=== PATIENT | female | born 1935 | race Caucasian/White ===

== ENCOUNTER → 2018-03-11 08:47 | Outpatient (CLI) | payer MEDICARE, SELFPAY ==
--- NOTE | 2018-03-12 08:28 | LEAS ---
Arterial Study - Arterial Study Arterial Study: Date of scan 03/11/[address] Tom History: Patient with iliac stenosis Interpretation: Right lower extremity with biphasic flow of the PT with an ASHOK 0.96 and more of a triphasic waveform of the DP with an ASHOK 0.98. Left lower extremity with triphasic flow the PT with an ASHOK 0.94 and clustered a biphasic waveform in the DP with an ASHOK 0.98. Impression: 1. Bilateral lower extremities with no evidence of significant arterial occlusive disease at rest with an ASHOK 0.98 bilaterally and triphasic waveform noted
== END ==
PROVIDERS: Family Provider Family Medicine; PCP Family Medicine; Visit Provider Surgery Vascular Surgery
DX: I77.1 Stricture of artery (principal); I70.213 Atherosclerosis of native arteries of extremities with intermittent claudication, bilateral legs; F41.9 Anxiety disorder, unspecified; E78.00 Pure hypercholesterolemia, unspecified; I51.9 Heart disease, unspecified; I10 Essential (primary) hypertension; Z87.19 Personal history of other diseases of the digestive system; Z87.891 Personal history of nicotine dependence
CPT/HCPCS: 93922; 93978

== ENCOUNTER → 2018-09-22 09:20 | Outpatient (CLI) | payer MEDICARE, SELFPAY ==
[2018-09-22 10:27] LABS: EXAGEN MAILED SPECIMEN
[2018-09-22 10:43] LABS: Color, Urine Yellow (Yellow); Glucose, Dipstick Normal (Normal); Ketone-Dipstick 5 mg/dl (Negative); Leukocyte Esterase-Dipstick 500 /ul (Negative); Nitrite-Dipstick Negative (Negative); Occult Blood-Urine 25 /ul (Negative); Protein-Dipstick 100 mg/dl (Negative); Urine Bilirubin Dipstick Negative (Negative); Urine Clarity Sl. Cloudy (Clear); Urine Urobilinogen 1 mg/dl (Normal)
[2018-09-22 11:14] LABS: Protein, Urine (Random) 80.1 mg/dL (<11.9); Protein:Creat Ratio 358 mg/g CRE (0-200)
[2018-09-22 12:56] LABS: Erythrocyte Sedimentation Rate 5 mm/hr (0-30)
[2018-09-22 12:59] LABS: Absolute Lymphocyte Count 1.51 X10^3/ul (0.83-4.51); Absolute Neutrophil Count 3.3 X10^3/uL (2.0-7.7); Basophil# 0.02 X10^3/uL; Basophil% 0.4 % (0-1); Eosinophil# 0.19 X10^3/uL; Eosinophils% 3.4 % (0-5); Hematocrit 39.3 % (37-47); Hemoglobin 12.2 g/dl (12.0-15.0); Lymphocyte # 1.51 X10^3/ul (4.0); Lymphocyte % 27.2 % (19-41); Mean Corpuscular Hgb 29.5 pg (27.0-32.0); Mean Corpuscular Volume 94.9 fL (81-99); Mean Platelet Vol. 10.6 fl (6.2-12.0); Monocyte# 0.52 X10^3/uL; Monocyte% 9.4 % (0-10); Neutrophil # 3.31 X10^3/uL (2.7-7.7); Neutrophil % 59.4 % (47-70); POSITIVE COUNT NO; POSITIVE DIFFERENTIAL NO; POSITIVE MORPHOLOGY NO; Platelet Count 160 K/mm3 (150-450); RBC Distribution Width CV 13.4 % (11.6-14.6); RBC Distribution Width SD 44.7 fl (35.1-43.9); Red Blood Count 4.14 M/mm3 (4.2-5.4); White Blood Count 5.6 K/mm3 (4.4-11.0)
[2018-09-22 13:26] LABS: ALB/GLOB Ratio 1.1 RATIO (0.9-2.4); AST(SGOT) 16 U/L (15-37); Alanine Aminotransfer ALT/SGPT 16 U/L (13-56); Albumin, Serum 3.9 g/dL (3.2-5.0); Alkaline Phosphatase 74 U/L (45-117); Anion Gap 13 (5-15); BUN 16 mg/dL (7-18); BUN/Creat Ratio 15.2 RATIO (10-20); CRP < 2.90 mg/L (0.0-3.0); Calcium,Total 8.8 mg/dL (8.5-10.1); Chloride 109 mmol/L (98-107); Creatinine, Serum 1.05 mg/dL (0.55-1.02); EST Glomerular Filtration Rate 53 mL/min (>60); Est Glom Filt Rate - Afr Amer 65 mL/min (>60); Globulin 3.4 g/dL (2.2-4.2); Glucose 110 mg/dL (74-106); Protein, Total 7.3 g/dL (6.4-8.2); Sodium Level 142 mmol/L (136-145)
[2018-09-23 09:45] LABS: HEPATITIS B SURFACE AG Negative (Negative); Hep B Surface Antibodies Non Reactive (.); Hep C Antibodies <0.1 s/co ratio (0.0-0.9)
== END ==
PROVIDERS: Family Provider Family Medicine; PCP Family Medicine; Referring Provider Internal Medicine Rheumatology; Visit Provider Internal Medicine Rheumatology
DX: M06.4 Inflammatory polyarthropathy (principal); M32.9 Systemic lupus erythematosus, unspecified; M15.9 Polyosteoarthritis, unspecified; Z79.899 Other long term (current) drug therapy
CPT/HCPCS: 36415; 80053; 81002; 82570; 84156; 85025; 85652; 86140; 86706; 86803; 87340

== ENCOUNTER → 2018-11-18 10:19 | Outpatient (CLI) | payer MEDICARE, SELFPAY ==
[2016-08-28 11:06] VITALS: BMI 26.5
[2018-11-18 12:35] LABS: Absolute Lymphocyte Count 2.05 X10^3/ul (0.83-4.51); Absolute Neutrophil Count 4.8 X10^3/uL (2.0-7.7); Basophil# 0.01 X10^3/uL; Basophil% 0.1 % (0-1); Eosinophil# 0.18 X10^3/uL; Eosinophils% 2.3 % (0-5); Hemoglobin 12.4 g/dl (12.0-15.0); Lymphocyte # 2.05 X10^3/ul (4.0); Mean Corpuscular Hgb 28.9 pg (27.0-32.0); Mean Corpuscular Volume 93.2 fL (81-99); Monocyte% 10.2 % (0-10); Platelet Count 170 K/mm3 (150-450); RBC Distribution Width SD 47.2 fl (35.1-43.9); Red Blood Count 4.29 M/mm3 (4.2-5.4); White Blood Count 7.9 K/mm3 (4.4-11.0)
[2018-11-18 12:42] LABS: POSITIVE COUNT NO; POSITIVE DIFFERENTIAL NO; POSITIVE MORPHOLOGY NO
[2018-11-18 12:55] LABS: ALB/GLOB Ratio 1.2 RATIO (0.9-2.4); AST(SGOT) 16 U/L (15-37); Alanine Aminotransfer ALT/SGPT 20 U/L (13-56); Albumin, Serum 3.7 g/dL (3.2-5.0); Alkaline Phosphatase 69 U/L (45-117); Anion Gap 8 (5-15); BUN 28 mg/dL (7-18); BUN/Creat Ratio 23.5 RATIO (10-20); Calcium,Total 8.4 mg/dL (8.5-10.1); Chloride 104 mmol/L (98-107); Creatinine, Serum 1.19 mg/dL (0.55-1.02); EST Glomerular Filtration Rate 46 mL/min (>60); Est Glom Filt Rate - Afr Amer 56 mL/min (>60); Globulin 3.2 g/dL (2.2-4.2); Glucose 102 mg/dL (74-106); Potassium 4.1 mmol/L (3.5-5.1); Protein, Total 6.9 g/dL (6.4-8.2); Sodium Level 139 mmol/L (136-145)
== END ==
PROVIDERS: Family Provider Family Medicine; PCP Family Medicine; Referring Provider Internal Medicine Rheumatology; Visit Provider Internal Medicine Rheumatology
DX: M06.4 Inflammatory polyarthropathy (principal); M32.9 Systemic lupus erythematosus, unspecified; Z79.899 Other long term (current) drug therapy; K21.0 Gastro-esophageal reflux disease with esophagitis; I10 Essential (primary) hypertension; I25.10 Atherosclerotic heart disease of native coronary artery without angina pectoris; E78.5 Hyperlipidemia, unspecified
CPT/HCPCS: 36415; 80053; 85025

== ENCOUNTER → 2019-01-20 14:44 | Outpatient (CLI) | payer MEDICARE, SELFPAY ==
[2016-08-28 11:06] VITALS: BMI 26.5
[2019-01-20 17:42] LABS: Absolute Neutrophil Count 5.4 X10^3/uL (2.0-7.7); Basophil# 0.01 X10^3/uL; Basophil% 0.1 % (0-1); Eosinophil# 0.07 X10^3/uL; Hematocrit 39.7 % (37-47); Hemoglobin 12.7 g/dl (12.0-15.0); Lymphocyte % 18.2 % (19-41); Mean Corpuscular Hgb 29.3 pg (27.0-32.0); Mean Corpuscular Volume 91.7 fL (81-99); Monocyte# 0.34 X10^3/uL; Monocyte% 4.8 % (0-10); Neutrophil # 5.41 X10^3/uL (2.7-7.7); Neutrophil % 75.8 % (47-70); Platelet Count 170 K/mm3 (150-450); RBC Distribution Width CV 13.7 % (11.6-14.6); RBC Distribution Width SD 45.4 fl (35.1-43.9); Red Blood Count 4.33 M/mm3 (4.2-5.4); White Blood Count 7.1 K/mm3 (4.4-11.0)
[2019-01-20 17:43] LABS: POSITIVE COUNT NO; POSITIVE DIFFERENTIAL NO; POSITIVE MORPHOLOGY NO
[2019-01-20 18:00] LABS: ALB/GLOB Ratio 1.2 RATIO (0.9-2.4); AST(SGOT) 13 U/L (15-37); Alanine Aminotransfer ALT/SGPT 17 U/L (13-56); Alkaline Phosphatase 59 U/L (45-117); Anion Gap 9 (5-15); BUN 28 mg/dL (7-18); BUN/Creat Ratio 23.9 RATIO (10-20); Calcium,Total 8.9 mg/dL (8.5-10.1); Chloride 107 mmol/L (98-107); Creatinine, Serum 1.17 mg/dL (0.55-1.02); EST Glomerular Filtration Rate 47 mL/min (>60); Est Glom Filt Rate - Afr Amer 57 mL/min (>60); Globulin 3.3 g/dL (2.2-4.2); Glucose 134 mg/dL (74-106); Potassium 4.5 mmol/L (3.5-5.1); Protein, Total 7.3 g/dL (6.4-8.2); Sodium Level 140 mmol/L (136-145)
== END ==
PROVIDERS: Family Provider Family Medicine; PCP Family Medicine; Referring Provider Internal Medicine Rheumatology; Visit Provider Internal Medicine Rheumatology
DX: M06.4 Inflammatory polyarthropathy (principal); Z79.899 Other long term (current) drug therapy; M32.9 Systemic lupus erythematosus, unspecified; M15.9 Polyosteoarthritis, unspecified; K21.0 Gastro-esophageal reflux disease with esophagitis; I10 Essential (primary) hypertension; I25.10 Atherosclerotic heart disease of native coronary artery without angina pectoris; E78.5 Hyperlipidemia, unspecified; R80.9 Proteinuria, unspecified
CPT/HCPCS: 36415; 80053; 85025

== ENCOUNTER → 2019-03-18 13:35 | Outpatient (CLI) | payer MEDICARE, SELFPAY ==
[2016-08-28 11:06] VITALS: BMI 26.5
[2019-03-18 15:31] LABS: Absolute Lymphocyte Count 1.27 X10^3/uL (0.83-4.51); Absolute Neutrophil Count 8.9 X10^3/uL (2.0-7.7); Basophil# 0.03 X10^3/uL; Basophil% 0.3 % (0-1); Eosinophil# 0.04 X10^3/uL; Eosinophils% 0.4 % (0-5); Hematocrit 37.8 % (37-47); Hemoglobin 11.6 g/dL (12.0-15.0); Lymphocyte # 1.27 X10^3/ul (4.0); Lymphocyte % 11.9 % (19-41); Mean Corp Hgb Conc 30.7 g/dL (32-36); Mean Corpuscular Hgb 29.1 pg (27.0-32.0); Mean Corpuscular Volume 94.7 fL (81-99); Mean Platelet Vol. 10.9 fl (6.2-12.0); Monocyte# 0.31 X10^3/uL; Monocyte% 2.9 % (0-10); NRBC Flagged by Analyzer 0 % (0-5); Neutrophil # 8.94 X10^3/uL (2.7-7.7); Neutrophil % 84.1 % (47-70); Platelet Count 201 K/mm3 (150-450); RBC Distribution Width CV 13.4 % (11.6-14.6); RBC Distribution Width SD 46.9 fl (35.1-43.9); Red Blood Count 3.99 M/mm3 (4.2-5.4); White Blood Count 10.6 K/mm3 (4.4-11.0)
[2019-03-18 16:00] LABS: ALB/GLOB Ratio 1.1 RATIO (0.9-2.4); AST(SGOT) 19 U/L (15-37); Alanine Aminotransfer ALT/SGPT 20 U/L (13-56); Albumin, Serum 3.9 g/dL (3.2-5.0); Alkaline Phosphatase 55 U/L (45-117); Anion Gap 10 (5-15); BUN 24 mg/dL (7-18); Calcium,Total 8.8 mg/dL (8.5-10.1); Chloride 109 mmol/L (98-107); EST Glomerular Filtration Rate 46 mL/min (>60); Est Glom Filt Rate - Afr Amer 55 mL/min (>60); Globulin 3.4 g/dL (2.2-4.2); Glucose 206 mg/dL (74-106); Potassium 4.6 mmol/L (3.5-5.1); Protein, Total 7.3 g/dL (6.4-8.2); Sodium Level 142 mmol/L (136-145)
== END ==
PROVIDERS: Family Provider Family Medicine; PCP Family Medicine; Referring Provider Internal Medicine Rheumatology; Visit Provider Internal Medicine Rheumatology
DX: M06.4 Inflammatory polyarthropathy (principal); M32.9 Systemic lupus erythematosus, unspecified; Z79.899 Other long term (current) drug therapy; M15.9 Polyosteoarthritis, unspecified; K21.0 Gastro-esophageal reflux disease with esophagitis; I10 Essential (primary) hypertension; I25.10 Atherosclerotic heart disease of native coronary artery without angina pectoris; E78.5 Hyperlipidemia, unspecified; R80.9 Proteinuria, unspecified
CPT/HCPCS: 36415; 80053; 85025

== ENCOUNTER → 2019-04-17 08:38 | Outpatient (CLI) | payer MEDICARE, SELFPAY ==
--- NOTE | 2019-04-17 08:41 | ART_ITS ---
Reason For Study: Iliac Artery Stenosis Procedure A bilateral lower extremity continuous wave Doppler with analog waveform analysis and ankle brachial indexes. Left Segmental Pressures Left brachial= 172mmHg. Left posterior tibial artery = 154mmHg. Left dorsalis pedis artery = 148mmHg. Right Segmental Pressures Right brachial= 167mmHg. Right posterior tibial artery = 158mmHg. Right dorsalis pedis artery = 174mmHg. Indices The right ankle brachial index by the posterior tibial artery is 0.92. The right ankle brachial index by the dorsalis pedis is 1.01. The left ankle brachial index by the posterior tibial artery is 0.90. The left ankle brachial index by the dorsalis pedis is 0.86. Interpretation Summary 1. No evidence occlussive disease at rest with ASHOK 1.01/0.90. Ordering Physician: Will Tom Referring Physician: Will Tom Performed By: Mala Cuello RDCS/RVT
--- NOTE | 2019-04-17 08:41 | AAVD_ITS ---
Reason For Study: Iliac Artery Stenosis Aorta Measurements Aorta Doppler Measurements Proximal aorta measures1.64cm x 1.64cm. in cross- Peak systolic flow velocities within the proximal sectional axis. aorta measure 59 cm/sec. Proximal aorta measures1.78cm. in longitudinal Peak systolic flow velocities within the mid aorta axis. measure 56 cm/sec. Mid aorta measures1.94cm x 2.06cm. in cross- Peak systolic flow velocities within the distal sectional axis. aorta measure 63 cm/sec. Mid aorta measures1.99cm. in longitudinal axis. Distal aorta measures1.56cm x 1.48cm. in cross- sectional axis. Distal aorta measures1.54cm. in longitudinal axis. Left Iliac Artery Left iliac artery measures 0.74cm x 0.82 cm. in the cross-sectional axis. Left iliac artery measures 0.79 cm. in the longitudinal axis. Peak systolic velocity in the left iliac artery measures 89 cm/sec. Right Iliac Artery Right iliac artery measures 0.77cm x 0.79 cm. in the cross-sectional axis. Right iliac artery measures 0.69 cm. in the longitudinal axis. Peak systolic velocity in the right iliac artery measures 184 cm/sec. Procedure Aorta IVC Iliac vasculature or bypass grafts [id number]. Exam performed in department. Interpretation Summary 1. No aortoiliac aneurysm or stenosis. Ordering Physician: Will Tom Referring Physician: Sebastian Cleveland Performed By: Mala Cuello, DASIA, RVT
== END ==
PROVIDERS: Family Provider Family Medicine; PCP Family Medicine; Referring Provider Surgery Vascular Surgery; Visit Provider Surgery Vascular Surgery
DX: I70.213 Atherosclerosis of native arteries of extremities with intermittent claudication, bilateral legs (principal); I77.1 Stricture of artery; F41.9 Anxiety disorder, unspecified; Z87.891 Personal history of nicotine dependence; Z87.19 Personal history of other diseases of the digestive system; I51.9 Heart disease, unspecified; E78.70 Disorder of bile acid and cholesterol metabolism, unspecified; I10 Essential (primary) hypertension
CPT/HCPCS: 93922; 93978

== ENCOUNTER → 2019-04-21 13:07 | Outpatient (CLI) | payer MEDICARE, SELFPAY ==
[2016-08-28 11:06] VITALS: BMI 26.5
[2019-04-21 14:10] LABS: Absolute Lymphocyte Count 1.37 X10^3/uL (0.83-4.51); Absolute Neutrophil Count 5.6 X10^3/uL (2.0-7.7); Basophil# 0.05 X10^3/uL; Basophil% 0.6 % (0-1); Eosinophil# 0.14 X10^3/uL; Eosinophils% 1.8 % (0-5); Hematocrit 36.1 % (37-47); Hemoglobin 11.2 g/dL (12.0-15.0); Lymphocyte # 1.37 X10^3/ul (4.0); Lymphocyte % 17.6 % (19-41); Mean Corpuscular Hgb 29.6 pg (27.0-32.0); Mean Corpuscular Volume 95.5 fL (81-99); Mean Platelet Vol. 10.3 fl (6.2-12.0); Monocyte# 0.62 X10^3/uL; Monocyte% 7.9 % (0-10); NRBC Flagged by Analyzer 0 % (0-5); Neutrophil # 5.59 X10^3/uL (2.7-7.7); Neutrophil % 71.7 % (47-70); Platelet Count 195 K/mm3 (150-450); RBC Distribution Width CV 13.2 % (11.6-14.6); RBC Distribution Width SD 46.1 fl (35.1-43.9); Red Blood Count 3.78 M/mm3 (4.2-5.4); White Blood Count 7.8 K/mm3 (4.4-11.0)
[2019-04-21 14:32] LABS: ALB/GLOB Ratio 1.2 RATIO (0.9-2.4); AST(SGOT) 16 U/L (15-37); Alanine Aminotransfer ALT/SGPT 18 U/L (13-56); Albumin, Serum 3.8 g/dL (3.2-5.0); Alkaline Phosphatase 60 U/L (45-117); Anion Gap 10 (5-15); BUN 24 mg/dL (7-18); Calcium,Total 8.4 mg/dL (8.5-10.1); Chloride 108 mmol/L (98-107); EST Glomerular Filtration Rate 46 mL/min (>60); Est Glom Filt Rate - Afr Amer 55 mL/min (>60); Globulin 3.2 g/dL (2.2-4.2); Glucose 118 mg/dL (74-106); Potassium 4.2 mmol/L (3.5-5.1); Sodium Level 142 mmol/L (136-145)
== END ==
PROVIDERS: Family Provider Family Medicine; PCP Family Medicine; Referring Provider Internal Medicine Rheumatology; Visit Provider Internal Medicine Rheumatology
DX: M06.4 Inflammatory polyarthropathy (principal); M32.9 Systemic lupus erythematosus, unspecified; M15.9 Polyosteoarthritis, unspecified; K21.0 Gastro-esophageal reflux disease with esophagitis; I10 Essential (primary) hypertension; I25.10 Atherosclerotic heart disease of native coronary artery without angina pectoris; E78.5 Hyperlipidemia, unspecified; R80.9 Proteinuria, unspecified; Z79.899 Other long term (current) drug therapy
CPT/HCPCS: 36415; 80053; 85025

== ENCOUNTER → 2019-05-21 06:40 | Outpatient (CLI) | payer MEDICARE, SELFPAY ==
--- NOTE | 2019-05-21 06:43 | ECHOD_ITS ---
Reason For Study: SOB Procedure This was a 2D Doppler, Color Flow transthoracic echocardiogram. Exam performed in department. Left Ventricle Normal LV size. The estimated ejection fraction is 65 %. Stage 2 diastolic dysfunction. No regional wall motion abnormalities noted. Right Ventricle Normal RV size. Normal systolic function. Atria The left atrium is moderately enlarged. Normal right atrium. No doppler evidence for ASD. Mitral Valve There is moderate mitral annular calcification. There is no mitral valve stenosis. Trivial mitral valve insufficiency. Tricuspid Valve There is no tricuspid stenosis. Mild tricuspid valve insufficiency. Pulmonary artery systolic pressure is 45 mmHg. Aortic Valve Trisinus/trileaflet aortic valve. There is no aortic stenosis. Mild (1+) aortic valve insufficiency. Pulmonic Valve There is no pulmonic valvular stenosis. Trivial pulmonic valve insufficiency. MMode/2D Measurements & Calculations LVIDd: 4.6 cm IVSd: 0.97 cm LVOT diam: 2.0 cm LVIDs: 2.6 cm LVPWd: 1.0 cm LVOT area: 3.2 cm2 RVDd: 3.5 cm FS: 43.3 % Ao root diam: 3.4 cm LAV(MOD-bp): 75.6 ml LA A4 area: 26.4 cm2 LAV(MOD-bp) Indexed: 44.0 ml/m2 LAV(MOD-sp2): 55.6 ml LAV(MOD-sp4): 87.4 ml LA dimension(2D): 4.5 cm RA A4 area: 17.9 cm2 Doppler Measurements & Calculations MV V2 max: 128.6 cm/sec Ao V2 max: 167.1 cm/sec AI max siobhan: 396.7 cm/sec MV max P.6 mmHg Ao max P.2 mmHg AI max P.0 mmHg MV V2 mean: 60.8 cm/sec Ao V2 mean: 103.7 cm/sec MV mean P.9 mmHg Ao mean P.0 mmHg AI dec slope: 180.8 cm/sec2 MV V2 VTI: 42.3 cm Ao V2 VTI: 36.6 cm AI P1/2t: 642.7 msec MVA(VTI): 2.3 cm2 LAUREN(I,D): 2.7 cm2 LAUREN(V,D): 2.8 cm2 LV V1 max: 143.1 cm/sec SV(LVOT): 98.1 ml TR max siobhan: 301.4 cm/sec LV V1 max P.2 mmHg TR max P.4 mmHg LV V1 mean P.2 mmHg LV V1 mean: 81.5 cm/sec LV V1 VTI: 30.5 cm MV P1/2t-pr_phl: 128.6 msec Interpretation Summary The estimated ejection fraction is 65 %. Stage 2 diastolic dysfunction. The left atrium is moderately enlarged. Mild tricuspid valve insufficiency. Pulmonary artery systolic pressure is 45 mmHg. Mild (1+) aortic valve insufficiency. Ordering Physician: Irina Patel Referring Physician: IZABELA YAN Performed By: Trinity Estrada, DASIA, RVT
--- NOTE | 2019-05-26 17:23 | STRESSREP_ITS ---
Stress Test Report Date: 05/21/2019 Procedure: Pharmacologic stress nuclear imaging study Indications: Shortness of breath Consent: Per the patient Procedure: The patient underwent pharmacologic (Regadenoson) evaluation with a peak heart rate of 85 beats per minute (61 %predicted maximal heart rate) and a peak blood pressure of 152/62 mmHg. The baseline ECG demonstrated sinus rhythm, nonspecific ST-T changes. EKG during lexiscan infusion revealed significant ischemic changes. EKG post infusion revealed no significant ischemic changes [There were no cardiac dysrhythmias pretest, during pharmacologic infusion, or recovery]. [There was no complaint of chest discomfort during pharmacologic infusion or recovery]. The examination was discontinued secondary to completion of protocol. Impression: 1. Lexiscan stress test test is negative for Lexiscan infusion induced EKG changes of ischemia. 2. Lexiscan stress test test negative for Lexiscan infusion induced chest pain. 3. Results of the nuclear portion of the test is as below Myocardial perfusion imaging study: Technique: The patient was injected with 10.5 millicuries of technetium 99m Cardiolite and subsequently rest SPECT Cardiolite nuclear imaging was obtained in the horizontal long, vertical long, and short axis views. The patient underwent pharmacologic (Regadenoson) evaluation. Please see above for details. The patient was injected with 30.5 millicuries of technetium 99m Cardiolite and subsequently stress SPECT Cardiolite nuclear imaging was obtained in the horizontal long, vertical long, and short axis views. A gated Cardiolite study at peak stress was obtained. Interpretation: Rest and stress SPECT Cardiolite nuclear imaging status post realignment, normalization, and attenuation correction demonstrate no large fixed or reversible defects suggestive of significant ischemia or infarction. Gated images reveal no significant regional wall motion abnormalities. The reported LVEF is 70 %. Impression: 1. There is no evidence of significant ischemia or infarction. 2. Estimated ejection fraction is 70%. This note was generated with [employer] software. It may contain incorrect words, spelling, and punctuation that were not noted in checking the note before signing.
== END ==
PROVIDERS: Family Provider Family Medicine; PCP Family Medicine; Referring Provider Nurse Practitioner Family; Visit Provider Nurse Practitioner Family
DX: R06.02 Shortness of breath (principal)
CPT/HCPCS: 78452; 93017; 93306; A9500; A4216; J2785

== ENCOUNTER → 2019-07-31 10:13 | Outpatient (CLI) | payer MEDICARE, SELFPAY ==
[2019-06-10 08:08] VITALS: BMI 30.8
[2019-07-31 12:43] LABS: Absolute Neutrophil Count 6.8 X10^3/uL (2.0-7.7); Basophil# 0.03 X10^3/uL; Basophil% 0.3 % (0-1); Eosinophil# 0.08 X10^3/uL; Eosinophils% 0.7 % (0-5); Hematocrit 40.2 % (37-47); Hemoglobin 12.1 g/dL (12.0-15.0); Lymphocyte % 28.6 % (19-41); Mean Corp Hgb Conc 30.1 g/dL (32-36); Mean Corpuscular Hgb 26.8 pg (27.0-32.0); Mean Corpuscular Volume 89.1 fL (81-99); Mean Platelet Vol. 10.3 fl (6.2-12.0); Monocyte% 7.4 % (0-10); NRBC Flagged by Analyzer 0 % (0-5); Neutrophil # 6.75 X10^3/uL (2.7-7.7); Neutrophil % 62.3 % (47-70); Platelet Count 269 K/mm3 (150-450); RBC Distribution Width CV 14.1 % (11.6-14.6); RBC Distribution Width SD 45.2 fl (35.1-43.9); Red Blood Count 4.51 M/mm3 (4.2-5.4); White Blood Count 10.8 K/mm3 (4.4-11.0)
[2019-07-31 13:46] LABS: ALB/GLOB Ratio 1.2 RATIO (0.9-2.4); AST(SGOT) 11 U/L (15-37); Alanine Aminotransfer ALT/SGPT 24 U/L (13-56); Albumin, Serum 3.7 g/dL (3.2-5.0); Alkaline Phosphatase 56 U/L (45-117); Anion Gap 10 (5-15); BUN 33 mg/dL (7-18); BUN/Creat Ratio 28.9 RATIO (10-20); Calcium,Total 9.1 mg/dL (8.5-10.1); Chloride 107 mmol/L (98-107); Creatinine, Serum 1.14 mg/dL (0.55-1.02); EST Glomerular Filtration Rate 48 mL/min (>60); Est Glom Filt Rate - Afr Amer 59 mL/min (>60); Globulin 3.2 g/dL (2.2-4.2); Glucose 175 mg/dL (74-106); Potassium 3.6 mmol/L (3.5-5.1); Protein, Total 6.9 g/dL (6.4-8.2); Sodium Level 139 mmol/L (136-145)
== END ==
PROVIDERS: PCP Family Medicine; Referring Provider Internal Medicine Rheumatology; Visit Provider Internal Medicine Rheumatology
DX: I10 Essential (primary) hypertension (principal); I25.10 Atherosclerotic heart disease of native coronary artery without angina pectoris; K21.0 Gastro-esophageal reflux disease with esophagitis; M06.4 Inflammatory polyarthropathy; M32.9 Systemic lupus erythematosus, unspecified; M15.9 Polyosteoarthritis, unspecified; E78.5 Hyperlipidemia, unspecified; R80.9 Proteinuria, unspecified; Z79.899 Other long term (current) drug therapy
CPT/HCPCS: 36415; 80053; 85025

== ENCOUNTER → 2020-01-18 13:16 | Outpatient (CLI) | payer MEDICARE, SELFPAY ==
[2019-06-10 08:08] VITALS: BMI 30.8
[2020-01-18 16:04] LABS: Absolute Lymphocyte Count 1.16 X10^3/uL (0.83-4.51); Absolute Neutrophil Count 10.2 X10^3/uL (2.0-7.7); Basophil# 0.06 X10^3/uL; Basophil% 0.5 % (0-1); Eosinophil# 0.04 X10^3/uL; Eosinophils% 0.3 % (0-5); Hematocrit 34.2 % (37-47); Hemoglobin 9.8 g/dL (12.0-15.0); Lymphocyte # 1.16 X10^3/ul (4.0); Lymphocyte % 9.7 % (19-41); Mean Corp Hgb Conc 28.7 g/dL (32-36); Mean Corpuscular Hgb 26.5 pg (27.0-32.0); Mean Corpuscular Volume 92.4 fL (81-99); Mean Platelet Vol. 10.4 fl (6.2-12.0); Monocyte# 0.41 X10^3/uL; Monocyte% 3.4 % (0-10); NRBC Flagged by Analyzer 0 % (0-5); Neutrophil # 10.22 X10^3/uL (2.7-7.7); Neutrophil % 85.6 % (47-70); Platelet Count 269 K/mm3 (150-450); RBC Distribution Width CV 14.6 % (11.6-14.6); RBC Distribution Width SD 48.7 fl (35.1-43.9)
[2020-01-18 16:25] LABS: ALB/GLOB Ratio 1.1 RATIO (0.9-2.4); AST(SGOT) 11 U/L (15-37); Alanine Aminotransfer ALT/SGPT 17 U/L (13-56); Albumin, Serum 3.8 g/dL (3.2-5.0); Alkaline Phosphatase 51 U/L (45-117); Anion Gap 8 (5-15); BUN 30 mg/dL (7-18); BUN/Creat Ratio 23.1 RATIO (10-20); Calcium,Total 8.5 mg/dL (8.5-10.1); Chloride 108 mmol/L (98-107); EST Glomerular Filtration Rate 42 mL/min (>60); Est Glom Filt Rate - Afr Amer 50 mL/min (>60); Globulin 3.4 g/dL (2.2-4.2); Glucose 121 mg/dL (74-106); Potassium 4.5 mmol/L (3.5-5.1); Protein, Total 7.2 g/dL (6.4-8.2); Sodium Level 139 mmol/L (136-145)
== END ==
PROVIDERS: PCP Family Medicine; Referring Provider Internal Medicine Rheumatology; Visit Provider Internal Medicine Rheumatology
DX: M06.4 Inflammatory polyarthropathy (principal); M32.9 Systemic lupus erythematosus, unspecified; Z79.899 Other long term (current) drug therapy; M15.9 Polyosteoarthritis, unspecified; K21.0 Gastro-esophageal reflux disease with esophagitis; I10 Essential (primary) hypertension; I25.10 Atherosclerotic heart disease of native coronary artery without angina pectoris; E78.5 Hyperlipidemia, unspecified; R80.9 Proteinuria, unspecified
CPT/HCPCS: 36415; 80053; 85025

== ENCOUNTER → 2020-02-10 15:24 | Outpatient (CLI) | payer MEDICARE, SELFPAY ==
[2019-06-10 08:08] VITALS: BMI 30.8
--- NOTE | 2020-02-10 15:28 | RAD_ITS ---
STUDY: X-RAY - LUMBAR SPINE REASON FOR EXAM: Female, 84 years old. Lower back pain radiating into the left hip. TECHNIQUE: 6 view(s) of the lumbar spine were obtained. COMPARISON: None FINDINGS: Normal lumbar lordosis. There is a minimal levoscoliosis with convexity at L3. There is a normal alignment of the vertebrae. There is fusion of the L4-5 vertebral bodies. There is endplate spondylosis at multiple levels. There is multi-level degenerative disc disease with multi-level disc space narrowing. There is no evidence of acute fracture or loss of vertebral axial height. There is no demonstrated spondylolysis of the pars interarticulares. There is atherosclerotic calcification of the abdominal aorta without a demonstrated aneurysm. RAD/L/S Spine Min 4 Views IMPRESSION: Degenerative changes of the lumbar spine with L4-5 fusion. Electronically Signed: Mitul Vincent DO at 16:09 EDT Tel [phone], Service support ,
--- NOTE | 2020-02-10 15:28 | RAD_ITS ---
STUDY: X-RAY - PELVIS AND LEFT HIP REASON FOR EXAM: Female, 84 years old. Lower back pain radiating into the left hip. No recent injury. TECHNIQUE: 3 views of the pelvis and hip. COMPARISON: None. FINDINGS: There is a non-specific bowel gas pattern. Normal visualized soft tissue structures. There are atherosclerotic vascular calcifications. Normal bilateral iliac wings, sacroiliac joints and visualized sacrum. Normal bilateral superior and inferior pubic rami. There are degenerative changes of the pubic symphysis with articular narrowing and sclerosis. Normal bilateral ischial tuberosities. Normal visualized left femoral head. There is minimal osteoarthritic spur formation of the left acetabular rim. There is mild articular joint space narrowing of the left hip. RAD/HIP, UNI W/ Pelvis 2-3 Views IMPRESSION: Degenerative changes on the left hip. There is no acute fracture or dislocation. Electronically Signed: Mitul Vincent DO at 16:09 EDT Tel [phone], Service support ,
== END ==
PROVIDERS: PCP Family Medicine; Referring Provider Nurse Practitioner Family; Visit Provider Nurse Practitioner Family
DX: M54.9 Dorsalgia, unspecified (principal); M25.559 Pain in unspecified hip
CPT/HCPCS: 72110; 73502

== ENCOUNTER → 2020-03-18 10:51 | Outpatient (CLI) | payer MEDICARE, SELFPAY ==
[2020-02-19 09:54] VITALS: BMI 28.9
[2020-03-18 12:20] LABS: Absolute Lymphocyte Count 1.27 X10^3/uL (0.83-4.51); Absolute Neutrophil Count 9.1 X10^3/uL (2.0-7.7); Basophil# 0.04 X10^3/uL; Basophil% 0.3 % (0-1); Eosinophil# 0.27 X10^3/uL; Eosinophils% 2.3 % (0-5); Hematocrit 41.8 % (37-47); Lymphocyte # 1.27 X10^3/ul (4.0); Mean Corp Hgb Conc 31.1 g/dL (32-36); Mean Corpuscular Hgb 29.1 pg (27.0-32.0); Mean Corpuscular Volume 93.5 fL (81-99); Mean Platelet Vol. 10.7 fl (6.2-12.0); Monocyte# 0.83 X10^3/uL; Monocyte% 7.2 % (0-10); NRBC Flagged by Analyzer 0 % (0-5); Neutrophil # 9.11 X10^3/uL (2.7-7.7); Neutrophil % 78.7 % (47-70); Platelet Count 180 K/mm3 (150-450); RBC Distribution Width CV 15.4 % (11.6-14.6); Red Blood Count 4.47 M/mm3 (4.2-5.4); White Blood Count 11.6 K/mm3 (4.4-11.0)
[2020-03-18 13:08] LABS: ALB/GLOB Ratio 1.2 RATIO (0.9-2.4); AST(SGOT) 18 U/L (15-37); Alanine Aminotransfer ALT/SGPT 23 U/L (13-56); Albumin, Serum 3.7 g/dL (3.2-5.0); Alkaline Phosphatase 53 U/L (45-117); Anion Gap 7 (5-15); BUN 29 mg/dL (7-18); BUN/Creat Ratio 23.4 RATIO (10-20); Calcium,Total 8.6 mg/dL (8.5-10.1); Chloride 105 mmol/L (98-107); Creatinine, Serum 1.24 mg/dL (0.55-1.02); EST Glomerular Filtration Rate 44 mL/min (>60); Est Glom Filt Rate - Afr Amer 53 mL/min (>60); Globulin 3.1 g/dL (2.2-4.2); Glucose 205 mg/dL (74-106); Potassium 4.4 mmol/L (3.5-5.1); Protein, Total 6.8 g/dL (6.4-8.2); Sodium Level 139 mmol/L (136-145)
== END ==
PROVIDERS: PCP Family Medicine; Referring Provider Internal Medicine Rheumatology; Visit Provider Internal Medicine Rheumatology
DX: M06.4 Inflammatory polyarthropathy (principal); M32.9 Systemic lupus erythematosus, unspecified; Z79.899 Other long term (current) drug therapy; M15.9 Polyosteoarthritis, unspecified; K21.0 Gastro-esophageal reflux disease with esophagitis; I10 Essential (primary) hypertension; I25.10 Atherosclerotic heart disease of native coronary artery without angina pectoris; E78.5 Hyperlipidemia, unspecified; R80.9 Proteinuria, unspecified
CPT/HCPCS: 36415; 80053; 85025

== ENCOUNTER → 2020-04-19 13:43 | Outpatient (CLI) | payer MEDICARE, SELFPAY ==
[2020-02-19 09:54] VITALS: BMI 28.9
--- NOTE | 2020-04-19 13:46 | ART_ITS ---
Reason For Study: PVD Procedure A bilateral lower extremity continuous wave Doppler with analog waveform analysis,segmental pressures,and ankle brachial indexes without exercise. Left Segmental Pressures Left brachial= 175mmHg. Left thigh = 122mmHg. Left calf = 92mmHg. Left posterior tibial artery = 99mmHg. Left dorsalis pedis artery = 90mmHg. Left digit = 65 mmHg. The left dorsalis pedis waveforms are biphasic. The left posterior tibial artery waveforms are biphasic. Right Segmental Pressures Right brachial= 167mmHg. Right thigh = 194mmHg. Right calf = 149mmHg. Right posterior tibial artery = 149mmHg. Right dorsalis pedis artery = 161mmHg. Right digit = 103 mmHg. The right dorsalis pedis waveforms are triphasic. The right posterior tibial artery waveforms are triphasic. Indices The right ankle brachial index by the dorsalis pedis is 0.92. The right ankle brachial index by the posterior tibial artery is 0.85. The right digital-brachial index is 0.59. The left ankle brachial index by the dorsalis pedis is 0.51. The left ankle brachial index by the posterior tibial artery is 0.57. The left digital-brachial index is 0.37. Interpretation Summary right leg normal triphasic flow at rest with ASHOK 0.92. Left leg withmoderate occlusive disease and ASHOK 0.57 wiht biphasic flow. Ordering Physician: Sebastian Cleveland Referring Physician: Sebastian Cleveland Performed By: Riri Rosa RVT and Student
== END ==
PROVIDERS: PCP Family Medicine; Referring Provider Family Medicine; Visit Provider Family Medicine
DX: I73.9 Peripheral vascular disease, unspecified (principal)
CPT/HCPCS: 93923

== ENCOUNTER → 2020-05-11 12:52 | Outpatient (CLI) | payer MEDICARE, SELFPAY ==
[2020-02-19 09:54] VITALS: BMI 28.9
--- NOTE | 2020-05-11 12:55 | CT_ITS ---
HISTORY: LEG PAIN X 2 MONTHS TECHNIQUE: CT angiogram images of the abdomen, pelvis and lower extremities were obtained with ml 100mL Isovue-370 IV contrast. Enteric contrast was not administered. 3D MIP images reviewed to aid in vascular evaluation. Number of images including paperwork: [id number]. A radiation dose optimization technique was used for this scan. COMPARISON: None FINDINGS: AORTA: Atherosclerotic plaque. Mildly ectatic of renal abdominal aorta measuring 2.1 cm AP. No dissection. VISCERAL ARTERIES: Unremarkable. RIGHT SIDE: Mild to moderate calcified plaque of the iliac and common femoral arteries without significant focal stenosis detected. Mild atherosclerotic plaque of the superficial femoral and proximal popliteal arteries. Mild calcified plaque of the runoff vessels which are patent to the level of the foot. LEFT SIDE: Mild to moderate calcified plaque of the iliac and common femoral vessels. Approximate 40% narrowing of the distal common femoral artery. Patent deep femoral artery. Approximate 70% narrowing of the proximal superficial femoral artery is noted secondary to eccentric calcified plaque with moderate diffuse disease of the proximal superficial femoral artery. Mild to moderate atherosclerotic plaque of the left mid femoral artery and at the left popliteal artery. Calcified plaque in the distal popliteal artery with less than 50% narrowing. Minimal calcified plaque of the distal anterior tibial artery. Runoff vessels patent to the level of the foot. VENOUS STRUCTURES: Limited evaluation due to phase of contrast but grossly unremarkable. CHEST BASE: Hypoventilatory changes. Moderate size hiatal hernia. Cardiomegaly. Coronary calcification. LIVER AND BILIARY TRACT: No concerning focal hepatic lesion. Cholecystectomy. No biliary dilatation. SPLEEN: Unremarkable. PANCREAS: Unremarkable. ADRENAL GLANDS: Unremarkable. KIDNEYS/URETERS: Small bilateral renal to small to characterize lesions and cysts for which no follow-up is warranted per consensus guidelines. BOWEL: Unremarkable. LYMPH NODES: Unremarkable. FREE FLUID: No significant free fluid. FREE AIR: None. PELVIS: Decompressed bladder. No pelvic mass. Hysterectomy. ABDOMINAL WALL: Fat-containing ventral hernia in the epigastrium. OSSEOUS AND SOFT TISSUE STRUCTURES: No acute skeletal findings. Degenerative changes. CT/CTA Abd w/Runoff W/WO Contrast IMPRESSION: 1. Mild to moderate atherosclerotic plaque on the right without significant focal stenosis detected. 2. Approximate 70% stenosis of the proximal left superficial femoral artery. 3. Additional findings above. Individualized dose optimization techniques were used for this CT. at 2300 Reported and signed by: Sunitha Goodman MD Electronically Signed: Sunitha Goodman MD at 23:00 EDT Tel , Service support ,
== END ==
PROVIDERS: PCP Family Medicine; Referring Provider Surgery Vascular Surgery; Visit Provider Surgery Vascular Surgery
DX: I70.213 Atherosclerosis of native arteries of extremities with intermittent claudication, bilateral legs (principal); I77.1 Stricture of artery
CPT/HCPCS: 75635; Q9967

== ENCOUNTER → 2020-06-07 14:17 | Outpatient (CLI) | payer MEDICARE, SELFPAY ==
[2020-02-19 09:54] VITALS: BMI 28.9
[2020-06-07 17:52] LABS: Absolute Lymphocyte Count 1.27 X10^3/uL (0.83-4.51); Absolute Neutrophil Count 5.9 X10^3/uL (2.0-7.7); Basophil# 0.06 X10^3/uL; Basophil% 0.8 % (0-1); Eosinophil# 0.14 X10^3/uL; Eosinophils% 1.8 % (0-5); Hematocrit 36.5 % (37-47); Hemoglobin 10.8 g/dL (12.0-15.0); Lymphocyte # 1.27 X10^3/ul (4.0); Lymphocyte % 15.9 % (19-41); Mean Corp Hgb Conc 29.6 g/dL (32-36); Mean Corpuscular Hgb 28.9 pg (27.0-32.0); Mean Corpuscular Volume 97.6 fL (81-99); Mean Platelet Vol. 10.6 fl (6.2-12.0); Monocyte# 0.57 X10^3/uL; Monocyte% 7.1 % (0-10); NRBC Flagged by Analyzer 0 % (0-5); Neutrophil # 5.92 X10^3/uL (2.7-7.7); Neutrophil % 74.1 % (47-70); Platelet Count 207 K/mm3 (150-450); RBC Distribution Width CV 13.3 % (11.6-14.6); RBC Distribution Width SD 47.8 fl (35.1-43.9); Red Blood Count 3.74 M/mm3 (4.2-5.4)
[2020-06-07 18:22] LABS: ALB/GLOB Ratio 1.2 RATIO (0.9-2.4); AST(SGOT) 12 U/L (15-37); Alanine Aminotransfer ALT/SGPT 19 U/L (13-56); Albumin, Serum 3.7 g/dL (3.2-5.0); Alkaline Phosphatase 59 U/L (45-117); Anion Gap 10 (5-15); BUN 22 mg/dL (7-18); BUN/Creat Ratio 18.2 RATIO (10-20); Calcium,Total 8.9 mg/dL (8.5-10.1); Chloride 108 mmol/L (98-107); Creatinine, Serum 1.21 mg/dL (0.55-1.02); EST Glomerular Filtration Rate 45 mL/min (>60); Est Glom Filt Rate - Afr Amer 55 mL/min (>60); Globulin 3.2 g/dL (2.2-4.2); Glucose 131 mg/dL (74-106); Potassium 4.1 mmol/L (3.5-5.1); Protein, Total 6.9 g/dL (6.4-8.2); Sodium Level 140 mmol/L (136-145)
== END ==
PROVIDERS: PCP Internal Medicine; Referring Provider Internal Medicine Rheumatology; Visit Provider Internal Medicine Rheumatology
DX: M06.4 Inflammatory polyarthropathy (principal); M32.9 Systemic lupus erythematosus, unspecified; Z79.899 Other long term (current) drug therapy; M15.9 Polyosteoarthritis, unspecified; I10 Essential (primary) hypertension; I25.10 Atherosclerotic heart disease of native coronary artery without angina pectoris; E78.5 Hyperlipidemia, unspecified; R80.9 Proteinuria, unspecified
CPT/HCPCS: 36415; 80053; 85025

== ENCOUNTER → 2020-06-16 15:44 | Outpatient (CLI) | payer MEDICARE, SELFPAY ==
[2020-06-16 15:12] VITALS: BMI 28.7
[2020-06-16 16:10] LABS: Mucous, Urine 0 SEEN /hpf (<or=2+); Red Blood Cells-Urine 0 SEEN /hpf (0-5)
[2020-06-16 17:00] LABS: Color, Urine Yellow (Yellow); Glucose, Dipstick Normal (Normal); Ketone-Dipstick Negative (Negative); Leukocyte Esterase-Dipstick 500 /ul (Negative); Nitrite-Dipstick Positive (Negative); Occult Blood-Urine 10 /ul (Negative); Protein-Dipstick 30 mg/dl (Negative); Specific Gravity, Urine 1.015 (1.002-1.030); Urine Bilirubin Dipstick Negative (Negative); Urine Clarity Sl. Cloudy (Clear); Urine Urobilinogen Normal (Normal)
[2020-06-16 17:10] LABS: Anion Gap 8 (5-15); BUN 28 mg/dL (7-18); BUN/Creat Ratio 26.2 RATIO (10-20); Calcium,Total 8.4 mg/dL (8.5-10.1); Chloride 108 mmol/L (98-107); Creatinine, Serum 1.07 mg/dL (0.55-1.02); EST Glomerular Filtration Rate 52 mL/min (>60); Est Glom Filt Rate - Afr Amer 63 mL/min (>60); Glucose 138 mg/dL (74-106); Sodium Level 140 mmol/L (136-145)
[2020-06-16 17:26] LABS: Bacteria 1+ /hpf (None Seen); Squamous Epithelial Cells - UA 0-5 SEEN /hpf (5-10); White Blood Cells 25-50 SEEN /hpf (0-5)
== END ==
PROVIDERS: PCP Internal Medicine; Referring Provider Internal Medicine; Visit Provider Internal Medicine
DX: N39.0 Urinary tract infection, site not specified (principal); R53.81 Other malaise; R53.83 Other fatigue
CPT/HCPCS: 36415; 80048; 81001; 87077; 87086; 87088; 87186

== ENCOUNTER → 2020-08-02 15:50 | Outpatient (CLI) | payer MEDICARE, SELFPAY ==
[2020-08-02 15:16] VITALS: BMI 28.3
[2020-08-02 15:54] LABS: Bacteria 0 SEEN /hpf (None Seen); Mucous, Urine 0 SEEN /hpf (<or=2+)
[2020-08-02 16:37] LABS: Color, Urine Yellow (Yellow); Glucose, Dipstick Normal (Normal); Ketone-Dipstick Negative (Negative); Leukocyte Esterase-Dipstick 500 /ul (Negative); Nitrite-Dipstick Negative (Negative); Occult Blood-Urine 10 /ul (Negative); Protein-Dipstick 30 mg/dl (Negative); Specific Gravity, Urine 1.015 (1.002-1.030); Urine Bilirubin Dipstick Negative (Negative); Urine Clarity Sl. Cloudy (Clear); Urine Urobilinogen Normal (Normal)
[2020-08-02 16:45] LABS: Red Blood Cells-Urine 0-5 SEEN /hpf (0-5); Squamous Epithelial Cells - UA 0-5 SEEN /hpf (5-10); White Blood Cells 50-100 SEEN /hpf (0-5)
[2020-08-02 16:46] LABS: Amorphous Sediment 1+ URATE
== END ==
PROVIDERS: PCP Internal Medicine; Referring Provider Nurse Practitioner Family; Visit Provider Nurse Practitioner Family
DX: R35.0 Frequency of micturition (principal)
CPT/HCPCS: 81001; 87077; 87086; 87088; 87186

== ENCOUNTER → 2020-08-10 15:16 | Outpatient (CLI) | payer MEDICARE, SELFPAY ==
[2020-08-02 15:16] VITALS: BMI 28.3
[2020-08-10 18:23] LABS: Absolute Lymphocyte Count 1.28 X10^3/uL (0.83-4.51); Absolute Neutrophil Count 5.7 X10^3/uL (2.0-7.7); Basophil# 0.05 X10^3/uL; Basophil% 0.6 % (0-1); Eosinophil# 0.11 X10^3/uL; Eosinophils% 1.4 % (0-5); Hematocrit 37.1 % (37-47); Hemoglobin 10.9 g/dL (12.0-15.0); Lymphocyte # 1.28 X10^3/ul (4.0); Lymphocyte % 16.3 % (19-41); Mean Corp Hgb Conc 29.4 g/dL (32-36); Mean Corpuscular Hgb 25.3 pg (27.0-32.0); Mean Corpuscular Volume 86.3 fL (81-99); Mean Platelet Vol. 11.1 fl (6.2-12.0); Monocyte# 0.66 X10^3/uL; Monocyte% 8.4 % (0-10); NRBC Flagged by Analyzer 0 % (0-5); Neutrophil # 5.71 X10^3/uL (2.7-7.7); Platelet Count 225 K/mm3 (150-450); RBC Distribution Width CV 14.6 % (11.6-14.6); RBC Distribution Width SD 46.2 fl (35.1-43.9); White Blood Count 7.8 K/mm3 (4.4-11.0)
[2020-08-10 18:56] LABS: ALB/GLOB Ratio 1.1 RATIO (0.9-2.4); AST(SGOT) 18 U/L (15-37); Alanine Aminotransfer ALT/SGPT 25 U/L (13-56); Albumin, Serum 3.8 g/dL (3.2-5.0); Alkaline Phosphatase 49 U/L (45-117); Anion Gap 10 (5-15); BUN 20 mg/dL (7-18); BUN/Creat Ratio 17.5 RATIO (10-20); Calcium,Total 8.2 mg/dL (8.5-10.1); Chloride 107 mmol/L (98-107); Creatinine, Serum 1.14 mg/dL (0.55-1.02); EST Glomerular Filtration Rate 48 mL/min (>60); Est Glom Filt Rate - Afr Amer 59 mL/min (>60); Globulin 3.4 g/dL (2.2-4.2); Glucose 115 mg/dL (74-106); Potassium 3.8 mmol/L (3.5-5.1); Protein, Total 7.2 g/dL (6.4-8.2); Sodium Level 139 mmol/L (136-145)
== END ==
PROVIDERS: PCP Internal Medicine; Referring Provider Internal Medicine Rheumatology; Visit Provider Internal Medicine Rheumatology
DX: M06.4 Inflammatory polyarthropathy (principal); M32.9 Systemic lupus erythematosus, unspecified; Z79.899 Other long term (current) drug therapy; K21.00 Gastro-esophageal reflux disease with esophagitis, without bleeding; I10 Essential (primary) hypertension; I25.10 Atherosclerotic heart disease of native coronary artery without angina pectoris; E78.5 Hyperlipidemia, unspecified; R80.9 Proteinuria, unspecified
CPT/HCPCS: 36415; 80053; 85025

== ENCOUNTER → 2020-10-07 14:18 | Outpatient (CLI) | payer MEDICARE, SELFPAY ==
[2020-10-07 11:35] VITALS: BMI 28.3
--- NOTE | 2020-10-07 14:47 | RAD_ITS ---
STUDY: X-RAY - RIGHT FOOT CLINICAL: Female, 85 years old. Right Foot Pain ( dorsal ) TECHNIQUE: 3 view(s) of the foot. COMPARISON: None. FINDINGS: Normal talus, calcaneus, and tarsal bones. Normal visualized subtalar, talonavicular, calcaneocuboid, tarsal and tarsometatarsal articulations. Linear lucency of the dorsal cortex of metatarsal (likely third and fourth) single lateral view. There is degenerative arthrosis of the metatarsophalangeal joint of the hallux . Normal tibial and fibular sesamoid bones. Normal interphalangeal joint of the great toe. Normal phalanges of the great toe. Normal second through fifth metatarsophalangeal joints. Partial amputation of the fourth toe. Dorsal foot soft tissue swelling. RAD/Foot min 3 Views IMPRESSION: Nondisplaced fracture of the dorsal mid metatarsal, likely third or fourth Electronically Signed: Александр Guzman MD ([place]) at 14:32 EDT , Service support ,
[2020-10-07 15:10] LABS: Absolute Lymphocyte Count 0.82 X10^3/uL (0.83-4.51); Basophil# 0.05 X10^3/uL; Basophil% 0.8 % (0-1); Eosinophil# 0.11 X10^3/uL; Eosinophils% 1.7 % (0-5); Hematocrit 38.5 % (37-47); Hemoglobin 11.4 g/dL (12.0-15.0); Lymphocyte # 0.82 X10^3/ul (4.0); Lymphocyte % 12.6 % (19-41); Mean Corp Hgb Conc 29.6 g/dL (32-36); Mean Corpuscular Hgb 25.2 pg (27.0-32.0); Mean Platelet Vol. 10.9 fl (6.2-12.0); Monocyte# 0.51 X10^3/uL; Monocyte% 7.8 % (0-10); NRBC Flagged by Analyzer 0 % (0-5); Neutrophil % 76.9 % (47-70); Platelet Count 186 K/mm3 (150-450); RBC Distribution Width CV 18.4 % (11.6-14.6); RBC Distribution Width SD 56.2 fl (35.1-43.9); Red Blood Count 4.53 M/mm3 (4.2-5.4); White Blood Count 6.5 K/mm3 (4.4-11.0)
[2020-10-07 15:28] LABS: Anion Gap 8 (5-15); BUN 23 mg/dL (7-18); BUN/Creat Ratio 18.1 RATIO (10-20); Calcium,Total 8.9 mg/dL (8.5-10.1); Chloride 105 mmol/L (98-107); Creatinine, Serum 1.27 mg/dL (0.55-1.02); EST Glomerular Filtration Rate 43 mL/min (>60); Est Glom Filt Rate - Afr Amer 52 mL/min (>60); Glucose 148 mg/dL (74-106); Potassium 4.4 mmol/L (3.5-5.1); Sodium Level 138 mmol/L (136-145)
[2020-10-07 16:49] LABS: Ferritin 16 ng/mL (8-252); Iron 60 ug/dL (50-170); Iron Binding Capacity,Total 357 ug/dL (250-450)
== END ==
PROVIDERS: PCP Internal Medicine; Referring Provider Internal Medicine; Visit Provider Internal Medicine
DX: M79.671 Pain in right foot (principal); D64.9 Anemia, unspecified; L03.90 Cellulitis, unspecified
CPT/HCPCS: 36415; 73630; 80048; 82728; 83540; 83550; 85025

== ENCOUNTER → 2020-11-08 11:04 | Outpatient (CLI) | payer MEDICARE, SELFPAY ==
[2020-11-08 10:29] VITALS: BMI 28.5
[2020-11-08 12:52] LABS: Absolute Lymphocyte Count 1.07 X10^3/uL (0.83-4.51); Absolute Neutrophil Count 4.2 X10^3/uL (2.0-7.7); Basophil# 0.05 X10^3/uL; Basophil% 0.8 % (0-1); Eosinophil# 0.15 X10^3/uL; Eosinophils% 2.4 % (0-5); Hematocrit 38.9 % (37-47); Hemoglobin 11.5 g/dL (12.0-15.0); Lymphocyte # 1.07 X10^3/ul (0.83-4.51); Lymphocyte % 17.3 % (19-41); Mean Corp Hgb Conc 29.6 g/dL (32-36); Mean Corpuscular Hgb 25.8 pg (27.0-32.0); Mean Corpuscular Volume 87.4 fL (81-99); Mean Platelet Vol. 10.6 fl (6.2-12.0); Monocyte# 0.65 X10^3/uL; Monocyte% 10.5 % (0-10); NRBC Flagged by Analyzer 0 % (0-5); Neutrophil # 4.23 X10^3/uL (2.7-7.7); Neutrophil % 68.5 % (47-70); Platelet Count 181 K/mm3 (150-450); RBC Distribution Width CV 16.5 % (11.6-14.6); RBC Distribution Width SD 52.7 fl (35.1-43.9); Red Blood Count 4.45 M/mm3 (4.2-5.4); White Blood Count 6.2 K/mm3 (4.4-11.0)
[2020-11-08 13:13] LABS: ALB/GLOB Ratio 1.2 RATIO (0.9-2.4); AST(SGOT) 19 U/L (15-37); Alanine Aminotransfer ALT/SGPT 22 U/L (13-56); Alkaline Phosphatase 58 U/L (45-117); Anion Gap 8 (5-15); BUN 23 mg/dL (7-18); Calcium,Total 9.1 mg/dL (8.5-10.1); Chloride 107 mmol/L (98-107); Creatinine, Serum 1.15 mg/dL (0.55-1.02); EST Glomerular Filtration Rate 48 mL/min (>60); Est Glom Filt Rate - Afr Amer 58 mL/min (>60); Globulin 3.2 g/dL (2.2-4.2); Glucose 137 mg/dL (74-106); Potassium 3.7 mmol/L (3.5-5.1); Protein, Total 7.2 g/dL (6.4-8.2); Sodium Level 139 mmol/L (136-145)
== END ==
PROVIDERS: PCP Internal Medicine; Referring Provider Internal Medicine Rheumatology; Visit Provider Internal Medicine Rheumatology
DX: M06.4 Inflammatory polyarthropathy (principal); Z79.899 Other long term (current) drug therapy; M32.9 Systemic lupus erythematosus, unspecified; K21.00 Gastro-esophageal reflux disease with esophagitis, without bleeding; I10 Essential (primary) hypertension; I25.10 Atherosclerotic heart disease of native coronary artery without angina pectoris; E78.5 Hyperlipidemia, unspecified; R80.9 Proteinuria, unspecified; I73.9 Peripheral vascular disease, unspecified
CPT/HCPCS: 36415; 80053; 85025

== ENCOUNTER → 2020-11-23 08:57 | Outpatient (CLI) | payer MEDICARE, SELFPAY ==
[2020-06-16 15:12] VITALS: BMI 28.7
[2020-11-08 10:29] VITALS: BMI 28.5
--- NOTE | 2020-11-23 09:00 | ART_ITS ---
Reason For Study: ATHEROSCLEROSIS Procedure A bilateral lower extremity continuous wave Doppler with analog waveform analysis and ankle brachial indexes. Left Segmental Pressures Left brachial= 146mmHg. Left posterior tibial artery = 108mmHg. Left dorsalis pedis artery = 104mmHg. Left digit = 61 mmHg. The left dorsalis pedis waveforms are triphasic. The left posterior tibial artery waveforms are biphasic. Right Segmental Pressures Right brachial= 154mmHg. Right posterior tibial artery = 137mmHg. Right dorsalis pedis artery = 137mmHg. Right digit = 103 mmHg. The right dorsalis pedis waveforms are triphasic. The right posterior tibial artery waveforms are triphasic. Indices The right ankle brachial index by the dorsalis pedis is .89. The right ankle brachial index by the posterior tibial artery is .89. The right digital-brachial index is .67. The left ankle brachial index by the dorsalis pedis is .68. The left ankle brachial index by the posterior tibial artery is .70. The left digital-brachial index is .40. VL/Ankle Brachial Index Interpretation Summary Right leg with triphasic flow and an ASHOK 0.89. Left leg with biphasic flow and an ASHOK 0.7. Digit brachial index 0.67 and 0.4. Ordering Physician: Will Tom Referring Physician: YUAN PERALTA Performed By: Trniity Estrada, RDCS, RVT
--- NOTE | 2020-11-23 09:00 | AAVD_ITS ---
Reason For Study: ATHEROSCEROSIS Aorta Measurements Aorta Doppler Measurements Proximal aorta measures1.6 X 1.6cm. in cross- Peak systolic flow velocities within the proximal sectional axis. aorta measure 65.1 cm/sec. Proximal aorta measures1.65cm. in longitudinal Peak systolic flow velocities within the mid aorta axis. measure 56.4 cm/sec. Mid aorta measures1.4 X 1.4cm. in cross-sectional Peak systolic flow velocities within the distal axis. aorta measure 54.6 cm/sec. Mid aorta measures1.4cm. in longitudinal axis. Distal aorta measures1.5 X 1.5cm. in cross- sectional axis. Distal aorta measures1.5cm. in longitudinal axis. Left Iliac Artery Left iliac artery measures .98X .97 cm. in the cross-sectional axis. Left iliac artery measures .96 cm. in the longitudinal axis. Peak systolic velocity in the left iliac artery measures 129.2 cm/sec. Right Iliac Artery Right iliac artery measures 1.17 cm. in the longitudinal axis. Right iliac artery measures 1.13 X 1.12 cm. in the cross-sectional axis. Peak systolic velocity in the right iliac artery measures 78.3 cm/sec. Procedure Aorta IVC Iliac vasculature or bypass grafts [id number]. Technically difficult due to bowel gas. Exam performed in department. VL/Abd Aortic/IVC Duplex scan Interpretation Summary No aortoiliac aneurysm or stenosis noted. Ordering Physician: Will Tom Referring Physician: Armand Clarke Performed By: Trinity Estrada, DASIA, RVT
== END ==
PROVIDERS: PCP Internal Medicine; Referring Provider Surgery Vascular Surgery; Visit Provider Surgery Vascular Surgery
DX: I77.1 Stricture of artery (principal); F41.9 Anxiety disorder, unspecified; I70.213 Atherosclerosis of native arteries of extremities with intermittent claudication, bilateral legs; I51.9 Heart disease, unspecified; E78.70 Disorder of bile acid and cholesterol metabolism, unspecified; I10 Essential (primary) hypertension; Z87.891 Personal history of nicotine dependence; Z87.19 Personal history of other diseases of the digestive system
CPT/HCPCS: 93922; 93978

== ENCOUNTER 2020-12-24 19:37 | Observation (INO) | payer MEDICARE, SELFPAY ==
[2020-11-08 10:29] VITALS: BMI 28.5
[2020-12-24] VITALS (8 sets, daily range): BP systolic 126–143; BP diastolic 54–91; PULSE 60–153; RESP 16–20; TEMP 35.9–37.1; O2SAT 93–97; BMI 30.4; BMI 29.2
--- NOTE | 2020-12-24 19:59 | EKG12_ITS ---
Test Reason : CP Blood Pressure : / mmHG Vent. Rate : 154 BPM Atrial Rate : 154 BPM P-R Int : 000 ms QRS Dur : 132 ms QT Int : 268 ms P-R-T Axes : 000 092 -24 degrees QTc Int : 429 ms Atrial Flutter Right bundle branch block Inferior infarct , age undetermined Abnormal ECG Confirmed by TANA LOPEZ, NINI ([id number]), photography editor WU PRIETO ([id number]) on 12/29/2020 9:24:20 AM Referred By: CLEMENCIA GUTHRIE Confirmed By:NINI FAJARDO MD
--- NOTE | 2020-12-24 19:59 | RAD_ITS ---
STUDY: X-RAY CHEST REASON FOR EXAM: Female, 85 years old. Chest pain TECHNIQUE: Frontal view COMPARISON: None. FINDINGS: Sternotomy wires are present. The lungs are clear and expanded. There is no demonstrated pleural abnormality. Normal size heart. Normal mediastinum and katie. Normal visualized pulmonary arteries. Normal visualized aortic arch and descending thoracic aorta. Normal visualized thoracic spine. Normal visualized ribs, clavicles, and shoulders. Possible hiatal hernia. RAD/Chest 1 View (Portable) IMPRESSION: No acute pulmonary pathology of the chest. Electronically Signed: Yariel Martinez DO at 20:52 EDT Tel [phone], Service support ,
[2020-12-24 20:04] LABS: Absolute Lymphocyte Count 1.68 X10^3/uL (0.83-4.51); Absolute Neutrophil Count 4.8 X10^3/uL (2.0-7.7); Basophil# 0.04 X10^3/uL; Basophil% 0.5 % (0-1); Eosinophil# 0.18 X10^3/uL; Eosinophils% 2.4 % (0-5); Hematocrit 42.6 % (37-47); Lymphocyte # 1.68 X10^3/ul (0.83-4.51); Lymphocyte % 22.5 % (19-41); Mean Corp Hgb Conc 30.5 g/dL (32-36); Mean Corpuscular Hgb 26.9 pg (27.0-32.0); Mean Corpuscular Volume 88.2 fL (81-99); Mean Platelet Vol. 10.8 fl (6.2-12.0); Monocyte# 0.78 X10^3/uL; Monocyte% 10.4 % (0-10); NRBC Flagged by Analyzer 0 % (0-5); Neutrophil # 4.75 X10^3/uL (2.7-7.7); Neutrophil % 63.7 % (47-70); Platelet Count 224 K/mm3 (150-450); RBC Distribution Width CV 14.5 % (11.6-14.6); RBC Distribution Width SD 46.5 fl (35.1-43.9); Red Blood Count 4.83 M/mm3 (4.2-5.4); White Blood Count 7.5 K/mm3 (4.4-11.0)
[2020-12-24] MEDS: 0.9% Normal Saline 1,000 ML 150 ML IV (20:07)
[2020-12-24] MEDS: dilTIAZem 25 MG/5 ML Vial 20 MG IV BOLUS (20:07)
--- NOTE | 2020-12-24 20:18 | ED.RN ---
pt's heart rate fell to 40's, pt stated she didn't feel well. md aware and at the bedside.defib pads placed on.117/[id number]%
[2020-12-24 20:26] LABS: Anion Gap 10 (5-15); BUN 25 mg/dL (7-18); BUN/Creat Ratio 19.1 RATIO (10-20); Calcium,Total 9.4 mg/dL (8.5-10.1); Chloride 108 mmol/L (98-107); Creatinine, Serum 1.31 mg/dL (0.55-1.02); EST Glomerular Filtration Rate 41 mL/min (>60); Est Glom Filt Rate - Afr Amer 50 mL/min (>60); Estimated Creatinine Clearance 25.74 ml/min; Glucose 148 mg/dL (74-106); Sodium Level 142 mmol/L (136-145); Thyroid Stim Hormone (TSH) 2.13 uIU/mL (0.358-3.74)
[2020-12-24 20:30] LABS: Prothrombin Time (Protime)PT. 12.1 SECONDS (11.7-14.9)
--- NOTE | 2020-12-24 20:49 | EDS_ITS ---
HPI History of Present Illness Chief Complaint: Chest Pain Informant: patient Onset/Context/Timing Onset: Days Context: Gradual Onset Timing: Waxes and wanes Current Severity: Mild Maximum Severity: Moderate Narrative Narrative: Patient presents via EMS with chest pressure. She reports chest heaviness for the past 3 days has been waxing and waning. She does have some shortness of breath. She denies palpitations or sensing that her heart is racing. [facility] Medical History (Updated 12/24/20 @ 21:[address] Evelyn Torre MD) Anxiety Atherosclerosis of coronary artery bypass graft without angina pectoris Atherosclerosis of coronary artery of [place] heart without angina pectoris Chronic diastolic (congestive) heart failure COPD (chronic obstructive pulmonary disease) Essential (primary) hypertension Gastroesophageal reflux disease GERD (gastroesophageal reflux disease) History of non-ST elevation myocardial infarction (NSTEMI) (04/18/17) Hyperlipemia Incomplete right bundle branch block Lupus erythematosus Osteoarthritis Peripheral vascular disease of extremity with claudication Secondary pulmonary arterial hypertension Home Medications sertraline 25 mg PO DAILY 08/28/16 [History Last Taken Unknown] nitroglycerin 0.4 mg sublingual tablet 0.4 mg SUBLINGUAL Q5-15M 06/09/19 [History Last Taken Unknown] prednisolone 5 mg tablet 5 mg PO DAILY 06/10/19 [History Last Taken Unknown] leflunomide 20 mg tablet 10 mg PO DAILY 06/16/20 [History Last Taken Unknown] albuterol sulfate 90 mcg/actuation aerosol inhaler 2 puff INHALATION Q6H #8.5 g 08/15/20 [Rx Last Taken Unknown] rosuvastatin 20 mg tablet 20 mg PO DAILY #90 tab 08/15/20 [Rx Last Taken Unknown] aspirin 81 mg tablet,delayed release 81 mg PO DAILY #90 tab 08/17/20 [Rx Last Taken Unknown] carvedilol 12.5 mg tablet 12.5 mg PO BID #180 tab 08/17/20 [Rx Last Taken Unknown] pantoprazole 40 mg tablet,delayed release 40 mg PO DAILY #90 tab 09/27/20 [Rx Last Taken Unknown] amlodipine 10 mg tablet 10 mg PO DAILY #90 tab 11/08/20 [Rx Last Taken Unknown] tramadol 50 mg tablet 50 mg PO DAILY tab 11/08/20 [History Last Taken Unknown] Allergy/AdvReac Type Severity Reaction Status Date / Time colchicine Allergy Other Verified 12/24/20 19:45 ezetimibe [From Zetia] Allergy Unknown Verified 12/24/20 19:45 isotretinoin [From Accutane] Allergy Other Verified 12/24/20 19:45 naproxen [From Aleve] Allergy hives and Verified 12/24/20 19:45 swelling quinine Allergy Other Verified 12/24/20 19:45 Sulfa (Sulfonamide Allergy Unknown Verified 12/24/20 19:45 Antibiotics) Family History Other Arthritis Depression Myocardial infarction Respiratory disease Surgical History H/O coronary artery bypass surgery (06/14/09) History of angioplasty of peripheral vessel (08/29/16) History of ankle surgery History of bladder suspension procedure History of coronary artery stent placement (04/25/17) History of hysterectomy History of left heart catheterization (04/10/17) Hx laparoscopic cholecystectomy Social History Smoking Status: Former smoker alcohol intake: current alcohol intake frequency: 0-2 drinks per day Alcohol type: wine substance use type: does not use what type of physical activity do you participate in: none ROS ROS ED Constitutional Constitutional ED: Denies chills or fever(s) Eyes Eyes: Denies change in vision ENT ENT ED: Denies sore throat Cardiovascular Cardiovascular: Reports chest pain; Denies palpitations or racing heartbeat Respiratory/Chest Respiratory/Chest: Reports dyspnea; Denies cough Gastrointestinal Gastrointestinal: Denies abdominal pain, diarrhea, nausea or vomiting Genitourinary Genitourinary ED: Denies dysuria Musculoskeletal Musculoskeletal: Denies back pain Integumentary Denies rash Neurologic Neurologic: Denies headache(s) or weakness Psychiatric Psychiatric: Denies anxiety or depression Endocrine Endocrinology: Denies polydipsia or polyuria Allergic/Immunologic Allergic/Immunologic ED: Denies urticaria EXAM Physical Exam Const Vital Signs: 12/24/20 19:38 12/24/20 20:30 12/24/20 21:57 Temperature 96.6 F L 97.9 F Temperature Source Temporal Temporal Pulse Rate 153 H 63 61 Respiratory Rate 16 20 H 18 Blood Pressure 126/84 H 131/60 H 141/54 H Blood Pressure Mean 98 83 83 Pulse Ox 93 96 96 Oxygen Delivery Method Room Air Nasal Cannula Nasal Cannula Oxygen Flow Rate (L/min) 2 2 12/24/20 22:01 Temperature Temperature Source Pulse Rate 61 Respiratory Rate Blood Pressure Blood Pressure Mean Pulse Ox Oxygen Delivery Method Oxygen Flow Rate (L/min) Positive well nourished and well developed General Appearance ED: well developed HEENT Reports normocephalic and head/scalp atraumatic Eyes PERRL and EOMs intact bilaterally Neck supple Chest Wall inspection of chest normal and palpation of chest normal Resp normal respiratory effort and clear to auscultation bilaterally Cardio Rate: tachycardic Rhythm: abnormal rhythm irregularly irregular GI normal to inspection, nondistended, normoactive bowel sounds Palpation: soft Extremity normal to inspection Neuro oriented x3 and no sensory deficits noted Sensorium / Orientation: alert Motor Exam: strength 5/5 throughout Psych mental status grossly normal Skin no rashes or lesions noted MDM MDM MDM Narrative Medical decision making narrative: At the time of my examination patient's heart rate is fluctuating between 140 and 160. She is in narrow complex tachycardia. EKG, labs, chest x-ray are obtained. She is ordered 20 mg of IV Cardizem. Lab Data Attestation: I reviewed the patient's lab results. Labs: Laboratory Results - last 24 hr 12/24/20 12/24/20 12/24/20 19:43 19:43 20:10 WBC 7.5 RBC 4.83 Hgb 13.0 Hct 42.6 MCV 88.2 MCH 26.9 L MCHC 30.5 L RDW Std Deviation 46.5 H RDW Coeff of Raza 14.5 Plt Count 224 MPV 10.8 Immature Gran % (Auto) 0.500 Neut % (Auto) 63.7 Lymph % (Auto) 22.5 [place] % (Auto) 10.4 H Eos % (Auto) 2.4 Baso % (Auto) 0.5 Absolute Neuts (auto) 4.8 Absolute Lymphs (auto) 1.68 Nucleated RBC % 0 PT 12.1 INR 1.0 APTT 24.0 L Sodium 142 Potassium 4.0 Chloride 108 H Carbon Dioxide 24.0 Anion Gap 10 BUN 25 H Creatinine 1.31 H Estim Creat Clear Calc 25.74 Est GFR (MDRD) Af Amer 50 L Est GFR (MDRD) Non-Af 41 L BUN/Creatinine Ratio 19.1 Glucose 148 H Calcium 9.4 Troponin I 0.025 TSH 2.13 Radiography Chest X-Ray - ED: 1 View, Read by ED Physician and Chronic Changes Diagnostic Testing: Radiology Impression Chest X-Ray 12/24/20 19:59 IMPRESSION: No acute pulmonary pathology of the chest. Electronically Signed: Yariel Martinez DO at 20:52 EDT Tel [phone], Service support , EKG Initial EKG: Attestation: I personally reviewed and interpreted this EKG as follows: Interpretation: Atrial Fibrillation (A. fib RVR 154. Right bundle branch block noted.) Follow-up EKG: Attestation: I personally reviewed and interpreted this EKG as follows: Interpretation: Sinus Bradycardia (Sinus amish at 49 bpm with sinus arrhythmia. Anterolateral T wave inversion that is new when compared to her old EKG from 2002.) Treatment and Re-Evaluation Comments:: I was alerted by nursing staff that after the patient got 20 mg of IV Cardizem her heart rate dropped into the 40s. When I presented to bedside to evaluate her heart rate was fluctuating between 40 and 60. Blood pressure dropped into the mid 90s at lowest but improved with fluids. Patient's heart rate is currently in the 60s. Blood work is unremarkable. Patient will be given a dose of Lovenox and admitted for further treatment. Hospitalist will be contacted for admission and further treatment. Discharge Plan Dx/Rx/DC Orders Clinical Impression: Atrial fibrillation, new onset, Atrial fibrillation with rapid ventricular response Disposition Disposition: Acute Care Hospital [facility]
--- NOTE | 2020-12-24 20:49 | EKG12_ITS ---
Test Reason : REPEAT Blood Pressure : / mmHG Vent. Rate : 049 BPM Atrial Rate : 049 BPM P-R Int : 148 ms QRS Dur : 106 ms QT Int : 440 ms P-R-T Axes : 052 016 144 degrees QTc Int : 397 ms Sinus bradycardia with marked sinus arrhythmia Incomplete right bundle branch block ST & T wave abnormality, consider anterolateral ischemia Abnormal ECG Confirmed by TANA LOPEZ, NINI ([id number]), editorial manager WU PRIETO ([id number]) on 12/29/2020 9:24:37 AM Referred By: [place] Confirmed By:NINI FAJARDO MD
[2020-12-24] MEDS: Enoxaparin 80 MG/0.8 ML Syringe 70 MG SC (21:19)
--- NOTE | 2020-12-24 21:56 | PCM.HP.STD ---
HPI - General General Date of Admission: 12/24/20 Date of Service: 12/25/20 Chief Complaint: Chest Pain HPI Narrative SUKMUAR IRVING is a 85 F,with a significant history of lupus arthritis; CAD status post CABG and multiple stents who presents with 2-day history of substernal chest pain that radiated to her left; to her left neck and into her left jaw. She described the pain as aching. The pain is intermittent and persistent. The pain is aggravated with activity and improves with nitroglycerin. Associated with her symptoms is fatigue and diaphoresis. At the emergency department she was found to be in a flutter and was given Cardizem bolus that brought her heart rate to the 40s and 60s. [facility] Medical History Anxiety Atherosclerosis of coronary artery bypass graft without angina pectoris Atherosclerosis of coronary artery of [place] heart without angina pectoris Chronic diastolic (congestive) heart failure COPD (chronic obstructive pulmonary disease) Essential (primary) hypertension Gastroesophageal reflux disease GERD (gastroesophageal reflux disease) History of non-ST elevation myocardial infarction (NSTEMI) (04/18/17) Hyperlipemia Incomplete right bundle branch block Lupus erythematosus Osteoarthritis Peripheral vascular disease of extremity with claudication Secondary pulmonary arterial hypertension Home Medications sertraline 25 mg PO DAILY 08/28/16 [History Last Taken Unknown] nitroglycerin 0.4 mg sublingual tablet 0.4 mg SUBLINGUAL Q5-15M 06/09/19 [History Last Taken Unknown] prednisolone 5 mg tablet 5 mg PO DAILY 06/10/19 [History Last Taken Unknown] leflunomide 20 mg tablet 10 mg PO DAILY 06/16/20 [History Last Taken Unknown] albuterol sulfate 90 mcg/actuation aerosol inhaler 2 puff INHALATION Q6H #8.5 g 08/15/20 [Rx Last Taken Unknown] rosuvastatin 20 mg tablet 20 mg PO DAILY #90 tab 08/15/20 [Rx Last Taken Unknown] aspirin 81 mg tablet,delayed release 81 mg PO DAILY #90 tab 08/17/20 [Rx Last Taken Unknown] carvedilol 12.5 mg tablet 12.5 mg PO BID #180 tab 08/17/20 [Rx Last Taken Unknown] pantoprazole 40 mg tablet,delayed release 40 mg PO DAILY #90 tab 09/27/20 [Rx Last Taken Unknown] amlodipine 10 mg tablet 10 mg PO DAILY #90 tab 11/08/20 [Rx Last Taken Unknown] tramadol 50 mg tablet 50 mg PO DAILY tab 11/08/20 [History Last Taken Unknown] Allergy/AdvReac Type Severity Reaction Status Date / Time colchicine Allergy Other Verified 12/24/20 23:01 ezetimibe [From Zetia] Allergy Unknown Verified 12/24/20 23:01 isotretinoin [From Accutane] Allergy Other Verified 12/24/20 23:01 naproxen [From Aleve] Allergy hives and Verified 12/24/20 23:01 swelling quinine Allergy Other Verified 12/24/20 23:01 Sulfa (Sulfonamide Allergy Unknown Verified 12/24/20 23:01 Antibiotics) Family History Other Arthritis Depression Myocardial infarction Respiratory disease Surgical History H/O coronary artery bypass surgery (06/14/09) History of angioplasty of peripheral vessel (08/29/16) History of ankle surgery History of bladder suspension procedure History of coronary artery stent placement (04/25/17) History of hysterectomy History of left heart catheterization (04/10/17) Hx laparoscopic cholecystectomy Social History Smoking Status: Former smoker alcohol intake: current alcohol intake frequency: 0-2 drinks per day Alcohol type: wine substance use type: does not use what type of physical activity do you participate in: none ROS ROS Narrative 12 point review of system is negative except as stated in HPI. Vital Signs Vital Signs Vital Signs: 12/24/20 19:38 12/24/20 20:30 Temperature 96.6 F L Temperature Source Temporal Pulse Rate 153 H 63 Respiratory Rate 16 20 H Blood Pressure 126/84 H 131/60 H Blood Pressure Mean 98 83 Pulse Ox 93 96 Oxygen Delivery Method Room Air Nasal Cannula Oxygen Flow Rate (L/min) 2 Weight Weight: 75.5 kg Body Mass Index (BMI) 30.4 Physical Exam Narrative Alert and oriented x3 Nontraumatic; normocephalic Lung clear to auscultate Heart sounds irregularly irregular rate and rhythm. S1-S2 present. No murmur, gallop or rubs. Abdomen bowel sounds present soft, nontender nondistended Extremity without edema cyanosis or clubbing. Results Lab / Micro Data Result Diagrams: 12/24/20 19:43 12/24/20 19:43 Labs: Laboratory Results - last 24 hr 12/24/20 12/24/20 12/24/20 19:43 19:43 20:10 WBC 7.5 RBC 4.83 Hgb 13.0 Hct 42.6 MCV 88.2 MCH 26.9 L MCHC 30.5 L RDW Std Deviation 46.5 H RDW Coeff of Raza 14.5 Plt Count 224 MPV 10.8 Immature Gran % (Auto) 0.500 Neut % (Auto) 63.7 Lymph % (Auto) 22.5 [place] % (Auto) 10.4 H Eos % (Auto) 2.4 Baso % (Auto) 0.5 Absolute Neuts (auto) 4.8 Absolute Lymphs (auto) 1.68 Nucleated RBC % 0 PT 12.1 INR 1.0 APTT 24.0 L Sodium 142 Potassium 4.0 Chloride 108 H Carbon Dioxide 24.0 Anion Gap 10 BUN 25 H Creatinine 1.31 H Estim Creat Clear Calc 25.74 Est GFR (MDRD) Af Amer 50 L Est GFR (MDRD) Non-Af 41 L BUN/Creatinine Ratio 19.1 Glucose 148 H Calcium 9.4 Troponin I 0.025 TSH 2.13 Radiology Impression Chest X-Ray 12/24/20 19:59 IMPRESSION: No acute pulmonary pathology of the chest. Electronically Signed: Yariel Martinez DO at 20:52 EDT Tel [phone], Service support , Assessment & Plan Assessment/Plan (1) Atrial flutter: QUALIFIERS: Atrial flutter type: unspecified Qualified Code(s): I48.92 - Unspecified atrial flutter (2) Atrial fibrillation, new onset: (3) Atrial fibrillation with rapid ventricular response: (4) Chest pain: QUALIFIERS: Chest pain type: unspecified Qualified Code(s): R07.9 - Chest pain, unspecified (5) NSTEMI, initial episode of care: PLAN: Non-ST elevation WI Place on a monitored bed at PCU Impression of chest x-ray by radiology: No acute cardiopulmonary process. Actual CXR image was independently visualized. No acute cardiopulmonary process was noted. Initial EKG showed A-flutter with rapid ventricular response. ASA 81 mg p.o. daily continued. SL NTG 0.4 mg prn as needed for chest pain ordered Morphine as needed for pain ordered We will check lipid panel. Statin continued Initial troponin was negative. Repeat troponin elevated. Serial cardiac enzymes ordered Stat EKG as needed for chest pain Because of high heart score (heart score of 6 points, moderate score) cardiology consulted. New onset A. fib/a flutter with rapid ventricular response. Patient was given Cardizem bolus at the ED and heart rate dropped to 40s to 60s. Obtain echo [id number] 2 : At least 6 points, 9.7% stroke risk per year. Given therapeutic dose of Lovenox at emergency department. Creatinine clearance of 25.74. Will dose Lovenox therapeutic dose daily. Potassium is normal. Magnesium level ordered within normal. TSH is normal. Trend BMP. History of lupus erythematosus Leflunomide and prednisone continued Tramadol continued. DVT prophylaxis: On therapeutic dose of Lovenox for A. fib. Charges/Coding Visit Charges OBSV E&M: 73030 Initial observation care L3
--- NOTE | 2020-12-24 22:35 | EKG12_ITS ---
Test Reason : CP ADMIT Blood Pressure : / mmHG Vent. Rate : 074 BPM Atrial Rate : 060 BPM P-R Int : 138 ms QRS Dur : 108 ms QT Int : 396 ms P-R-T Axes : 068 033 082 degrees QTc Int : 439 ms Sinus rhythm with Premature ventricular complexes or Fusion complexes , and PAF ST & T wave abnormality, consider anterior ischemia Abnormal ECG Confirmed by TANA LOPEZ, NINI ([id number]), lay out worker WU PREITO ([id number]) on 12/27/2020 9:06:47 AM Referred By: DR MARSH Confirmed By:NINI FAJARDO MD
[2020-12-24 22:53] LABS: Magnesium 2.2 mg/dL (1.6-2.6)
[2020-12-24] MEDS: Carvedilol 12.5 MG Tablet PO (23:30)
[2020-12-25] VITALS (14 sets, daily range): BP systolic 110–144; BP diastolic 53–88; PULSE 56–131; RESP 16–18; TEMP 35.9–36.8; O2SAT 92–100
[2020-12-25 02:34] LABS: Anion Gap 7 (5-15); BUN 23 mg/dL (7-18); BUN/Creat Ratio 21.9 RATIO (10-20); Calcium,Total 8.5 mg/dL (8.5-10.1); Chloride 112 mmol/L (98-107); Cholesterol 140 mg/dL (200); Creatinine, Serum 1.05 mg/dL (0.55-1.02); EST Glomerular Filtration Rate 53 mL/min (>60); Est Glom Filt Rate - Afr Amer 64 mL/min (>60); Estimated Creatinine Clearance 32.11 ml/min; Glucose 130 mg/dL (74-106); High Density Lipoprotein 50 mg/dL; Potassium 3.5 mmol/L (3.5-5.1); Sodium Level 143 mmol/L (136-145); Thyroid Stim Hormone (TSH) 1.65 uIU/mL (0.358-3.74); Triglycerides 190 mg/dL; Very Low Density Lipoprotein 38 mg/dL (5-40)
[2020-12-25] MEDS: Pantoprazole Sodium 40 MG Tablet PO ×2 (06:10→08:14)
[2020-12-25] MEDS: Carvedilol 12.5 MG Tablet PO ×2 (08:13→20:52)
[2020-12-25] MEDS: Leflunomide 10 MG TABLET PO (08:13)
[2020-12-25] MEDS: Sertraline 50 MG Tablet 25 MG PO (08:13)
[2020-12-25] MEDS: amLODIPine 10 MG Tablet PO (08:14)
[2020-12-25] MEDS: predniSONE 5 MG Tablet PO (08:15)
[2020-12-25] MEDS: traMADol 50 MG Tablet PO (08:21)
--- NOTE | 2020-12-25 11:52 | ECHOD_ITS ---
Reason For Study: Chest Pain Procedure This was a 2D Doppler, Color Flow transthoracic echocardiogram. The study was technically difficult. Exam performed portable in patient room. Left Ventricle Normal LV size. Mild concentric left ventricular hypertrophy. Left ventricular systolic function is normal. The estimated ejection fraction is 55 %. Stage 1 diastolic dysfunction. No regional wall motion abnormalities noted. Right Ventricle Normal RV size. Normal systolic function. Atria The left atrium is mildly enlarged. Normal right atrium. Mitral Valve There is mild mitral annular calcification. Tricuspid Valve Normal tricuspid valve. Mild (1+) tricuspid valve insufficiency. Pulmonary artery systolic pressure is 30 mmHg. Aortic Valve Normal aortic valve. Trisinus/trileaflet aortic valve. Mild (1+) aortic valve insufficiency. Pulmonic Valve Normal pulmonic valve. Great Vessels Calcified aortic root. The pulmonary artery is normal size. Normal inferior vena cava. Pericardium/Pleural No pericardial effusion. MMode/2D Measurements & Calculations LVIDd: 4.9 cm IVSd: 1.2 cm LA dimension: 3.5 cm LVIDs: 2.5 cm LVPWd: 1.3 cm FS: 47.7 % LAV(MOD-sp4): 66.3 ml LA A4 area: 21.5 cm2 RA A4 area: 17.0 cm2 Time Measurements MV dec time: 0.27 sec Doppler Measurements & Calculations MV E max gordy: 61.3 cm/sec Lat Peak E' Gordy: 6.2 cm/sec Med Peak E' Gordy: 4.2 cm/sec MV A max gordy: 141.9 cm/sec E/E' lat: 10.0 E/E' med: 14.7 MV E/A: 0.43 MV V2 max: 130.5 cm/sec MV P1/2t max gordy: 79.2 cm/sec Ao V2 max: 120.1 cm/sec MV max P.8 mmHg MV P1/2t: 109.2 msec Ao max P.8 mmHg MV V2 mean: 53.6 cm/sec MV dec slope: 212.3 cm/sec2 MV mean P.5 mmHg MVA(P1/2t): 2.0 cm2 MV V2 VTI: 43.7 cm AI max gordy: 397.3 cm/sec LV V1 max: 108.3 cm/sec PA V2 max: 86.3 cm/sec AI max P.1 mmHg LV V1 max P.7 mmHg AI dec slope: 160.8 cm/sec2 AI P1/2t: 723.5 msec TR max gordy: 252.8 cm/sec TR max P.6 mmHg ECHO/Echo Complete Interpretation Summary Normal LV size. Mild concentric left ventricular hypertrophy. Left ventricular systolic function is normal. The estimated ejection fraction is 55 %. Stage 1 diastolic dysfunction. Mild (1+) aortic valve insufficiency. Ordering Physician: Steven Murphy Referring Physician: Armand Clarke Performed By: Anoop Penaloza RCS
--- NOTE | 2020-12-25 12:22 | CON.PCM.CA_ITS ---
Assessment & Plan Assessment/Plan (1) NSTEMI, initial episode of care: PLAN: 85-year-old patient presented to the ED at [facility] with symptoms of palpitation and chest pain Noted to be on atrial flutter with 2-1 AV block was given Cardizem bolus in the ER converted to sinus rhythm with sinus bradycardia She describe typical angina symptoms severe retrosternal chest pain radiating to the left arm and to the left jaw was given some nitroglycerin which relieved her symptoms, subsequent evaluation with the series of cardiac biomarkers high sensitive troponin showed elevation with a clinical diagnosis of non-ST elevation IL. This patient has extensive cardiac history has a history of prior myocardial infarction and underwent coronary artery bypass graft in June 14, 2009 with HUSSEIN to LAD and SVG to RPDA subsequently April 25, 2017 she had a non-ST elevation IL underwent a PCI and stent using drug-eluting stent Synergy 3 x 12 to the left circumflex, and 2.5 x 16 mm drug-eluting stent Synergy to OM 3. Currently she is seeing and follow-up with her primary marketing analytics specialist here at [facility] Dr. Le She was actually scheduled for evaluation by stress test. Now presenting with this episode of palpitation and symptoms of chest pain Assessment and plan; 1. I reviewed all the current evaluation she has a mild elevation of troponins and she been on treatment with Lovenox will hold the Lovenox in the morning 2. Episode of atrial flutter/A. fib with RVR which is a new episode patient will need to be on anticoagulation using Eliquis her renal function is preserved. Based on [id number] high risk for stroke and require long-term anticoagulation 3. Also due to significant coronary artery disease with prior coronary artery stent and symptoms of chest pain with elevation of cardiac biomarker she will need further evaluation by cardiac catheterization which will be set up in the morning. 4. Noted her heart rate is slow and I deferred not to start on any beta-saravanan now. 5. Risk and benefit of the cardiac catheterization and procedure explained in detail to the patient and to the daughters were at bedside and patient elected to proceed. It will be done by her primary marketing analytics specialist (2) Chest pain: QUALIFIERS: Chest pain type: unspecified Qualified Code(s): R07.9 - Chest pain, unspecified (3) Atrial flutter: QUALIFIERS: Atrial flutter type: unspecified Qualified Code(s): I48.92 - Unspecified atrial flutter (4) Atrial fibrillation with rapid ventricular response: (5) Dyspnea on minimal exertion: (6) Atherosclerosis of coronary artery bypass graft without angina pectoris: (7) Atherosclerosis of coronary artery of [place] heart without angina pectoris: (8) H/O coronary artery bypass surgery: (9) Secondary pulmonary arterial hypertension: (10) Incomplete right bundle branch block: (11) Essential (primary) hypertension: (12) Hyperlipemia: (13) Peripheral vascular disease of extremity with claudication: (14) Lupus erythematosus: (15) Gastroesophageal reflux disease: HPI Consult Data Date of Consult: 12/25/20 HPI Narrative Reason for Consultation: CAD, non-ST elevation IL, atrial flutter, CABG with prior coronary stents. HPI Narrative: SUKUMAR IRVING, is a 85 F who presents [facility] Medical History Anxiety Atherosclerosis of coronary artery bypass graft without angina pectoris Atherosclerosis of coronary artery of [place] heart without angina pectoris Chronic diastolic (congestive) heart failure COPD (chronic obstructive pulmonary disease) Essential (primary) hypertension Gastroesophageal reflux disease GERD (gastroesophageal reflux disease) History of non-ST elevation myocardial infarction (NSTEMI) (04/18/17) Hyperlipemia Incomplete right bundle branch block Lupus erythematosus Osteoarthritis Peripheral vascular disease of extremity with claudication Secondary pulmonary arterial hypertension Home Medications sertraline 25 mg PO DAILY 08/28/16 [History Last Taken Unknown] nitroglycerin 0.4 mg sublingual tablet 0.4 mg SUBLINGUAL Q5-15M 06/09/19 [History Last Taken Unknown] prednisolone 5 mg tablet 5 mg PO DAILY 06/10/19 [History Last Taken Unknown] leflunomide 20 mg tablet 10 mg PO DAILY 06/16/20 [History Last Taken Unknown] albuterol sulfate 90 mcg/actuation aerosol inhaler 2 puff INHALATION Q6H #8.5 g 08/15/20 [Rx Last Taken Unknown] rosuvastatin 20 mg tablet 20 mg PO DAILY #90 tab 08/15/20 [Rx Last Taken Unknown] aspirin 81 mg tablet,delayed release 81 mg PO DAILY #90 tab 08/17/20 [Rx Last Taken Unknown] carvedilol 12.5 mg tablet 12.5 mg PO BID #180 tab 08/17/20 [Rx Last Taken Unknown] pantoprazole 40 mg tablet,delayed release 40 mg PO DAILY #90 tab 09/27/20 [Rx Last Taken Unknown] amlodipine 10 mg tablet 10 mg PO DAILY #90 tab 11/08/20 [Rx Last Taken Unknown] tramadol 50 mg tablet 50 mg PO DAILY tab 11/08/20 [History Last Taken Unknown] Allergy/AdvReac Type Severity Reaction Status Date / Time colchicine Allergy Other Verified 12/24/20 23:01 ezetimibe [From Zetia] Allergy Unknown Verified 12/24/20 23:01 isotretinoin [From Accutane] Allergy Other Verified 12/24/20 23:01 naproxen [From Aleve] Allergy hives and Verified 12/24/20 23:01 swelling quinine Allergy Other Verified 12/24/20 23:01 Sulfa (Sulfonamide Allergy Unknown Verified 12/24/20 23:01 Antibiotics) Family History Other Arthritis Depression Myocardial infarction Respiratory disease Surgical History H/O coronary artery bypass surgery (06/14/09) History of angioplasty of peripheral vessel (08/29/16) History of ankle surgery History of bladder suspension procedure History of coronary artery stent placement (04/25/17) History of hysterectomy History of left heart catheterization (04/10/17) Hx laparoscopic cholecystectomy Social History Smoking Status: Former smoker alcohol intake: current alcohol intake frequency: 0-2 drinks per day Alcohol type: wine substance use type: does not use what type of physical activity do you participate in: none Physical Exam Narrative Seen and evaluated today at bedside with the nursing staff 2 daughters were at bedside at time of evaluation Patient is hard hearing she has a hearing aid librarian assistant showed underlying atrial flutter on admission which converted to normal sinus and she remains in sinus rhythm Cardiac examination S1-S2 is regular there is no murmur no systolic or diastolic murmur No pericardial rub Chest examination is clear to auscultation Examination abdomen soft Examination lower extremity no clubbing no cyanosis no lower extremity edema. Objective Data Vital Signs: Vital Signs Temp Pulse Resp BP Pulse Ox 97.8 F 59 L 18 144/88 H 97 12/25/20 09:48 12/25/20 11:32 12/25/20 09:48 12/25/20 09:48 12/25/20 09:48 Oxygen Flow Rate (L/min) 2 Oxygen Delivery Method Room Air Weight: 160 lb 0.889 oz Body Mass Index (BMI) 29.2 Intake & Output: Intake and Output for Last 24 Hours 12/23/20 12/24/20 12/25/20 23:59 23:59 23:59 Intake Total 400 / 400 1087.5 / 1087.5 Balance 400 / 400 1087.5 / 1087.5 Lab / Micro Data Result Diagrams: 12/24/20 19:43 12/25/20 01:41 Labs: Laboratory Results - last 24 hr 12/24/20 12/24/20 12/24/20 19:43 19:43 19:43 WBC 7.5 RBC 4.83 Hgb 13.0 Hct 42.6 MCV 88.2 MCH 26.9 L MCHC 30.5 L RDW Std Deviation 46.5 H RDW Coeff of Raza 14.5 Plt Count 224 MPV 10.8 Immature Gran % (Auto) 0.500 Neut % (Auto) 63.7 Lymph % (Auto) 22.5 [place] % (Auto) 10.4 H Eos % (Auto) 2.4 Baso % (Auto) 0.5 Absolute Neuts (auto) 4.8 Absolute Lymphs (auto) 1.68 Nucleated RBC % 0 PT INR APTT Sodium 142 Potassium 4.0 Chloride 108 H Carbon Dioxide 24.0 Anion Gap 10 BUN 25 H Creatinine 1.31 H Estim Creat Clear Calc 25.74 Est GFR (MDRD) Af Amer 50 L Est GFR (MDRD) Non-Af 41 L BUN/Creatinine Ratio 19.1 Glucose 148 H Calcium 9.4 Magnesium 2.2 Troponin I 0.025 Triglycerides Cholesterol LDL Cholesterol VLDL Cholesterol HDL Cholesterol TSH 2.13 12/24/20 12/24/20 12/25/20 20:10 22:55 01:41 WBC RBC Hgb Hct MCV MCH MCHC RDW Std Deviation RDW Coeff of [place] Plt Count MPV Immature Gran % (Auto) Neut % (Auto) Lymph % (Auto) [place] % (Auto) Eos % (Auto) Baso % (Auto) Absolute Neuts (auto) Absolute Lymphs (auto) Nucleated RBC % PT 12.1 INR 1.0 APTT 24.0 L Sodium 143 Potassium 3.5 Chloride 112 H Carbon Dioxide 24.0 Anion Gap 7 BUN 23 H Creatinine 1.05 H Estim Creat Clear Calc 32.11 Est GFR (MDRD) Af Amer 64 Est GFR (MDRD) Non-Af 53 L BUN/Creatinine Ratio 21.9 H Glucose 130 H Calcium 8.5 Magnesium Troponin I 0.077 H Triglycerides 190 Cholesterol 140 LDL Cholesterol 52 VLDL Cholesterol 38 HDL Cholesterol 50 TSH 1.65 12/25/20 12/25/20 01:41 06:39 WBC RBC Hgb Hct MCV MCH MCHC RDW Std Deviation RDW Coeff of [place] Plt Count MPV Immature Gran % (Auto) Neut % (Auto) Lymph % (Auto) [place] % (Auto) Eos % (Auto) Baso % (Auto) Absolute Neuts (auto) Absolute Lymphs (auto) Nucleated RBC % PT INR APTT Sodium Potassium Chloride Carbon Dioxide Anion Gap BUN Creatinine Estim Creat Clear Calc Est GFR (MDRD) Af Amer Est GFR (MDRD) Non-Af BUN/Creatinine Ratio Glucose Calcium Magnesium Troponin I 0.086 H 0.073 H Triglycerides Cholesterol LDL Cholesterol VLDL Cholesterol HDL Cholesterol TSH Cardiology Labs/Tests 12/24/20 19:43: WBC 7.5, RBC 4.83, Hgb 13.0, Hct 42.6, MCV 88.2, MCH 26.9 L, MCHC 30.5 L, Plt Count 224, MPV 10.8, Immature Gran % (Auto) 0.500, Neut % (Auto) 63.7, Lymph % (Auto) 22.5, [place] % (Auto) 10.4 H, Eos % (Auto) 2.4, Baso % (Auto) 0.5, Absolute Neuts (auto) 4.8, Nucleated RBC % 0 12/24/20 19:43: Sodium 142, Potassium 4.0, Chloride 108 H, Carbon Dioxide 24.0, Anion Gap 10, BUN 25 H, Creatinine 1.31 H, Est GFR (MDRD) Af Amer 50 L, Est GFR (MDRD) Non-Af 41 L, BUN/Creatinine Ratio 19.1, Glucose 148 H, Calcium 9.4, Troponin I 0.025 12/24/20 19:43: Magnesium 2.2 12/24/20 20:10: PT 12.1, INR 1.0, APTT 24.0 L 12/24/20 22:55: Troponin I 0.077 H 12/25/20 01:41: Sodium 143, Potassium 3.5, Chloride 112 H, Carbon Dioxide 24.0, Anion Gap 7, BUN 23 H, Creatinine 1.05 H, Est GFR (MDRD) Af Amer 64, Est GFR (MDRD) Non-Af 53 L, BUN/Creatinine Ratio 21.9 H, Glucose 130 H, Calcium 8.5, Triglycerides 190, Cholesterol 140, LDL Cholesterol 52, VLDL Cholesterol 38, HDL Cholesterol 50 12/25/20 01:41: Troponin I 0.086 H 12/25/20 06:39: Troponin I 0.073 H Rhythm: Patient remains in normal sinus. EKG: Atrial flutter with 2-1 AV block, right bundle branch block, age undetermined inferior IL, ST-T abnormality possible anterolateral myocardial ischemia clearly demonstrated in the anterior and lateral leads. Radiography Diagnostic Testing: Radiology Impression Chest X-Ray 12/24/20 19:59 IMPRESSION: No acute pulmonary pathology of the chest. Electronically Signed: Yariel Martinez DO at 20:52 EDT Tel [phone], Service support ,
[2020-12-25] MEDS: Nitroglycerin Oint 1 INCH PACKET 0.5 INCH TD ×2 (14:40→20:52)
--- NOTE | 2020-12-25 15:02 | PN.HOSP_ITS ---
Documented by User: Chapin MEDEL 12/25/20 15:15 Subjective Subjective Patient is an 85-year-old female comfortably resting in bed, alert and oriented x3. Denies chest pain, shortness of breath, palpitations, hemoptysis, sputum production, fever, chills, N/V/D. Objective Data Objective Data Vital Signs: Vital Signs Temp Pulse Resp BP Pulse Ox 97.8 F 88 18 134/88 H 97 12/25/20 09:48 12/25/20 14:40 12/25/20 09:48 12/25/20 14:40 12/25/20 09:48 Oxygen Flow Rate (L/min) 2 Oxygen Delivery Method Room Air Weight: 160 lb 0.889 oz Body Mass Index (BMI) 29.2 Intake & Output: Intake and Output for Last 24 Hours 12/23/20 12/24/20 12/25/20 23:59 23:59 23:59 Intake Total 400 / 400 1087.5 / 1087.5 Balance 400 / 400 1087.5 / 1087.5 Lab / Micro Data Result Diagrams: 12/24/20 19:43 12/25/20 01:41 Labs: Laboratory Results - last 24 hr 12/24/20 12/24/20 12/24/20 19:43 19:43 19:43 WBC 7.5 RBC 4.83 Hgb 13.0 Hct 42.6 MCV 88.2 MCH 26.9 L MCHC 30.5 L RDW Std Deviation 46.5 H RDW Coeff of [place] 14.5 Plt Count 224 MPV 10.8 Immature Gran % (Auto) 0.500 Neut % (Auto) 63.7 Lymph % (Auto) 22.5 [place] % (Auto) 10.4 H Eos % (Auto) 2.4 Baso % (Auto) 0.5 Absolute Neuts (auto) 4.8 Absolute Lymphs (auto) 1.68 Nucleated RBC % 0 PT INR APTT Sodium 142 Potassium 4.0 Chloride 108 H Carbon Dioxide 24.0 Anion Gap 10 BUN 25 H Creatinine 1.31 H Estim Creat Clear Calc 25.74 Est GFR (MDRD) Af Amer 50 L Est GFR (MDRD) Non-Af 41 L BUN/Creatinine Ratio 19.1 Glucose 148 H Calcium 9.4 Magnesium 2.2 Troponin I 0.025 Triglycerides Cholesterol LDL Cholesterol VLDL Cholesterol HDL Cholesterol TSH 2.13 12/24/20 12/24/20 12/25/20 20:10 22:55 01:41 WBC RBC Hgb Hct MCV MCH MCHC RDW Std Deviation RDW Coeff of [place] Plt Count MPV Immature Gran % (Auto) Neut % (Auto) Lymph % (Auto) [place] % (Auto) Eos % (Auto) Baso % (Auto) Absolute Neuts (auto) Absolute Lymphs (auto) Nucleated RBC % PT 12.1 INR 1.0 APTT 24.0 L Sodium 143 Potassium 3.5 Chloride 112 H Carbon Dioxide 24.0 Anion Gap 7 BUN 23 H Creatinine 1.05 H Estim Creat Clear Calc 32.11 Est GFR (MDRD) Af Amer 64 Est GFR (MDRD) Non-Af 53 L BUN/Creatinine Ratio 21.9 H Glucose 130 H Calcium 8.5 Magnesium Troponin I 0.077 H Triglycerides 190 Cholesterol 140 LDL Cholesterol 52 VLDL Cholesterol 38 HDL Cholesterol 50 TSH 1.65 12/25/20 12/25/20 01:41 06:39 WBC RBC Hgb Hct MCV MCH MCHC RDW Std Deviation RDW Coeff of [place] Plt Count MPV Immature Gran % (Auto) Neut % (Auto) Lymph % (Auto) [place] % (Auto) Eos % (Auto) Baso % (Auto) Absolute Neuts (auto) Absolute Lymphs (auto) Nucleated RBC % PT INR APTT Sodium Potassium Chloride Carbon Dioxide Anion Gap BUN Creatinine Estim Creat Clear Calc Est GFR (MDRD) Af Amer Est GFR (MDRD) Non-Af BUN/Creatinine Ratio Glucose Calcium Magnesium Troponin I 0.086 H 0.073 H Triglycerides Cholesterol LDL Cholesterol VLDL Cholesterol HDL Cholesterol TSH Radiography Diagnostic Testing: Radiology Impression Chest X-Ray 12/24/20 19:59 IMPRESSION: No acute pulmonary pathology of the chest. Electronically Signed: Yariel Martinez DO at 20:52 EDT Tel [phone], Service support , Physical Exam Const alert, oriented x3 and no apparent distress HEENT head/scalp atraumatic and oropharynx normal Head and Scalp: normocephalic Eyes PERRL, EOMs intact bilaterally and conjunctivae normal Neck no lymphadenopathy, supple and no JVD Resp normal respiratory effort, no retractions, no use of accessory muscles and clear to auscultation bilaterally Cardio regular rate, regular rhythm, no murmurs and no JVD GI normal to inspection, nondistended, normoactive bowel sounds, soft to palpation and non-tender Extremity normal to inspection, full ROM and no clubbing, cyanosis or edema Skin no rashes or lesions noted, no wounds and no jaundice Neuro CN's II-XII intact bilaterally Psych affect normal Assessment & Plan Assessment/Plan (1) Atrial flutter: QUALIFIERS: Atrial flutter type: unspecified Qualified Code(s): I48.92 - Unspecified atrial flutter (2) Chest pain: QUALIFIERS: Chest pain type: unspecified Qualified Code(s): R07.9 - Chest pain, unspecified (3) Atrial fibrillation, new onset: (4) NSTEMI, initial episode of care: (5) Atrial fibrillation with rapid ventricular response: PLAN: 1) NSTEMI Prior history of [place] in 2008, status post CABG x2. Stent placement in 2016. Cardiology following, follows with Dr. Le as an outpatient. Plan; cardiac catheterization scheduled for 12/26, continue amlodipine, Coreg, statin, aspirin and nitroglycerin. 2) New onset A-Fib/Flutter Patient rate is currently controlled. [id number] score 6. Patient will need to be initiated on Eliquis at discharge, per cardiology. Plan; as above. 3) Depression Continue Zoloft. 4) GERD Continue PPI. 5) Rhematoid arthritis Continue leflunomide. DVT prophylaxis - Lovenox Patient seen by hCapin Vu PA-C, under the supervision of Dr. Dubose. Documented by User: Dr. Fermín Dubose MD 12/25/20 15:51 Objective Data Lab / Micro Data Result Diagrams: 12/24/20 19:43 12/25/20 01:41 Charges/Coding Addendum Addendum: Dr. Dubose: I personally reviewed the chart and examined the patient, and agree with the above findings. 85-year-old female presents from home with chest pain as well as tachycardia. She is found to have a non-STEMI with an elevated troponin as well as new onset A. fib with RVR. Her heart rate is normalized with a single bolus of Cardizem, continue with her home Cardizem and she is anticoagulated with therapeutic Lovenox. Cardiology was consulted and recommended heart cath in the morning given her previous coronary artery disease history. Visit Charges OBSV E&M: 43492 Subsequent observation care L2
--- NOTE | 2020-12-25 15:51 | NURSING ---
Taking over care of pt at this time. Report received from Josue HAWLEY.
[2020-12-25] MEDS: Enoxaparin 80 MG/0.8 ML Syringe SC (18:14)
--- NOTE | 2020-12-25 20:50 | NURSING ---
This RN gave meds early per patient request.
[2020-12-25] MEDS: Atorvastatin Calcium 40 MG Tablet PO (20:52)
[2020-12-25] MEDS: Acetaminophen 325 MG Tablet 650 MG PO (20:52)
[2020-12-26] VITALS (26 sets, daily range): BP systolic 98–150; BP diastolic 51–77; PULSE 54–112; RESP 12–16; TEMP 36.4–37; O2SAT 93–100
--- NOTE | 2020-12-26 05:55 | EKG12_ITS ---
Test Reason : AM EKG Blood Pressure : / mmHG Vent. Rate : 106 BPM Atrial Rate : 147 BPM P-R Int : 000 ms QRS Dur : 118 ms QT Int : 376 ms P-R-T Axes : 000 024 022 degrees QTc Int : [address] & T wave abnormality, consider anterior ischemia Abnormal ECG When compared with ECG of 24-DEC-2020 22:58, MANUAL COMPARISON REQUIRED, DATA IS UNCONFIRMED Confirmed by TANA LOPEZ, NINI ([id number]), development editor WU PRIETO ([id number]) on 12/27/2020 9:06:03 AM Referred By: ROLAN Confirmed By:NINI FAJARDO MD
[2020-12-26] MEDS: Carvedilol 12.5 MG Tablet PO ×2 (06:19→22:27)
[2020-12-26] MEDS: amLODIPine 10 MG Tablet PO (06:20)
[2020-12-26] MEDS: Aspirin E.C. 81 MG Tablet PO (06:20)
[2020-12-26 06:57] LABS: Basophil# 0.04 X10^3/uL; Basophil% 0.7 % (0-1); Eosinophil# 0.14 X10^3/uL; Eosinophils% 2.5 % (0-5); Hematocrit 36.2 % (37-47); Hemoglobin 11.2 g/dL (12.0-15.0); Lymphocyte % 30.9 % (19-41); Mean Corp Hgb Conc 30.9 g/dL (32-36); Mean Corpuscular Hgb 26.8 pg (27.0-32.0); Mean Corpuscular Volume 86.6 fL (81-99); Mean Platelet Vol. 10.8 fl (6.2-12.0); Monocyte# 0.62 X10^3/uL; Monocyte% 11.3 % (0-10); NRBC Flagged by Analyzer 0 % (0-5); Neutrophil # 2.98 X10^3/uL (2.7-7.7); Neutrophil % 54.2 % (47-70); Platelet Count 157 K/mm3 (150-450); RBC Distribution Width CV 14.6 % (11.6-14.6); Red Blood Count 4.18 M/mm3 (4.2-5.4); White Blood Count 5.5 K/mm3 (4.4-11.0)
[2020-12-26 07:25] LABS: Anion Gap 6 (5-15); BUN 24 mg/dL (7-18); BUN/Creat Ratio 21.8 RATIO (10-20); Calcium,Total 8.9 mg/dL (8.5-10.1); Chloride 111 mmol/L (98-107); EST Glomerular Filtration Rate 50 mL/min (>60); Est Glom Filt Rate - Afr Amer 61 mL/min (>60); Estimated Creatinine Clearance 30.65 ml/min; Glucose 122 mg/dL (74-106); Potassium 3.7 mmol/L (3.5-5.1); Sodium Level 141 mmol/L (136-145)
[2020-12-26] MEDS: 0.9% Normal Saline 1,000 ML 60 ML IV (07:32)
--- NOTE | 2020-12-26 09:17 | CASEMGMT ---
According to the [facility] website, the following are in-network tertiary facilities: [facility], [place], [place], [facility], [facility], [place], [facility], and . Ana HAWLEY CM
[2020-12-26] MEDS: Nitroglycerin Oint 1 INCH PACKET 0.5 INCH TD ×2 (09:55→22:27)
[2020-12-26] MEDS: Acetaminophen 325 MG Tablet 650 MG PO ×2 (10:04→22:30)
--- NOTE | 2020-12-26 10:35 | PN.HOSP_ITS ---
Documented by User: Chapin MEDEL 12/26/20 10:45 Subjective Subjective Patient is an 85-year-old female resting in bed, alert and oriented x3. Patient reports ongoing chest discomfort intermittent episodes of diaphoresis and palpitations. Denies shortness of breath, hemoptysis, sputum production, fever, chills, N/V/D. Objective Data Objective Data Vital Signs: Vital Signs Temp Pulse Resp BP Pulse Ox 97.8 F 63 16 127/61 H 95 12/26/20 07:40 12/26/20 09:55 12/26/20 07:40 12/26/20 09:55 12/26/20 07:40 Oxygen Flow Rate (L/min) 2 Oxygen Delivery Method Room Air Weight: 160 lb 0.889 oz Body Mass Index (BMI) 29.2 Intake & Output: Intake and Output for Last 24 Hours 12/24/20 12/25/20 12/26/20 23:59 23:59 23:59 Intake Total 400 / 400 1507.5 / 1627.5 120 / 120 Balance 400 / 400 1507.5 / 1627.5 120 / 120 Lab / Micro Data Result Diagrams: 12/26/20 06:30 12/26/20 06:30 Labs: Laboratory Results - last 24 hr 12/26/20 12/26/20 06:30 06:30 WBC 5.5 RBC 4.18 L Hgb 11.2 L Hct 36.2 L MCV 86.6 MCH 26.8 L MCHC 30.9 L RDW Std Deviation 46.0 H RDW Coeff of Raza 14.6 Plt Count 157 MPV 10.8 Immature Gran % (Auto) 0.400 Neut % (Auto) 54.2 Lymph % (Auto) 30.9 [place] % (Auto) 11.3 H Eos % (Auto) 2.5 Baso % (Auto) 0.7 Absolute Neuts (auto) 3.0 Absolute Lymphs (auto) 1.70 Nucleated RBC % 0 Sodium 141 Potassium 3.7 Chloride 111 H Carbon Dioxide 24.0 Anion Gap 6 BUN 24 H Creatinine 1.10 H Estim Creat Clear Calc 30.65 Est GFR (MDRD) Af Amer 61 Est GFR (MDRD) Non-Af 50 L BUN/Creatinine Ratio 21.8 H Glucose 122 H Calcium 8.9 Radiography Diagnostic Testing: Radiology Impression Echocardiogram 12/25/20 11:52 Interpretation Summary Normal LV size. Mild concentric left ventricular hypertrophy. Left ventricular systolic function is normal. The estimated ejection fraction is 55 %. Stage 1 diastolic dysfunction. Mild (1+) aortic valve insufficiency. Ordering Physician: Steven Murphy Referring Physician: Armand Clarke Performed By: Anoop Penalzoa RCS Physical Exam Const alert, oriented x3 and no apparent distress HEENT head/scalp atraumatic and moist oral mucous membranes Head and Scalp: normocephalic Eyes PERRL, EOMs intact bilaterally and conjunctivae normal Neck no lymphadenopathy, supple and no JVD Resp normal respiratory effort, no retractions, no use of accessory muscles and clear to auscultation bilaterally Cardio regular rate, regular rhythm, no murmurs and no JVD GI normal to inspection, nondistended, normoactive bowel sounds, soft to palpation and non-tender Extremity normal to inspection, full ROM and no clubbing, cyanosis or edema Skin no rashes or lesions noted, no wounds and skin turgor normal Neuro CN's II-XII intact bilaterally Psych affect normal Assessment & Plan Assessment/Plan (1) Atrial flutter: QUALIFIERS: Atrial flutter type: unspecified Qualified Code(s): I48.92 - Unspecified atrial flutter (2) Chest pain: QUALIFIERS: Chest pain type: unspecified Qualified Code(s): R07.9 - Chest pain, unspecified (3) Atrial fibrillation with rapid ventricular response: (4) NSTEMI, initial episode of care: (5) Essential (primary) hypertension: (6) Gastroesophageal reflux disease: (7) Lupus erythematosus: PLAN: See subjective for patient presentation. Patient continues to have ongoing chest pain, intermittent diaphoresis and palpitations. Patient has alerted nursing however refuses nitro patch to relieve symptoms. Patient still scheduled for cardiac catheterization today at 1100. 1) NSTEMI Prior history of [place] in 2009, status post CABG x2. Stent placement in 2017. Cardiology following, follows with Dr. Le as an outpatient. Plan; cardiac catheterization scheduled for 12/26, continue amlodipine, Coreg, statin, aspirin and nitroglycerin. 2) New onset A-Fib/Flutter Patient rate is currently controlled on carvedilol 12.5 mg p.o. twice daily. MARIANA [id number] score 6. Patient will need to be initiated on Eliquis at discharge, per cardiology. Plan; as above. 3) Depression Continue Zoloft. 4) GERD Continue PPI. 5) SLE Continue leflunomide. 6) HTN Stable, continue amlodipine and Coreg. DVT prophylaxis - Lovenox Patient seen by Chapin Vu PA-C, under the supervision of Dr. Mujica. Documented by User: Dr. Prashant Mujica MD 12/26/20 13:53 Objective Data Lab / Micro Data Result Diagrams: 12/26/20 06:30 12/26/20 06:30 Assessment & Plan Addt'l Comments This patient was seen in conjunction with Chapin Vu PA-C. I have independently interviewed and examined the patient and reviewed pertinent historical, laboratory, and other data. Please refer to Chapin Vu PA-C's note for details of this patient's presentation, findings, and recommendations. I have reviewed Chapin Vu PA-C's note and concur with documented findings. In brief, patient is an 85-year-old female with past medical history segment for lupus, coronary artery disease with previous CABG and multiple stent placement admitted with chest pain was also found to have new onset A. fib with RVR admitted to a monitored bed with consultation placed to cardiology with plans for patient to undergo left heart catheterization Recommendations: 1. I have discussed the results of my overview and impressions with the patient 2. Options for management were reviewed Charges/Coding Visit Charges Inpatient E&M: 00886 Subs Hosp L2
--- NOTE | 2020-12-26 11:45 | CASEMGMT ---
This RN CM to room with MATA form, explanation done-pt voices understanding, and signs MATA form at this time. Original to chart and copy to pt. Pt is A/Ox4 and daughter is at bedside. SStsheridan HAWLEY CM
--- NOTE | 2020-12-26 13:16 | PCM.PN.CARD ---
Subjective Subjective Patient seen and evaluated. Appears to be stable. Underwent cardiac catheterization today. Objective Data Vital Signs: Vital Signs Temp Pulse Resp BP Pulse Ox 97.6 F L 63 12 135/58 H 94 12/26/20 12:04 12/26/20 12:04 12/26/20 12:04 12/26/20 12:04 12/26/20 12:04 Oxygen Flow Rate (L/min) 2 Oxygen Delivery Method Room Air Weight: 160 lb 0.889 oz Body Mass Index (BMI) 29.2 Intake & Output: Intake and Output for Last 24 Hours 12/24/20 12/25/20 12/26/20 23:59 23:59 23:59 Intake Total 400 / 400 1507.5 / 1627.5 120 / 120 Balance 400 / 400 1507.5 / 1627.5 120 / 120 Lab / Micro Data Result Diagrams: 12/26/20 06:30 12/26/20 06:30 Labs: Laboratory Results - last 24 hr 12/26/20 12/26/20 06:30 06:30 WBC 5.5 RBC 4.18 L Hgb 11.2 L Hct 36.2 L MCV 86.6 MCH 26.8 L MCHC 30.9 L RDW Std Deviation 46.0 H RDW Coeff of Raza 14.6 Plt Count 157 MPV 10.8 Immature Gran % (Auto) 0.400 Neut % (Auto) 54.2 Lymph % (Auto) 30.9 [place] % (Auto) 11.3 H Eos % (Auto) 2.5 Baso % (Auto) 0.7 Absolute Neuts (auto) 3.0 Absolute Lymphs (auto) 1.70 Nucleated RBC % 0 Sodium 141 Potassium 3.7 Chloride 111 H Carbon Dioxide 24.0 Anion Gap 6 BUN 24 H Creatinine 1.10 H Estim Creat Clear Calc 30.65 Est GFR (MDRD) Af Amer 61 Est GFR (MDRD) Non-Af 50 L BUN/Creatinine Ratio 21.8 H Glucose 122 H Calcium 8.9 Cardiology Labs/Tests 12/26/20 06:30: WBC 5.5, RBC 4.18 L, Hgb 11.2 L, Hct 36.2 L, MCV 86.6, MCH 26.8 L, MCHC 30.9 L, Plt Count 157, MPV 10.8, Immature Gran % (Auto) 0.400, Neut % (Auto) 54.2, Lymph % (Auto) 30.9, [place] % (Auto) 11.3 H, Eos % (Auto) 2.5, Baso % (Auto) 0.7, Absolute Neuts (auto) 3.0, Nucleated RBC % 0 12/26/20 06:30: Sodium 141, Potassium 3.7, Chloride 111 H, Carbon Dioxide 24.0, Anion Gap 6, BUN 24 H, Creatinine 1.10 H, Est GFR (MDRD) Af Amer 61, Est GFR (MDRD) Non-Af 50 L, BUN/Creatinine Ratio 21.8 H, Glucose 122 H, Calcium 8.9 Rhythm: EKG: Rhythm with no acute changes ECHO: Stress Test: Cardiac Cath: PCI: CT Surgery: Holter monitor: EPS: PPM: CXR: Chest CT Scan: Radiography Diagnostic Testing: Radiology Impression Echocardiogram 12/25/20 11:52 Interpretation Summary Normal LV size. Mild concentric left ventricular hypertrophy. Left ventricular systolic function is normal. The estimated ejection fraction is 55 %. Stage 1 diastolic dysfunction. Mild (1+) aortic valve insufficiency. Ordering Physician: Steven Murphy Referring Physician: Armand Clarke Performed By: Anoop Penaloza RCS Physical Exam Const oriented x3 and healthy appearing Orientation / Consciousness: awake HEENT normocephalic Eyes PERRL and conjunctivae normal Neck supple, no JVD and no carotid bruits Chest inspection of chest normal Resp normal respiratory effort and clear to auscultation bilaterally Cardio Palpation: normal PMI Rate: regular rate Rhythm: regular rhythm Heart Sounds: S1 normal and S2 normal Peripheral Pulses: pulses 2+ throughout GI normal to inspection, nondistended, normoactive bowel sounds Extremity normal to inspection and no clubbing, cyanosis or edema Psych mental status grossly normal Assessment & Plan Assessment/Plan (1) NSTEMI, initial episode of care: PLAN: She does have evidence of a non-ST elevation myocardial infarction. She underwent cardiac catheterization today which demonstrated patency of the left internal mammary artery to the left anterior descending artery, the [place] right coronary artery, and the [place] circumflex artery. The saphenous vein graft to posterior descending artery was occluded which is old. We will continue with current medical therapy with optimization. (2) Atrial fibrillation, new onset: PLAN: She does have new onset paroxysmal atrial fibrillation. I would recommend that we start her on amiodarone 200 mg once a day together with her beta-saravanan. She is a candidate for anticoagulation based on her [id number] score and this would be instituted. (3) H/O coronary artery bypass surgery: PLAN: She is status post coronary artery bypass surgery as noted above. Her grafts have been identified and will continue therapy. (4) Essential (primary) hypertension: PLAN: She does have a history of hypertension and she will be followed on her amlodipine as well as her carvedilol. Her echocardiogram demonstrated preserved ejection fraction with mild aortic regurgitation. (5) Hyperlipemia: PLAN: She will continue with aggressive risk factor modification. Thank you for allowing me to participate in the care of your patient. Please don't hesitate to call if any issues arise.
--- NOTE | 2020-12-26 13:27 | PCM.DC ---
Discharge Instructions Diet Discharge Diet: No restrictions Activity Discharge Activity: Return to Normal Activity Follow Up Care Test Results: Test results from this visit will be discussed in further detail at your follow-up appointment, if applicable. Discharge Plan Admission Admit Date/Time: 12/24/20 21:52 Primary Reason for Your Visit: Chest pain Attending Provider: Prashant Mujica Primary Care Provider: Armand Clarke Consulting Providers: Steven Murphy Instructions Patient Instructions: ED Chest Pain, Noncardiac Discharge Orders/Prescriptions Prescriptions: New amiodarone 200 mg Tablet 200 mg PO DAILY Qty: 30 RF: 0 Eliquis 5 mg tablet 5 mg PO BID Qty: 60 RF: 0 Continued prednisolone 5 mg tablet 5 mg tablet 5 mg PO DAILY RF: 0 tramadol 50 mg tablet 50 mg PO DAILY RF: 0 nitroglycerin 0.4 mg tablet, sublingual 0.4 mg SUBLINGUAL Q5-15M RF: 0 leflunomide [Arava] 20 mg tablet 10 mg PO DAILY RF: 0 amlodipine 10 mg tablet 10 mg PO DAILY Qty: 90 RF: 2 sertraline 25 MG tablet 25 mg PO DAILY RF: 0 albuterol sulfate [ProAir HFA] 90 mcg/actuation HFA aerosol inhaler 2 puff INHALATION Q6H Qty: 8.5 RF: 2 rosuvastatin 20 mg tablet 20 mg PO DAILY Qty: 90 RF: 3 carvedilol 12.5 mg tablet 12.5 mg PO BID Qty: 180 RF: 3 aspirin [Adult Aspirin Regimen] 81 mg tablet,delayed release (DR/EC) 81 mg PO DAILY Qty: 90 RF: 1 pantoprazole 40 mg tablet,delayed release (DR/EC) 40 mg PO DAILY Qty: 90 RF: 2 Referrals / Follow Up: Armand Clarke MD [Primary Care Provider] - Within 2 Weeks ReyYuan klein MD [STAFF PHYSICIAN] - Within 2 Weeks Disposition Disposition (needs filled in before D/C Order can be placed): Home, self care
--- NOTE | 2020-12-26 13:36 | DS.PCM_ITS ---
Providers Date of Admission: 12/24/20 Primary Care Physician: Dr. Armand Clarke MD Consultations 12/24/20 22:35 Consult: Cardiology Routine Consulting Provider: Steven Murphy Reason for Consult: NEW ONSET Afib,Chest pain with high heart score EMERGENT Consult: No MD Notified: Yes Date Notified: 12/24/20 Time Notified: 21:51 Method of Notification: Text Reason For Visit: NEW ONSET A FIB, CHEST PAIN Diagnosis Discharge Diagnosis (1) NSTEMI, initial episode of care: Status: Acute Code(s): I21.4 - Non-ST elevation (NSTEMI) myocardial infarction (2) Atrial fibrillation, new onset: Status: Acute Code(s): I48.91 - Unspecified atrial fibrillation (3) H/O coronary artery bypass surgery: Status: Resolved Code(s): Z95.1 - Presence of aortocoronary bypass graft (4) Essential (primary) hypertension: Status: Chronic Code(s): I10 - Essential (primary) hypertension (5) Hyperlipemia: Status: Chronic Code(s): E78.5 - Hyperlipidemia, unspecified Medications at Discharge Home Medications sertraline 25 mg PO DAILY 08/28/16 nitroglycerin 0.4 mg sublingual tablet 0.4 mg SUBLINGUAL Q5-15M 06/09/19 prednisolone 5 mg tablet 5 mg PO DAILY 06/10/19 leflunomide 20 mg tablet 10 mg PO DAILY 06/16/20 albuterol sulfate 90 mcg/actuation aerosol inhaler 2 puff INHALATION Q6H #8.5 g 08/15/20 rosuvastatin 20 mg tablet 20 mg PO DAILY #90 tab 08/15/20 aspirin 81 mg tablet,delayed release 81 mg PO DAILY #90 tab 08/17/20 carvedilol 12.5 mg tablet 12.5 mg PO BID #180 tab 08/17/20 pantoprazole 40 mg tablet,delayed release 40 mg PO DAILY #90 tab 09/27/20 amlodipine 10 mg tablet 10 mg PO DAILY #90 tab 11/08/20 tramadol 50 mg tablet 50 mg PO DAILY tab 11/08/20 amiodarone 200 mg PO DAILY #30 tab 12/26/20 apixaban [Eliquis] 5 mg PO BID #60 tab 12/26/20 Hospital Course Summary of Care Provided Minutes Spent on Discharge: 35 Hospital Course: See subjective for patient presentation. Discharge planning: patient to return home with medical management, per cardiology. 1) NSTEMI Catheterization performed on 12/26/2020 demonstrated patency of the left internal mammary artery to the left anterior descending artery, the [place] right coronary artery, and the [place] circumflex artery. Patient continues to have ongoing chest pain, intermittent diaphoresis and palpitations. Patient has alerted nursing however refuses nitro patch to relieve symptoms. Prior history of CT in 2008, status post CABG x2. Stent placement in 2017. Cardiology following, follows with Dr. Le as an outpatient. Plan; initiate amiodarone 200 mg p.o. daily on discharge, initiate Eliquis 5 mg p.o. twice daily beginning on 12/27, follow-up with cardiology within the next 2 weeks. 2) New onset A-Fib/Flutter Patient rate is currently controlled on carvedilol 12.5 mg p.o. twice daily. [id number] score 6. Patient will need to be initiated on Eliquis at discharge, per cardiology. Plan; as above. 3) Depression Continue Zoloft. 4) GERD Continue PPI. 5) SLE Continue leflunomide. 6) HTN Stable, continue amlodipine and Coreg. Patient seen by Chapin Vu PA-C, under the supervision of Dr. Mujica. Physical Exam Narrative Patient is an 85-year-old female resting in bed, alert and oriented x3. Patient reports ongoing chest discomfort intermittent episodes of diaphoresis and palpitations. Denies shortness of breath, hemoptysis, sputum production, fever, chills, N/V/D. Const alert, oriented x3 and no apparent distress HEENT normocephalic, head/scalp atraumatic and hearing grossly normal bilaterally Eyes PERRL, EOMs intact bilaterally and conjunctivae normal Neck no lymphadenopathy, supple and no JVD Resp normal respiratory effort, no retractions and no use of accessory muscles Cardio regular rate, regular rhythm, no murmurs and no JVD GI normal to inspection, nondistended, normoactive bowel sounds, soft to palpation and non-tender Extremity normal to inspection, full ROM and no clubbing, cyanosis or edema Skin no rashes or lesions noted and no wounds Neuro CN's II-XII intact bilaterally Psych affect normal Weight / BMI Weight Weight: 160 lb 0.889 oz Body Mass Index (BMI) 29.2 ABG / Lab / Microbiology Data Result Diagrams: 12/26/20 06:30 12/26/20 06:30 Laboratory: Laboratory Results - last 24 hr 12/26/20 12/26/20 06:30 06:30 WBC 5.5 RBC 4.18 L Hgb 11.2 L Hct 36.2 L MCV 86.6 MCH 26.8 L MCHC 30.9 L RDW Std Deviation 46.0 H RDW Coeff of [place] 14.6 Plt Count 157 MPV 10.8 Immature Gran % (Auto) 0.400 Neut % (Auto) 54.2 Lymph % (Auto) 30.9 [place] % (Auto) 11.3 H Eos % (Auto) 2.5 Baso % (Auto) 0.7 Absolute Neuts (auto) 3.0 Absolute Lymphs (auto) 1.70 Nucleated RBC % 0 Sodium 141 Potassium 3.7 Chloride 111 H Carbon Dioxide 24.0 Anion Gap 6 BUN 24 H Creatinine 1.10 H Estim Creat Clear Calc 30.65 Est GFR (MDRD) Af Amer 61 Est GFR (MDRD) Non-Af 50 L BUN/Creatinine Ratio 21.8 H Glucose 122 H Calcium 8.9 Radiography Diagnostic Testing: Radiology Impression Echocardiogram 12/25/20 11:52 Interpretation Summary Normal LV size. Mild concentric left ventricular hypertrophy. Left ventricular systolic function is normal. The estimated ejection fraction is 55 %. Stage 1 diastolic dysfunction. Mild (1+) aortic valve insufficiency. Ordering Physician: Steven Murphy Referring Physician: Armand Clarke Performed By: Anoop Penaloza RCS D/C Instructions Discharge Diet: No restrictions Meaningful Use Info Meaningful Use Diagnoses (Choose all that apply): None applicable Discharge Plan Admission Admit Date/Time: 12/24/20 21:52 Primary Reason for Your Visit: Chest pain Attending Provider: Prashant Mujica Primary Care Provider: Armand Clarke Consulting Providers: Steven Murphy Instructions Patient Instructions: ED Chest Pain, Noncardiac Discharge Orders/Prescriptions Prescriptions: New amiodarone 200 mg Tablet 200 mg PO DAILY Qty: 30 RF: 0 Eliquis 5 mg tablet 5 mg PO BID Qty: 60 RF: 0 Continued prednisolone 5 mg tablet 5 mg tablet 5 mg PO DAILY RF: 0 tramadol 50 mg tablet 50 mg PO DAILY RF: 0 nitroglycerin 0.4 mg tablet, sublingual 0.4 mg SUBLINGUAL Q5-15M RF: 0 leflunomide [Arava] 20 mg tablet 10 mg PO DAILY RF: 0 amlodipine 10 mg tablet 10 mg PO DAILY Qty: 90 RF: 2 sertraline 25 MG tablet 25 mg PO DAILY RF: 0 albuterol sulfate [ProAir HFA] 90 mcg/actuation HFA aerosol inhaler 2 puff INHALATION Q6H Qty: 8.5 RF: 2 rosuvastatin 20 mg tablet 20 mg PO DAILY Qty: 90 RF: 3 carvedilol 12.5 mg tablet 12.5 mg PO BID Qty: 180 RF: 3 aspirin [Adult Aspirin Regimen] 81 mg tablet,delayed release (DR/EC) 81 mg PO DAILY Qty: 90 RF: 1 pantoprazole 40 mg tablet,delayed release (DR/EC) 40 mg PO DAILY Qty: 90 RF: 2 Referrals / Follow Up: Yuan Le MD [STAFF PHYSICIAN] - Within 2 Weeks Armand Clarke MD [Primary Care Provider] - Within 2 Weeks Disposition Disposition (needs filled in before D/C Order can be placed): Home, self care
--- NOTE | 2020-12-26 15:22 | CASEMGMT ---
Pt to be sent home on Eliquis at discharge and med e-scribed to [facility] yung. Call to [facility] and per tech, pt's co-pay is $102, pt/daughter updated, voice understanding. Pt/daughter provided with Eliquis 30 day free trial card, voice understanding and voice no further questions/concerns/needs. Ana HAWLEY CM
[2020-12-26] MEDS: Sertraline 50 MG Tablet 25 MG PO (15:34)
[2020-12-26] MEDS: Leflunomide 10 MG TABLET PO (15:34)
[2020-12-26] MEDS: predniSONE 5 MG Tablet PO (15:35)
[2020-12-26] MEDS: traMADol 50 MG Tablet PO (15:38)
--- NOTE | 2020-12-26 16:18 | CHAPLAIN ---
Type of Pastoral Visit _x__ Initial Visit ___ Follow-up Visit ___ On-call Visit ___ General Patient Visit ___ Spiritual Assessment ___ Family Conference ___ Bereavement ___ Rapid Response ___ Code Blue ___ Other (describe below) Pastoral Care Referral From _x__ Patient ___ Family ___ Nurse ___ Physician ___ Elastic Attacher Zigzag ___ Technologies Division Chair ___ Other (describe below) Sacrament/Intervention _x__ Active listening ___ Anointing ___ Sabianist ___ Bereavement ___ Communion ___ Jenny exploration ___ _x__ Life review _x__ Prayer ___ Reconciliation ___ Sacrament of Sick ___ Supportive presence ___ Wedding ___ Other (describe below) Pastoral Comments patient expresses relief at good report from hear cath; pt states she has good family although some are out of town; pt welcomes prayers for self and our country; no other concerns
--- NOTE | 2020-12-26 17:30 | EKG12_ITS ---
Test Reason : NECK PAIN Blood Pressure : / mmHG Vent. Rate : 057 BPM Atrial Rate : 057 BPM P-R Int : 118 ms QRS Dur : 116 ms QT Int : 424 ms P-R-T Axes : 047 019 144 degrees QTc Int : 412 ms Sinus bradycardia Right bundle branch block T wave abnormality, consider lateral ischemia Abnormal ECG When compared with ECG of 26-DEC-2020 05:28, MANUAL COMPARISON REQUIRED, DATA IS UNCONFIRMED Confirmed by TANA LOPEZ, NINI ([id number]), manager editorial WU PRIETO ([id number]) on 12/28/2020 7:58:06 AM Referred By: NICHOLAS CARTER Confirmed By:NINI FAJARDO MD
[2020-12-26] MEDS: Nitroglycerin (INPATIENT USE) 0.4 MG TAB.SUBL SL (18:15)
[2020-12-26] MEDS: Nitroglycerin Oint 1 INCH PACKET TD (18:20)
--- NOTE | 2020-12-26 18:54 | NURSING ---
Pt ambulated to toilet and back to bed no difficulties. Dressing remains C/D/I. Site remains soft with no bruisng.
[2020-12-26] MEDS: Atorvastatin Calcium 40 MG Tablet PO (22:30)
[2020-12-27] VITALS (7 sets, daily range): BP systolic 110–154; BP diastolic 43–98; PULSE 55–68; RESP 16–18; TEMP 36.6–36.7; O2SAT 93–97
[2020-12-27] MEDS: 0.9% Normal Saline 1,000 ML 60 ML IV (01:12)
[2020-12-27] MEDS: Nitroglycerin Oint 1 INCH PACKET 0.5 INCH TD (05:50)
[2020-12-27] MEDS: Pantoprazole Sodium 40 MG Tablet PO (07:04)
--- NOTE | 2020-12-27 07:44 | PN.CARD_ITS ---
Subjective Subjective Patient seen and evaluated. Had some chest discomfort yesterday Objective Data Vital Signs: Vital Signs Temp Pulse Resp BP Pulse Ox 98.0 F 66 16 141/58 H 93 12/27/20 07:00 12/27/20 07:00 12/27/20 07:00 12/27/20 07:00 12/27/20 07:30 Oxygen Flow Rate (L/min) 2 Oxygen Delivery Method Room Air Weight: 160 lb 0.889 oz Body Mass Index (BMI) 29.2 Intake & Output: Intake and Output for Last 24 Hours 12/25/20 12/26/20 12/27/20 23:59 23:59 23:59 Intake Total 1507.5 / 1627.5 480 / 480 1000 / 1000 Balance 1507.5 / 1627.5 480 / 480 1000 / 1000 Lab / Micro Data Result Diagrams: 12/26/20 06:30 12/26/20 06:30 Cardiology Labs/Tests Rhythm: EKG: ECHO: Stress Test: Cardiac Cath: PCI: CT Surgery: Holter monitor: EPS: PPM: CXR: Chest CT Scan: Radiography Diagnostic Testing: Radiology Impression Echocardiogram 12/25/20 11:52 Interpretation Summary Normal LV size. Mild concentric left ventricular hypertrophy. Left ventricular systolic function is normal. The estimated ejection fraction is 55 %. Stage 1 diastolic dysfunction. Mild (1+) aortic valve insufficiency. Ordering Physician: Steven Murphy Referring Physician: Armand Clarke Performed By: Anoop Penaloza RCS Physical Exam Const oriented x3 and healthy appearing Orientation / Consciousness: awake HEENT normocephalic Eyes PERRL and conjunctivae normal Neck supple, no JVD and no carotid bruits Chest inspection of chest normal Resp normal respiratory effort and clear to auscultation bilaterally Cardio Palpation: normal PMI Rate: regular rate Rhythm: regular rhythm Heart Sounds: S1 normal and S2 normal Peripheral Pulses: pulses 2+ throughout GI normal to inspection, nondistended, normoactive bowel sounds Extremity normal to inspection and no clubbing, cyanosis or edema Psych mental status grossly normal Assessment & Plan Assessment/Plan (1) NSTEMI, initial episode of care: PLAN: She does have evidence of a non-ST elevation myocardial infarction. * She underwent cardiac catheterization which demonstrated patency of the left internal mammary artery to the left anterior descending artery, the [place] right coronary artery, and the [place] circumflex artery. The saphenous vein graft to posterior descending artery was occluded which is old. We will continue with current medical therapy with optimization. * Will suggest the addition of isosorbide 60 mg a day to the regimen as well as Ranexa 500 mg twice a day. We will ambulate here today and see how she does before discharging. (2) Atrial fibrillation, new onset: PLAN: She does have new onset paroxysmal atrial fibrillation. I would recommend that we start her on amiodarone 200 mg once a day together with her beta-saravanan. She is a candidate for anticoagulation based on her [id number] score and this would be instituted. * Recommend starting anticoagulation today (3) H/O coronary artery bypass surgery: PLAN: She is status post coronary artery bypass surgery as noted above. Her grafts have been identified and will continue therapy. (4) Essential (primary) hypertension: PLAN: She does have a history of hypertension and she will be followed on her amlodipine as well as her carvedilol. Her echocardiogram demonstrated preserved ejection fraction with mild aortic regurgitation. (5) Hyperlipemia: PLAN: She will continue with aggressive risk factor modification. Thank you for allowing me to participate in the care of your patient. Please do n't hesitate to call if any issues arise.
[2020-12-27] MEDS: Aspirin E.C. 81 MG Tablet PO (09:25)
[2020-12-27] MEDS: Ranolazine 500 MG Tablet PO (09:25)
[2020-12-27] MEDS: Isosorbide Mononitrate 60 MG Tablet PO (09:25)
[2020-12-27] MEDS: APIXABAN 5 MG TABLET PO (09:25)
[2020-12-27] MEDS: predniSONE 5 MG Tablet PO (09:26)
[2020-12-27] MEDS: Carvedilol 12.5 MG Tablet PO (09:26)
[2020-12-27] MEDS: Amiodarone 200 MG Tablet PO (09:26)
[2020-12-27] MEDS: traMADol 50 MG Tablet PO (09:26)
[2020-12-27] MEDS: amLODIPine 10 MG Tablet PO (09:26)
[2020-12-27] MEDS: Sertraline 50 MG Tablet 25 MG PO (09:26)
--- NOTE | 2020-12-27 10:12 | PCM.DC ---
Discharge Instructions Diet Discharge Diet: No restrictions Activity Discharge Activity: Return to Normal Activity Follow Up Care Test Results: Test results from this visit will be discussed in further detail at your follow-up appointment, if applicable. Discharge Plan Admission Admit Date/Time: 12/24/20 21:52 Primary Reason for Your Visit: Chest pain Attending Provider: Prashant Mujica Primary Care Provider: Armand Clarke Consulting Providers: Steven Murphy Instructions Patient Instructions: ED Chest Pain, Noncardiac Discharge Orders/Prescriptions Prescriptions: New amiodarone 200 mg tablet 200 mg PO DAILY Qty: 30 RF: 0 Eliquis 5 mg tablet 5 mg PO BID Qty: 60 RF: 0 ranolazine [Ranexa] 500 mg tablet extended release 12 hr 500 mg PO BID Qty: 60 RF: 0 isosorbide mononitrate 60 mg tablet extended release 24 hr 60 mg PO DAILY Qty: 30 RF: 0 Continued prednisolone 5 mg tablet 5 mg tablet 5 mg PO DAILY RF: 0 tramadol 50 mg tablet 50 mg PO DAILY RF: 0 nitroglycerin 0.4 mg tablet, sublingual 0.4 mg SUBLINGUAL Q5-15M RF: 0 leflunomide [Arava] 20 mg tablet 10 mg PO DAILY RF: 0 amlodipine 10 mg tablet 10 mg PO DAILY Qty: 90 RF: 2 sertraline 25 MG tablet 25 mg PO DAILY RF: 0 albuterol sulfate [ProAir HFA] 90 mcg/actuation HFA aerosol inhaler 2 puff INHALATION Q6H Qty: 8.5 RF: 2 rosuvastatin 20 mg tablet 20 mg PO DAILY Qty: 90 RF: 3 carvedilol 12.5 mg tablet 12.5 mg PO BID Qty: 180 RF: 3 aspirin [Adult Aspirin Regimen] 81 mg tablet,delayed release (DR/EC) 81 mg PO DAILY Qty: 90 RF: 1 pantoprazole 40 mg tablet,delayed release (DR/EC) 40 mg PO DAILY Qty: 90 RF: 2 Referrals / Follow Up: Yuan Le MD [STAFF PHYSICIAN] - Within 2 Weeks Armand Clarke MD [Primary Care Provider] - Within 2 Weeks Disposition Disposition (needs filled in before D/C Order can be placed): Home, self care
[2020-12-27] MEDS: Leflunomide 10 MG TABLET PO (11:19)
--- NOTE | 2020-12-27 13:27 | DS.PCM_ITS ---
Documented by User: Chapin MEDEL 12/27/20 14:09 Providers Date of Admission: 12/24/20 Primary Care Physician: Dr. Armand Clarke MD Consultations 12/24/20 22:35 Consult: Cardiology Routine Consulting Provider: Steven Murphy Reason for Consult: NEW ONSET Afib,Chest pain with high heart score EMERGENT Consult: No MD Notified: Yes Date Notified: 12/24/20 Time Notified: 21:51 Method of Notification: Text Reason For Visit: NEW ONSET A FIB, CHEST PAIN Diagnosis Discharge Diagnosis (1) NSTEMI, initial episode of care: Status: Acute Code(s): I21.4 - Non-ST elevation (NSTEMI) myocardial infarction (2) Atrial fibrillation, new onset: Status: Acute Code(s): I48.91 - Unspecified atrial fibrillation (3) H/O coronary artery bypass surgery: Status: Resolved Code(s): Z95.1 - Presence of aortocoronary bypass graft (4) Essential (primary) hypertension: Status: Chronic Code(s): I10 - Essential (primary) hypertension (5) Hyperlipemia: Status: Chronic Code(s): E78.5 - Hyperlipidemia, unspecified Medications at Discharge Home Medications sertraline 25 mg PO DAILY 08/28/16 nitroglycerin 0.4 mg sublingual tablet 0.4 mg SUBLINGUAL Q5-15M 06/09/19 prednisolone 5 mg tablet 5 mg PO DAILY 06/10/19 leflunomide 20 mg tablet 10 mg PO DAILY 06/16/20 albuterol sulfate 90 mcg/actuation aerosol inhaler 2 puff INHALATION Q6H #8.5 g 08/15/20 rosuvastatin 20 mg tablet 20 mg PO DAILY #90 tab 08/15/20 aspirin 81 mg tablet,delayed release 81 mg PO DAILY #90 tab 08/17/20 carvedilol 12.5 mg tablet 12.5 mg PO BID #180 tab 08/17/20 pantoprazole 40 mg tablet,delayed release 40 mg PO DAILY #90 tab 09/27/20 amlodipine 10 mg tablet 10 mg PO DAILY #90 tab 11/08/20 tramadol 50 mg tablet 50 mg PO DAILY tab 11/08/20 amiodarone 200 mg PO DAILY #30 tab 12/26/20 apixaban [Eliquis] 5 mg PO BID #60 tab 12/26/20 isosorbide mononitrate 60 mg PO DAILY #30 tab 12/27/20 ranolazine [Ranexa] 500 mg PO BID #60 tab 12/27/20 Hospital Course Summary of Care Provided Minutes Spent on Discharge: 35 Hospital Course: See subjective for patient presentation. Discharge plan; patient to be discharged home, no home health care needs identified. Patient was supposed to be discharged yesterday, however discharge was canceled due to reports of ongoing chest pain. Chest pain now resolved. On ambulation today, patient reported no chest pain or discomfort, however felt like javier wearing too tight of a bra. She reports that this feeling is not unsual for her, and it usually resolves with rest. Does not feel like pain is consistent with symptoms described on admission. ROS negative for any concerning symptoms. Patient would like to return home and is not concerned with any on-going issues. This provider believes patient is stable for discharge. 1) NSTEMI Catheterization performed on 12/26/2020 demonstrated patency of the left internal mammary artery to the left anterior descending artery, [place] right coronary artery, and [place] circumflex artery. Patient continues to have ongoing chest pain, intermittent diaphoresis and palpitations. Patient has alerted nursing however refuses nitro patch to relieve symptoms. Prior history of [facility] in 2008, status post CABG x2. Stent placement in 2017. Cardiology following, follows with Dr. Le as an outpatient. Plan; initiate amiodarone 200 mg p.o. daily on discharge, initiate Eliquis 5 mg p.o. twice daily beginning on 12/27, follow-up with cardiology within the next 2 weeks, initiate isosorbide mononitrate 60 mg p.o. daily, initiate ranolazine 500 mg p.o. twice daily. 2) New onset A-Fib/Flutter Patient rate is currently controlled on carvedilol 12.5 mg p.o. twice daily. [id number] score 6. Patient will need to be initiated on Eliquis at discharge, per cardiology. Plan; as above. 3) Depression Continue Zoloft. 4) GERD Continue PPI. 5) SLE Continue leflunomide. 6) HTN Stable, continue amlodipine and Coreg. Patient seen by Chapin Vu PA-C, under the supervision of Dr. Mujica. Physical Exam Narrative Patient is an 85-year-old female comfortably resting in bed, alert and orient x3. Patient reports improvement in her chest discomfort from yesterday. Denies chest pain, shortness of breath, palpitations, hemoptysis, sputum production, fever, chills, N/V/D. Const alert, oriented x3 and no apparent distress HEENT normocephalic, head/scalp atraumatic and hearing grossly normal bilaterally Eyes PERRL and EOMs intact bilaterally Neck no lymphadenopathy, supple and no JVD Resp normal respiratory effort, no retractions, no use of accessory muscles and clear to auscultation bilaterally Cardio regular rate, regular rhythm, no murmurs and no JVD GI normal to inspection, nondistended, normoactive bowel sounds and soft to palpation Extremity normal to inspection and full ROM Skin no rashes or lesions noted and no wounds Neuro CN's II-XII intact bilaterally Psych affect normal Weight / BMI Weight Weight: 160 lb 0.889 oz Body Mass Index (BMI) 29.2 ABG / Lab / Microbiology Data Result Diagrams: 12/26/20 06:30 12/26/20 06:30 D/C Instructions Discharge Diet: No restrictions Meaningful Use Info Meaningful Use Diagnoses (Choose all that apply): None applicable Discharge Plan Admission Admit Date/Time: 12/24/20 21:52 Primary Reason for Your Visit: Chest pain Attending Provider: Prashant Mujica Primary Care Provider: Armand Clarke Consulting Providers: Steven Murphy Instructions Patient Instructions: ED Chest Pain, Noncardiac Discharge Orders/Prescriptions Prescriptions: New amiodarone 200 mg tablet 200 mg PO DAILY Qty: 30 RF: 0 Eliquis 5 mg tablet 5 mg PO BID Qty: 60 RF: 0 ranolazine [Ranexa] 500 mg tablet extended release 12 hr 500 mg PO BID Qty: 60 RF: 0 isosorbide mononitrate 60 mg tablet extended release 24 hr 60 mg PO DAILY Qty: 30 RF: 0 Continued prednisolone 5 mg tablet 5 mg tablet 5 mg PO DAILY RF: 0 tramadol 50 mg tablet 50 mg PO DAILY RF: 0 nitroglycerin 0.4 mg tablet, sublingual 0.4 mg SUBLINGUAL Q5-15M RF: 0 leflunomide [Arava] 20 mg tablet 10 mg PO DAILY RF: 0 amlodipine 10 mg tablet 10 mg PO DAILY Qty: 90 RF: 2 sertraline 25 MG tablet 25 mg PO DAILY RF: 0 albuterol sulfate [ProAir HFA] 90 mcg/actuation HFA aerosol inhaler 2 puff INHALATION Q6H Qty: 8.5 RF: 2 rosuvastatin 20 mg tablet 20 mg PO DAILY Qty: 90 RF: 3 carvedilol 12.5 mg tablet 12.5 mg PO BID Qty: 180 RF: 3 aspirin [Adult Aspirin Regimen] 81 mg tablet,delayed release (DR/EC) 81 mg PO DAILY Qty: 90 RF: 1 pantoprazole 40 mg tablet,delayed release (DR/EC) 40 mg PO DAILY Qty: 90 RF: 2 Referrals / Follow Up: Yuan Le MD [STAFF PHYSICIAN] - Within 2 Weeks Armand Clarke MD [Primary Care Provider] - Within 2 Weeks Disposition Disposition (needs filled in before D/C Order can be placed): Home, self care Documented by User: Dr. Prashant Mujica MD 12/27/20 14:35 Providers Date of Admission: 12/24/20 Reason For Visit: NEW ONSET A FIB, CHEST PAIN Medications at Discharge Home Medications sertraline 25 mg PO DAILY 08/28/16 nitroglycerin 0.4 mg sublingual tablet 0.4 mg SUBLINGUAL Q5-15M 06/09/19 prednisolone 5 mg tablet 5 mg PO DAILY 06/10/19 leflunomide 20 mg tablet 10 mg PO DAILY 06/16/20 albuterol sulfate 90 mcg/actuation aerosol inhaler 2 puff INHALATION Q6H #8.5 g 08/15/20 rosuvastatin 20 mg tablet 20 mg PO DAILY #90 tab 08/15/20 aspirin 81 mg tablet,delayed release 81 mg PO DAILY #90 tab 08/17/20 carvedilol 12.5 mg tablet 12.5 mg PO BID #180 tab 08/17/20 pantoprazole 40 mg tablet,delayed release 40 mg PO DAILY #90 tab 09/27/20 amlodipine 10 mg tablet 10 mg PO DAILY #90 tab 11/08/20 tramadol 50 mg tablet 50 mg PO DAILY tab 11/08/20 amiodarone 200 mg PO DAILY #30 tab 12/26/20 apixaban [Eliquis] 5 mg PO BID #60 tab 12/26/20 isosorbide mononitrate 60 mg PO DAILY #30 tab 12/27/20 ranolazine [Ranexa] 500 mg PO BID #60 tab 12/27/20 Hospital Course Summary of Care Provided Hospital Course: This patient was seen in conjunction with Chapin Vu PA-C. I have independently interviewed and examined the patient and reviewed pertinent historical, laboratory, and other data. Please refer to Chapin Vu PA-C's note for details of this patient's presentation, findings, and recommendations. I have reviewed Chapin Vu PA-C's note and concur with documented findings. In brief, patient is an 85-year-old female with past medical history segment for lupus, coronary artery disease with previous CABG and multiple stent placement admitted with chest pain was also found to have new onset A. fib with RVR admitted to a monitored bed with consultation placed to cardiology with plans for patient to undergo left heart catheterization Hospital course as documented above ABG / Lab / Microbiology Data Result Diagrams: 12/26/20 06:30 12/26/20 06:30 Discharge Plan Admission Admit Date/Time: 12/24/20 21:52 Primary Reason for Your Visit: Chest pain Attending Provider: Prashant Mujica Primary Care Provider: Armand Clarke Consulting Providers: Steven Murphy Instructions Patient Instructions: ED Chest Pain, Noncardiac Discharge Orders/Prescriptions Prescriptions: New amiodarone 200 mg tablet 200 mg PO DAILY Qty: 30 RF: 0 Eliquis 5 mg tablet 5 mg PO BID Qty: 60 RF: 0 ranolazine [Ranexa] 500 mg tablet extended release 12 hr 500 mg PO BID Qty: 60 RF: 0 isosorbide mononitrate 60 mg tablet extended release 24 hr 60 mg PO DAILY Qty: 30 RF: 0 Continued prednisolone 5 mg tablet 5 mg tablet 5 mg PO DAILY RF: 0 tramadol 50 mg tablet 50 mg PO DAILY RF: 0 nitroglycerin 0.4 mg tablet, sublingual 0.4 mg SUBLINGUAL Q5-15M RF: 0 leflunomide [Arava] 20 mg tablet 10 mg PO DAILY RF: 0 amlodipine 10 mg tablet 10 mg PO DAILY Qty: 90 RF: 2 sertraline 25 MG tablet 25 mg PO DAILY RF: 0 albuterol sulfate [ProAir HFA] 90 mcg/actuation HFA aerosol inhaler 2 puff INHALATION Q6H Qty: 8.5 RF: 2 rosuvastatin 20 mg tablet 20 mg PO DAILY Qty: 90 RF: 3 carvedilol 12.5 mg tablet 12.5 mg PO BID Qty: 180 RF: 3 aspirin [Adult Aspirin Regimen] 81 mg tablet,delayed release (DR/EC) 81 mg PO DAILY Qty: 90 RF: 1 pantoprazole 40 mg tablet,delayed release (DR/EC) 40 mg PO DAILY Qty: 90 RF: 2 Referrals / Follow Up: Yuan Le MD [STAFF PHYSICIAN] - Within 2 Weeks Armand Clarke MD [Primary Care Provider] - Within 2 Weeks Disposition Disposition (needs filled in before D/C Order can be placed): Home, self care Charges/Coding Visit Charges Inpatient E&M: 39246 Disch Hosp Hospital Course Consultations Consultations: Consultations 12/24/20 22:35 Consult: Cardiology Routine Consulting Provider: Steven Murphy Reason for Consult: NEW ONSET Afib,Chest pain with high heart score EMERGENT Consult: No MD Notified: Yes Date Notified: 12/24/20 Time Notified: 21:51 Method of Notification: Text
--- NOTE | 2020-12-27 14:30 | NURSING ---
This RN ambulated patient in [place]. 10 minutes after patient was back in bed, complained of a 'pressure like my bra is too tight.' Pt denied pain. Notified GIANFRANCO Pickens. He came and spoke with patient. Okay to dc patient.
--- NOTE | 2021-01-02 10:37 | CL.D_ITS ---
Patient Name: SUKUMAR IRVING Study Date: 12/26/2020 Performing: Yuan Le MD Ht: 62 inches 157 cm : 1935 Wt: 161.1 lbs 73 kg Age: 85 Gender: female BSA: 1.74 PROCEDURE(S) PERFORMED AO22-SOS/COR/CABG CLINICAL PROFILE AND INDICATIONS Indications: Suspected CAD Heart Failure: None Stress/Imaging Stress/Image Study Performed: No CAD Presentations: Stable angina. CONCLUSIONS Severe [place] vessel disease involving the mid left anterior descending artery with patent stents not ed in the HUSSEIN to the LAD, mild to moderate disease noted in the circumflex artery, and mild disease noted in the right coronary artery which is a dominant vessel. RECOMMENDATIONS Medical therapy DESCRIPTION OF PROCEDURE The patient arrived to the procedure lab. The risks and benefits of the procedure as well as a full d escription of our services here and current unavailability of surgical backup were fully explained to the patient and/or their significant other prior to the catheterization. The Timeout was completed, verifying the correct patient and procedure. The patient's procedural site was prepped and draped in the usual fashion. Local anesthetic was given subcutaneously to right groin region with Lidocaine 2%. Using a modified Seldinger technique, arterial access was obtained via the right femoral artery, a 5 Fr sheath was inserted. Left Coronary Artery selective angiography was performed in multiple views u sing a 5 Fr. JL4 catheter. Right Coronary Artery selective angiography was then performed in multiple views using a 5 Fr. 3DRC (Messi) catheter. Left internal mammary artery graft to the LAD selectiv e angiography was performed in multiple views using a 5 Fr. JR 4 catheter.The arterial sheath was pulled and manual compression applied until hemostasis is achieved. CORONARY ANGIOGRAPHY DOMINANCE: Right Dominant LEFT MAIN: Mild calcification, Mild luminal irregularities LEFT ANTERIOR DESCENDING ARTERY: MID LAD: is occluded CIRCUMFLEX ARTERY: Mild luminal irregularities OM 1: Proximal - Mild luminal irregularities OM 2: Proximal - Mild luminal irregularities RIGHT CORONARY ARTERY: Large vessel with calcification with no high-grade stenosis noted GRAFTS: HUSSEIN graft to the Mid LAD is patent Saphenous Vein graft to the 1st Diagonal is totally occluded COMPLICATIONS No Complications PROCEDURE MEDICATIONS Versed 1 mg IV Oxygen: 2 L/min via nasal cannula SUMMARY OF HEMODYNAMIC DATA Time AIR REST ECG 12:32:23 AO 141/65 (93) SA 12:42:32 ECG 13:14:33 Signed By Yuan Le MD On 01/02/2021 10:36:22 AM Yuan Le MD
== END 2020-12-27 13:26 | disposition home or self-care (01) ==
LOC: ED 21:41 → PCU 22:10
PROVIDERS: Physician Assistant; Admitting Provider Hospitalist; Emergency Provider Emergency Medicine; PCP Internal Medicine; Visit Provider Internal Medicine
DX: I21.4 Non-ST elevation (NSTEMI) myocardial infarction (principal); I25.10 Atherosclerotic heart disease of native coronary artery without angina pectoris; J44.9 Chronic obstructive pulmonary disease, unspecified; E78.5 Hyperlipidemia, unspecified; I50.32 Chronic diastolic (congestive) heart failure; I11.0 Hypertensive heart disease with heart failure; I08.3 Combined rheumatic disorders of mitral, aortic and tricuspid valves; I27.21 Secondary pulmonary arterial hypertension; M19.90 Unspecified osteoarthritis, unspecified site; M32.9 Systemic lupus erythematosus, unspecified; I73.9 Peripheral vascular disease, unspecified; I25.2 Old myocardial infarction; I48.0 Paroxysmal atrial fibrillation; F41.9 Anxiety disorder, unspecified; I48.92 Unspecified atrial flutter; K21.9 Gastro-esophageal reflux disease without esophagitis; M06.9 Rheumatoid arthritis, unspecified; F32.9 Major depressive disorder, single episode, unspecified; Z79.899 Other long term (current) drug therapy; Z79.82 Long term (current) use of aspirin; Z87.891 Personal history of nicotine dependence; Z95.1 Presence of aortocoronary bypass graft
CPT/HCPCS: 36415; 71045; 80048; 80061; 83735; 84443; 84484; 85025; 85610; 85730; 93005; 93306; 93455; 96361; 96372; 96374; 99152; 99153; 99218; 99285; J7030; Q9957; Q9967; A4216; C1769; G0378; J3490

== ENCOUNTER → 2021-02-07 10:46 | Outpatient (CLI) | payer MEDICARE, SELFPAY ==
[2021-02-07 10:09] VITALS: BMI 29.2
[2021-02-07 12:38] LABS: Absolute Lymphocyte Count 1.03 X10^3/uL (0.83-4.51); Absolute Neutrophil Count 5.5 X10^3/uL (2.0-7.7); Basophil# 0.04 X10^3/uL; Basophil% 0.5 % (0-1); Eosinophil# 0.18 X10^3/uL; Eosinophils% 2.3 % (0-5); Hemoglobin 10.3 g/dL (12.0-15.0); Lymphocyte # 1.03 X10^3/ul (0.83-4.51); Lymphocyte % 13.3 % (19-41); Mean Corp Hgb Conc 29.4 g/dL (32-36); Mean Corpuscular Hgb 26.1 pg (27.0-32.0); Mean Corpuscular Volume 88.8 fL (81-99); Mean Platelet Vol. 10.8 fl (6.2-12.0); Monocyte# 0.99 X10^3/uL; Monocyte% 12.7 % (0-10); NRBC Flagged by Analyzer 0 % (0-5); Neutrophil # 5.49 X10^3/uL (2.7-7.7); Neutrophil % 70.7 % (47-70); Platelet Count 212 K/mm3 (150-450); RBC Distribution Width CV 14.7 % (11.6-14.6); RBC Distribution Width SD 47.6 fl (35.1-43.9); Red Blood Count 3.94 M/mm3 (4.2-5.4); White Blood Count 7.8 K/mm3 (4.4-11.0)
[2021-02-07 12:56] LABS: ALB/GLOB Ratio 1.2 RATIO (0.9-2.4); AST(SGOT) 14 U/L (15-37); Alanine Aminotransfer ALT/SGPT 23 U/L (13-56); Albumin, Serum 3.7 g/dL (3.2-5.0); Alkaline Phosphatase 60 U/L (45-117); Anion Gap 8 (5-15); BUN 26 mg/dL (7-18); BUN/Creat Ratio 17.4 RATIO (10-20); Calcium,Total 8.8 mg/dL (8.5-10.1); Chloride 104 mmol/L (98-107); Creatinine, Serum 1.49 mg/dL (0.55-1.02); EST Glomerular Filtration Rate 35 mL/min (>60); Est Glom Filt Rate - Afr Amer 43 mL/min (>60); Globulin 3.1 g/dL (2.2-4.2); Glucose 149 mg/dL (74-106); Potassium 3.9 mmol/L (3.5-5.1); Protein, Total 6.8 g/dL (6.4-8.2); Sodium Level 137 mmol/L (136-145)
== END ==
PROVIDERS: PCP Internal Medicine; Referring Provider Internal Medicine Rheumatology; Visit Provider Internal Medicine Rheumatology
DX: M06.4 Inflammatory polyarthropathy (principal); Z79.899 Other long term (current) drug therapy; M32.9 Systemic lupus erythematosus, unspecified; I10 Essential (primary) hypertension; I25.10 Atherosclerotic heart disease of native coronary artery without angina pectoris; E78.5 Hyperlipidemia, unspecified; R80.9 Proteinuria, unspecified; I73.9 Peripheral vascular disease, unspecified
CPT/HCPCS: 36415; 80053; 85025

== ENCOUNTER → 2021-04-04 12:43 | Outpatient (CLI) | payer MEDICARE, SELFPAY ==
--- NOTE | 2021-04-04 12:44 | RAD_ITS ---
STUDY: X-RAY - RIGHT WRIST REASON FOR EXAM: Female, 86 years old. Right wrist pain and swelling TECHNIQUE: 3 view(s) of the wrist were obtained. COMPARISON: None. FINDINGS: There is demineralization of the radius and ulna. Severe narrowing of the radiocarpal articulation with remodeling of the articular surface of the distal radius and partial fragmentation and osteolysis proximal carpal row due to arthritis. Moderate surrounding soft tissue swelling is present. Multiple loose bodies noted on the dorsal surface of the wrist. Cortical spurring is also present. There is severe narrowing of the second through fifth MCP joints and secondary osteoarthritic changes. At sclerotic calcifications are present. RAD/Wrist min 3 Views IMPRESSION: Severe degenerative changes of the wrist. Electronically Signed: Michael Matos MD at 16:16 EDT , Service support ,
== END ==
PROVIDERS: PCP Internal Medicine; Referring Provider Internal Medicine; Visit Provider Internal Medicine
DX: M25.531 Pain in right wrist (principal)
CPT/HCPCS: 73110

== ENCOUNTER → 2021-04-24 13:16 | Outpatient (CLI) | payer MEDICARE, SELFPAY ==
--- NOTE | 2021-04-24 14:31 | SP.MBSS_ITS ---
Modified Barium Swallow - Patient Information Study Date: 04/24/21 Study Time: 13:30 Direct Billable Minutes: 120 Total Minutes procedure & reportin Diagnosis: dysphagia R13.10 Referring Physician: Armand Clarke Reason for Referral: Patient was referred for an objective videofluoroscopy swallow study of the swallow to rule out aspiration and due to patient having difficulty swallowing and a choking feeling when she is eating or putting her chin down. Medical History: Patient reports a medical history of COPD and Lupus. Patient reports she currently has sinus drainage, which does not help her swallowing. Patient also reports she has a lot of trouble swallow liquids and occasionally when she bends forwards, liquids spill out of her mouth. Current Diet Ordered: regular with thin liquids; no restrictions Dentition: WNL, Partials - not present at MBSs - Penetration-Aspiration Scale Penetration-Aspiration Scale: OBJECTIVE ASSESSMENT OF SWALLOW FUNCTION (QUANTITATIVE ? PER TRIAL): PENETRATION / ASPIRATION SCALE (WOODS): 1 = does not enter airway 2 = enters airway/above vocal folds/ejected 3 = enters airway/above vocal folds/not ejected 4 = enters airway/contacts vocal folds/ejected 5 = enters airway/contacts vocal folds/not ejected 6 = enters airway/below vocal folds/ejected 7 = enters airway/below vocal folds/not ejected despite effort 8 = enters airway/below vocal folds/no effort - Penetration-Aspiration Scale Score Thin Liquid via teaspoon Result: 2= enter airway/above vocal folds/ejected Thin Liquid via teaspoon Trial 2 Result: 4= enters airway/contacts vocal folds/ejected Thin Liquid via small single sip from cup Result: 4= enters airway/contacts vocal folds/ejected Thin Liquid via sequential sips from cup Result: 4= enters airway/contacts vocal folds/ejected Thin Liquid via single sip from straw Result: 4= enters airway/contacts vocal folds/ejected Thin Liquid via sequential sips from straw Result: 4= enters airway/contacts vocal folds/ejected [place] Thick Liquid via small single sip from cup Result: 2= enter airway/above vocal folds/ejected Honey Thick Liquid via small single sip from cup Result: 2= enter airway/above vocal folds/ejected Pudding via teaspoon Result: 1= does not enter airway Cookie via teaspoon Result: 1= does not enter airway Thin Liquid via small single sip from cup Chin tuck Result: 1= does not enter airway - unable to determine penetration/aspiration due to patient moving out of xray view Thin Liquid via small single sip from cup Chin tuck Trial 2 Result: 2= enter airway/above vocal folds/ejected [place] Thick Liquid via small single sip from cup Trial 2 Result: 2= enter airway/above vocal folds/ejected - Oral Phase Labial Seal: No Labial Escape Tongue Control During Bolus Hold: Cohesive bolus between tongue to palatal seal Bolus Preparation/Mastication: Slow prolonged chewing/mashing with complete recollection Bolus Transport/Lingual Motion: Delayed initiation of tongue motion Oral Residue: Trace residue lining oral structures - Pharyngeal Phase Initiation of Pharyngeal Swallow: Bolus head at posterior angle of ramus at first hyoid excursion Soft Palate Elevation: No bolus between soft palate and pharyngeal wall Laryngeal Elevation: Partial superior movement thyroid cart/partial apprx aryt- epig petiole - delayed completion of laryngeal elevation Anterior Hyoid Excursion: Partial anterior movement - delayed completion of anterior movement Epiglottic Movement: Partial inversion - delayed completion of epliglottic deflection Laryngeal Vestibule Closure at Height of Swallow: Incomplete; narrow column of air/contrast in laryngeal vestibule - delayed completion of layngeal closure Pharyngeal Stripping Wave: Present - diminished Pharyngoesophageal Segment Opening: Complete distension and complete duration; no obstruction of flow Tongue Base Retraction: Trace column of contrast between tongue base & post. pharyngeal wall Pharyngeal Residue: Collection of residue within or on pharyngeal structures - in valleculae; trace in pyriforms with thin liquids - Esophageal Phase Esophageal Clearance: Complete clearance - Treatment Strategies Effects of treatment strategies attemped:: Chin tuck was trialed with thin liquids. Chin tuck appeared effective to reduce, but not eliminate laryngeal penetration of thin liquids. Pt. was able to follow directions with strategy. - Diagnosis/Impression Diagnosis: Moderate oropharyngeal dysphagia (R13.12) Impression: Patient is an 86 year old female accompanied to the [facility] by a family member. Patient presents with oral phase dysphagia marked by slow mastication and bolus transport resulting in oral residuals. Patient presents with pharyngeal phase dysphagia marked by decreased tongue base retraction, decreased pharyngeal constriction, delayed completion of laryngeal elevation, delayed completion of anterior hyoid excursion, and delayed epiglottic deflection. This resulted in decreased laryngeal vestibule closure and penetration of thin liquids, nectar thick liquids and honey thick liquids. Patient's swallow initiation was timely, but patient presented with a pause during the swallow. This resulted in bolus entering the pharynx and pharyngeal vestibule prior to laryngeal vestibule closure and completed epiglottic deflection. Penetration with thin liquids reached the vocal folds, was ejected and did not result in aspiration. However, penetration was silent with no throat clear or cough. Patient did state she felt like the bolus was stuck in her throat. Pt. presented with oral residues and independently implemented re-swallow to clear. - Recommendations Diet: Regular Textures, Thin Liquids - with implementation of chin tuck only, [place]-thick Liquids Comment: IDDSI level 7 (solids) and level 2 (liquids). Thin liquid (IDDSI level 0) with implementation of chin tuck. Compensatory Strategies: Small Bites, Small Sips, No Straws, Slow Rate, Chin Tuck - with thin liquids, Multiple Swallows, Alternate bites/solids and sips/liquids, Sitting upright, Remain sitting upright for 30 minutes after PO intake Supervision: Distant Supervision Recommend Repeat Modified Barium Swallow: TBD - repeat with change in function Need for Skilled Speech Therapy Services: Yes - Pt. could benefit from Outpatient ST services Comment: Outpatient speech therapy services are recommended to address training in safe swallow strategies and to increase oral and laryngeal strength through exercises Education Completed: 1. Described result of evaluation., 2. Pt understands evaluation & agrees with goals and treatment plan., 4. Family/caregivers understand evaluation & agree w/ goals & tx plan., 5. Patient demonstrates recommended strategies., 6. Family/caregivers demonstrate recommended strategies., 7. Pt requires further education on strategies & risks. - Status Active ST Patient: Not Active - Contact Information [facility] Speech Therapy:: [address] [place] [place] [address] Yadira Jackson M.A., CCC-TRAFFIC WAREHOUSE SUPERVISOR [email or web address] 04/24/21
== END ==
PROVIDERS: PCP Internal Medicine; Referring Provider Internal Medicine; Visit Provider Internal Medicine
DX: R13.10 Dysphagia, unspecified (principal); R09.89 Other specified symptoms and signs involving the circulatory and respiratory systems
CPT/HCPCS: 74230; 92611

== ENCOUNTER → 2021-04-26 10:43 | Outpatient (CLI) | payer MEDICARE, SELFPAY ==
[2021-04-26 12:15] LABS: Absolute Lymphocyte Count 0.72 X10^3/uL (0.83-4.51); Absolute Neutrophil Count 7.7 X10^3/uL (2.0-7.7); Basophil# 0.05 X10^3/uL; Basophil% 0.5 % (0-1); Eosinophil# 0.11 X10^3/uL; Eosinophils% 1.1 % (0-5); Hematocrit 36.3 % (37-47); Hemoglobin 10.9 g/dL (12.0-15.0); Lymphocyte # 0.72 X10^3/ul (0.83-4.51); Lymphocyte % 7.4 % (19-41); Mean Corpuscular Hgb 25.3 pg (27.0-32.0); Mean Corpuscular Volume 84.4 fL (81-99); Mean Platelet Vol. 11.7 fl (6.2-12.0); Monocyte# 1.07 X10^3/uL; NRBC Flagged by Analyzer 0 % (0-5); Neutrophil # 7.74 X10^3/uL (2.7-7.7); Neutrophil % 79.5 % (47-70); Platelet Count 193 K/mm3 (150-450); RBC Distribution Width CV 15.9 % (11.6-14.6); RBC Distribution Width SD 48.4 fl (35.1-43.9); White Blood Count 9.7 K/mm3 (4.4-11.0)
[2021-04-26 12:37] LABS: AST(SGOT) 19 U/L (15-37); Alanine Aminotransfer ALT/SGPT 34 U/L (13-56); Albumin, Serum 3.5 g/dL (3.2-5.0); Alkaline Phosphatase 61 U/L (45-117); Anion Gap 8 (5-15); BUN 26 mg/dL (7-18); BUN/Creat Ratio 15.4 RATIO (10-20); Calcium,Total 8.6 mg/dL (8.5-10.1); Chloride 103 mmol/L (98-107); Creatinine, Serum 1.69 mg/dL (0.55-1.02); EST Glomerular Filtration Rate 31 mL/min (>60); Est Glom Filt Rate - Afr Amer 37 mL/min (>60); Globulin 3.5 g/dL (2.2-4.2); Glucose 182 mg/dL (74-106); Sodium Level 137 mmol/L (136-145)
== END ==
PROVIDERS: PCP Internal Medicine; Referring Provider Internal Medicine Rheumatology; Visit Provider Internal Medicine Rheumatology
DX: M06.4 Inflammatory polyarthropathy (principal); Z79.899 Other long term (current) drug therapy; M32.9 Systemic lupus erythematosus, unspecified; M15.9 Polyosteoarthritis, unspecified; K21.00 Gastro-esophageal reflux disease with esophagitis, without bleeding; I10 Essential (primary) hypertension; I25.10 Atherosclerotic heart disease of native coronary artery without angina pectoris; E78.5 Hyperlipidemia, unspecified; R80.9 Proteinuria, unspecified; I73.9 Peripheral vascular disease, unspecified; I48.91 Unspecified atrial fibrillation
CPT/HCPCS: 36415; 80053; 85025

== ENCOUNTER → 2021-05-12 09:11 | Outpatient (CLI) | payer MEDICARE, SELFPAY ==
--- NOTE | 2021-05-12 14:44 | PFTCOMP_ITS ---
COMPLETE PULMONARY FUNCTION TEST INTERPRETATION Brief HPI: Patient is an 86 year old female, currently under the care of Onelia Batista, who presents to [facility] for complete pulmonary function tests secondary to diagnosis of cough. Respiratory therapist reports good effort and reproducible results. Interpretation: Forced expiration spirometry shows no large airways obstructive ventilatory defect with an FEV1 of 87% predicted. There is no significant bronchodilator response by strict ATS criteria. Spirograms are of good quality and plateau normally. The respiratory flow volume loop shows decreased expiratory flow rates at all lung volumes consistent with airway obstruction. Lung volumes by body plethysmography show a normal total lung capacity at 4.07 L, 95% predicted. All other lung volumes are within normal limits. Diffusion capacity by carbon monoxide is at the lower limit of normal at 59% predicted. The airway resistance is normal. No previous pulmonary function tests were available for review. Impression: Grossly normal pulmonary function testing with some stigmata of small airways disease. Diffusion capacity is at the lower limit of normal, so early pulmonary vascular disease cannot be excluded.
== END ==
PROVIDERS: PCP Internal Medicine; Referring Provider Nurse Practitioner Gerontology; Visit Provider Nurse Practitioner Gerontology
DX: R06.00 Dyspnea, unspecified (principal); Z79.899 Other long term (current) drug therapy; R00.1 Bradycardia, unspecified; R42 Dizziness and giddiness
CPT/HCPCS: 93225; 93226; 94060; 94726; 94729

== ENCOUNTER → 2021-07-04 10:34 | Outpatient (CLI) | payer MEDICARE, SELFPAY ==
[2021-07-04 12:33] LABS: Vitamin D,25 Hydroxy 26.6 ng/mL
== END ==
PROVIDERS: PCP Internal Medicine; Referring Provider Internal Medicine; Visit Provider Internal Medicine
DX: M81.0 Age-related osteoporosis without current pathological fracture (principal)
CPT/HCPCS: 36415; 82306

== ENCOUNTER → 2021-07-10 14:38 | Outpatient (CLI) | payer MEDICARE, SELFPAY ==
[2021-07-10 14:40] LABS: Mucous, Urine 0 SEEN /hpf (<or=2+); Red Blood Cells-Urine 0 SEEN /hpf (0-5); Squamous Epithelial Cells - UA 0 SEEN /hpf (5-10)
[2021-07-10 16:42] LABS: Color, Urine Yellow (Yellow); Glucose, Dipstick Normal (Normal); Ketone-Dipstick Negative (Negative); Leukocyte Esterase-Dipstick 500 /ul (Negative); Nitrite-Dipstick Negative (Negative); Occult Blood-Urine 10 /ul (Negative); Protein-Dipstick 15 mg/dl (Negative); Urine Bilirubin Dipstick Negative (Negative); Urine Clarity Sl. Cloudy (Clear); Urine Urobilinogen Normal (Normal)
[2021-07-10 16:55] LABS: Bacteria 3+ /hpf (None Seen); White Blood Cells 25-50 SEEN /hpf (0-5)
== END ==
PROVIDERS: PCP Internal Medicine; Referring Provider Internal Medicine; Visit Provider Internal Medicine
DX: N39.0 Urinary tract infection, site not specified (principal)
CPT/HCPCS: 81001

== ENCOUNTER 2021-08-08 09:59 | Outpatient (CLI) | payer MEDICARE, SELFPAY ==
--- NOTE | 2021-08-08 10:05 | BD_ITS ---
STUDY: DUAL ENERGY X-RAY ABSORPTIOMETRY / DXA REASON FOR EXAM: Female, 86 years old. Osteoporosis TECHNIQUE: Bone Mineral Density (BMD) measurements of lumbar spine and bilateral hips were obtained. COMPARISON: None. FINDINGS: Lumbar Spine (L1-L4): g/cm2 (1.154) / T-score (1.1) / Z-score (3.9) Findings are suggestive of normal bone density with a low fracture risk. Left Femur Total: g/cm2 (0.781) / T-score (-1.3) / Z-score (1.0) Left Femoral Neck: g/cm2 (0.564) / T-score (-2.6) / Z-score (-0.1) Right Femur Total: g/cm2 (0.776) / T-score (-1.4) / Z-score (0.9) Right Femoral Neck: g/cm2 (0.575) / T-score (-2.5) / Z-score (0.0) BD/Dexa Bone Density Study IMPRESSION: The patient is considered osteoporotic as outlined below according to World Bong Organization (WHO) criteria with a high fracture risk. Reference Information: The T-score is the number of standard deviations above or below the standard which is normal for young adults at their peak bone mineral density. The World Health Organization (WHO) interprets the T-scores as follows: Above -1 Normal bone density Between -1 and -2.5 Osteopenia Equal to / or below -2.5 Osteoporosis As a practical clinical guideline, osteopenia may be graded as follows: Mild -1 through -1.5 Moderate -1.6 through -2.0 Severe -2.1 through -2.4 The Z-score is the number of standard deviations above or below age-matched controls. A Z-score of less than -1.5 would be considered abnormal. References: 1. NIH Osteoporosis and Related Bone Diseases www osteo.org 2. International Society for Clinical Densitometry www iscd.org 3. National Osteoporosis Foundation www nof.org Electronically Signed: Dwaine Munoz MD at 10:36 EST ,
== END 2021-08-08 23:59 | disposition short-term general hospital (02) ==
LOC: OPBD 10:00
PROVIDERS: PCP Internal Medicine; Referring Provider Internal Medicine; Visit Provider Internal Medicine
DX: M81.0 Age-related osteoporosis without current pathological fracture (principal)
CPT/HCPCS: 77080

== ENCOUNTER 2021-08-16 14:04 | Outpatient (CLI) | payer MEDICARE, SELFPAY | END 2021-08-16 23:59 | disposition short-term general hospital (02) | LOC: PSN 14:05 | PROVIDERS: PCP Internal Medicine; Referring Provider Nurse Practitioner Gerontology; Visit Provider Nurse Practitioner Gerontology | DX: R00.1 Bradycardia, unspecified (principal) | CPT/HCPCS: 93225; 93226 ==

== ENCOUNTER 2021-09-07 13:17 | Observation (INO) | payer MEDICARE, SELFPAY ==
[2021-09-07] VITALS (7 sets, daily range): BP systolic 125–154; BP diastolic 47–64; PULSE 47–65; RESP 16–18; TEMP 36.3–36.5; O2SAT 95–100; BMI 30.2
--- NOTE | 2021-09-07 13:34 | EKG12_ITS ---
Test Reason : DIZZINESS Blood Pressure : / mmHG Vent. Rate : 049 BPM Atrial Rate : 037 BPM P-R Int : 000 ms QRS Dur : 126 ms QT Int : 500 ms P-R-T Axes : 000 058 080 degrees QTc Int : 451 ms Wide QRS rhythm : Consider Junctional Bradycardia Right bundle branch block Abnormal ECG Confirmed by SUHA LOPEZ, JOSE ALFREDO ([id number]), editor dictionary WU PRIETO ([id number]) on 09/11/2021 11:36:54 AM Referred By: JHON Confirmed By:JOSE ALFREDO BORDEN MD
--- NOTE | 2021-09-07 13:36 | EDS_ITS ---
HPI History of Present Illness Chief Complaint: General Illness Detail of Chief Complaint: Dyspnea on exertion, midsternal chest heaviness with activity Informant: patient and family Onset/Context/Timing Onset: Yesterday Activity at onset: sudden and light activity Timing: Intermittent Quality: Positive for Heaviness Location: Substernal Current Severity: Gone Maximum Severity: Moderate Worsened By: Exertion; Not Worsened By Movement of Arm, Movement of Torso, Eating, Palpation, Breathing and Coughing Relieved By: Rest Associated Symptoms: Positive for Dyspnea and Lightheadedness; Negative for Nausea, Vomiting, Diaphoresis, Cough, Fever, Acid Reflux and Palpitations Narrative Narrative: Patient is an 86-year-old woman with history of coronary disease and status post coronary bypass surgery and placement of 6 stents. She also has history of paroxysmal atrial fibrillation on long-term anticoagulant therapy. She is also on amiodarone. There is history of pulmonary hypertension, hyperlipidemia, hypertension and reflux. Yesterday walking across the room she developed significant shortness of breath with heaviness in her chest that got better and eventually resolved with rest. Question of slight radiation to the left side. There was no other associated symptoms. She denies hematemesis, melena medic easier. She denies intolerance to greasy or fried foods. The discomfort is not positional. She denies history of VTE. She denies leg pain, swelling or discoloration. Patient states she feels terrible. Son was concerned because she becomes winded quite easily, which is not normal for her. Prior Similar Symptoms: Yes and With Prior Angina CVD Risk Factors: Positive for Hypertension and Hypercholesterolemia; Negative for Diabetes and Smoking PE Risk Factors: Negative for Recent Travel/Surgery, Recent Immobilization, Prior DVT or PE, Cancer and OCP + Smoking + >/=35 TAD Risk Factors: Positive for Hypertension; Negative for Marfan's Syndrome and Family History [facility] Medical History Anxiety Atherosclerosis of coronary artery bypass graft without angina pectoris Atherosclerosis of coronary artery of [place] heart without angina pectoris Atrial fibrillation with rapid ventricular response (12/24/20) Choking sensation (~08/30/21) Chronic diastolic (congestive) heart failure COPD (chronic obstructive pulmonary disease) Debility Difficulty swallowing Essential (primary) hypertension Flu vaccine need fracture of the dorsal mid metatarsal (10/07/20) Gastroesophageal reflux disease GERD (gastroesophageal reflux disease) History of non-ST elevation myocardial infarction (NSTEMI) (12/25/20) Hyperlipemia Incomplete right bundle branch block Lightheadedness Lupus erythematosus Osteoarthritis Osteoporosis Paroxysmal atrial flutter Peripheral vascular disease of extremity with claudication Right wrist pain Secondary pulmonary arterial hypertension Sleep apnea UTI (urinary tract infection) Home Medications nitroglycerin 0.4 mg sublingual tablet 0.4 mg SUBLINGUAL Q5-15M 06/09/19 [History Last Taken Unknown] aspirin 81 mg tablet,delayed release 81 mg PO DAILY #90 tab 08/17/20 [Rx Last Taken Unknown] albuterol sulfate 90 mcg/actuation aerosol inhaler 2 puff INHALATION Q6H PRN g 04/19/21 [History Last Taken Unknown] carvedilol 6.25 mg tablet 6.25 mg PO BID #180 tab 05/31/21 [Rx Last Taken Unknown] leflunomide 20 mg tablet 5 mg PO DAILY tab 05/31/21 [History Last Taken Unknown] amlodipine 2.5 mg tablet 2.5 mg PO DAILY #90 tab 06/07/21 [Rx Last Taken Unknown] ranolazine 500 mg tablet,extended release,12 hr 500 mg PO BID #180 tab 06/28/21 [Rx Last Taken Unknown] rosuvastatin 20 mg tablet 20 mg PO DAILY #90 tab 06/28/21 [Rx Last Taken Unkn own] denosumab 60 mg/mL subcutaneous syringe 60 mg SUBCUT [id number] #1 ml 08/09/21 [Rx Last Taken Unknown] apixaban 5 mg tablet 5 mg PO BID #180 tab 08/28/21 [Rx Last Taken Unknown] isosorbide mononitrate 30 mg tablet,extended release 24 hr 30 mg PO BID #180 tab 08/28/21 [Rx Last Taken Unknown] pantoprazole 40 mg tablet,delayed release 40 mg PO DAILY #90 tab 08/28/21 [Rx Last Taken Unknown] sertraline 25 mg tablet 25 mg PO DAILY #90 tab 08/28/21 [Rx Last Taken Unknown] acetaminophen [Tylenol] 650 mg PO Q6H PRN 09/07/21 [History Last Taken Unknown] amiodarone 100 mg PO BID 09/07/21 [History Last Taken Unknown] prednisone 5 mg PO DAILY 09/07/21 [History Last Taken Unknown] Allergy/AdvReac Type Severity Reaction Status Date / Time colchicine Allergy Other Verified 09/07/21 13:22 ezetimibe [From Zetia] Allergy Unknown Verified 09/07/21 13:22 isotretinoin [From Accutane] Allergy Other Verified 09/07/21 13:22 naproxen [From Aleve] Allergy hives and Verified 09/07/21 13:22 swelling quinine Allergy Other Verified 09/07/21 13:22 Sulfa (Sulfonamide Allergy Unknown Verified 09/07/21 13:22 Antibiotics) Family History Other Arthritis Depression Myocardial infarction Respiratory disease Surgical History H/O coronary artery bypass surgery (06/14/09) History of angioplasty of peripheral vessel (08/29/16) History of ankle surgery History of bladder suspension procedure History of coronary artery stent placement (04/25/17) History of hysterectomy History of left heart catheterization (01/02/21) Hx laparoscopic cholecystectomy Social History Smoking Status: Former smoker alcohol intake: never substance use type: does not use what type of physical activity do you participate in: none ROS ROS ED Constitutional Constitutional ED: Denies chills, fever(s), subjective, sweats or weight loss Eyes Eyes: Reports none; Denies blurry vision, change in vision or diplopia ENT ENT ED: Reports rhinorrhea; Denies ear pain or sore throat Cardiovascular Cardiovascular: Reports as per HPI; Denies orthopnea or paroxysmal nocturnal dyspnea Respiratory/Chest Respiratory/Chest: Reports dyspnea and dyspnea on exertion; Denies cough, orthopnea, paroxysmal nocturnal dyspnea or sputum Gastrointestinal Gastrointestinal: Denies abdominal pain, constipation, diarrhea, melena, nausea or vomiting Genitourinary Genitourinary ED: Denies dysuria, hematuria or urinary frequency Musculoskeletal Musculoskeletal: Denies arthralgias, back pain, myalgias or neck pain Integumentary Denies rash Neurologic Neurologic: Reports weakness; Denies headache(s) or paresthesias Endocrine Endocrinology: Denies polydipsia, polyphagia or polyuria Hematologic/Lymphatic Hematologic/Lymphatic: Reports easy bruising; Denies easy bleeding EXAM Physical Exam Const Vital Signs: 09/07/21 13:17 09/07/21 13:40 Temperature 97.3 F L Temperature Source Temporal Pulse Rate 61 Respiratory Rate 18 Respiratory Effort Normal Non-Labored Respiratory Pattern Normal Blood Pressure 129/64 H Blood Pressure Mean 85 Pulse Ox 100 Oxygen Delivery Method Room Air Positive well nourished, well developed and obese General Appearance ED: well developed and other Patient is tachypneic at rest and minimal activity causes her breathing to become mildly labored. ; Negative for NAD or pallor Nutritional Appearance: obese HEENT Reports TM's clear and moist mucous membranes HEENT Narrative: Uvula midline. There is no erythema or exudate posterior pharynx. normocephalic and atraumatic; Negative for trauma or tenderness Tympanic Membrane ED: Yes TM's clear Eyes PERRL and EOMs intact bilaterally General Eye ED: Negative for pale conjunctiva or scleral icterus Neck no lymphadenopathy, supple and no JVD Chest Wall palpation of chest normal Resp No normal respiratory effort and No clear to auscultation bilaterally Effort and Inspection: respiratory distress Auscultation: rales left base Cardio regular rhythm, S1 normal heart sound, S2 normal heart sound and no murmurs Rate: bradycardia GI normal to inspection, nondistended, normoactive bowel sounds, soft to palpation and non-tender Back/Spine no CVA tenderness and no thoracic nor lumbar tenderness Cervical Spine: Negative for cervical spine tenderness Extremity normal to inspection General Extremety ED: Negative for edema, pulses abnormal or tenderness General Extremity: Negative for edema or pulses abnormal Neuro oriented x3 and CN's II-XII intact bilaterally Sensorium / Orientation: awake and alert Motor Exam: strength 5/5 throughout Psych mental status grossly normal Skin no rashes or lesions noted and no wounds General Skin Exam: Negative for jaundice or pallor Heart Score History: Moderately Suspicious ECG: Nonspecific Repolarization Age: >/= 65 years Risk Factors: >/= 3 Risk Factors or History of CAD Troponin: </= Normal Limit Score: 6 MDM MDM MDM Narrative Medical decision making narrative: Heart score is 6 without troponin level. Patient has a concerning story which is exertional. Will obtain appropriate blood work and discussed with hospitalist for admission to obtain serial enzymes and consult to cardiology for provocative testing. Lab Data Attestation: I reviewed the patient's lab results. Lab results narrative: White count is unremarkable. Mild anemia with hemoglobin 11.7. Electrolyte panel is unremarkable. First troponin is 26. Labs: Laboratory Results - last 24 hr 09/07/21 09/07/21 13:30 13:30 WBC 10.2 RBC 4.38 Hgb 11.7 L Hct 38.0 MCV 86.8 MCH 26.7 L MCHC 30.8 L RDW Std Deviation 52.4 H RDW Coeff of Raza 16.9 H Plt Count 266 MPV 11.3 Immature Gran % (Auto) 0.500 Neut % (Auto) 76.9 H Lymph % (Auto) 14.5 L Benzie % (Auto) 6.5 Eos % (Auto) 0.8 Baso % (Auto) 0.8 Absolute Neuts (auto) 7.9 H Absolute Lymphs (auto) 1.48 Nucleated RBC % 0 Sodium 136 Potassium 4.8 Chloride 105 Carbon Dioxide 22.0 Anion Gap 9 BUN 25 H Creatinine 1.87 H Estim Creat Clear Calc 16.09 Est GFR (MDRD) Af Amer 33 L Est GFR (MDRD) Non-Af 27 L BUN/Creatinine Ratio 13.4 Glucose 270 H Calcium 8.7 Troponin I High Sens 26 Radiography Chest X-Ray - ED: 1 View (Single view chest x-ray shows chronic changes. Cardiac silhouette size are unremarkable status post coronary bypass surgery. Sternal wires are noted. She is slightly rotated. Ostia structures rule no acute process. There is mild chronic changes of the lung parenchyma. There is no abnormality n) Diagnostic Testing: Clinical Impression(s) from Imaging Studies Chest X-Ray 09/07/21 13:45 IMPRESSION: Mild increased markings at the lung bases suggestive of linear atelectasis versus scarring. Electronically Signed: Dwaine Munoz MD at 14:05 EST , EKG Initial EKG: Attestation: I personally reviewed and interpreted this EKG as follows: Interpretation: Sinus Bradycardia (Ventricular rate is 49. There is P waves noted. They have same morphology as prior EKG documented December 26, 2020. [place] interval is prolonged. There is evidence of a right bundle branch block. There is significant T wave abnormality which raises concern for cardiac ischemia. Of note T wave inversi) Discharge Plan Dx/Rx/DC Orders Clinical Impression: Chest pain, exertional, Hyperlipemia, Essential (primary) hypertension, Paroxysmal atrial fibrillation, ISBELL (dyspnea on exertion), History of coronary artery disease Disposition Disposition: Acute Care Hospital [facility]
--- NOTE | 2021-09-07 13:45 | RAD_ITS ---
STUDY: X-RAY CHEST REASON FOR EXAM: Female, 86 years old. Chest pain TECHNIQUE: Single AP portable view of the chest. COMPARISON: Comparison is made with prior study dated 12/24/2020. FINDINGS: EKG electrodes are seen. Mild increased markings at the lung bases suggestive of mild bibasilar linear atelectasis versus scarring. There is no demonstrated pleural abnormality. Sternal cerclage wires and vascular clips are present from a prior sternotomy and coronary artery bypass graft procedure (CABG). Normal mediastinum and katie. Normal visualized pulmonary arteries. There is atherosclerotic calcification of the aortic arch with tortuosity. There is a dextroscoliosis of the thoracic spine. Normal visualized ribs, clavicles, and shoulders. Hiatal hernia. RAD/Chest 1 View (Portable) IMPRESSION: Mild increased markings at the lung bases suggestive of linear atelectasis versus scarring. Electronically Signed: Dwaine Munoz MD at 14:05 EST ,
[2021-09-07 13:47] LABS: Absolute Lymphocyte Count 1.48 X10^3/uL (0.83-4.51); Absolute Neutrophil Count 7.9 X10^3/uL (2.0-7.7); Basophil# 0.08 X10^3/uL; Basophil% 0.8 % (0-1); Eosinophil# 0.08 X10^3/uL; Eosinophils% 0.8 % (0-5); Hemoglobin 11.7 g/dL (12.0-15.0); Lymphocyte # 1.48 X10^3/ul (0.83-4.51); Lymphocyte % 14.5 % (19-41); Mean Corp Hgb Conc 30.8 g/dL (32-36); Mean Corpuscular Hgb 26.7 pg (27.0-32.0); Mean Corpuscular Volume 86.8 fL (81-99); Mean Platelet Vol. 11.3 fl (6.2-12.0); Monocyte# 0.66 X10^3/uL; Monocyte% 6.5 % (0-10); NRBC Flagged by Analyzer 0 % (0-5); Neutrophil # 7.85 X10^3/uL (2.7-7.7); Neutrophil % 76.9 % (47-70); Platelet Count 266 K/mm3 (150-450); RBC Distribution Width CV 16.9 % (11.6-14.6); RBC Distribution Width SD 52.4 fl (35.1-43.9); Red Blood Count 4.38 M/mm3 (4.2-5.4); White Blood Count 10.2 K/mm3 (4.4-11.0)
[2021-09-07 14:09] LABS: Anion Gap 9 (5-15); BUN 25 mg/dL (7-18); BUN/Creat Ratio 13.4 RATIO (10-20); Calcium,Total 8.7 mg/dL (8.5-10.1); Chloride 105 mmol/L (98-107); Creatinine, Serum 1.87 mg/dL (0.55-1.02); EST Glomerular Filtration Rate 27 mL/min (>60); Est Glom Filt Rate - Afr Amer 33 mL/min (>60); Estimated Creatinine Clearance 16.09 ml/min; Glucose 270 mg/dL (74-106); Potassium 4.8 mmol/L (3.5-5.1); Sodium Level 136 mmol/L (136-145); Troponin-I HS 26 pg/mL (3.0-54.0)
--- NOTE | 2021-09-07 14:24 | HP.PCM.HOS_ITS ---
HPI - General General Date of Admission: 09/07/21 Date of Service: 09/07/21 Chief Complaint: Dyspnea, chest discomfort HPI Narrative The patient is an 86 y/o F w/ PMHx: Chronic bradycardia (rate usually in 50s per family report), OSBALDO not on CPAP/BIPAP, Lupus, Rheumatoid arthritis, Anxiety and Depression, PAF, CAD s/p CABG and PCI x 6, PAD, HTN, HLD, Anxiety and Depression, Chronic Diastolic CHF, GERD, Former tobacco use who presents to the [facility] ED on 09/07/21 with history of onset chest heaviness with dyspnea onset when she was walking across the room which improves with rest. She notes that every time since she becomes very short of breath with heaviness with associated diaphoresis but no nausea or emesis. She notes that the heaviness is usually a 3-4 out of 10 in severity. Currently upon evaluation she denies any chest heaviness but she is resting and seated in the ED bed. She does also complain of some mild bilateral ear fullness and does suffer from significant seasonal allergies. Work-up in the ED included T 97.3, heart rate 61, BP 120/64, respiratory rate 18, 100% on room air, CBC with WC 10.2, hemoglobin 11.7, pl atelet 266 with left shift, BMP with BUN/creatinine 25/1.87, glucose 270, troponin 26, chest x-ray with mild increased markings lung bases suggestive of linear atelectasis versus scarring, EKG with sinus bradycardia with evidence of right bundle branch block and significant T wave abnormality with inversions not noted previously. [facility] Medical History Anxiety Atherosclerosis of coronary artery bypass graft without angina pectoris Atherosclerosis of coronary artery of [place] heart without angina pectoris Atrial fibrillation with rapid ventricular response (12/24/20) Choking sensation (~08/30/21) Chronic diastolic (congestive) heart failure COPD (chronic obstructive pulmonary disease) Debility Difficulty swallowing Essential (primary) hypertension Flu vaccine need fracture of the dorsal mid metatarsal (10/07/20) Gastroesophageal reflux disease GERD (gastroesophageal reflux disease) History of non-ST elevation myocardial infarction (NSTEMI) (12/25/20) Hyperlipemia Incomplete right bundle branch block Lightheadedness Lupus erythematosus Osteoarthritis Osteoporosis Paroxysmal atrial flutter Peripheral vascular disease of extremity with claudication Right wrist pain Secondary pulmonary arterial hypertension Sleep apnea UTI (urinary tract infection) Home Medications nitroglycerin 0.4 mg sublingual tablet 0.4 mg SUBLINGUAL Q5-15M 06/09/19 [History Last Taken Unknown] aspirin 81 mg tablet,delayed release 81 mg PO DAILY #90 tab 08/17/20 [Rx Last Taken 09/07/21] albuterol sulfate 90 mcg/actuation aerosol inhaler 2 puff INHALATION Q6H PRN g 04/19/21 [History Last Taken 09/07/21] carvedilol 6.25 mg tablet 6.25 mg PO BID #180 tab 05/31/21 [Rx Last Taken 09/07/21] ranolazine 500 mg tablet,extended release,12 hr 500 mg PO BID #180 tab 06/28/21 [Rx Last Taken 09/07/21] rosuvastatin 20 mg tablet 20 mg PO DAILY #90 tab 06/28/21 [Rx Last Taken 09/07/21] denosumab 60 mg/mL subcutaneous syringe 60 mg SUBCUT [id number] #1 ml 08/09/21 [Rx Last Taken 1 Week Ago ~08/31/21] apixaban 5 mg tablet 5 mg PO BID #180 tab 08/28/21 [Rx Last Taken 09/07/21] isosorbide mononitrate 30 mg tablet,extended release 24 hr 30 mg PO BID #180 tab 08/28/21 [Rx Last Taken 09/07/21] pantoprazole 40 mg tablet,delayed release 40 mg PO DAILY #90 tab 08/28/21 [Rx Last Taken 09/07/21] sertraline 25 mg tablet 25 mg PO DAILY #90 tab 08/28/21 [Rx Last Taken 09/07/21] acetaminophen 1,000 mg PO Q6H PRN 09/07/21 [History Last Taken Unknown] amiodarone 100 mg PO BID 09/07/21 [History Last Taken 09/07/21] amlodipine 2.5 mg PO DAILY 09/07/21 [History Last Taken 09/06/21] calcium carbonate [Calcium 500] 500 mg PO DAILY 09/07/21 [History Last Taken 09/07/21] cholecalciferol (vitamin D3) 25 mcg PO DAILY 09/07/21 [History Last Taken 09/07/21] leflunomide 5 mg PO DAILY 09/07/21 [History Last Taken 09/07/21] prednisone 5 mg PO DAILY 09/07/21 [History Last Taken 09/07/21] Allergy/AdvReac Type Severity Reaction Status Date / Time colchicine Allergy Other Verified 09/07/21 13:22 ezetimibe [From Zetia] Allergy Unknown Verified 09/07/21 13:22 isotretinoin [From Accutane] Allergy Other Verified 09/07/21 13:22 naproxen [From Aleve] Allergy hives and Verified 09/07/21 13:22 swelling quinine Allergy Other Verified 09/07/21 13:22 Sulfa (Sulfonamide Allergy Unknown Verified 09/07/21 13:22 Antibiotics) Family History (Updated 09/07/21 @ 16:[address] Anushka Ragsdale MD) Mother Myocardial infarction Arthritis Lupus Father Alzheimer disease Other Depression Respiratory disease Surgical History H/O coronary artery bypass surgery (06/14/09) History of angioplasty of peripheral vessel (08/29/16) History of ankle surgery History of bladder suspension procedure History of coronary artery stent placement (04/25/17) History of hysterectomy History of left heart catheterization (01/02/21) Hx laparoscopic cholecystectomy Social History (Updated 09/07/21 @ 16:[address] Anushka Ragsdale MD) household members: none Smoking Status: Former smoker how long ago did patient quit smoking: Quit 1987, smoked 2 ppd since age 22 untiol quit. alcohol intake: current alcohol intake frequency: 0-2 drinks per day details: Drinks 1 glass wine with dinner. substance use type: does not use what type of physical activity do you participate in: none ROS ROS Narrative Admission Review of Systems: CONSTITUTIONAL: No weight loss, fever, chills, + weakness or fatigue. HEENT: Eyes: No visual loss, blurred vision, double vision or yellow sclerae. Ears, Nose, Throat: No hearing loss, sneezing, congestion, runny nose or sore throat. SKIN: No rash or itching, lesions, wounds. CARDIOVASCULAR: + Chest heaviness/pressure, No palpitations, edema, orthopnea, syncopal events. RESPIRATORY: + Shortness of breath, No cough or sputum, wheezing, hemoptysis. GASTROINTESTINAL: No anorexia, nausea, vomiting or diarrhea, abdominal pain, melena, BRBPR. GENITOURINARY: No dysuria, frequency, urgency or retention. NEUROLOGICAL: No headache, dizziness, syncope, paralysis, ataxia, numbness or tingling in the extremities, focal weakness, change in bowel or bladder control, seizure. MUSCULOSKELETAL: + Muscle, back pain, joint pain or stiffness. HEMATOLOGIC: + Anemia, bleeding or bruising. LYMPHATICS: No enlarged nodes. No history of splenectomy. PSYCHIATRIC: + history of depression or anxiety. ENDOCRINOLOGIC: No reports of sweating, cold or heat intolerance. No polyuria or polydipsia. ALLERGIES: + history of asthma, hives, eczema or rhinitis. Vital Signs Vital Signs Vital Signs: 09/07/21 13:17 09/07/21 13:40 Temperature 97.3 F L Temperature Source Temporal Pulse Rate 61 Respiratory Rate 18 Respiratory Effort Normal Non-Labored Respiratory Pattern Normal Blood Pressure 129/64 H Blood Pressure Mean 85 Pulse Ox 100 Oxygen Delivery Method Room Air Weight Weight: 155 lb Body Mass Index (BMI) 30.2 Physical Exam Narrative Physical Examination: General: Awake, alert, oriented x 3 and cooperative, seated upright in the ED bed in no apparent distress, no current chest discomfort or heaviness. Skin: Normal color, normal turgor, no icterus, no cyanosis. HEENT: AT/NC, EOMI, PERRLA, MMM, posterior OP erythema/post-nasal drip, no carotid bruits or JVD noted, BL OM without acute findings, notable cerumen BL present. Lungs: CTA bilaterally, moderate effort, mild decrease BL bases, no rales, ronchi or wheezing. Heart: Bradycardic with regular rhythm; no gallop, rub audible. Abdomen: Soft, obese, NTTP, ND, distant normal BS, no HSM. Extremities: No cyanosis, clubbing, or edema. Neurological: Patient awake, alert, oriented as noted, cognitive function intact; pupils equally reactive to light and accommodation, cranial nerves II- XII grossly normal, moving all 4 extremities, no focal deficits, strength moderately to severely globally decreased. Psychiatric: Affect appears fatiqued otherwise normal, no acute evidence of depressive or anxiety feelings. Results Lab / Micro Data Result Diagrams: 09/07/21 13:30 09/07/21 13:30 Labs: Laboratory Results - last 24 hr 09/07/21 13:30: WBC 10.2, RBC 4.38, Hgb 11.7 L, Hct 38.0, MCV 86.8, MCH 26.7 L, MCHC 30.8 L, RDW Std Deviation 52.4 H, RDW Coeff of Raza 16.9 H, Plt Count 266, MPV 11.3, Immature Gran % (Auto) 0.500, Neut % (Auto) 76.9 H, Lymph % (Auto) 14.5 L, [place] % (Auto) 6.5, Eos % (Auto) 0.8, Baso % (Auto) 0.8, Absolute Neuts (auto) 7.9 H, Absolute Lymphs (auto) 1.48, Nucleated RBC % 0 09/07/21 13:30: Sodium 136, Potassium 4.8, Chloride 105, Carbon Dioxide 22.0, Anion Gap 9, BUN 25 H, Creatinine 1.87 H, Estim Creat Clear Calc 16.09, Est GFR (MDRD) Af Amer 33 L, Est GFR (MDRD) Non-Af 27 L, BUN/Creatinine Ratio 13.4, Glucose 270 H, Calcium 8.7, Troponin I High Sens 26 Radiology Impression Chest X-Ray 09/07/21 13:45 IMPRESSION: Mild increased markings at the lung bases suggestive of linear atelectasis versus scarring. Electronically Signed: Dwaine Munoz MD at 14:05 EST Reading Location ID and State: [address] [place] [address] , Service support , Assessment & Plan Assessment/Plan (1) Chest pain, exertional: (2) ISBELL (dyspnea on exertion): PLAN: The patient is an 86 y/o F w/ PMHx: Chronic bradycardia (rate usually in 50s per family report), OSBALDO not on CPAP/BIPAP, Lupus, Rheumatoid arthritis, Anxiety and Depression, PAF, CAD s/p CABG and PCI x 6, PAD, HTN, HLD, Anxiety and Depression, Chronic Diastolic CHF, GERD, Former tobacco use who presents to the [facility] ED on 09/07/21 with history of onset chest heaviness with dyspnea onset when she was walking across the room which improves with rest. #1. Chest Pain/heaviness with exertional dyspnea with ? EKG changes: EKG with sinus bradycardia with evidence of right bundle branch block and significant T wave abnormality with inversions not noted previously, chest x-ray with mild increased markings lung bases suggestive of linear atelectasis versus scarring, initial trop 26. Will admit to PCU, place on a monitored bed to assure no acute myocardial infarction with serial cardiac enzymes and EKGs. If serial cardiac enzymes and EKGs remain unremarkable will pursue a.m. cardiac stress testing. FLP in AM. Magnesium level requested. ASA, NG, morphine. #2. Hyperglycemia: Admission glucose 270, no diabetic history listed, not on any diabetic medication, hemoglobin A1c requested and in the interim we'll maintain on ADA diet with insulin sliding scale and Accu-Cheks. #3. Chronic Bradycardia: Patient has hx bradycardia, normally in the 50s; however, in the ED was in the high 40s therefore will place hold parameters to be cautious, continue to closely monitor, TSH requested, mag requested. #4. Acute Renal Insufficiency on Chronic kidney disease III, unclear subtype: Admission BUN/Cr 25/1.87, baseline creatinine appears primarily 1.1-1.4, will judiciously hydrate given history of diastolic CHF and repeat CMP in AM. #5. CAD, PAD: Status post CABG and PCI, hx peripheral PCI also, will continue aspirin, apixaban, statin, Ranexa, Coreg with hold parameters as needed, not on NA inhibitor/ARB. #6. Chronic diastolic CHF: We will continue aspirin, apixaban, statin, Coreg, not on NA inhibitor/ARB nor diuretic. #7. Anxiety and depression: We will continue patient home low-dose sertraline regimen. #8. Lupus, rheumatoid arthritis: We will continue patient home low-dose prednisone therapy as well as leflunomide. #9. PAF: We will continue patient home Coreg with hold parameters as needed as well as apixaban. #10. Hypertension: Continue home regimen including isosorbide, amlodipine, Coreg with hold parameters as needed, PRN hydralazine. #11. Hyperlipidemia: Continue home statin regimen. AM FLP. #12. Chronic COPD: Patient is not on any routine inhalers, will have as needed albuterol, encourage head of bed, I-S. #13. Former tobacco use: Encourage continued tobacco cessation. #14. GERD: We will continue patient on PPI. #15. DVT prophylaxis: Everton Rocha #16. CODE status: Patient MAYI is her son who is present and living will is currently in place. Discussed CODE status at length including difference between FULL code, DNR-CCA and DNR-CC status. Following discussions about the differences in these status, requested Full Code status. Advanced Care Planning Face to Face Time: 16 minutes. Charges/Coding Visit Charges OBSV E&M: 35146 Initial observation care L3 Procedures Hospitalists Procedures: 22752 Advncd Care Plan 30 Min
[2021-09-07 15:09] LABS: Hemoglobin A1c 7.9 % (3.8-5.6)
--- NOTE | 2021-09-07 15:13 | EKG12_ITS ---
Test Reason : AM EKG Blood Pressure : / mmHG Vent. Rate : 055 BPM Atrial Rate : 055 BPM P-R Int : 154 ms QRS Dur : 124 ms QT Int : 486 ms P-R-T Axes : 055 028 079 degrees QTc Int : 464 ms Sinus bradycardia Right bundle branch block Abnormal ECG Confirmed by SUHA LOPEZ, JOSE ALFREDO ([id number]), photography editor WU PRIETO ([id number]) on 09/11/2021 11:48:49 AM Referred By: AMIRA Confirmed By:JOSE ALFREDO BORDEN MD
[2021-09-07] MEDS: Acetaminophen 325 MG Tablet 650 MG PO (15:36)
[2021-09-07] MEDS: 0.9% Normal Saline 1,000 ML 75 ML IV (15:37)
[2021-09-07 16:04] LABS: Magnesium 2.1 mg/dL (1.6-2.6); Troponin-I HS 26 pg/mL (3.0-54.0)
[2021-09-07 17:15] LABS: Bedside Glucose 242 mg/dL (70-110)
[2021-09-07] MEDS: Insulin Lispro 100 UNIT/ML INSULN.PEN SC ×2 (17:29→21:37)
[2021-09-07 19:49] LABS: Troponin-I HS 28 pg/mL (3.0-54.0)
[2021-09-07] MEDS: APIXABAN 5 MG TABLET PO (21:37)
[2021-09-07] MEDS: Ranolazine 500 MG Tablet PO (21:37)
[2021-09-07] MEDS: Atorvastatin Calcium 40 MG Tablet PO (21:37)
[2021-09-07 21:40] LABS: Bedside Glucose 184 mg/dL (70-110)
[2021-09-08] VITALS (12 sets, daily range): BP systolic 138–195; BP diastolic 46–87; PULSE 55–75; RESP 18; TEMP 36.1–36.8; O2SAT 94–99
--- NOTE | 2021-09-08 | COLBX_PTH ---
PATIENT: SUKUMAR IRVING LOC: [facility] U#:[id number] AGE/SX: 86/F ROOM: [facility] RE09/07/[address]: Dr. Prashant Mujica MD : [id number] BED: 1 DIS: 09/09/2021 SPEC #: [id number] RECD: 09/09/21 10:43 STATUS: HELEN REStarr #: [id number] LUIGI: 09/08/21 00:[address]: Ra Yamilhsaan DEPT: SURGICAL PATHOLOGY RECD BY: Josue Mendoza ENTERED: 09/11/21 08:41 SP TYPE: COLON BX OTHR DR: MD Dr. Prashant Copeland MD Dr. Efewongbe Oleghe, MD Tissues: Cecum, NOS Procedures: Surgery Specimen Level IV Comments: @ Ordering doctor for SUIV edited from to @ by ИРИНА at 09/11/21 1409 @ Submitting doctor edited from to @ by RGOOD at 09/11/21 1409 HEADER OPERATION: Colonoscopy, EGD ([facility] [place]) PRE-OP DIAGNOSIS: Bleeding TISSUE SUBMITTED: Cecal polyp biopsy MICROSCOPIC DIAGNOSIS Cecal polyp, biopsy: Fragments of tubular adenoma. KELLEY:enrique 09/12/2021 MICROSCOPIC DESCRIPTION Slides are reviewed. GROSS DESCRIPTION Received in fixative is one container labeled with the patient's name and designated cecum polyp biopsy. The specimen consists of two pieces of randolph-pink soft tissue measuring 0.3 x 0.2 x 0.2 cm and 0.9 x 0.7 x 0.4 cm. The entire specimen is submitted in one cassette. / KELLEY:enrique 09/11/2021 TC:1 CPT: 33145
[2021-09-08 05:31] LABS: Absolute Lymphocyte Count 1.23 X10^3/uL (0.83-4.51); Basophil# 0.04 X10^3/uL; Basophil% 0.8 % (0-1); Eosinophil# 0.09 X10^3/uL; Eosinophils% 1.8 % (0-5); Hemoglobin 9.8 g/dL (12.0-15.0); Lymphocyte # 1.23 X10^3/ul (0.83-4.51); Mean Corp Hgb Conc 31.6 g/dL (32-36); Mean Corpuscular Hgb 26.6 pg (27.0-32.0); Mean Platelet Vol. 10.7 fl (6.2-12.0); Monocyte# 0.52 X10^3/uL; Monocyte% 10.6 % (0-10); NRBC Flagged by Analyzer 0 % (0-5); Neutrophil # 3.01 X10^3/uL (2.7-7.7); Neutrophil % 61.2 % (47-70); Platelet Count 158 K/mm3 (150-450); RBC Distribution Width CV 16.7 % (11.6-14.6); RBC Distribution Width SD 50.6 fl (35.1-43.9); Red Blood Count 3.69 M/mm3 (4.2-5.4); White Blood Count 4.9 K/mm3 (4.4-11.0)
--- NOTE | 2021-09-08 05:55 | EKG12_ITS ---
Test Reason : CP ADMIT Blood Pressure : / mmHG Vent. Rate : 042 BPM Atrial Rate : 042 BPM P-R Int : 152 ms QRS Dur : 124 ms QT Int : 526 ms P-R-T Axes : 054 041 140 degrees QTc Int : 439 ms Marked sinus bradycardia with marked sinus arrhythmia Right bundle branch block T wave abnormality, consider lateral ischemia Abnormal ECG Confirmed by SUHA LOPEZ, JOSE ALFREDO ([id number]), advertising editor WU PRIETO ([id number]) on 09/11/2021 11:50:02 AM Referred By: AMIRA Confirmed By:JOSE ALFREDO BODREN MD
[2021-09-08 05:59] LABS: ALB/GLOB Ratio 0.9 RATIO (0.9-2.4); AST(SGOT) 18 U/L (15-37); Alanine Aminotransfer ALT/SGPT 33 U/L (13-56); Albumin, Serum 2.8 g/dL (3.2-5.0); Alkaline Phosphatase 51 U/L (45-117); Anion Gap 5 (5-15); BUN 23 mg/dL (7-18); BUN/Creat Ratio 18.1 RATIO (10-20); Calcium,Total 8.1 mg/dL (8.5-10.1); Chloride 112 mmol/L (98-107); Cholesterol 115 mg/dL (200); Creatinine, Serum 1.27 mg/dL (0.55-1.02); EST Glomerular Filtration Rate 43 mL/min (>60); Est Glom Filt Rate - Afr Amer 52 mL/min (>60); Estimated Creatinine Clearance 23.69 ml/min; Globulin 3.1 g/dL (2.2-4.2); Glucose 138 mg/dL (74-106); High Density Lipoprotein 54 mg/dL; Potassium 3.8 mmol/L (3.5-5.1); Protein, Total 5.9 g/dL (6.4-8.2); Sodium Level 142 mmol/L (136-145); Thyroid Stim Hormone (TSH) 2.25 uIU/mL (0.358-3.74); Triglycerides 167 mg/dL; Very Low Density Lipoprotein 33 mg/dL (5-40)
[2021-09-08] MEDS: Pantoprazole Sodium 40 MG Tablet PO ×2 (06:37→22:17)
[2021-09-08] MEDS: Aspirin E.C. 81 MG Tablet PO (06:37)
[2021-09-08 06:51] LABS: Bedside Glucose 149 mg/dL (70-110)
[2021-09-08] MEDS: Acetaminophen 325 MG Tablet 650 MG PO (10:31)
[2021-09-08] MEDS: predniSONE 5 MG Tablet PO (10:32)
[2021-09-08] MEDS: Sertraline 50 MG Tablet 25 MG PO (10:32)
[2021-09-08] MEDS: Ranolazine 500 MG Tablet PO ×2 (10:33→22:16)
[2021-09-08] MEDS: amLODIPine 2.5 MG Tablet PO (10:33)
[2021-09-08] MEDS: Leflunomide 10 MG TABLET 5 MG PO (10:34)
[2021-09-08] MEDS: Insulin Lispro 100 UNIT/ML INSULN.PEN SC ×3 (12:08→22:16)
--- NOTE | 2021-09-08 14:18 | CHAPLAIN ---
Type of Pastoral Visit _x__ Initial Visit ___ Follow-up Visit ___ On-call Visit ___ General Patient Visit ___ Spiritual Assessment ___ Family Conference ___ Bereavement ___ Rapid Response ___ Code Blue ___ Other (describe below) Pastoral Care Referral From _x__ Patient ___ Family ___ Nurse ___ Physician ___ [place] ___ Manager Market Intelligence ___ Other (describe below) Sacrament/Intervention _x__ Active listening ___ Anointing ___ Sikh ___ Bereavement ___ Communion ___ Jenny exploration ___ ___ Life review ___ Prayer ___ Reconciliation ___ Sacrament of Sick ___ Supportive presence ___ Wedding ___ Other (describe below) Pastoral Comments patient appears to be sleeping but opens her eyes to call of her name and engages with the assayer; pt states I feel lousy but better than when I arrived and that she is waiting for test results to see what will be decided; son of patient walks in at this time; pt states she does not need anything; offer of ongoing support given but this visit then ended
--- NOTE | 2021-09-08 14:24 | STRESSREP ---
Stress Test Report Pharmacologic/Lexiscan sestamibi myocardial perfusion stress test. Indication; 86-year-old patient with known history of CAD, PAD, chronic renal insufficiency with prior CABG and PCI Patient has paroxysmal A. fib and diastolic heart failure. Presented with symptoms of chest pain. Stress protocol: Resting EKG demonstrates. Normal sinus rhythm. Right bundle branch block, with T wave inversion in the anterolateral leads 0.4 mg of regadenoson was infused per usual protocol followed by rapid intravenous saline flush injection continuous EKG monitoring was performed. The maximum heart rate attained was 74 bpm which was 54% of maximum predicted heart rate. Stress EKG showed[, no significant change from the resting EKG, with maximum heart rate of 74 bpm. Arrhythmia: No arrhythmia demonstrated Symptoms: Patient had no symptoms of chest pain Blood pressure at rest: 172/72 mmHg blood pressure at the end of stress: 172/72 mmHg Myocardial perfusion protocol. 11.2 mCi ]of Technetium 99m Sestamibi was injected at rest. [ 0.4 mg ]of Regadenoson was infused per usual protocol peak infusion 33.3 mCi ]of Technetium 99m sestamibi was injected. Stress images were obtained stress and rest images were reconstructed and compared in the short axis vertical and horizontal long axis. Gated images were also obtained Perfusion SPECT analysis: Review of the images demonstrate normal uptake of sestamibi at rest, post stress images demonstrate similar uptake of sestamibi to the resting images, homogeneous tracer uptake With no evidence of reversible myocardial ischemia. Gated SPECT analysis: The gated ejection fraction is 61% Normal left ventricular wall motion, and normal LV systolic function Conclusion: Negative Lexiscan sestamibi myocardial perfusion study for reversible myocardial ischemia Normal LV systolic function Steven Murphy MD,FACC,[facility]
--- NOTE | 2021-09-08 15:31 | PCM.DC ---
Discharge Instructions Diet Discharge Diet: Low fat / Low cholesterol and 2000 mg Sodium Diet Activity Discharge Activity: Return to Normal Activity Dressing / Incision Call your doctor if you observe: Shortness of breath, Dizziness and Chest pain Follow Up Care Test Results: Test results from this visit will be discussed in further detail at your follow-up appointment, if applicable. Discharge Plan Admission Admit Date/Time: 09/07/21 14:35 Primary Reason for Your Visit: chest pain Attending Provider: Prashant Mujica Primary Care Provider: Armand Clarke Discharge Orders/Prescriptions Prescriptions: New glimepiride 1 mg tablet 1 mg PO DAILY Qty: 30 RF: 0 pantoprazole 40 mg Tablet,Delayed Release (Dr/Ec) 40 mg PO 0800,2200 30 Days Qty: 60 RF: 0 Continued nitroglycerin 0.4 mg tablet, sublingual 0.4 mg SUBLINGUAL Q5-15M RF: 0 albuterol sulfate [ProAir HFA] 90 mcg/actuation HFA aerosol inhaler 2 puff INHALATION Q6H PRN (Reason: Wheezing) RF: 0 carvedilol 6.25 mg tablet 6.25 mg PO BID Qty: 180 RF: 3 prednisone 5 mg Tablet 5 mg PO DAILY RF: 0 leflunomide 10 mg tablet 5 mg PO DAILY RF: 0 acetaminophen 500 mg Tablet 1,000 mg PO Q6H PRN (Reason: Pain) RF: 0 calcium carbonate 500 mg calcium (1,250 mg) Tablet 500 mg PO DAILY RF: 0 cholecalciferol (vitamin D3) 25 mcg (1,000 unit) Capsule 25 mcg PO DAILY RF: 0 amlodipine 2.5 mg tablet 2.5 mg PO DAILY RF: 0 amiodarone 200 mg tablet 100 mg PO DAILY Qty: 0 RF: 0 ranolazine [Ranexa] 500 mg tablet extended release 12 hr 500 mg PO BID Qty: 180 RF: 3 rosuvastatin 20 mg tablet 20 mg PO DAILY Qty: 90 RF: 3 Prolia 60 mg/mL syringe 60 mg subcut [id number] Qty: 1 RF: 1 sertraline 25 mg tablet 25 mg PO DAILY Qty: 90 RF: 2 isosorbide mononitrate 30 mg tablet extended release 24 hr 30 mg PO BID Qty: 180 RF: 3 Held aspirin [Adult Aspirin Regimen] 81 mg tablet,delayed release (DR/EC) 81 mg PO DAILY Qty: 90 RF: 1 Hold Instructions: Resume on 09/16/21. Eliquis 5 mg tablet 5 mg PO BID Qty: 180 RF: 3 Hold Instructions: Resume on 09/16/21. Hold until follow up with PCP. Discontinued pantoprazole 40 mg tablet,delayed release (DR/EC) 40 mg PO DAILY Qty: 90 RF: 2 Referrals / Follow Up: Armand Clarke MD [Primary Care Provider] - In 1 Week Malcom Lobo DO [STAFF PHYSICIAN] - Within 2 Weeks Onelia Batista NP, CREDENTIAL[facility] SPECIALIST-C [Nurse Practitioner] - See Referral Note (As scheduled 10/02/2021) Disposition Disposition (needs filled in before D/C Order can be placed): Home, Self Care
--- NOTE | 2021-09-08 15:46 | PN.HOSP_ITS ---
Documented by User: Marquita Blackwell NP, [employer] 09/08/21 15:58 Subjective Subjective Patient seen and examined. Underwent stress test which was negative for ischemia. Notified by nursing this afternoon that patient was having a bowel movement and noticed bright red blood with clots. Objective Data Objective Data Vital Signs: Vital Signs Temp Pulse Resp BP Pulse Ox 97.9 F 64 18 180/63 H 96 09/08/21 14:38 09/08/21 14:38 09/08/21 14:38 09/08/21 14:38 09/08/21 14:38 Oxygen Delivery Method Room Air Weight: 157 lb 3.033 oz Body Mass Index (BMI) 30.2 Intake & Output: Intake and Output for Last 24 Hours 09/06/21 09/07/21 09/08/21 23:59 23:59 23:59 Intake Total 1240 / 1240 Balance 1240 / 1240 Lab / Micro Data Result Diagrams: 09/08/21 04:54 09/08/21 04:54 Labs: Laboratory Results - last 24 hr 09/07/21 15:35: Magnesium 2.1, Troponin I High Sens 26 09/07/21 17:07: POC Glucose 242 H 09/07/21 19:04: Troponin I High Sens 28 09/07/21 21:36: POC Glucose 184 H 09/08/21 04:54: WBC 4.9, RBC 3.69 L, Hgb 9.8 L, Hct 31.0 L, MCV 84.0, MCH 26.6 L , MCHC 31.6 L, RDW Std Deviation 50.6 H, RDW Coeff of Raza 16.7 H, Plt Count 158, MPV 10.7, Immature Gran % (Auto) 0.600, Neut % (Auto) 61.2, Lymph % (Auto) 25.0, Garza % (Auto) 10.6 H, Eos % (Auto) 1.8, Baso % (Auto) 0.8, Absolute Neuts (auto) 3.0, Absolute Lymphs (auto) 1.23, Nucleated RBC % 0 09/08/21 04:54: Sodium 142, Potassium 3.8, Chloride 112 H, Carbon Dioxide 25.0, Anion Gap 5, BUN 23 H, Creatinine 1.27 H, Estim Creat Clear Calc 23.69, Est GFR (MDRD) Af Amer 52 L, Est GFR (MDRD) Non-Af 43 L, BUN/Creatinine Ratio 18.1, Glucose 138 H, Calcium 8.1 L, Total Bilirubin 0.30, AST 18, ALT 33, Alkaline Phosphatase 51, Total Protein 5.9 L, Albumin 2.8 L, Globulin 3.1, Albumin/Globulin Ratio 0.9, Triglycerides 167, Cholesterol 115, LDL Cholesterol 28, VLDL Cholesterol 33, HDL Cholesterol 54, TSH 2.25 09/08/21 06:37: POC Glucose 149 H Physical Exam Const alert, oriented x3 and no apparent distress Orientation / Consciousness: awake, oriented to person, oriented to place and oriented to time HEENT normocephalic and moist oral mucous membranes Eyes PERRL, EOMs intact bilaterally and conjunctivae normal Neck no lymphadenopathy Resp normal respiratory effort and clear to auscultation bilaterally Cardio regular rate, regular rhythm and no murmurs Cardio Narrative: Intermittently bradycardic Peripheral Pulses: pulses 2+ throughout GI normal to inspection, nondistended, normoactive bowel sounds, non-tender and non-distended Extremity normal to inspection Skin no rashes or lesions noted Lesions: no lesions Rashes: no rashes Trauma: no lacerations or abrasions Neuro CN's II-XII intact bilaterally, no focal motor deficits, no sensory deficits noted and deep tendon reflexes 2+ bilaterally Psych mental status grossly normal and affect normal Assessment & Plan Assessment/Plan (1) Chest pain, exertional: PLAN: 1. Chest pain, exertional dyspnea-ACS ruled out. Underwent nuclear stress test which was negative for ischemia. Gated ejection fraction 61%. 2. GI bleed-patient reported bowel movement with bright red clots. Hemoglobin dropped to 9.8 from 11.7. Hold Eliquis. Trend CBC. Consult GI. 3. New diagnosis type 2 diabetes mellitus-hemoglobin A1c 7.9%. Accu-Cheks with sliding scale insulin. Plan to initiate low-dose glimepiride at discharge with further outpatient follow-up. 4. Chronic bradycardia-recent Holter monitor outpatient. Amiodarone reduced to 100 mg daily. Hold parameters in place. 5. Chronic kidney disease stage IIIb- stable. 6. CAD/PAD-history of CABG and PCI. On aspirin, statin, Ranexa, Coreg. 7. Chronic diastolic CHF-stable. Continue current regimen. 8. Anxiety/depression-continue sertraline. 9. Lupus/rheumatoid arthritis-continue low-dose prednisone as well as lefluno mide. 10. Paroxysmal atrial fibrillation-on Coreg, amiodarone. Amiodarone reduced to 100 mg daily. Eliquis on hold. 11. Hypertension-intermittently elevated. As needed hydralazine for systolic blood pressure greater than 160. 12. Hyperlipidemia-continue statin. 13. Chronic COPD-no exacerbation. 14. GERD-continue PPI. 15. Former tobacco use-encouraged continued cessation. DVT prophylaxis-SCDs, Eliquis on hold. This patient was seen by GIDEON Mckinley under the supervision of Dr. Jim alejandra. Documented by User: Dr. Prashant Mujica MD 09/08/21 16:27 Objective Data Lab / Micro Data Result Diagrams: 09/08/21 04:54 09/08/21 04:54 Assessment & Plan Addt'l Comments This patient was seen in conjunction with GIDEON Mckinley . I have independently interviewed and examined the patient and reviewed pertinent historical, laboratory, and other data. Please refer to GIDEON Mckinley note for details of this patient's presentation, findings, and recommendations. I have reviewed GIDEON Mckinley note and concur with documented findings. In brief, patient is is an 88-year-old lady with multiple comorbidities including coronary artery disease with multiple stent placement, A. fib who presented with chest pain admitted to monitored bed where patient underwent subsequent evaluation. FL was ruled out with serial cardiac enzymes. Patient subsequently underwent a nuclear stress test which was negative for stress- induced ischemia. Patient hospital stay complicated by bradycardia as well as bleeding per rectum Physical Examination: GENERAL: cooperative HEENT: Atraumatic; EYES; Anicteric, Normal Conjunctiva NECK; supple, normal thyroid, RESPIRATORY: Diminished to auscultation CARDIOVASCULAR: Regular S1 S2, GI: soft, normoactive bowel sounds, : No Renal angle tenderness; EXTREMITIES: No edema, no clubbing, MUSCULOSKELETAL: no muscle wasting NEURO: Awake; no lateralizing signs. SKIN: No Rash PSYCH; Flat affect Assessment: 1. Chest pain 2. Bradycardia 3. Bleeding per rectum 4. Paroxysmal A. fib 5. Coronary artery disease with CABG and subsequent multiple PCI's 6. Peripheral arterial disease 7. Congestive heart failure with preserved ejection fraction 6. Essential potential 7. Dyslipidemia 8. GERD 9. Rheumatoid arthritis 10. Lupus 11. Depression with anxiety 12. Chronic kidney disease stage IIIb 13. COPD without exacerbation 14. DVT prophylaxis patient was on Eliquis held in view of bleeding per rectum Recommendations: 1. I have discussed the results of my overview and impressions with the patient 2. Options for management were reviewed Total time spent by myself and the advanced practice practitioner evaluating patient, reviewing labs, subsequent management decisions, discussion with patient as well as other providers 40 minutes ( 25 of which was spent by myself) Charges/Coding Visit Charges Inpatient E&M: 65411 Subs Hosp L3
--- NOTE | 2021-09-08 16:19 | CASEMGMT ---
This RN CM to room with MATA form, explanation done-pt voices understanding, and pt signs MATA form. Pt's son is at bedside. Original to chart and copy to pt. Pt voices no further questions/concerns/needs. SStaten CHANDAN CM
[2021-09-08] MEDS: amLODIPine 5 MG Tablet PO (16:30)
[2021-09-08] MEDS: Isosorbide Mononitrate 30 MG Tablet PO (16:30)
[2021-09-08 16:36] LABS: Bedside Glucose 151 mg/dL (70-110)
[2021-09-08 16:36] LABS: Bedside Glucose 158 mg/dL (70-110)
--- NOTE | 2021-09-08 18:14 | CON.PCM.GI_ITS ---
HPI Consult Data Date of Consult: 09/08/21 HPI Narrative HPI Narrative: SUKUMAR IRVING, is a 86 F who presents with intermittent abdominal pain and shortness of breath. She has a past medical history of chronic bradycardia, OSBALDO, lupus, rheumatoid arthritis, anxiety, depression, paroxysmal atrial fibrillation on Eliquis therapy, CAD status post CABG. They ruled out a cardiac abnormality during his hospital stay. She has still been struggling with hypertension and bradycardia. I was asked to see her because she went to to have a bowel movement and had a massive bloody bowel movement with coffee grounds in bright red blood per rectum. She has been having intermittent diarrhea over the last several months since being started on Eliquis. She also has been having intermittent abdominal pain. She attributed to her lupus medicines. She does take leflunomide and was on Plaquenil. However the Plaquenil was stopped because she was having some vision loss. She is experiencing some hair loss from the leflunomide. She also takes tramadol and 81 mg aspirin on a daily basis. [facility] Medical History Anxiety Atherosclerosis of coronary artery bypass graft without angina pectoris Atherosclerosis of coronary artery of mak[place] heart without angina pectoris Atrial fibrillation with rapid ventricular response (12/24/20) Choking sensation (~08/30/21) Chronic diastolic (congestive) heart failure COPD (chronic obstructive pulmonary disease) Debility Difficulty swallowing Essential (primary) hypertension Flu vaccine need fracture of the dorsal mid metatarsal (10/07/20) Gastroesophageal reflux disease GERD (gastroesophageal reflux disease) History of non-ST elevation myocardial infarction (NSTEMI) (12/25/20) Hyperlipemia Incomplete right bundle branch block Lightheadedness Lupus erythematosus Osteoarthritis Osteoporosis Paroxysmal atrial flutter Peripheral vascular disease of extremity with claudication Right wrist pain Secondary pulmonary arterial hypertension Sleep apnea UTI (urinary tract infection) Home Medications nitroglycerin 0.4 mg sublingual tablet 0.4 mg SUBLINGUAL Q5-15M 06/09/19 [History Last Taken Unknown] aspirin 81 mg tablet,delayed release 81 mg PO DAILY #90 tab 08/17/20 [Rx Last Ta isidra 09/07/21] albuterol sulfate 90 mcg/actuation aerosol inhaler 2 puff INHALATION Q6H PRN g 04/19/21 [History Last Taken 09/07/21] carvedilol 6.25 mg tablet 6.25 mg PO BID #180 tab 05/31/21 [Rx Last Taken 09/07/21] ranolazine 500 mg tablet,extended release,12 hr 500 mg PO BID #180 tab 06/28/21 [Rx Last Taken 09/07/21] rosuvastatin 20 mg tablet 20 mg PO DAILY #90 tab 06/28/21 [Rx Last Taken 09/07] denosumab 60 mg/mL subcutaneous syringe 60 mg SUBCUT [id number] #1 ml 08/09/21 [Rx Last Taken 1 Week Ago ~08/31/21] apixaban 5 mg tablet 5 mg PO BID #180 tab 08/28/21 [Rx Last Taken 09/07/21] isosorbide mononitrate 30 mg tablet,extended release 24 hr 30 mg PO BID #180 tab 08/28/21 [Rx Last Taken 09/07/21] pantoprazole 40 mg tablet,delayed release 40 mg PO DAILY #90 tab 08/28/21 [Rx Last Taken 09/07/21] sertraline 25 mg tablet 25 mg PO DAILY #90 tab 08/28/21 [Rx Last Taken 09/07/21] acetaminophen 1,000 mg PO Q6H PRN 09/07/21 [History Last Taken Unknown] amlodipine 2.5 mg PO DAILY 09/07/21 [History Last Taken 09/06/21] calcium carbonate 500 mg PO DAILY 09/07/21 [History Last Taken 09/07/21] cholecalciferol (vitamin D3) 25 mcg PO DAILY 09/07/21 [History Last Taken 09/07/21] leflunomide 5 mg PO DAILY 09/07/21 [History Last Taken 09/07/21] prednisone 5 mg PO DAILY 09/07/21 [History Last Taken 09/07/21] amiodarone 100 mg PO DAILY #0 tab 09/08/21 [Rx Last Taken 09/07/21] glimepiride 1 mg PO DAILY #30 tab 09/08/21 [Rx Last Taken Unknown] Allergy/AdvReac Type Severity Reaction Status Date / Time colchicine Allergy Other Verified 09/07/21 13:22 ezetimibe [From Zetia] Allergy Unknown Verified 09/07/21 13:22 isotretinoin [From Accutane] Allergy Other Verified 09/07/21 13:22 naproxen [From Aleve] Allergy hives and Verified 09/07/21 13:22 swelling quinine Allergy Other Verified 09/07/21 13:22 Sulfa (Sulfonamide Allergy Unknown Verified 09/07/21 13:22 Antibiotics) Family History (Updated 09/07/21 @ 16:[address] Anushka Ragsdale MD) Mother Myocardial infarction Arthritis Lupus Father Alzheimer disease Other Depression Respiratory disease Surgical History H/O coronary artery bypass surgery (06/14/09) History of angioplasty of peripheral vessel (08/29/16) History of ankle surgery History of bladder suspension procedure History of coronary artery stent placement (04/25/17) History of hysterectomy History of left heart catheterization (01/02/21) Hx laparoscopic cholecystectomy Social History (Updated 09/07/21 @ 16:[address] Anushka Ragsdale MD) household members: none Smoking Status: Former smoker how long ago did patient quit smoking: Quit 1987, smoked 2 ppd since age 22 untiol quit. alcohol intake: current alcohol intake frequency: 0-2 drinks per day details: Drinks 1 glass wine with dinner. substance use type: does not use what type of physical activity do you participate in: none ROS Gastrointestinal Gastrointestinal: Reports hematochezia and melena Lab / Micro Data Result Diagrams: 09/08/21 04:54 09/08/21 04:54 Labs: Laboratory Results - last 24 hr 09/07/21 19:04: Troponin I High Sens 28 09/07/21 21:36: POC Glucose 184 H 09/08/21 04:54: WBC 4.9, RBC 3.69 L, Hgb 9.8 L, Hct 31.0 L, MCV 84.0, MCH 26.6 L , MCHC 31.6 L, RDW Std Deviation 50.6 H, RDW Coeff of Raza 16.7 H, Plt Count 158, MPV 10.7, Immature Gran % (Auto) 0.600, Neut % (Auto) 61.2, Lymph % (Auto) 25.0, [place] % (Auto) 10.6 H, Eos % (Auto) 1.8, Baso % (Auto) 0.8, Absolute Neuts (auto) 3.0, Absolute Lymphs (auto) 1.23, Nucleated RBC % 0 09/08/21 04:54: Sodium 142, Potassium 3.8, Chloride 112 H, Carbon Dioxide 25.0, Anion Gap 5, BUN 23 H, Creatinine 1.27 H, Estim Creat Clear Calc 23.69, Est GFR (MDRD) Af Amer 52 L, Est GFR (MDRD) Non-Af 43 L, BUN/Creatinine Ratio 18.1, Glucose 138 H, Calcium 8.1 L, Total Bilirubin 0.30, AST 18, ALT 33, Alkaline Phosphatase 51, Total Protein 5.9 L, Albumin 2.8 L, Globulin 3.1, Albumin/Globulin Ratio 0.9, Triglycerides 167, Cholesterol 115, LDL Cholesterol 28, VLDL Cholesterol 33, HDL Cholesterol 54, TSH 2.25 09/08/21 06:37: POC Glucose 149 H 09/08/21 12:06: POC Glucose 158 H 09/08/21 16:32: POC Glucose 151 H Assessment & Plan Assessment/Plan (1) Bleeding: PLAN: The differential diagnosis for her GI bleeding. Upper GI bleed with rapid transit, ischemic colitis secondary to bradycardia on anticoagulation. Also the diagnosis would be peptic ulcer disease in the setting of NSAIDs and anticoagulation. She should undergo upper and lower endoscopy to evaluate her upper lower GI tract. Her son and the patient were explained alternatives, risk, benefits including outstanding bleeding, infection, sepsis, perforation, need for emergency or . She will have an ASA of 3. Charges/Coding Visit Charges Inpatient E&M: 28070 Init Hosp L2
[2021-09-08] MEDS: Bisacodyl 5 MG Tablet 20 MG PO (19:49)
[2021-09-08] MEDS: Electrolyte Solution/Peg's 4000 ML PO (19:49)
[2021-09-08] MEDS: Atorvastatin Calcium 40 MG Tablet PO (22:17)
[2021-09-08] MEDS: Carvedilol 6.25 MG Tablet PO (22:17)
[2021-09-08 22:26] LABS: Bedside Glucose 228 mg/dL (70-110)
[2021-09-09] VITALS (11 sets, daily range): BP systolic 127–155; BP diastolic 45–72; PULSE 55–62; RESP 14–18; TEMP 36.3–36.7; O2SAT 92–97; BMI 28.7
--- NOTE | 2021-09-09 05:55 | EKG12_ITS ---
Test Reason : AM EKG Blood Pressure : / mmHG Vent. Rate : 060 BPM Atrial Rate : 060 BPM P-R Int : 158 ms QRS Dur : 124 ms QT Int : 522 ms P-R-T Axes : 044 017 040 degrees QTc Int : 522 ms Normal sinus rhythm Right bundle branch block Abnormal ECG When compared with ECG of 08-SEP-2021 05:08, MANUAL COMPARISON REQUIRED, DATA IS UNCONFIRMED Confirmed by TANA LOPEZ, NINI ([id number]), editorial project manager WU PRIETO ([id number]) on 09/12/2021 11:18:38 AM Referred By: DR CARTER Confirmed By:NINI FAJARDO MD
[2021-09-09 06:10] LABS: International Normalized Ratio 1.2; Partial Thromboplast Time 25.4 Seconds (24.1-36.2); Prothrombin Time (Protime)PT. 14.1 SECONDS (11.7-14.9)
[2021-09-09] MEDS: 0.9% Saline Lock 10 ML Syringe IV (06:17)
[2021-09-09 06:18] LABS: Anion Gap 6 (5-15); BUN 16 mg/dL (7-18); BUN/Creat Ratio 15.8 RATIO (10-20); Chloride 110 mmol/L (98-107); Creatinine, Serum 1.01 mg/dL (0.55-1.02); EST Glomerular Filtration Rate 55 mL/min (>60); Est Glom Filt Rate - Afr Amer 67 mL/min (>60); Estimated Creatinine Clearance 32.79 ml/min; Glucose 119 mg/dL (74-106); Potassium 3.3 mmol/L (3.5-5.1); Sodium Level 142 mmol/L (136-145)
[2021-09-09 06:21] LABS: Bedside Glucose 122 mg/dL (70-110)
[2021-09-09 07:12] LABS: Absolute Neutrophil Count 3.6 X10^3/uL (2.0-7.7); Basophil# 0.03 X10^3/uL; Basophil% 0.5 % (0-1); Eosinophil# 0.14 X10^3/uL; Eosinophils% 2.5 % (0-5); Hematocrit 30.7 % (37-47); Hemoglobin 9.7 g/dL (12.0-15.0); Lymphocyte % 21.4 % (19-41); Mean Corp Hgb Conc 31.6 g/dL (32-36); Mean Corpuscular Hgb 26.6 pg (27.0-32.0); Mean Corpuscular Volume 84.1 fL (81-99); Mean Platelet Vol. 10.7 fl (6.2-12.0); Monocyte# 0.64 X10^3/uL; Monocyte% 11.4 % (0-10); NRBC Flagged by Analyzer 0 % (0-5); Neutrophil # 3.58 X10^3/uL (2.7-7.7); Platelet Count 181 K/mm3 (150-450); RBC Distribution Width CV 16.9 % (11.6-14.6); RBC Distribution Width SD 50.7 fl (35.1-43.9); Red Blood Count 3.65 M/mm3 (4.2-5.4); White Blood Count 5.6 K/mm3 (4.4-11.0)
[2021-09-09] MEDS: Lactated Ringers 1,000 ML 15 ML IV (08:53)
--- NOTE | 2021-09-09 10:00 | OP.EGD_ITS ---
Patient Name: Margarita Adam Procedure Date: 09/09/2021 9:25 AM Date of : 1935 Age: 86 Procedure: Upper GI endoscopy Indications: Melena Providers: Malcom Lobo DO Medicines: See the Anesthesia note for documentation of the administered medications Patient Profile: This is an 86 year old female. Refer to note in patient chart for documentation of history and physical. Patient has symptoms of chronic epigastric abdominal pain. Complications: No immediate complications. Procedure: Pre-Anesthesia Assessment: - Prior to the procedure, a History and Physical was performed, and patient medications and allergies were reviewed. The patient is competent. The risks and benefits of the procedure and the sedation options and risks were discussed with the patient. All questions were answered and informed consent was obtained. Patient identification and proposed procedure were verified by the physician in the pre-procedure area. Mental Status Examination: alert and oriented. Airway Examination: normal oropharyngeal airway and neck mobility. Respiratory Examination: clear to auscultation. CV Examination: normal. Prophylactic Antibiotics: The patient does not require prophylactic antibiotics. Prior Anticoagulants: The patient has taken no previous anticoagulant or antiplatelet agents. ASA Grade Assessment: II - A patient with mild systemic disease. After reviewing the risks and benefits, the patient was deemed in satisfactory condition to undergo the procedure. The anesthesia plan was to use moderate sedation / analgesia (conscious sedation). Immediately prior to administration of medications, the patient was re-assessed for adequacy to receive sedatives. The heart rate, respiratory rate, oxygen saturations, blood pressure, adequacy of pulmonary ventilation, and response to care were monitored throughout the procedure. The physical status of the patient was re-assessed after the procedure. After obtaining informed consent, the endoscope was passed under direct vision. Throughout the procedure, the patient's blood pressure, pulse, and oxygen saturations were monitored continuously. The gastroscope was introduced through the mouth, and advanced to the third part of duodenum. The upper GI endoscopy was accomplished without difficulty. The patient tolerated the procedure well. Moderate Sedation: Moderate (conscious) sedation was administered by the endoscopy nurse and supervised by the endoscopist. The patient's oxygen saturation, heart rate, blood pressure and response to care were monitored. Total physician intraservice time was 15 minutes. Findings: The examined esophagus was normal. A large hiatal hernia was present. Five 5 mm bleeding angiodysplastic lesions were found in the stomach. Coagulation for hemostasis using argon plasma at 0.3 liters/minute and 20 nickerson was successful. Estimated blood loss was minimal. The second portion of the duodenum was normal. Impression: - Normal esophagus. - Large hiatal hernia. 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 Treated with argon plasma coagulation (APC). - Normal second portion of the duodenum. - No specimens collected. Recommendation: - Return patient to [facility] for ongoing care. - Resume previous diet. - No aspirin, ibuprofen, naproxen, or other non-steroidal anti-inflammatory drugs for 4 days. - Use Protonix (pantoprazole) 40 mg PO BID for 8 weeks. Procedure Code(s): --- Professional --- 27687, Esophagogastroduodenoscopy, flexible, transoral; with control of bleeding, any method 56603, 59, Moderate sedation services provided by the same physician or other qualified health career portals teacher performing the diagnostic or therapeutic service that the sedation supports, requiring the presence of an independent trained observer to assist in the monitoring of the patient's level of consciousness and physiological status; initial 15 minutes of intraservice time, patient age 5 years or older CPT copyright 2017 [employer]. All rights reserved. The codes documented in this report are preliminary and upon insurance coder review may be revised to meet current compliance requirements. Malcom Lobo DO 09/09/2021 9:59:49 AM This report has been signed electronically. Number of Addenda: 1 Note Initiated On: 09/09/2021 9:25 AM Addendum Number: 1 Addendum Date: 04/02/2022 6:38:40 AM MAC was used for sedation during this procedure. Malcom Lobo DO 04/02/2022 6:38:47 AM This report has been signed electronically.
--- NOTE | 2021-09-09 10:01 | OP.CCLET_ITS ---
04/02/2022 Armand Clarke MD [address] [place] [address] [place] [address] Re : Upper GI endoscopy procedure for Margarita Huangmarkel Dear Dr. Clarke This procedure was performed on Thursday, September 09, 2021. My impressions and recommendations are as follows: Impressions : - Normal esophagus. - Large hiatal hernia. 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 Treated with argon plasma coagulation (APC). - Normal second portion of the duodenum. - No specimens collected. Recommendations : - Return patient to [facility] for ongoing care. - Resume previous diet. - No aspirin, ibuprofen, naproxen, or other non-steroidal anti-inflammatory drugs for 4 days. - Use Protonix (pantoprazole) 40 mg PO BID for 8 weeks. My findings are described in the full procedure note, which is enclosed. If I can be of further assistance, please feel free to contact me at . Sincerely, Malcom Lobo, 09/09/2021 9:59:49 AM This report has been signed electronically.
--- NOTE | 2021-09-09 10:09 | OP.COLON_ITS ---
Patient Name: Margarita Adam Procedure Date: 09/09/2021 8:44 AM Date of : 1935 Age: 86 Procedure: Colonoscopy Indications: Hematochezia Providers: Malcom Lobo DO Medicines: See the Anesthesia note for documentation of the administered medications Patient Profile: This is an 86 year old female. Refer to note in patient chart for documentation of history and physical. Last Colonoscopy: date unknown. Unable to locate last colonoscopy report. Complications: No immediate complications. Procedure: Pre-Anesthesia Assessment: - Prior to the procedure, a History and Physical was performed, and patient medications and allergies were reviewed. The patient is competent. The risks and benefits of the procedure and the sedation options and risks were discussed with the patient. All questions were answered and informed consent was obtained. Patient identification and proposed procedure were verified by the physician in the pre-procedure area. Mental Status Examination: alert and oriented. Airway Examination: normal oropharyngeal airway and neck mobility. Respiratory Examination: clear to auscultation. CV Examination: normal. Prophylactic Antibiotics: The patient does not require prophylactic antibiotics. Prior Anticoagulants: The patient has taken no previous anticoagulant or antiplatelet agents. ASA Grade Assessment: II - A patient with mild systemic disease. After reviewing the risks and benefits, the patient was deemed in satisfactory condition to undergo the procedure. The anesthesia plan was to use moderate sedation / analgesia (conscious sedation). Immediately prior to administration of medications, the patient was re-assessed for adequacy to receive sedatives. The heart rate, respiratory rate, oxygen saturations, blood pressure, adequacy of pulmonary ventilation, and response to care were monitored throughout the procedure. The physical status of the patient was re-assessed after the procedure. After I obtained informed consent, the scope was passed under direct vision. Throughout the procedure, the patient's blood pressure, pulse, and oxygen saturations were monitored continuously. The Colonoscope was introduced through the anus and advanced to the cecum, identified by appendiceal orifice and ileocecal valve. The colonoscopy was performed without difficulty. The patient tolerated the procedure well. The quality of the bowel preparation was good. Moderate Sedation: Moderate (conscious) sedation was administered by the endoscopy nurse and supervised by the endoscopist. The following parameters were monitored: oxygen saturation, heart rate, blood pressure, and response to care. Total physician intraservice time was 15 minutes. Scope In: 9:16:33 AM Scope Out: 9:58:57 AM Total Procedure Duration Time 0 hours 42 minutes 24 seconds Findings: Hemorrhoids were found on perianal exam. Two sessile polyps were found in the cecum. The polyps were 1 to 2 mm in size. These polyps were removed with a hot snare. Resection and retrieval were complete. Verification of patient identification for the specimen was done. Estimated blood loss was minimal. Two medium-sized angiodysplastic lesions with bleeding were found in the cecum. Coagulation for hemostasis using argon plasma at 0.3 liters/minute and 20 nickerson was successful. Estimated blood loss was minimal. Impression: - Hemorrhoids found on perianal exam. - Two 1 to 2 mm polyps in the cecum, removed with a hot snare. Resected and retrieved. - Two bleeding colonic angiodysplastic lesions. Treated with argon plasma coagulation (APC). Recommendation: - Return patient to [facility] for ongoing care. - Resume regular diet. - No aspirin, ibuprofen, naproxen, or other non-steroidal anti-inflammatory drugs for 4 days. - Await pathology results. - No repeat colonoscopy due to current age (66 years or older). Procedure Code(s): --- Professional --- 16355, 59, Colonoscopy, flexible; with control of bleeding, any method 64837, Colonoscopy, flexible; with removal of tumor(s), polyp(s), or other lesion(s) by snare technique 27348, 59, Moderate sedation services provided by the same physician or other qualified health director career services performing the diagnostic or therapeutic service that the sedation supports, requiring the presence of an independent trained observer to assist in the monitoring of the patient's level of consciousness and physiological status; initial 15 minutes of intraservice time, patient age 5 years or older CPT copyright 2017 [employer]. All rights reserved. The codes documented in this report are preliminary and upon magazine worker review may be revised to meet current compliance requirements. Malcom Lobo DO 09/09/2021 10:08:57 AM This report has been signed electronically. Number of Addenda: 1 Note Initiated On: 09/09/2021 8:44 AM Addendum Number: 1 Addendum Date: 04/02/2022 6:38:57 AM MAC was used for sedation during this procedure. Malcom Lobo DO 04/02/2022 6:39:01 AM This report has been signed electronically.
--- NOTE | 2021-09-09 10:10 | OP.CCLET_ITS ---
04/02/2022 Armand Clarke MD [address] [place] [address] [place] [address] Re : Colonoscopy procedure for Margarita Kia Dear Dr. Clarke This procedure was performed on Thursday, September 09, 2021. My impressions and recommendations are as follows: Impressions : - Hemorrhoids found on perianal exam. - Two 1 to 2 mm polyps in the cecum, removed with a hot snare. Resected and retrieved. - Two bleeding colonic angiodysplastic lesions. Treated with argon plasma coagulation (APC). Recommendations : - Return patient to [facility] for ongoing care. - Resume regular diet. - No aspirin, ibuprofen, naproxen, or other non-steroidal anti-inflammatory drugs for 4 days. - Await pathology results. - No repeat colonoscopy due to current age (66 years or older). My findings are described in the full procedure note, which is enclosed. If I can be of further assistance, please feel free to contact me at . Sincerely, Malcom Lobo DO 09/09/2021 10:08:57 AM This report has been signed electronically.
[2021-09-09] MEDS: Leflunomide 10 MG TABLET 5 MG PO (10:46)
[2021-09-09] MEDS: Pantoprazole Sodium 40 MG Tablet PO (10:46)
[2021-09-09] MEDS: Amiodarone 200 MG Tablet 100 MG PO (10:47)
[2021-09-09] MEDS: predniSONE 5 MG Tablet PO (10:47)
[2021-09-09] MEDS: Carvedilol 6.25 MG Tablet PO (10:47)
[2021-09-09] MEDS: amLODIPine 2.5 MG Tablet PO (10:48)
[2021-09-09] MEDS: Ranolazine 500 MG Tablet PO (10:48)
[2021-09-09] MEDS: Sertraline 50 MG Tablet 25 MG PO (10:48)
[2021-09-09] MEDS: Isosorbide Mononitrate 30 MG Tablet PO (10:48)
[2021-09-09] MEDS: Potassium Chloride Oral Tablet 20 MEQ 40 MEQ PO (10:54)
[2021-09-09 11:11] LABS: Bedside Glucose 129 mg/dL (70-110)
--- NOTE | 2021-09-09 11:23 | DS.PCM_ITS ---
Documented by User: Marquita Blackwell NP, TIME STUDY CLERK-C 09/09/21 11:55 Providers Date of Admission: 09/07/21 Date of Discharge: 09/09/21 Primary Care Physician: Dr. Armand Clarke MD Consultations 09/08/21 15:46 Consult: Gastroenterology Routine Consulting Provider: [facility] Reason for Consult: Bright red blood per rectum EMERGENT Consult: No MD Notified: Yes Date Notified: 09/08/21 Time Notified: 15:53 Method of Notification: Text Reason For Visit: CHEST PAIN Diagnosis Discharge Diagnosis (1) Bleeding: Status: Acute Code(s): R58 - Hemorrhage, not elsewhere classified Medications at Discharge Home Medications nitroglycerin 0.4 mg sublingual tablet 0.4 mg SUBLINGUAL Q5-15M 06/09/19 aspirin 81 mg tablet,delayed release 81 mg PO DAILY #90 tab 08/17/20 albuterol sulfate 90 mcg/actuation aerosol inhaler 2 puff INHALATION Q6H PRN g 04/19/21 carvedilol 6.25 mg tablet 6.25 mg PO BID #180 tab 05/31/21 ranolazine 500 mg tablet,extended release,12 hr 500 mg PO BID #180 tab 06/28/21 rosuvastatin 20 mg tablet 20 mg PO DAILY #90 tab 06/28/21 denosumab 60 mg/mL subcutaneous syringe 60 mg SUBCUT [id number] #1 ml 08/09/21 apixaban 5 mg tablet 5 mg PO BID #180 tab 08/28/21 isosorbide mononitrate 30 mg tablet,extended release 24 hr 30 mg PO BID #180 tab 08/28/21 sertraline 25 mg tablet 25 mg PO DAILY #90 tab 08/28/21 acetaminophen 1,000 mg PO Q6H PRN 09/07/21 amlodipine 2.5 mg PO DAILY 09/07/21 calcium carbonate 500 mg PO DAILY 09/07/21 cholecalciferol (vitamin D3) 25 mcg PO DAILY 09/07/21 leflunomide 5 mg PO DAILY 09/07/21 prednisone 5 mg PO DAILY 09/07/21 amiodarone 100 mg PO DAILY #0 tab 09/08/21 glimepiride 1 mg PO DAILY #30 tab 09/08/21 pantoprazole 40 mg PO 0800,2200 30 Days #60 tab 09/09/21 Hospital Course Operations None Procedures Colonoscopy, EGD and Nuclear stress test Summary of Care Provided Hospital Course: Patient is an 86-year-old female admitted 09/07/2021 due to chest pain. 1. Chest pain, exertional dyspnea-ACS ruled out. Underwent nuclear stress test which was negative for ischemia. Gated ejection fraction 61%. Follow-up with PCP in 1 week. 2. GI bleed-GI consulted. Patient underwent colonoscopy which showed 2 bleeding colonic angiodysplastic lesions treated with argon plasma coagulation. EGD showed 5 bleeding angiodysplastic lesions in the stomach treated with APC. PPI twice daily for 8 weeks. No aspirin, ibuprofen, naproxen or other NSAIDs for 4 days. Eliquis held pending further follow-up with PCP/cardiology. Pending further outpatient evaluation, Eliquis may need to be held going forward. 3. New diagnosis type 2 diabetes mellitus-hemoglobin A1c 7.9%. initiate low-dose glimepiride at discharge with further outpatient follow-up. 4. Chronic bradycardia-recent Holter monitor outpatient. Amiodarone reduced to 100 mg daily. 5. Chronic kidney disease stage IIIb- stable. 6. CAD/PAD-history of CABG and PCI. On aspirin, statin, Ranexa, Coreg. Aspirin held at discharge for 1 week. 7. Chronic diastolic CHF-stable. Continue current regimen. 8. Anxiety/depression-continue sertraline. 9. Lupus/rheumatoid arthritis-continue low-dose prednisone as well as leflunomide. 10. Paroxysmal atrial fibrillation-on Coreg, amiodarone. Amiodarone reduced to 100 mg daily. Eliquis on hold at discharge. 11. Hypertension-intermittently elevated. As needed hydralazine for systolic blood pressure greater than 160. 12. Hyperlipidemia-continue statin. 13. Chronic COPD-no exacerbation. 14. GERD-continue PPI. 15. Former tobacco use-encouraged continued cessation. Physical Exam Const alert, oriented x3 and no apparent distress Orientation / Consciousness: awake, oriented to person, oriented to place and oriented to time HEENT normocephalic and moist oral mucous membranes Eyes PERRL, EOMs intact bilaterally and conjunctivae normal Neck no lymphadenopathy Resp normal respiratory effort and clear to auscultation bilaterally Cardio regular rate, regular rhythm and no murmurs Cardio Narrative: Intermittently bradycardic Peripheral Pulses: pulses 2+ throughout GI normal to inspection, nondistended, normoactive bowel sounds, non-tender and non-distended Extremity normal to inspection Skin no rashes or lesions noted Lesions: no lesions Rashes: no rashes Trauma: no lacerations or abrasions Neuro CN's II-XII intact bilaterally, no focal motor deficits, no sensory deficits noted and deep tendon reflexes 2+ bilaterally Psych mental status grossly normal and affect normal Patient seen and examined prior to discharge. Physical assessment as noted above. Patient is stable for discharge with follow up recommendations as noted above. This patient was seen by GIDEON Mckinley under the supervision of Dr. Mujica. Weight / BMI Weight Weight: 157 lb 13.616 oz Body Mass Index (BMI) 28.7 ABG / Lab / Microbiology Data Result Diagrams: 09/09/21 06:10 09/09/21 05:12 Laboratory: Laboratory Results - last 24 hr 09/08/21 12:06: POC Glucose 158 H 09/08/21 16:32: POC Glucose 151 H 09/08/21 22:13: POC Glucose 228 H 09/09/21 05:12: WBC Cancelled, Corrected WBC Cancelled, RBC Cancelled, Hgb Cancelled, Hct Cancelled, MCV Cancelled, MCH Cancelled, MCHC Cancelled, RDW Std Deviation Cancelled, RDW Coeff of Raza Cancelled, Plt Count Cancelled, MPV Cance lled, Immature Gran % (Auto) Cancelled, Neut % (Auto) Cancelled, Lymph % (Auto) Cancelled, Petroleum % (Auto) Cancelled, Eos % (Auto) Cancelled, Baso % (Auto) Cancelled, Absolute Neuts (auto) Cancelled, Absolute Lymphs (auto) Cancelled, Total Counted Cancelled, Neutrophils % (Manual) Cancelled, Band Neutrophils % Cancelled, Lymphocytes % (Manual) Cancelled, Monocytes % (Manual) Cancelled, Eosinophils % (Manual) Cancelled, Basophils % (Manual) Cancelled, Metamyelocytes % Cancelled, Myelocytes % Cancelled, Promyelocytes % Cancelled, Blast Cells % Cancelled, Plasma Cell % (Manual) Cancelled, Other Cells % Cancelled, Nucleated RBC % Cancelled, Nucleated RBCs/100 WBC Cancelled, Differential Comment Ca ncelled, Diff Path Review Cancelled, Hypersegmented Neuts Cancelled, Atypical Lymphocytes Cancelled, Reactive Lymphocytes Cancelled, Smudge Cells Cancelled, Toxic Granulation Cancelled, Toxic Vacuolation Cancelled, Dohle Bodies Cancelled, Lisbet Rods Cancelled, Platelet Estimate Cancelled, Plt Morphology Comment Cancelled, RBC Morphology Cancelled, Polychromasia Cancelled, Hypochromasia Cancelled, Poikilocytosis Cancelled, Basophilic Stippling Cancelled, Anisocytosis Cancelled, Microcytosis Cancelled, Macrocytosis Cancelled, Spherocytes Cancelled, Sickle Cells Cancelled, Target Cells Cancelled, Tear Drop Cells Cancelled, Ovalocytes Cancelled, Stomatocytes Cancelled, Monson-Osgood Bodies Cancelled, [place] Cells Cancelled, Bite Cells Cancelled, Crenated Cell Cancelled, Acanthocytes (Spur) Cancelled, Rouleaux Cancelled, Schistocytes Cancelled 09/09/21 05:12: Sodium 142, Potassium 3.3 L, Chloride 110 H, Carbon Dioxide 26.0, Anion Gap 6, BUN 16, Creatinine 1.01, Estim Creat Clear Calc 32.79, Est GFR (MDRD) Af Amer 67, Est GFR (MDRD) Non-Af 55 L, BUN/Creatinine Ratio 15.8, Glucose 119 H, Calcium 8.0 L 09/09/21 05:12: PT 14.1, INR 1.2, APTT 25.4 09/09/21 06:10: WBC 5.6, RBC 3.65 L, Hgb 9.7 L, Hct 30.7 L, MCV 84.1, MCH 26.6 L , MCHC 31.6 L, RDW Std Deviation 50.7 H, RDW Coeff of Raza 16.9 H, Plt Count 181, MPV 10.7, Immature Gran % (Auto) 0.200, Neut % (Auto) 64.0, Lymph % (Auto) 21.4, Petroleum % (Auto) 11.4 H, Eos % (Auto) 2.5, Baso % (Auto) 0.5, Absolute Neuts (auto) 3.6, Absolute Lymphs (auto) 1.20, Nucleated RBC % 0 09/09/21 06:15: POC Glucose 122 H 09/09/21 10:45: POC Glucose 129 H D/C Instructions Discharge Diet: Low fat / Low cholesterol and 2000 mg Sodium Diet Call your doctor if you observe: Shortness of breath, Dizziness and Chest pain Meaningful Use Info Meaningful Use Diagnoses (Choose all that apply): None applicable Discharge Plan Admission Admit Date/Time: 09/07/21 14:35 Primary Reason for Your Visit: chest pain Attending Provider: Prashant Mujica Primary Care Provider: Armand Clarke Discharge Orders/Prescriptions Prescriptions: New glimepiride 1 mg tablet 1 mg PO DAILY Qty: 30 RF: 0 pantoprazole 40 mg Tablet,Delayed Release (Dr/Ec) 40 mg PO 0800,2200 30 Days Qty: 60 RF: 0 Continued nitroglycerin 0.4 mg tablet, sublingual 0.4 mg SUBLINGUAL Q5-15M RF: 0 albuterol sulfate [ProAir HFA] 90 mcg/actuation HFA aerosol inhaler 2 puff INHALATION Q6H PRN (Reason: Wheezing) RF: 0 carvedilol 6.25 mg tablet 6.25 mg PO BID Qty: 180 RF: 3 prednisone 5 mg Tablet 5 mg PO DAILY RF: 0 leflunomide 10 mg tablet 5 mg PO DAILY RF: 0 acetaminophen 500 mg Tablet 1,000 mg PO Q6H PRN (Reason: Pain) RF: 0 calcium carbonate 500 mg calcium (1,250 mg) Tablet 500 mg PO DAILY RF: 0 cholecalciferol (vitamin D3) 25 mcg (1,000 unit) Capsule 25 mcg PO DAILY RF: 0 amlodipine 2.5 mg tablet 2.5 mg PO DAILY RF: 0 amiodarone 200 mg tablet 100 mg PO DAILY Qty: 0 RF: 0 ranolazine [Ranexa] 500 mg tablet extended release 12 hr 500 mg PO BID Qty: 180 RF: 3 rosuvastatin 20 mg tablet 20 mg PO DAILY Qty: 90 RF: 3 Prolia 60 mg/mL syringe 60 mg subcut [id number] Qty: 1 RF: 1 sertraline 25 mg tablet 25 mg PO DAILY Qty: 90 RF: 2 isosorbide mononitrate 30 mg tablet extended release 24 hr 30 mg PO BID Qty: 180 RF: 3 Held aspirin [Adult Aspirin Regimen] 81 mg tablet,delayed release (DR/EC) 81 mg PO DAILY Qty: 90 RF: 1 Hold Instructions: Resume on 09/16/21. Eliquis 5 mg tablet 5 mg PO BID Qty: 180 RF: 3 Hold Instructions: Resume on 09/16/21. Hold until follow up with PCP. Discontinued pantoprazole 40 mg tablet,delayed release (DR/EC) 40 mg PO DAILY Qty: 90 RF: 2 Referrals / Follow Up: Armand Clarke MD [Primary Care Provider] - In 1 Week Malcom Lobo DO [STAFF PHYSICIAN] - Within 2 Weeks Onelia Batista NP, TIME STUDY CLERK-C [Nurse Practitioner] - See Referral Note (As scheduled 10/02/2021) Disposition Disposition (needs filled in before D/C Order can be placed): Home, Self Care Documented by User: Dr. Prashant Mujica MD 09/09/21 13:14 Providers Date of Admission: 09/07/21 Reason For Visit: CHEST PAIN Medications at Discharge Home Medications nitroglycerin 0.4 mg sublingual tablet 0.4 mg SUBLINGUAL Q5-15M 06/09/19 aspirin 81 mg tablet,delayed release 81 mg PO DAILY #90 tab 08/17/20 albuterol sulfate 90 mcg/actuation aerosol inhaler 2 puff INHALATION Q6H PRN g 04/19/21 carvedilol 6.25 mg tablet 6.25 mg PO BID #180 tab 05/31/21 ranolazine 500 mg tablet,extended release,12 hr 500 mg PO BID #180 tab 06/28/21 rosuvastatin 20 mg tablet 20 mg PO DAILY #90 tab 06/28/21 denosumab 60 mg/mL subcutaneous syringe 60 mg SUBCUT [id number] #1 ml 08/09/21 apixaban 5 mg tablet 5 mg PO BID #180 tab 08/28/21 isosorbide mononitrate 30 mg tablet,extended release 24 hr 30 mg PO BID #180 tab 08/28/21 sertraline 25 mg tablet 25 mg PO DAILY #90 tab 08/28/21 acetaminophen 1,000 mg PO Q6H PRN 09/07/21 amlodipine 2.5 mg PO DAILY 09/07/21 calcium carbonate 500 mg PO DAILY 09/07/21 cholecalciferol (vitamin D3) 25 mcg PO DAILY 09/07/21 leflunomide 5 mg PO DAILY 09/07/21 prednisone 5 mg PO DAILY 09/07/21 amiodarone 100 mg PO DAILY #0 tab 09/08/21 glimepiride 1 mg PO DAILY #30 tab 09/08/21 pantoprazole 40 mg PO 0800,2200 30 Days #60 tab 09/09/21 Hospital Course Operations None Procedures Colonoscopy and EGD Summary of Care Provided Minutes Spent on Discharge: 40 Hospital Course: This patient was seen in conjunction with CHRISTOPHER Mckinley . I have independently interviewed and examined the patient and reviewed pertinent historical, laboratory, and other data. Please refer to GIDEON Mckinley note for details of this patient's presentation, findings, and recommendations. I have reviewed GIDEON Mckinley note and concur with documented findings. In brief, patient is is an 88-year-old lady with multiple comorbidities including coronary artery disease with multiple stent placement, A. fib who presented with chest pain admitted to monitored bed where patient underwent subsequent evaluation. PA was ruled out with serial cardiac enzymes. Patient subsequently underwent a nuclear stress test which was negative for stress- induced ischemia. Patient hospital stay complicated by bradycardia as well as bleeding per rectum EGD Normal esophagus. - Large hiatal hernia. 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 Treated with argon plasma coagulation (APC). - Normal second portion of the duodenum. - No specimens collected. Colonoscopy - Hemorrhoids found on perianal exam. - Two 1 to 2 mm polyps in the cecum, removed with a hot snare. Resected and retrieved. - Two bleeding colonic angiodysplastic lesions. Treated with argon plasma coagulation (APC). Physical Examination: GENERAL: cooperative HEENT: Atraumatic; EYES; Anicteric, Normal Conjunctiva NECK; supple, normal thyroid, RESPIRATORY: Diminished to auscultation CARDIOVASCULAR: Regular S1 S2, GI: soft, normoactive bowel sounds, : No Renal angle tenderness; EXTREMITIES: No edema, no clubbing, MUSCULOSKELETAL: no muscle wasting NEURO: Awake; no lateralizing signs. SKIN: No Rash PSYCH; Flat affect Assessment: 1. Chest pain 2. Bradycardia 3. Bleeding per rectum 4. Paroxysmal A. fib 5. Coronary artery disease with CABG and subsequent multiple PCI's 6. Peripheral arterial disease 7. Congestive heart failure with preserved ejection fraction 6. Essential potential 7. Dyslipidemia 8. GERD 9. Rheumatoid arthritis 10. Lupus 11. Depression with anxiety 12. Chronic kidney disease stage IIIb 13. COPD without exacerbation 14. DVT prophylaxis patient was on Eliquis held in view of bleeding per rectum Hospital Course as documented above Total time spent by myself and the advanced practice practitioner evaluating patient, reviewing labs, subsequent management decisions, discussion with patient as well as other providers 40 minutes ( 25 of which was spent by myself) ABG / Lab / Microbiology Data Result Diagrams: 09/09/21 06:10 09/09/21 05:12 Discharge Plan Admission Admit Date/Time: 09/07/21 14:35 Primary Reason for Your Visit: chest pain Attending Provider: Prashant Mujica Primary Care Provider: Armand Clarke Discharge Orders/Prescriptions Prescriptions: New glimepiride 1 mg tablet 1 mg PO DAILY Qty: 30 RF: 0 pantoprazole 40 mg Tablet,Delayed Release (Dr/Ec) 40 mg PO 0800,2200 30 Days Qty: 60 RF: 0 Continued nitroglycerin 0.4 mg tablet, sublingual 0.4 mg SUBLINGUAL Q5-15M RF: 0 albuterol sulfate [ProAir HFA] 90 mcg/actuation HFA aerosol inhaler 2 puff INHALATION Q6H PRN (Reason: Wheezing) RF: 0 carvedilol 6.25 mg tablet 6.25 mg PO BID Qty: 180 RF: 3 prednisone 5 mg Tablet 5 mg PO DAILY RF: 0 leflunomide 10 mg tablet 5 mg PO DAILY RF: 0 acetaminophen 500 mg Tablet 1,000 mg PO Q6H PRN (Reason: Pain) RF: 0 calcium carbonate 500 mg calcium (1,250 mg) Tablet 500 mg PO DAILY RF: 0 cholecalciferol (vitamin D3) 25 mcg (1,000 unit) Capsule 25 mcg PO DAILY RF: 0 amlodipine 2.5 mg tablet 2.5 mg PO DAILY RF: 0 amiodarone 200 mg tablet 100 mg PO DAILY Qty: 0 RF: 0 ranolazine [Ranexa] 500 mg tablet extended release 12 hr 500 mg PO BID Qty: 180 RF: 3 rosuvastatin 20 mg tablet 20 mg PO DAILY Qty: 90 RF: 3 Prolia 60 mg/mL syringe 60 mg subcut [id number] Qty: 1 RF: 1 sertraline 25 mg tablet 25 mg PO DAILY Qty: 90 RF: 2 isosorbide mononitrate 30 mg tablet extended release 24 hr 30 mg PO BID Qty: 180 RF: 3 Held aspirin [Adult Aspirin Regimen] 81 mg tablet,delayed release (DR/EC) 81 mg PO DAILY Qty: 90 RF: 1 Hold Instructions: Resume on 09/16/21. Eliquis 5 mg tablet 5 mg PO BID Qty: 180 RF: 3 Hold Instructions: Resume on 09/16/21. Hold until follow up with PCP. Discontinued pantoprazole 40 mg tablet,delayed release (DR/EC) 40 mg PO DAILY Qty: 90 RF: 2 Referrals / Follow Up: Armand Clarke MD [Primary Care Provider] - In 1 Week Malcom Lobo DO [STAFF PHYSICIAN] - Within 2 Weeks Onelia Batista NP, TIME STUDY CLERK-C [Nurse Practitioner] - See Referral Note (As scheduled 10/02/2021) Disposition Disposition (needs filled in before D/C Order can be placed): Home, Self Care Charges/Coding Visit Charges Inpatient E&M: 88809 Disch Hosp Hospital Course Consultations Consultations: Consultations 09/08/21 15:46 Consult: Gastroenterology Routine Consulting Provider: Daily Gastroenterology Reason for Consult: Bright red blood per rectum EMERGENT Consult: No MD Notified: Yes Date Notified: 09/08/21 Time Notified: 15:53 Method of Notification: Text Operations None Procedures Procedures: Colonoscopy and EGD
== END 2021-09-09 11:22 | disposition home or self-care (01) ==
LOC: ED 14:19 → PCU 14:53
PROVIDERS: Anesthesiology; Internal Medicine Gastroenterology; Nurse Practitioner Family; Admitting Provider Family Medicine; Emergency Provider Emergency Medicine; PCP Internal Medicine; Visit Provider Internal Medicine
PROC: 0DJD8ZZ Inspection of Lower Intestinal Tract, Via Natural or Artificial Opening Endoscopic (ICD-10-PCS; CPT 45378; principal; 2021-09-09 09:30)
DX: K31.811 Angiodysplasia of stomach and duodenum with bleeding (principal); E11.51 Type 2 diabetes mellitus with diabetic peripheral angiopathy without gangrene; M32.9 Systemic lupus erythematosus, unspecified; M06.9 Rheumatoid arthritis, unspecified; J44.9 Chronic obstructive pulmonary disease, unspecified; I13.0 Hypertensive heart and chronic kidney disease with heart failure and stage 1 through stage 4 chronic kidney disease, or unspecified chronic kidney disease; I50.32 Chronic diastolic (congestive) heart failure; E11.22 Type 2 diabetes mellitus with diabetic chronic kidney disease; E11.65 Type 2 diabetes mellitus with hyperglycemia; I48.0 Paroxysmal atrial fibrillation; I48.92 Unspecified atrial flutter; N18.32 Chronic kidney disease, stage 3b; R07.89 Other chest pain; Z79.01 Long term (current) use of anticoagulants; E78.5 Hyperlipidemia, unspecified; K64.9 Unspecified hemorrhoids; K63.5 Polyp of colon; K44.9 Diaphragmatic hernia without obstruction or gangrene; K21.9 Gastro-esophageal reflux disease without esophagitis; F41.8 Other specified anxiety disorders; I45.10 Unspecified right bundle-branch block; M19.90 Unspecified osteoarthritis, unspecified site; I25.10 Atherosclerotic heart disease of native coronary artery without angina pectoris; G47.30 Sleep apnea, unspecified; Z79.84 Long term (current) use of oral hypoglycemic drugs; Z79.899 Other long term (current) drug therapy; Z79.52 Long term (current) use of systemic steroids; Z95.1 Presence of aortocoronary bypass graft; Z87.891 Personal history of nicotine dependence; Z79.82 Long term (current) use of aspirin; K31.9 Disease of stomach and duodenum, unspecified; D12.0 Benign neoplasm of cecum; K55.21 Angiodysplasia of colon with hemorrhage
CPT/HCPCS: 45385; 43255; 45382; 96368 ×2; 36415; 71045; 78452; 80048; 80053; 80061; 82962; 83036; 83735; 84443; 84484; 85025; 85610; 85730; 88305; 93005; 93017; 96360; 96361; 99218; 99251; 99285; A9500; J7030; J7120; A4216; G0378; G0463; J2785

== ENCOUNTER 2021-09-15 11:19 | Outpatient (CLI) | payer MEDICARE, SELFPAY ==
[2021-09-15 12:26] LABS: Absolute Lymphocyte Count 1.05 X10^3/uL (0.83-4.51); Absolute Neutrophil Count 6.9 X10^3/uL (2.0-7.7); Basophil# 0.05 X10^3/uL; Basophil% 0.6 % (0-1); Eosinophil# 0.12 X10^3/uL; Eosinophils% 1.4 % (0-5); Hematocrit 35.9 % (37-47); Hemoglobin 10.8 g/dL (12.0-15.0); Lymphocyte # 1.05 X10^3/ul (0.83-4.51); Mean Corp Hgb Conc 30.1 g/dL (32-36); Mean Corpuscular Hgb 26.4 pg (27.0-32.0); Mean Corpuscular Volume 87.8 fL (81-99); Mean Platelet Vol. 10.8 fl (6.2-12.0); Monocyte% 6.9 % (0-10); NRBC Flagged by Analyzer 0 % (0-5); Neutrophil # 6.85 X10^3/uL (2.7-7.7); Neutrophil % 78.5 % (47-70); Platelet Count 251 K/mm3 (150-450); RBC Distribution Width CV 17.1 % (11.6-14.6); RBC Distribution Width SD 54.7 fl (35.1-43.9); Red Blood Count 4.09 M/mm3 (4.2-5.4); White Blood Count 8.7 K/mm3 (4.4-11.0)
== END 2021-09-15 23:59 | disposition home or self-care (01) ==
PROVIDERS: PCP Internal Medicine; Visit Provider Nurse Practitioner Gerontology
DX: R42 Dizziness and giddiness (principal)
CPT/HCPCS: 36415; 85025

== ENCOUNTER 2021-09-19 14:01 | Outpatient (CLI) | payer MEDICARE, SELFPAY ==
[2021-09-19 15:51] LABS: Anion Gap 7 (5-15); BUN 20 mg/dL (7-18); BUN/Creat Ratio 15.5 RATIO (10-20); Calcium,Total 8.7 mg/dL (8.5-10.1); Chloride 105 mmol/L (98-107); Creatinine, Serum 1.29 mg/dL (0.55-1.02); EST Glomerular Filtration Rate 42 mL/min (>60); Est Glom Filt Rate - Afr Amer 51 mL/min (>60); Glucose 194 mg/dL (74-106); Potassium 5.4 mmol/L (3.5-5.1); Sodium Level 137 mmol/L (136-145)
== END 2021-09-19 23:59 | disposition home or self-care (01) ==
LOC: BIMLAB 14:02
PROVIDERS: PCP Internal Medicine; Referring Provider Internal Medicine; Visit Provider Internal Medicine
DX: I10 Essential (primary) hypertension (principal)
CPT/HCPCS: 36415; 80048

== ENCOUNTER 2021-09-29 11:41 | Outpatient (CLI) | payer MEDICARE, SELFPAY ==
[2021-09-29 15:10] LABS: Absolute Lymphocyte Count 0.97 X10^3/uL (0.83-4.51); Absolute Neutrophil Count 5.9 X10^3/uL (2.0-7.7); Basophil# 0.04 X10^3/uL; Basophil% 0.5 % (0-1); Eosinophil# 0.13 X10^3/uL; Eosinophils% 1.7 % (0-5); Hematocrit 32.9 % (37-47); Hemoglobin 10.1 g/dL (12.0-15.0); Lymphocyte # 0.97 X10^3/ul (0.83-4.51); Lymphocyte % 12.5 % (19-41); Mean Corp Hgb Conc 30.7 g/dL (32-36); Mean Corpuscular Hgb 26.2 pg (27.0-32.0); Mean Corpuscular Volume 85.2 fL (81-99); Mean Platelet Vol. 10.6 fl (6.2-12.0); Monocyte# 0.67 X10^3/uL; Monocyte% 8.6 % (0-10); NRBC Flagged by Analyzer 0 % (0-5); Neutrophil # 5.92 X10^3/uL (2.7-7.7); Neutrophil % 76.3 % (47-70); Platelet Count 177 K/mm3 (150-450); RBC Distribution Width CV 16.1 % (11.6-14.6); RBC Distribution Width SD 50.1 fl (35.1-43.9); Red Blood Count 3.86 M/mm3 (4.2-5.4); White Blood Count 7.8 K/mm3 (4.4-11.0)
[2021-09-29 15:31] LABS: ALB/GLOB Ratio 1.1 RATIO (0.9-2.4); AST(SGOT) 23 U/L (15-37); Alanine Aminotransfer ALT/SGPT 33 U/L (13-56); Albumin, Serum 3.5 g/dL (3.2-5.0); Alkaline Phosphatase 51 U/L (45-117); Anion Gap 7 (5-15); BUN 30 mg/dL (7-18); BUN/Creat Ratio 22.1 RATIO (10-20); Calcium,Total 8.7 mg/dL (8.5-10.1); Chloride 107 mmol/L (98-107); Creatinine, Serum 1.36 mg/dL (0.55-1.02); EST Glomerular Filtration Rate 39 mL/min (>60); Est Glom Filt Rate - Afr Amer 48 mL/min (>60); Globulin 3.2 g/dL (2.2-4.2); Glucose 129 mg/dL (74-106); Potassium 4.2 mmol/L (3.5-5.1); Protein, Total 6.7 g/dL (6.4-8.2); Sodium Level 137 mmol/L (136-145)
== END 2021-09-29 23:59 | disposition home or self-care (01) ==
LOC: MTLAB 11:43
PROVIDERS: PCP Internal Medicine; Referring Provider Internal Medicine Rheumatology; Visit Provider Internal Medicine Rheumatology
DX: M06.4 Inflammatory polyarthropathy (principal); M32.9 Systemic lupus erythematosus, unspecified; I50.32 Chronic diastolic (congestive) heart failure; I11.0 Hypertensive heart disease with heart failure; I73.9 Peripheral vascular disease, unspecified; I48.0 Paroxysmal atrial fibrillation; M15.9 Polyosteoarthritis, unspecified; K21.00 Gastro-esophageal reflux disease with esophagitis, without bleeding; I25.10 Atherosclerotic heart disease of native coronary artery without angina pectoris; R80.9 Proteinuria, unspecified; E78.5 Hyperlipidemia, unspecified; M81.0 Age-related osteoporosis without current pathological fracture; Z79.899 Other long term (current) drug therapy
CPT/HCPCS: 36415; 80053; 85025

== ENCOUNTER 2021-10-04 16:01 | Outpatient (CLI) | payer MEDICARE, SELFPAY ==
[2021-10-04 17:05] LABS: EXAGEN MAILED SPECIMEN
[2021-10-04 18:16] LABS: Protein, Urine (Random) 52.9 mg/dL (<11.9); Protein:Creat Ratio 538 mg/g CRE (0-200)
[2021-10-05 15:17] LABS: Color, Urine Yellow (Yellow); Glucose, Dipstick Normal (Normal); Ketone-Dipstick Negative (Negative); Leukocyte Esterase-Dipstick 100 /ul (Negative); Nitrite-Dipstick Negative (Negative); Occult Blood-Urine 10 /ul (Negative); Protein-Dipstick 30 mg/dl (Negative); Specific Gravity, Urine 1.015 (1.002-1.030); Urine Bilirubin Dipstick Negative (Negative); Urine Clarity Sl. Cloudy (Clear); Urine Urobilinogen Normal (Normal)
[2021-10-06 19:07] LABS: QNTFERON TB Mitogen Value > 10.00 IU/mL (.); QNTFERON TB Nil Value 0.25 IU/mL (.); QNTFERON TB1+ Ag Value 0.18 IU/mL (.); QNTFERON TB2+ Ag Value 0.18 IU/mL (.)
[2021-10-06 20:05] LABS: QNTIFERON TB Positive Criteria Negative (Negative)
== END 2021-10-04 23:59 | disposition home or self-care (01) ==
LOC: MTLAB 16:03
PROVIDERS: PCP Internal Medicine; Referring Provider Internal Medicine Rheumatology; Visit Provider Internal Medicine Rheumatology
DX: M06.4 Inflammatory polyarthropathy (principal); M32.9 Systemic lupus erythematosus, unspecified; Z79.899 Other long term (current) drug therapy; M15.9 Polyosteoarthritis, unspecified; K21.00 Gastro-esophageal reflux disease with esophagitis, without bleeding; I10 Essential (primary) hypertension; I25.10 Atherosclerotic heart disease of native coronary artery without angina pectoris; Z95.1 Presence of aortocoronary bypass graft
CPT/HCPCS: 36415; 81002; 82570; 84156; 86480

== ENCOUNTER → 2021-10-31 | Outpatient (CLI) | payer MEDICARE, SELFPAY ==
[2021-10-31 12:17] LABS: Anion Gap 5 (5-15); BUN 24 mg/dL (7-18); BUN/Creat Ratio 18.3 RATIO (10-20); Calcium,Total 9.1 mg/dL (8.5-10.1); Chloride 105 mmol/L (98-107); Creatinine, Serum 1.31 mg/dL (0.55-1.02); EST Glomerular Filtration Rate 41 mL/min (>60); Est Glom Filt Rate - Afr Amer 50 mL/min (>60); Glucose 160 mg/dL (74-106); Potassium 4.7 mmol/L (3.5-5.1); Sodium Level 139 mmol/L (136-145)
[2021-10-31 12:21] LABS: Absolute Lymphocyte Count 1.27 X10^3/uL (0.83-4.51); Absolute Neutrophil Count 6.1 X10^3/uL (2.0-7.7); Basophil# 0.05 X10^3/uL; Basophil% 0.6 % (0-1); Eosinophil# 0.17 X10^3/uL; Hematocrit 34.8 % (37-47); Hemoglobin 10.5 g/dL (12.0-15.0); Lymphocyte # 1.27 X10^3/ul (0.83-4.51); Lymphocyte % 14.7 % (19-41); Mean Corp Hgb Conc 30.2 g/dL (32-36); Mean Corpuscular Hgb 26.1 pg (27.0-32.0); Mean Corpuscular Volume 86.4 fL (81-99); Mean Platelet Vol. 10.8 fl (6.2-12.0); Monocyte# 1.03 X10^3/uL; Monocyte% 11.9 % (0-10); NRBC Flagged by Analyzer 0 % (0-5); Neutrophil # 6.06 X10^3/uL (2.7-7.7); Neutrophil % 70.3 % (47-70); Platelet Count 199 K/mm3 (150-450); RBC Distribution Width CV 15.6 % (11.6-14.6); RBC Distribution Width SD 48.5 fl (35.1-43.9); Red Blood Count 4.03 M/mm3 (4.2-5.4); White Blood Count 8.6 K/mm3 (4.4-11.0)
== END | disposition home or self-care (01) ==
LOC: BIMLAB 09:53
PROVIDERS: PCP Internal Medicine; Referring Provider Internal Medicine; Visit Provider Internal Medicine
DX: E11.9 Type 2 diabetes mellitus without complications (principal); K92.2 Gastrointestinal hemorrhage, unspecified
CPT/HCPCS: 36415; 80048; 85025

== ENCOUNTER 2021-11-08 11:54 | Inpatient (IN) | payer MEDICARE, SELFPAY ==
[2021-11-08] VITALS (9 sets, daily range): BP systolic 146–200; BP diastolic 64–83; PULSE 55–67; RESP 11–19; TEMP 36.3–37; O2SAT 85–100; BMI 30.4; BMI 30.3
--- NOTE | 2021-11-08 13:02 | RAD_ITS ---
STUDY: X-RAY - SOFT TISSUE NECK REASON FOR EXAM: Female, 86 years old. Choking sensation TECHNIQUE: 2 view(s) of the neck were obtained. COMPARISON: None. FINDINGS: Normal visualized nasopharynx, oropharynx, hypopharynx. Normal epiglottis. Normal visualized subglottic tracheal air column. Normal prevertebral soft tissue structures. There are degenerative changes of the cervical spine with cervical spondylosis. There are vascular calcifications. RAD/Neck for Soft Tissue IMPRESSION: Atherosclerosis. Degenerative changes. Electronically Signed: Blanca Bustos MD at 14:22 EDT ,
--- NOTE | 2021-11-08 13:02 | RAD_ITS ---
STUDY: X-RAY CHEST REASON FOR EXAM: Female, 86 years old. Shortness of breath TECHNIQUE: Frontal and lateral views of the chest. COMPARISON: 09/07/2021 FINDINGS: There are stable prominent interstitial markings. There is no new focal consolidation. There is stable minimal left basilar atelectasis and/or scarring. Sternal cerclage wires are present from a prior sternotomy. The cardiac silhouette is within normal limits. Normal mediastinum and katie. Normal visualized pulmonary arteries. Normal visualized aortic arch and descending thoracic aorta. There is demineralization of the osseous structures. There are degenerative changes of the thoracic spine. Normal visualized ribs, clavicles, and shoulders. There is no demonstrated abnormality of the visualized soft tissue structures of the upper abdomen. RAD/Chest PA and Lateral IMPRESSION: No acute cardiopulmonary process. Electronically Signed: Blanca Bustos MD at 14:21 EDT ,
--- NOTE | 2021-11-08 13:02 | EKG12_ITS ---
Test Reason : SOB Blood Pressure : / mmHG Vent. Rate : 061 BPM Atrial Rate : 061 BPM P-R Int : 154 ms QRS Dur : 126 ms QT Int : 462 ms P-R-T Axes : 033 017 041 degrees QTc Int : 465 ms Normal sinus rhythm Right bundle branch block Abnormal ECG Confirmed by SUHA LOPEZ, JOSE ALFREDO ([id number]), supervising editor news reel WU PRIETO ([id number]) on 11/10/2021 10:18:54 AM Referred By: EPHRAIM Confirmed By:JOSE ALFREDO BORDEN MD
[2021-11-08 13:36] LABS: Absolute Lymphocyte Count 0.72 X10^3/uL (0.83-4.51); Absolute Neutrophil Count 4.5 X10^3/uL (2.0-7.7); Basophil# 0.04 X10^3/uL; Basophil% 0.7 % (0-1); Eosinophil# 0.08 X10^3/uL; Eosinophils% 1.4 % (0-5); Hematocrit 33.2 % (37-47); Hemoglobin 10.4 g/dL (12.0-15.0); Lymphocyte # 0.72 X10^3/ul (0.83-4.51); Lymphocyte % 12.3 % (19-41); Mean Corp Hgb Conc 31.3 g/dL (32-36); Mean Corpuscular Hgb 25.6 pg (27.0-32.0); Mean Corpuscular Volume 81.8 fL (81-99); Mean Platelet Vol. 10.4 fl (6.2-12.0); Monocyte% 8.5 % (0-10); NRBC Flagged by Analyzer 0 % (0-5); Neutrophil % 76.6 % (47-70); Platelet Count 202 K/mm3 (150-450); Red Blood Count 4.06 M/mm3 (4.2-5.4); White Blood Count 5.9 K/mm3 (4.4-11.0)
[2021-11-08 13:48] LABS: Anion Gap 8 (5-15); BUN 23 mg/dL (7-18); BUN/Creat Ratio 18.5 RATIO (10-20); Calcium,Total 8.5 mg/dL (8.5-10.1); Chloride 103 mmol/L (98-107); Creatinine, Serum 1.24 mg/dL (0.55-1.02); EST Glomerular Filtration Rate 44 mL/min (>60); Est Glom Filt Rate - Afr Amer 53 mL/min (>60); Estimated Creatinine Clearance 24.26 ml/min; Glucose 148 mg/dL (74-106); Potassium 4.1 mmol/L (3.5-5.1); Sodium Level 136 mmol/L (136-145); Troponin-I HS 20 pg/mL (3.0-54.0)
[2021-11-08] MEDS: Ipratropium/Albuterol Sulfate 3 ML AMPUL.NEB INHALATION ×2 (15:25→19:20)
[2021-11-08] MEDS: Labetalol (Prefilled) 20 MG/4 ML 10 MG IV ×2 (15:32→16:56)
[2021-11-08] MEDS: MethylPREDNISolone 125 MG/2 ML Vial IV (15:32)
--- NOTE | 2021-11-08 15:44 | ED.RN ---
LEFT AC IV INFILTRATED. ICE PACK APPLIED
--- NOTE | 2021-11-08 16:32 | EDS_ITS ---
HPI History of Present Illness Chief Complaint: Shortness of Breath Informant: patient Onset/Context/Timing Onset: Days Context: Gradual Onset Timing: Waxes and wanes Current Severity: Mild Maximum Severity: Moderate Narrative Narrative: Patient presents secondary to shortness of breath with some intermittent feelings of dizziness. She states she feels that she has throat tightness as if her throat is swelling. She has had cough with white to yellow- colored sputum. She denies fever or chills. She states she checked her pulse ox at home and its been as low as 84%. She does have a history of COPD but is not on home oxygen. [facility] Medical History Anxiety Atherosclerosis of coronary artery bypass graft without angina pectoris Atherosclerosis of coronary artery of [place] heart without angina pectoris Atrial fibrillation with rapid ventricular response (12/24/20) Atypical chest pain Choking sensation (~08/30/21) Chronic diastolic (congestive) heart failure COPD (chronic obstructive pulmonary disease) Debility Difficulty swallowing Essential (primary) hypertension Flu vaccine need fracture of the dorsal mid metatarsal (10/07/20) Gastroesophageal reflux disease GERD (gastroesophageal reflux disease) GI bleed History of coronary artery disease History of non-ST elevation myocardial infarction (NSTEMI) (12/25/20) Hyperkalemia Hyperlipemia Incomplete right bundle branch block Lightheadedness Lupus erythematosus Osteoarthritis Osteoporosis Paroxysmal atrial fibrillation Paroxysmal atrial flutter Peripheral vascular disease of extremity with claudication Right wrist pain Secondary pulmonary arterial hypertension Sleep apnea Type 2 diabetes mellitus UTI (urinary tract infection) Home Medications aspirin 81 mg tablet,delayed release 81 mg PO DAILY #90 tab 08/17/20 [Rx Last Taken 09/07/21] albuterol sulfate 90 mcg/actuation aerosol inhaler 2 puff INHALATION Q6H PRN g 04/19/21 [History Last Taken 09/07/21] carvedilol 6.25 mg tablet 6.25 mg PO BID #180 tab 05/31/21 [Rx Last Taken 09/07/21] denosumab 60 mg/mL subcutaneous syringe 60 mg SUBCUT [id number] #1 ml 08/09/21 [Rx Last Taken 1 Week Ago ~08/31/21] apixaban 5 mg tablet 5 mg PO BID #180 tab 08/28/21 [Rx Last Taken 09/07/21] isosorbide mononitrate 30 mg tablet,extended release 24 hr 30 mg PO BID #180 tab 08/28/21 [Rx Last Taken 09/07/21] sertraline 25 mg tablet 25 mg PO DAILY #90 tab 08/28/21 [Rx Last Taken 09/07/21] acetaminophen 1,000 mg PO Q6H PRN 09/07/21 [History Last Taken Unknown] cholecalciferol (vitamin D3) 25 mcg PO DAILY 09/07/21 [History Last Taken 09/07/21] leflunomide 5 mg PO DAILY 09/07/21 [History Last Taken 09/07/21] prednisone 5 mg PO DAILY 09/07/21 [History Last Taken 09/07/21] calcium carbonate 500 mg calcium (1,250 mg) tablet 500 mg PO BID tab 09/15/21 [History Last Taken Unknown] amiodarone 200 mg tablet 100 mg PO DAILY tab 09/17/21 [History Last Taken Unknown] nitroglycerin 0.4 mg sublingual tablet 0.4 mg SUBLINGUAL Q5-15M #25 tab 09/18/21 [Rx Last Taken Unknown] pantoprazole 40 mg tablet,delayed release 40 mg PO BID #120 tab 09/27/21 [Rx Last Taken Unknown] amlodipine 2.5 mg tablet 2.5 mg PO DAILY #90 tab 10/02/21 [Rx Last Taken Unknown] ranolazine 500 mg tablet,extended release,12 hr 500 mg PO BID #180 tab 10/02/21 [Rx Last Taken Unknown] rosuvastatin 20 mg tablet 20 mg PO DAILY #90 tab 10/02/21 [Rx Last Taken Unknown] blood sugar diagnostic #100 ea 10/31/21 [Rx Last Taken Unknown] blood-glucose meter #1 ea 10/31/21 [Rx Last Taken Unknown] glimepiride 1 mg tablet 1 mg PO QAM #90 tab 10/31/21 [Rx Last Taken Unknown] lancets 28 gauge #200 ea 10/31/21 [Rx Last Taken Unknown] tramadol 50 mg tablet 50 mg PO DAILY 10/31/21 [History Last Taken Unknown] Allergy/AdvReac Type Severity Reaction Status Date / Time colchicine Allergy Other Verified 11/08/21 11:58 ezetimibe [From Zetia] Allergy Unknown Verified 11/08/21 11:58 isotretinoin [From Accutane] Allergy Other Verified 11/08/21 11:58 naproxen [From Aleve] Allergy hives and Verified 11/08/21 11:58 swelling quinine Allergy Other Verified 11/08/21 11:58 Sulfa (Sulfonamide Allergy Unknown Verified 11/08/21 11:58 Antibiotics) Family History Mother Myocardial infarction Arthritis Lupus Father Alzheimer disease Other Depression Respiratory disease Surgical History H/O coronary artery bypass surgery (06/14/09) History of angioplasty of peripheral vessel (08/29/16) History of ankle surgery History of bladder suspension procedure History of coronary artery stent placement (04/25/17) History of hysterectomy History of left heart catheterization (01/02/21) Hx laparoscopic cholecystectomy Social History household members: none Smoking Status: Former smoker how long ago did patient quit smoking: Quit 1987, smoked 2 ppd since age 22 untiol quit. alcohol intake: current alcohol intake frequency: 0-2 drinks per day details: Drinks 1 glass wine with dinner. substance use type: does not use what type of physical activity do you participate in: none ROS ROS ED Constitutional Constitutional ED: Denies chills or fever(s) Eyes Eyes: Denies change in vision ENT ENT ED: Reports other Details: Throat tightness ; Denies sore throat Cardiovascular Cardiovascular: Denies chest pain or palpitations Respiratory/Chest Respiratory/Chest: Reports cough, dyspnea and sputum Gastrointestinal Gastrointestinal: Denies abdominal pain, nausea or vomiting Genitourinary Genitourinary ED: Denies dysuria Musculoskeletal Musculoskeletal: Denies neck pain Integumentary Denies rash Neurologic Neurologic: Denies headache(s) or weakness Allergic/Immunologic Allergic/Immunologic ED: Denies urticaria EXAM Physical Exam Const Vital Signs: 11/08/21 11:55 11/08/21 13:23 11/08/21 14:16 Temperature 97.3 F L Temperature Source Temporal Pulse Rate 60 60 Respiratory Rate 16 16 Respiratory Effort Normal Respiratory Depth Normal Respiratory Pattern Normal Blood Pressure 200/69 H Blood Pressure Mean 112 Pulse Ox 98 94 Oxygen Delivery Method Room Air Room Air Nasal Cannula Oxygen Flow Rate (L/min) 2 11/08/21 15:28 11/08/21 16:29 Temperature Temperature Source Pulse Rate 61 61 Respiratory Rate 19 H 14 Respiratory Effort Respiratory Depth Respiratory Pattern Tachypnea Blood Pressure 176/64 H Blood Pressure Mean 101 Pulse Ox 85 Oxygen Delivery Method Room Air Oxygen Flow Rate (L/min) Positive well nourished and well developed General Appearance ED: well developed HEENT Reports moist mucous membranes Eyes PERRL and EOMs intact bilaterally Neck supple Chest Wall inspection of chest normal and palpation of chest normal Resp normal respiratory effort and clear to auscultation bilaterally Cardio regular rate and regular rhythm GI non-tender Palpation: soft Extremity normal to inspection Neuro oriented x3 Sensorium / Orientation: alert Psych mental status grossly normal Skin no rashes or lesions noted MDM MDM MDM Narrative Medical decision making narrative: Patient sent for chest x-ray as well as soft tissue neck x-ray. EKG, lab work obtained. Lab Data Attestation: I reviewed the patient's lab results. Labs: Laboratory Results - last 24 hr 11/08/21 11/08/21 13:20 13:20 WBC 5.9 RBC 4.06 L Hgb 10.4 L Hct 33.2 L MCV 81.8 MCH 25.6 L MCHC 31.3 L RDW Std Deviation 44.0 H RDW Coeff of Raza 15.0 H Plt Count 202 MPV 10.4 Immature Gran % (Auto) 0.500 Neut % (Auto) 76.6 H Lymph % (Auto) 12.3 L Hyde % (Auto) 8.5 Eos % (Auto) 1.4 Baso % (Auto) 0.7 Absolute Neuts (auto) 4.5 Absolute Lymphs (auto) 0.72 L Nucleated RBC % 0 Sodium 136 Potassium 4.1 Chloride 103 Carbon Dioxide 25.0 Anion Gap 8 BUN 23 H Creatinine 1.24 H Estim Creat Clear Calc 24.26 Est GFR (MDRD) Af Amer 53 L Est GFR (MDRD) Non-Af 44 L BUN/Creatinine Ratio 18.5 Glucose 148 H Calcium 8.5 Troponin I High Sens 20 Radiography Chest X-Ray - ED: 1 View, Read by ED Physician and Chronic Changes Diagnostic Testing: Clinical Impression(s) from Imaging Studies Chest X-Ray 11/08/21 13:02 IMPRESSION: No acute cardiopulmonary process. Electronically Signed: Blanca Bustos MD at 14:21 EDT , Soft Tissue Neck X-Ray 11/08/21 13:02 IMPRESSION: Atherosclerosis. Degenerative changes. Electronically Signed: Blanca Bustos MD at 14:22 EDT , EKG Initial EKG: Attestation: I personally reviewed and interpreted this EKG as follows: Interpretation: Sinus Rhythm (Sinus at 61 with right bundle branch block noted. Similar to prior EKG from August.) Treatment and Re-Evaluation Narrative: On repeat evaluation patient is now on oxygen. When I spoke with nursing staff they state that her O2 sat dropped to 88% with a good waveform on return from x-ray. Sats are in the mid to high 90s on 2 L. Lab work reviewed and unremarkable. Troponin negative. Chest x-ray and soft tissue neck x-ray revealed no acute changes per my interpretation. Patient is given a DuoNeb treatment along with IV Solu-Medrol. Blood pressure remains elevated and she is given a dose of labetalol. Patient taken off of oxygen following breathing treatment O2 sat dropped to 86%. Patient placed back on oxygen and I will speak with hospitalist regarding admission. With her history of COPD and cough of yellow-colored sputum she will be covered with a dose of Zithromax. Discharge Plan Triage Chief Complaint: Shortness of Breath ED Provider: Evelyn Torre Dx/Rx/DC Orders Clinical Impression: COPD (chronic obstructive pulmonary disease), Hypoxia Prescriptions: No Action albuterol sulfate [ProAir HFA] 90 mcg/actuation HFA aerosol inhaler 2 puff INHALATION Q6H PRN (Reason: Wheezing) RF: 0 carvedilol 6.25 mg tablet 6.25 mg PO BID Qty: 180 RF: 3 tramadol 50 mg tablet 50 mg PO DAILY RF: 0 glimepiride 1 mg tablet 1 mg PO QAM Qty: 90 RF: 2 (DME) FreeStyle Lite Strips Strip See Rx Instructions .MEDSUPPLY Qty: 100 RF: 3 (DME) blood-glucose meter [FreeStyle Lite Meter] Kit See Rx Instructions .MEDSUPPLY Qty: 1 RF: 0 (DME) lancets [FreeStyle Lancets] 28 gauge misc See Rx Instructions .MEDSUPPLY Qty: 200 RF: 3 amiodarone 200 mg tablet 100 mg PO DAILY RF: 0 nitroglycerin 0.4 mg tablet, sublingual 0.4 mg SUBLINGUAL Q5-15M Qty: 25 RF: 3 pantoprazole 40 mg tablet,delayed release (DR/EC) 40 mg PO BID Qty: 120 RF: 0 prednisone 5 mg Tablet 5 mg PO DAILY RF: 0 leflunomide 10 mg tablet 5 mg PO DAILY RF: 0 acetaminophen 500 mg Tablet 1,000 mg PO Q6H PRN (Reason: Pain) RF: 0 cholecalciferol (vitamin D3) 25 mcg (1,000 unit) Capsule 25 mcg PO DAILY RF: 0 calcium carbonate 500 mg calcium (1,250 mg) tablet 500 mg PO BID RF: 0 aspirin [Adult Aspirin Regimen] 81 mg tablet,delayed release (DR/EC) 81 mg PO DAILY Qty: 90 RF: 1 Hold Instructions: Resume on 09/16/21. Prolia 60 mg/mL syringe 60 mg subcut [id number] Qty: 1 RF: 1 sertraline 25 mg tablet 25 mg PO DAILY Qty: 90 RF: 2 Eliquis 5 mg tablet 5 mg PO BID Qty: 180 RF: 3 Hold Instructions: Resume on 09/16/21. Hold until follow up with PCP. isosorbide mononitrate 30 mg tablet extended release 24 hr 30 mg PO BID Qty: 180 RF: 3 amlodipine 2.5 mg tablet 2.5 mg PO DAILY Qty: 90 RF: 3 rosuvastatin 20 mg tablet 20 mg PO DAILY Qty: 90 RF: 3 ranolazine [Ranexa] 500 mg tablet extended release 12 hr 500 mg PO BID Qty: 180 RF: 3 Primary Care Provider: Armand Clarke Referrals: Armand Clarke MD [Primary Care Provider] - Disposition Disposition: Acute Care Hospital [facility]
[2021-11-08] MEDS: Acetaminophen 500 MG Tablet 1000 MG PO (16:33)
[2021-11-08] MEDS: Azithromycin 250 MG Tablet 500 MG PO (16:48)
--- NOTE | 2021-11-08 17:06 | HP.PCM.HOS_ITS ---
HPI - General General Date of Admission: 11/08/21 Date of Service: 11/08/21 Chief Complaint: Dyspnea, cough, fatigue, malaise. HPI Narrative The patient is an 86 y/o F w/ PMHx: Chronic bradycardia (rate usually in 50s per family report), OSBALDO not on CPAP/BIPAP, Lupus, Rheumatoid arthritis, Anxiety and Depression, PAF, CAD s/p CABG and PCI x 6, PAD, HTN, HLD, Anxiety and Depression, Chronic Diastolic CHF, GERD, Former tobacco use, hx GI bleed and chronic dysphagia following w/ Friend w/ recent unremarkable c-scope/EGD who presents to the [facility] ED on 11/08/21 with history of dyspnea with occasional dizziness sensation with sore throat and intermittent cough productive of yellow-colored sputum with no fevers or chills but reported hypoxia noting her oxygenation 84% at home not utilizing oxygen baseline starting approximately 1 week prior to current presentation although denying any recent ill contacts. Patient does states she has been fully vaccinated against COVID. She does report a mild headache, abdominal cramping but no nausea, emesis, diarrhea, alteration to sense of taste or smell. Work-up in the ED included T97.3, heart rate 60, initial BP 200/69 with most recent repeat 176/64, respiratory rate 16, initially upon ED evaluation was reported as 98% on room air however with reevaluations and activity patient dropped to 85% requiring transition to 2 L nasal cannula with improvement to 96%, CBC with WBC 5.9, hemoglobin 10.4, platelet 202 with lymphopenia, BMP with BUN/creatinine 23/1.24, glucose 148, troponin 20, chest x-ray with no acute cardiopulmonary findings, plain film soft tissue neck unremarkable, EKG with sinus rhythm with no acute evidence of ischemia. In the ED patient ministered Tylenol, azithromycin oral 500 mg x 1, DuoNeb therapy, labetalol and Solu-Medrol 125 mg IV x1. PENDING SALE TO [facility] Medical History Anxiety Atherosclerosis of coronary artery bypass graft without angina pectoris Atherosclerosis of coronary artery of [place] heart without angina pectoris Atrial fibrillation with rapid ventricular response (12/24/20) Atypical chest pain Choking sensation (~08/30/21) Chronic diastolic (congestive) heart failure COPD (chronic obstructive pulmonary disease) Debility Difficulty swallowing Essential (primary) hypertension Flu vaccine need fracture of the dorsal mid metatarsal (10/07/20) Gastroesophageal reflux disease GERD (gastroesophageal reflux disease) GI bleed History of coronary artery disease History of non-ST elevation myocardial infarction (NSTEMI) (12/25/20) Hyperkalemia Hyperlipemia Incomplete right bundle branch block Lightheadedness Lupus erythematosus Osteoarthritis Osteoporosis Paroxysmal atrial fibrillation Paroxysmal atrial flutter Peripheral vascular disease of extremity with claudication Right wrist pain Secondary pulmonary arterial hypertension Sleep apnea Type 2 diabetes mellitus UTI (urinary tract infection) Home Medications aspirin 81 mg tablet,delayed release 81 mg PO DAILY #90 tab 08/17/20 [Rx Last Taken 09/07/21] albuterol sulfate 90 mcg/actuation aerosol inhaler 2 puff INHALATION Q6H PRN g 04/19/21 [History Last Taken 11/05/21] carvedilol 6.25 mg tablet 6.25 mg PO BID #180 tab 05/31/21 [Rx Last Taken 11/08/21] denosumab 60 mg/mL subcutaneous syringe 60 mg SUBCUT [id number] #1 ml 08/09/21 [Rx Last Taken 1 Month Ago ~10/08/21] apixaban 5 mg tablet 5 mg PO BID #180 tab 08/28/21 [Rx Last Taken 09/07/21] isosorbide mononitrate 30 mg tablet,extended release 24 hr 30 mg PO BID #180 tab 08/28/21 [Rx Last Taken 11/08/21] sertraline 25 mg tablet 25 mg PO DAILY #90 tab 08/28/21 [Rx Last Taken 11/08/21] acetaminophen 1,000 mg PO Q6H PRN 09/07/21 [History Last Taken 11/08/21] cholecalciferol (vitamin D3) 25 mcg PO DAILY 09/07/21 [History Last Taken 11/08/21] leflunomide 5 mg PO DAILY 09/07/21 [History Last Taken 11/08/21] prednisone 5 mg PO DAILY 09/07/21 [History Last Taken 11/08/21] calcium carbonate 500 mg calcium (1,250 mg) tablet 500 mg PO BID tab 09/15/21 [History Last Taken 11/08/21] amiodarone 200 mg tablet 200 mg PO DAILY tab 09/17/21 [History Last Taken 11/08/21] nitroglycerin 0.4 mg sublingual tablet 0.4 mg SUBLINGUAL Q5-15M #25 tab 09/18/21 [Rx Last Taken Unknown] pantoprazole 40 mg tablet,delayed release 40 mg PO BID #120 tab 09/27/21 [Rx Last Taken 11/08/21] amlodipine 2.5 mg tablet 2.5 mg PO DAILY #90 tab 10/02/21 [Rx Last Taken 11/07/21] ranolazine 500 mg tablet,extended release,12 hr 500 mg PO BID #180 tab 10/02/21 [Rx Last Taken 11/08/21] rosuvastatin 20 mg tablet 20 mg PO DAILY #90 tab 10/02/21 [Rx Last Taken 11/08/21] blood sugar diagnostic #100 ea 10/31/21 [Rx Last Taken Unknown] blood-glucose meter #1 ea 10/31/21 [Rx Last Taken Unknown] glimepiride 1 mg tablet 1 mg PO QAM #90 tab 10/31/21 [Rx Last Taken 11/08/21] lancets 28 gauge #200 ea 10/31/21 [Rx Last Taken Unknown] tramadol 50 mg tablet 50 mg PO DAILY 10/31/21 [History Last Taken 11/08/21] Allergy/AdvReac Type Severity Reaction Status Date / Time colchicine Allergy Other Verified 11/08/21 11:58 ezetimibe [From Zetia] Allergy Unknown Verified 11/08/21 11:58 isotretinoin [From Accutane] Allergy Other Verified 11/08/21 11:58 naproxen [From Aleve] Allergy hives and Verified 11/08/21 11:58 swelling quinine Allergy Other Verified 11/08/21 11:58 Sulfa (Sulfonamide Allergy Unknown Verified 11/08/21 11:58 Antibiotics) Family History Mother Myocardial infarction Arthritis Lupus Father Alzheimer disease Other Depression Respiratory disease Surgical History H/O coronary artery bypass surgery (06/14/09) History of angioplasty of peripheral vessel (08/29/16) History of ankle surgery History of bladder suspension procedure History of coronary artery stent placement (04/25/17) History of hysterectomy History of left heart catheterization (01/02/21) Hx laparoscopic cholecystectomy Social History household members: none Smoking Status: Former smoker how long ago did patient quit smoking: Quit 1987, smoked 2 ppd since age 22 untiol quit. alcohol intake: current alcohol intake frequency: 0-2 drinks per day details: Drinks 1 glass wine with dinner. substance use type: does not use what type of physical activity do you participate in: none ROS ROS Narrative Admission Review of Systems: CONSTITUTIONAL: No weight loss, fever, chills, + weakness or fatigue. HEENT: + Sore throat. Eyes: No visual loss, blurred vision, double vision or yellow sclerae. Ears, Nose, Throat: No hearing loss, sneezing, congestion, runny nose. SKIN: No rash or itching, lesions, wounds. CARDIOVASCULAR: No chest heaviness/pressure, palpitations, edema, orthopnea, syncopal events. RESPIRATORY: + Shortness of breath, cough with mildly productive sputum, No jose ed wheezing, hemoptysis. GASTROINTESTINAL: + Abdominal cramping, No anorexia, nausea, vomiting or di arrhea, melena, BRBPR. GENITOURINARY: No dysuria, frequency, urgency or retention. NEUROLOGICAL: + L sided occasional headache, dizziness, No syncope, paralysis, ataxia, numbness or tingling in the extremities, focal weakness, change in bowel or bladder control, seizure. MUSCULOSKELETAL: + Muscle, back pain, joint pain or stiffness. HEMATOLOGIC: + Anemia, bleeding or bruising. LYMPHATICS: No enlarged nodes. No history of splenectomy. PSYCHIATRIC: + history of depression or anxiety. ENDOCRINOLOGIC: No reports of sweating, cold or heat intolerance. No polyuria or polydipsia. ALLERGIES: + history of asthma, hives, eczema or rhinitis. Vital Signs Vital Signs Vital Signs: 11/08/21 11:55 11/08/21 13:23 11/08/21 14:16 Temperature 97.3 F L Temperature Source Temporal Pulse Rate 60 60 Respiratory Rate 16 16 Respiratory Effort Normal Respiratory Depth Normal Respiratory Pattern Normal Blood Pressure 200/69 H Blood Pressure Mean 112 Pulse Ox 98 94 Oxygen Delivery Method Room Air Room Air Nasal Cannula Oxygen Flow Rate (L/min) 2 11/08/21 15:28 11/08/21 16:29 11/08/21 16:49 Temperature 98.6 F Temperature Source Temporal Pulse Rate 61 61 61 Respiratory Rate 19 H 14 11 L Respiratory Effort Respiratory Depth Respiratory Pattern Tachypnea Blood Pressure 176/64 H 198/83 H Blood Pressure Mean 101 121 Pulse Ox 85 96 Oxygen Delivery Method Room Air Nasal Cannula Oxygen Flow Rate (L/min) 2 Weight Weight: 156 lb Body Mass Index (BMI) 30.4 Physical Exam Narrative Physical Examination: General: Awake, alert, oriented x 3 and cooperative, seated upright in the ED bed in no apparent distress, fatigued appearing, voice mildly hoarse. Skin: Normal color, normal turgor, no icterus, no cyanosis. HEENT: AT/NC, EOMI, PERRLA, mildly dry MM, posterior OP erythema/post-nasal drip, no carotid bruits or JVD noted. Lungs: Diminished, > bases, tight, poor air movement, mildly increased effort, no rales, ronchi or wheezing. Heart: Bradycardic with regular rhythm; no gallop, rub audible. Abdomen: Soft, obese, NTTP, ND, distant hyperactive BS, no HSM. Extremities: No cyanosis, clubbing, or edema. Neurological: Patient awake, alert, oriented as noted, cognitive function intact; pupils equally reactive to light and accommodation, cranial nerves II- XII grossly normal, moving all 4 extremities, no focal deficits, strength moderately to severely globally decreased. Psychiatric: Affect appears fatigued otherwise normal, no acute evidence of depressive or anxiety feelings. Results Lab / Micro Data Result Diagrams: 11/08/21 13:20 11/08/21 13:20 Labs: Laboratory Results - last 24 hr 11/08/21 13:20: WBC 5.9, RBC 4.06 L, Hgb 10.4 L, Hct 33.2 L, MCV 81.8, MCH 25.6 L, MCHC 31.3 L, RDW Std Deviation 44.0 H, RDW Coeff of Raza 15.0 H, Plt Count 202, MPV 10.4, Immature Gran % (Auto) 0.500, Neut % (Auto) 76.6 H, Lymph % (Auto) 12.3 L, [place] % (Auto) 8.5, Eos % (Auto) 1.4, Baso % (Auto) 0.7, Absolute Neuts (auto) 4.5, Absolute Lymphs (auto) 0.72 L, Nucleated RBC % 0 11/08/21 13:20: Sodium 136, Potassium 4.1, Chloride 103, Carbon Dioxide 25.0, Anion Gap 8, BUN 23 H, Creatinine 1.24 H, Estim Creat Clear Calc 24.26, Est GFR (MDRD) Af Amer 53 L, Est GFR (MDRD) Non-Af 44 L, BUN/Creatinine Ratio 18.5, Glucose 148 H, Calcium 8.5, Troponin I High Sens 20 Radiology Impression Chest X-Ray 11/08/21 13:02 IMPRESSION: No acute cardiopulmonary process. Electronically Signed: Blanca Bustos MD at 14:21 EDT , Soft Tissue Neck X-Ray 11/08/21 13:02 IMPRESSION: Atherosclerosis. Degenerative changes. Electronically Signed: Blanca Bustos MD at 14:22 EDT , Assessment & Plan Assessment/Plan (1) COPD (chronic obstructive pulmonary disease): QUALIFIERS: COPD type: COPD with acute exacerbation Qualified Code(s): J44.1 - Chronic obstructive pulmonary disease with (acute) exacerbation (2) Hypoxia: PLAN: The patient is an 86 y/o F w/ PMHx: Chronic bradycardia (rate usually in 50s per family report), OSBALDO not on CPAP/BIPAP, Lupus, Rheumatoid arthritis, Anxiety and Depression, PAF, CAD s/p CABG and PCI x 6, PAD, HTN, HLD, Anxiety and Depression, Chronic Diastolic CHF, GERD, Former tobacco use, hx GI bleed and chronic dysphagia following w/ Dr. Friend w/ recent unremarkable c- scope/EGD who presents to the [facility] ED on 11/08/21 with history of dyspnea with occasional dizziness sensation with sore throat and intermittent cough productive of yellow-colored sputum with no fevers or chills but reported hypox ia noting her oxygenation 84% at home not utilizing oxygen baseline starting approximately 1 week. #1. Acute Hypoxia secondary to Acute on chronic COPD exacerbation with possible Acute Viral Illess: CXR w/ chronic changes, CBC with no marked WBC elevation with noted lymphopenia. Will admit to [facility], maintain on oxygen with wean as tolerated to room air, continue ATC duonebs, PRN albuterol, IV methy lprednisolone, HOB, IS parameters, hold on abx therapy pending procalcitonin, sputum Cx, respiratory panel and COVID PCR. Will judiciously hydrate and repeat CXR in AM in case developing PNA. #2. Diabetes mellitus type II: Recent hemoglobin A1c 09/07/2021 7.9%, from current list not on regimen, will need to add oral option at her discharge at discharge, ADA diet, accu checks w/ ISS. #3. Chronic Bradycardia: Patient has hx bradycardia, normally in the 50s. #4. Chronic kidney disease III, unclear subtype: Admission BUN/Cr 23/1.24, baseline creatinine appears primarily 1.1-1.4, trend. #5. CAD, PAD: Status post CABG and PCI, hx peripheral PCI also, will continue aspirin, apixaban, statin, Ranexa, Coreg with hold parameters as needed, not on NA inhibitor/ARB. #6. Chronic diastolic CHF: We will continue aspirin, apixaban, statin, Coreg, not on NA inhibitor/ARB nor diuretic. #7. Anxiety and depression: We will continue patient home low-dose sertraline regimen. #8. Lupus, rheumatoid arthritis: We will continue patient home low-dose prednisone therapy as well as leflunomide. #9. PAF: We will continue patient home Coreg and amiodarone as well as apixaban. #10. Hypertension: Continue home regimen including isosorbide, amlodipine, Coreg with hold parameters as needed, PRN hydralazine. #11. Hyperlipidemia: Continue home statin regimen. #12. Former tobacco use: Encourage continued tobacco cessation. #13. GERD: We will continue patient on PPI. #14. DVT prophylaxis: SCDs, Eliquis. #15. CODE status: Patient MAYI is her son who is present and living will is currently in place. Full Code status. Charges/Coding Visit Charges Inpatient E&M: 04045 Init Hosp L3
[2021-11-08] MEDS: hydrALAZINE 20 MG/ML Vial 10 MG IV (18:39)
[2021-11-08] MEDS: 0.9% Saline Lock 10 ML Syringe IV ×2 (18:40→21:37)
[2021-11-08] MEDS: 0.9% Normal Saline 1,000 ML 100 ML IV (18:40)
[2021-11-08] MEDS: Insulin Lispro 100 UNIT/ML INSULN.PEN SC ×2 (18:49→21:36)
[2021-11-08 19:01] LABS: Bedside Glucose 293 mg/dL (74-106)
[2021-11-08 19:35] LABS: Procalcitonin 0.07 ng/mL (0.00-0.09)
[2021-11-08] MEDS: Acetaminophen 325 MG Tablet 650 MG PO (21:33)
[2021-11-08] MEDS: Ranolazine 500 MG Tablet PO (21:33)
[2021-11-08] MEDS: Pantoprazole Sodium 40 MG Tablet PO (21:34)
[2021-11-08] MEDS: Carvedilol 6.25 MG Tablet PO (21:34)
[2021-11-08] MEDS: Atorvastatin Calcium 40 MG Tablet PO (21:34)
[2021-11-09] VITALS (12 sets, daily range): BP systolic 139–160; BP diastolic 54–70; PULSE 61–75; RESP 16–20; TEMP 36.4–36.8; O2SAT 86–99
[2021-11-09 00:31] LABS: Bedside Glucose 313 mg/dL (74-106)
[2021-11-09 05:16] LABS: Absolute Lymphocyte Count 0.41 X10^3/uL (0.83-4.51); Absolute Neutrophil Count 3.4 X10^3/uL (2.0-7.7); Basophil# 0.01 X10^3/uL; Basophil% 0.3 % (0-1); Hematocrit 33.3 % (37-47); Hemoglobin 10.1 g/dL (12.0-15.0); Lymphocyte # 0.41 X10^3/ul (0.83-4.51); Lymphocyte % 10.5 % (19-41); Mean Corp Hgb Conc 30.3 g/dL (32-36); Mean Corpuscular Hgb 25.4 pg (27.0-32.0); Mean Corpuscular Volume 83.9 fL (81-99); Mean Platelet Vol. 10.6 fl (6.2-12.0); Monocyte# 0.07 X10^3/uL; Monocyte% 1.8 % (0-10); NRBC Flagged by Analyzer 0 % (0-5); Neutrophil # 3.38 X10^3/uL (2.7-7.7); Neutrophil % 86.6 % (47-70); POSITIVE DIFFERENTIAL YES; Platelet Count 175 K/mm3 (150-450); Red Blood Count 3.97 M/mm3 (4.2-5.4); White Blood Count 3.9 K/mm3 (4.4-11.0)
[2021-11-09 05:22] LABS: Differential Indicated SCAN CRITERIA MET
--- NOTE | 2021-11-09 05:55 | RAD_ITS ---
STUDY: X-RAY CHEST REASON FOR EXAM: Female, 86 years old. Dyspnea, cough TECHNIQUE: Single AP portable view of the chest. COMPARISON: 11/08/2021 FINDINGS: Status post median sternotomy. The lungs are clear and expanded. There is no demonstrated pleural abnormality. There is moderate cardiac enlargement. Normal mediastinum and katie. Normal visualized pulmonary arteries. Normal visualized aortic arch and descending thoracic aorta. Normal visualized thoracic spine. Normal visualized ribs, clavicles, and shoulders. There is no demonstrated abnormality of the visualized soft tissue structures of the upper abdomen. RAD/Chest 1 View (Portable) IMPRESSION: No active disease. Electronically Signed: Balaji Hartley MD at 7:14 EDT ,
[2021-11-09 06:00] LABS: ALB/GLOB Ratio 0.9 RATIO (0.9-2.4); AST(SGOT) 18 U/L (15-37); Alanine Aminotransfer ALT/SGPT 26 U/L (13-56); Alkaline Phosphatase 48 U/L (45-117); Anion Gap 6 (5-15); BUN 24 mg/dL (7-18); BUN/Creat Ratio 18.3 RATIO (10-20); Calcium,Total 8.1 mg/dL (8.5-10.1); Chloride 107 mmol/L (98-107); Creatinine, Serum 1.31 mg/dL (0.55-1.02); EST Glomerular Filtration Rate 41 mL/min (>60); Est Glom Filt Rate - Afr Amer 50 mL/min (>60); Estimated Creatinine Clearance 22.96 ml/min; Globulin 3.2 g/dL (2.2-4.2); Glucose 195 mg/dL (74-106); Potassium 3.9 mmol/L (3.5-5.1); Protein, Total 6.2 g/dL (6.4-8.2); Sodium Level 138 mmol/L (136-145)
[2021-11-09 06:24] LABS: Differential Comment SCANNED
[2021-11-09] MEDS: Insulin Lispro 100 UNIT/ML INSULN.PEN SC ×4 (06:29→23:00)
[2021-11-09] MEDS: 0.9% Saline Lock 10 ML Syringe IV ×2 (06:30→23:06)
[2021-11-09 06:50] LABS: Bedside Glucose 211 mg/dL (74-106)
[2021-11-09] MEDS: Ipratropium/Albuterol Sulfate 3 ML AMPUL.NEB INHALATION ×3 (07:26→19:35)
--- NOTE | 2021-11-09 07:27 | PN.HOSP_ITS ---
Subjective Subjective Breathing better. Objective Data Objective Data Vital Signs: Vital Signs Temp Pulse Resp BP Pulse Ox 36.4 C L 64 18 150/70 H 92 11/09/21 03:28 11/09/21 03:28 11/09/21 03:28 11/09/21 03:28 11/09/21 03:28 Oxygen Flow Rate (L/min) 2 Oxygen Delivery Method Nasal Cannula Weight: 74.6 kg Body Mass Index (BMI) 30.3 Intake & Output: Intake and Output for Last 24 Hours 11/07/21 11/08/21 11/09/21 23:59 23:59 23:59 Intake Total 200 / 200 1300 / 1300 Output Total 400 / 400 Balance 200 / 200 900 / 900 Lab / Micro Data Result Diagrams: 11/09/21 05:00 11/09/21 05:00 Labs: Laboratory Results - last 24 hr 11/08/21 13:20: WBC 5.9, RBC 4.06 L, Hgb 10.4 L, Hct 33.2 L, MCV 81.8, MCH 25.6 L, MCHC 31.3 L, RDW Std Deviation 44.0 H, RDW Coeff of Raza 15.0 H, Plt Count 202, MPV 10.4, Immature Gran % (Auto) 0.500, Neut % (Auto) 76.6 H, Lymph % (Auto) 12.3 L, Mcdonald % (Auto) 8.5, Eos % (Auto) 1.4, Baso % (Auto) 0.7, Absolute Neuts (auto) 4.5, Absolute Lymphs (auto) 0.72 L, Nucleated RBC % 0 11/08/21 13:20: Sodium 136, Potassium 4.1, Chloride 103, Carbon Dioxide 25.0, Anion Gap 8, BUN 23 H, Creatinine 1.24 H, Estim Creat Clear Calc 24.26, Est GFR (MDRD) Af Amer 53 L, Est GFR (MDRD) Non-Af 44 L, BUN/Creatinine Ratio 18.5, Glucose 148 H, Calcium 8.5, Troponin I High Sens 20 11/08/21 18:01: COVID-19 (MU) Not Detected 11/08/21 18:43: POC Glucose 293 H 11/08/21 18:50: Procalcitonin 0.07 11/08/21 21:21: POC Glucose 313 H 11/09/21 05:00: WBC 3.9 L, RBC 3.97 L, Hgb 10.1 L, Hct 33.3 L, MCV 83.9, MCH 25.4 L, MCHC 30.3 L, RDW Std Deviation 46.0 H, RDW Coeff of Raza 15.0 H, Plt Count 175, MPV 10.6, Immature Gran % (Auto) 0.800, Neut % (Auto) 86.6 H, Lymph % (Auto) 10.5 L, Mcdonald % (Auto) 1.8, Eos % (Auto) 0.0, Baso % (Auto) 0.3, Absolute Neuts (auto) 3.4, Absolute Lymphs (auto) 0.41 L, Nucleated RBC % 0, Differential Comment SCANNED, Diff Path Review November11/09/21 05:00: Sodium 138, Potassium 3.9, Chloride 107, Carbon Dioxide 25.0, Anion Gap 6, BUN 24 H, Creatinine 1.31 H, Estim Creat Clear Calc 22.96, Est GFR (MDRD) Af Amer 50 L, Est GFR (MDRD) Non-Af 41 L, BUN/Creatinine Ratio 18.3, Glucose 195 H, Calcium 8.1 L, Total Bilirubin 0.40, AST 18, ALT 26, Alkaline Phosphatase 48, Total Protein 6.2 L, Albumin 3.0 L, Globulin 3.2, Albumin/Globulin Ratio 0.9 11/09/21 06:28: POC Glucose 211 H Micro: Microbiology 11/08/21 18:02 Mucosa - Nose Respiratory Panel (PCR) - Final Radiography Diagnostic Testing: Radiology Impression Chest X-Ray 11/08/21 13:02 IMPRESSION: No acute cardiopulmonary process. Electronically Signed: Blanca Bustos MD at 14:21 EDT , Soft Tissue Neck X-Ray 11/08/21 13:02 IMPRESSION: Atherosclerosis. Degenerative changes. Electronically Signed: Blanca Bustos MD at 14:22 EDT , Chest X-Ray 11/09/21 05:55 IMPRESSION: No active disease. Electronically Signed: Balaji Hartley MD at 7:14 EDT , Physical Exam Resp normal respiratory effort, no retractions, no use of accessory muscles and clear to auscultation bilaterally Cardio regular rate, regular rhythm, S1 normal heart sound and S2 normal heart sound GI normal to inspection, nondistended, normoactive bowel sounds, soft to palpation, non-tender and non-distended Extremity normal to inspection Neuro Sensorium / Orientation: awake and alert Assessment & Plan Assessment/Plan (1) COPD (chronic obstructive pulmonary disease): QUALIFIERS: COPD type: COPD with acute exacerbation Qualified Code(s): J44.1 - Chronic obstructive pulmonary disease with (acute) exacerbation (2) Acute respiratory failure with hypoxia: PLAN: 1. acute hypoxic respiratory failure * improved 2/ AECOPD * CXR personally reviewed and shows chronic changes * change methylpred to prednisone burst * wean oxygen as tolerated * check ambulatory pulse ox prior to discharge 2. AECOPD * as above * PFTs from 05/12/2021 were grossly nomal PFTs with some stigmata of small airway disease. 3. DM2 4. HTN 5. Recent GI bleed: * solonscopy on 09/09 showed 2 bleeding colonic angiodysplastic lesions * apixaban held at that time and has not been resumes * continue PPI 6. pAfib * on amiodarone, carvedilol Charges/Coding Visit Charges Inpatient E&M: 20600 Subs Hosp L2
[2021-11-09] MEDS: Calcium (Elemental) 500 MG Tablet PO ×2 (09:12→16:41)
[2021-11-09] MEDS: Amiodarone 200 MG Tablet 100 MG PO (09:12)
[2021-11-09] MEDS: Ranolazine 500 MG Tablet PO ×2 (09:12→22:58)
[2021-11-09] MEDS: Carvedilol 6.25 MG Tablet PO ×2 (09:12→16:41)
[2021-11-09] MEDS: amLODIPine 2.5 MG Tablet PO (09:13)
[2021-11-09] MEDS: Pantoprazole Sodium 40 MG Tablet PO ×2 (09:13→22:59)
[2021-11-09] MEDS: Sertraline 50 MG Tablet 25 MG PO (09:13)
[2021-11-09] MEDS: Isosorbide Mononitrate 30 MG Tablet PO ×2 (09:19→22:58)
[2021-11-09] MEDS: traMADol 50 MG Tablet PO (09:19)
--- NOTE | 2021-11-09 10:50 | CASEMGMT ---
CHANDAN THOMAS TEAM SUPERVISOR CM to room to meet with patient for initial transition planning/care coordination assessment. CHANDAN THOMAS introduced self and role at [facility].? Pt voices understanding and consents to assessment at this time.? Pt sitting up in chair in no distress at this time.? Kimberley, hayleyr, present in room. Pt is A/O at this time and answers all questions appropriately.?? Care providers, pharmacy, and demographics verified/updated at this time. PCP: Dr Clarke Specialists: Dr Le--cardiology, Dr Mora-rheumatology, Dr Lobo-GI Preferred Pharmacy: [facility] Retail Insurance: MMO MCR Prescription Benefit:? Yes Living Will/HPOA:? Has LW and HPOA, who is her son, Art LNOK: Son, Al, Dtr, Kimberley Living Arrangements: Lives alone in [facility]/independent living, one-story, w/no steps to enter. Pt is independent w/ADL's. Family assist w/getting groceries and some meals, medication mgmt, and appts. Pt able to prepare some meals. Cleaning lady once a month. DME: ? States has the following DME:? shower chair, rollator, medical alert button, electric scooter, pulse ox. Pt does not have Home O2. Reviewed list of local DME co's and they deny having having preference of co and are agreeable to [facility]. Glucometer/DM: Noted DM Type 2 listed as a diagnoses. Pt states she has never been told she is diabetic and she does not check her BS's. Noted in amb orders a glucometer was e-scribed to [facility] on 10/31/21 along w/lancets, strips, and Rx for Glimeperide. Call to [facility] who states this was all picked up on 11/06. CHANDAN THOMAS back to room. Pt states she is aware her son picked all of those items and states we did not know what to do with it, so it's just sitting there. HHC/SNF: No hx of SNF. Has had HHC in the past. Pt and dtr are interested in pt getting HHC @ d/c. They voice no preference of HHC agency. Offered list of HHC agencies, but state [facility] once made aware that is an option. Call placed to Indira @ [facility] and referral made for SN, PT/OT. They are able to accept pt. Plan is: If d/c's Saturday or Sat, SOC slated for Sun. If d/c's Sat, SOC slated for . Indira also made aware of DM and glucometer teaching needed. CCN: Discussed w/pt. She is agreeable. Order placed. Call to Remy to inform her of referral. Pt wishes to return home at discharge, if able. She states she was weak prior to coming into the hospital and just felt really weak getting up to chair. She states, There were 2 of them helping me, one on both sides. Order for PT/OT entered. Pt and dtr aware therapy will eval pt. Pt states, if SNF is recommended, she may consider TCU, and dtr is agreeable. She states pt's son, Art, will be in later today and further discussion re: discharge can be done w/him. CM to follow for home oxygen needs and any further discharge planning/needs.? Pt and dtr voice no further concerns/needs at this time.? Advised them to ask for CM if any further questions/concerns/needs arise.? Voices understanding. PLAN: ?Home w/[facility] HHC: SN, PT/OT. CCN to follow after [facility] completed. RN to do diabetic teaching while pt @ [facility]. Pt will need amb oxygen testing completed prior to discharge. Follow for any home O2 needs. Fabian RAMOS RN CM
[2021-11-09 11:06] LABS: Bedside Glucose 258 mg/dL (74-106)
[2021-11-09] MEDS: Acetaminophen 325 MG Tablet 650 MG PO ×2 (11:09→16:41)
[2021-11-09] MEDS: predniSONE 20 MG Tablet 40 MG PO (11:09)
--- NOTE | 2021-11-09 15:04 | CHAPLAIN ---
Type of Pastoral Visit _x__ Initial Visit ___ Follow-up Visit ___ On-call Visit ___ General Patient Visit ___ Spiritual Assessment ___ Family Conference ___ Bereavement ___ Rapid Response ___ Code Blue ___ Other (describe below) Pastoral Care Referral From _x__ Patient x Family ___ Nurse ___ Physician ___ Gravity Manager ___ Program Proposals Coordinator ___ Other (describe below) Sacrament/Intervention ___ Active listening ___ Anointing ___ Yarsanism ___ Bereavement ___ Communion ___ Jenny exploration ___ ___ Life review ___ Prayer ___ Reconciliation ___ Sacrament of Sick _x__ Supportive presence ___ Wedding ___ Other (describe below) Pastoral Comments 1st attempt the patient is sleeping; 2nd attempt the patient had a brief visit with family member and busy with that; 3rd attempt the patient was sleeping again; but offer of support and care given for a further time during 2nd attempt
[2021-11-09 17:41] LABS: Bedside Glucose 266 mg/dL (74-106)
[2021-11-09] MEDS: Atorvastatin Calcium 40 MG Tablet PO (22:58)
[2021-11-09] MEDS: BENZOCAINE/MENTHOL 1 LOZENGE MUCOUS MEM (22:59)
[2021-11-09 23:26] LABS: Bedside Glucose 294 mg/dL (74-106)
[2021-11-10] VITALS (9 sets, daily range): BP systolic 147–154; BP diastolic 52–76; PULSE 59–70; RESP 18–22; TEMP 36.6–36.8; O2SAT 91–98
[2021-11-10] MEDS: Insulin Lispro 100 UNIT/ML INSULN.PEN SC ×2 (06:40→11:42)
[2021-11-10] MEDS: Ipratropium/Albuterol Sulfate 3 ML AMPUL.NEB INHALATION ×3 (06:49→14:05)
[2021-11-10 06:50] LABS: Bedside Glucose 190 mg/dL (74-106)
[2021-11-10] MEDS: Carvedilol 6.25 MG Tablet PO (08:31)
[2021-11-10] MEDS: predniSONE 20 MG Tablet 40 MG PO (08:32)
[2021-11-10] MEDS: Calcium (Elemental) 500 MG Tablet PO (08:32)
[2021-11-10] MEDS: Sertraline 50 MG Tablet 25 MG PO (09:30)
[2021-11-10] MEDS: traMADol 50 MG Tablet PO (09:30)
[2021-11-10] MEDS: Pantoprazole Sodium 40 MG Tablet PO (09:30)
[2021-11-10] MEDS: Ranolazine 500 MG Tablet PO (09:30)
[2021-11-10] MEDS: Amiodarone 200 MG Tablet 100 MG PO (09:31)
[2021-11-10] MEDS: amLODIPine 2.5 MG Tablet PO (09:31)
[2021-11-10] MEDS: Isosorbide Mononitrate 30 MG Tablet PO (09:31)
--- NOTE | 2021-11-10 11:20 | CASEMGMT ---
Addendum entered by Gege Art 11/10/21 11:36: Spoke with pt nurse. Pt was retested for O2 and did not qualify. Cancelled home O2 orders. Original Note: Pt qualifies for home O2, referral faxed to [facility], pt provided with portable tank. Emailed Eli to make aware. Notified [facility] that pt will dc today, order placed for CCN as well. Notified CCN of dc.
--- NOTE | 2021-11-10 11:52 | PCM.DC ---
Discharge Instructions Diet Discharge Diet: 1999 Calorie Control Diet Activity Discharge Activity: Return to Normal Activity Dressing / Incision Call your doctor if you observe: Shortness of breath Follow Up Care Test Results: Test results from this visit will be discussed in further detail at your follow-up appointment, if applicable. Discharge Plan Admission Admit Date/Time: 11/08/21 16:52 Primary Reason for Your Visit: Acute COPD exacerbation. Attending Provider: Cornell Mayers Primary Care Provider: Armand Clarke Discharge Orders/Prescriptions Prescriptions: New prednisone 10 mg tablet 10 mg PO DAILY Qty: 24 RF: 0 Continued albuterol sulfate [ProAir HFA] 90 mcg/actuation HFA aerosol inhaler 2 puff INHALATION Q6H PRN (Reason: Wheezing) RF: 0 carvedilol 6.25 mg tablet 6.25 mg PO BID Qty: 180 RF: 3 tramadol 50 mg tablet 50 mg PO DAILY RF: 0 glimepiride 1 mg tablet 1 mg PO QAM Qty: 90 RF: 2 (DME) FreeStyle Lite Strips Strip See Rx Instructions .MEDSUPPLY Qty: 100 RF: 3 (DME) blood-glucose meter [FreeStyle Lite Meter] Kit See Rx Instructions .MEDSUPPLY Qty: 1 RF: 0 (DME) lancets [FreeStyle Lancets] 28 gauge misc See Rx Instructions .MEDSUPPLY Qty: 200 RF: 3 amiodarone 200 mg tablet 200 mg PO DAILY RF: 0 nitroglycerin 0.4 mg tablet, sublingual 0.4 mg SUBLINGUAL Q5-15M Qty: 25 RF: 3 pantoprazole 40 mg tablet,delayed release (DR/EC) 40 mg PO BID Qty: 120 RF: 0 leflunomide 10 mg tablet 5 mg PO DAILY RF: 0 acetaminophen 500 mg Tablet 1,000 mg PO Q6H PRN (Reason: Pain) RF: 0 cholecalciferol (vitamin D3) 25 mcg (1,000 unit) Capsule 25 mcg PO DAILY RF: 0 calcium carbonate 500 mg calcium (1,250 mg) tablet 500 mg PO BID RF: 0 aspirin [Adult Aspirin Regimen] 81 mg tablet,delayed release (DR/EC) 81 mg PO DAILY Qty: 90 RF: 1 Hold Instructions: Resume on 09/16/21. Prolia 60 mg/mL syringe 60 mg subcut [id number] Qty: 1 RF: 1 sertraline 25 mg tablet 25 mg PO DAILY Qty: 90 RF: 2 isosorbide mononitrate 30 mg tablet extended release 24 hr 30 mg PO BID Qty: 180 RF: 3 amlodipine 2.5 mg tablet 2.5 mg PO DAILY Qty: 90 RF: 3 rosuvastatin 20 mg tablet 20 mg PO DAILY Qty: 90 RF: 3 ranolazine [Ranexa] 500 mg tablet extended release 12 hr 500 mg PO BID Qty: 180 RF: 3 Held prednisone 5 mg Tablet 5 mg PO DAILY RF: 0 Hold Instructions: Resume on 11/21/21. Referrals / Follow Up: Armand Clarke MD [Primary Care Provider] - Disposition Disposition (needs filled in before D/C Order can be placed): Home Health Service
[2021-11-10 11:56] LABS: Bedside Glucose 200 mg/dL (74-106)
--- NOTE | 2021-11-10 11:59 | PCM.DC.SUM ---
Providers Date of Admission: 11/08/21 Primary Care Physician: Dr. Armand Clarke MD Reason For Visit: HYPOXIA, COPD EXACERBATION Diagnosis Discharge Diagnosis (1) COPD (chronic obstructive pulmonary disease): Status: Chronic Code(s): J44.9 - Chronic obstructive pulmonary disease, unspecified Qualifiers: COPD type: COPD with acute exacerbation Qualified Code(s): J44.1 - Chronic obstructive pulmonary disease with (acute) exacerbation (2) Acute respiratory failure with hypoxia: Status: Acute Code(s): J96.01 - Acute respiratory failure with hypoxia Medications at Discharge Home Medications aspirin 81 mg tablet,delayed release 81 mg PO DAILY #90 tab 08/17/20 albuterol sulfate 90 mcg/actuation aerosol inhaler 2 puff INHALATION Q6H PRN g 04/19/21 carvedilol 6.25 mg tablet 6.25 mg PO BID #180 tab 05/31/21 denosumab 60 mg/mL subcutaneous syringe 60 mg SUBCUT [id number] #1 ml 08/09/21 isosorbide mononitrate 30 mg tablet,extended release 24 hr 30 mg PO BID #180 tab 08/28/21 sertraline 25 mg tablet 25 mg PO DAILY #90 tab 08/28/21 acetaminophen 1,000 mg PO Q6H PRN 09/07/21 cholecalciferol (vitamin D3) 25 mcg PO DAILY 09/07/21 leflunomide 5 mg PO DAILY 09/07/21 prednisone 5 mg PO DAILY 09/07/21 calcium carbonate 500 mg calcium (1,250 mg) tablet 500 mg PO BID tab 09/15/21 amiodarone 200 mg tablet 200 mg PO DAILY tab 09/17/21 nitroglycerin 0.4 mg sublingual tablet 0.4 mg SUBLINGUAL Q5-15M #25 tab 09/18/21 pantoprazole 40 mg tablet,delayed release 40 mg PO BID #120 tab 09/27/21 amlodipine 2.5 mg tablet 2.5 mg PO DAILY #90 tab 10/02/21 ranolazine 500 mg tablet,extended release,12 hr 500 mg PO BID #180 tab 10/02/21 rosuvastatin 20 mg tablet 20 mg PO DAILY #90 tab 10/02/21 blood sugar diagnostic #100 ea 10/31/21 blood-glucose meter #1 ea 04/19/22 glimepiride 1 mg tablet 1 mg PO QAM #90 tab 10/31/21 lancets 28 gauge #200 ea 10/31/21 tramadol 50 mg tablet 50 mg PO DAILY 10/31/21 prednisone 10 mg PO DAILY #24 tab 11/10/21 Hospital Course Procedures None Summary of Care Provided Minutes Spent on Discharge: 32 Hospital Course: 1. acute hypoxic respiratory failure improved 2/2 AECOPD CXR personally reviewed and shows chronic changes change methylpred to prednisone burst wean oxygen as tolerated check ambulatory pulse ox prior to discharge ambulatory pulse ox today patient was able to be 94% on room air with ambulation. Therefore, patient will not require oxygen upon discharge. Patient will be discharged with a prednisone taper as patient is on chronic 5 mg of prednisone daily. Patient will continue the taper and then resume her daily prednisone. 2. AECOPD as above PFTs from 05/12/2021 were grossly nomal PFTs with some stigmata of small airway disease. 3. DM2 4. HTN 5. Recent GI bleed: solonscopy on 09/09 showed 2 bleeding colonic angiodysplastic lesions apixaban held at that time and has not been resumes continue PPI 6. pAfib on amiodarone, carvedilol Physical Exam Const alert Resp Resp Narrative: Faint expiratory wheezing Cardio regular rate, regular rhythm, S1 normal heart sound and S2 normal heart sound GI normal to inspection, nondistended, normoactive bowel sounds, soft to palpation, non-tender and non-distended Weight / BMI Weight Weight: 71.8 kg Body Mass Index (BMI) 30.3 ABG / Lab / Microbiology Data Result Diagrams: 11/09/21 05:00 11/09/21 05:00 Laboratory: Laboratory Results - last 24 hr 11/09/21 16:30: POC Glucose 266 H 11/09/21 23:02: POC Glucose 294 H 11/10/21 06:39: POC Glucose 190 H 11/10/21 11:41: POC Glucose 200 H Microbiology: Microbiology 11/09/21 18:21 Sputum, Expectorated/Coughed Gram Stain - Final 11/08/21 18:02 Mucosa - Nose Respiratory Panel (PCR) - Final D/C Instructions Discharge Diet: 2000 Calorie Control Diet Call your doctor if you observe: Shortness of breath Meaningful Use Info Meaningful Use Diagnoses (Choose all that apply): None applicable Discharge Plan Admission Admit Date/Time: 11/08/21 16:52 Primary Reason for Your Visit: Acute COPD exacerbation. Attending Provider: Cornell Mayers Primary Care Provider: Armand Clarke Discharge Orders/Prescriptions Prescriptions: New prednisone 10 mg tablet 10 mg PO DAILY Qty: 24 RF: 0 Continued albuterol sulfate [ProAir HFA] 90 mcg/actuation HFA aerosol inhaler 2 puff INHALATION Q6H PRN (Reason: Wheezing) RF: 0 carvedilol 6.25 mg tablet 6.25 mg PO BID Qty: 180 RF: 3 tramadol 50 mg tablet 50 mg PO DAILY RF: 0 glimepiride 1 mg tablet 1 mg PO QAM Qty: 90 RF: 2 (DME) FreeStyle Lite Strips Strip See Rx Instructions .MEDSUPPLY Qty: 100 RF: 3 (DME) blood-glucose meter [FreeStyle Lite Meter] Kit See Rx Instructions .MEDSUPPLY Qty: 1 RF: 0 (DME) lancets [FreeStyle Lancets] 28 gauge misc See Rx Instructions .MEDSUPPLY Qty: 200 RF: 3 amiodarone 200 mg tablet 200 mg PO DAILY RF: 0 nitroglycerin 0.4 mg tablet, sublingual 0.4 mg SUBLINGUAL Q5-15M Qty: 25 RF: 3 pantoprazole 40 mg tablet,delayed release (DR/EC) 40 mg PO BID Qty: 120 RF: 0 leflunomide 10 mg tablet 5 mg PO DAILY RF: 0 acetaminophen 500 mg Tablet 1,000 mg PO Q6H PRN (Reason: Pain) RF: 0 cholecalciferol (vitamin D3) 25 mcg (1,000 unit) Capsule 25 mcg PO DAILY RF: 0 calcium carbonate 500 mg calcium (1,250 mg) tablet 500 mg PO BID RF: 0 aspirin [Adult Aspirin Regimen] 81 mg tablet,delayed release (DR/EC) 81 mg PO DAILY Qty: 90 RF: 1 Hold Instructions: Resume on 09/16/21. Prolia 60 mg/mL syringe 60 mg subcut [id number] Qty: 1 RF: 1 sertraline 25 mg tablet 25 mg PO DAILY Qty: 90 RF: 2 isosorbide mononitrate 30 mg tablet extended release 24 hr 30 mg PO BID Qty: 180 RF: 3 amlodipine 2.5 mg tablet 2.5 mg PO DAILY Qty: 90 RF: 3 rosuvastatin 20 mg tablet 20 mg PO DAILY Qty: 90 RF: 3 ranolazine [Ranexa] 500 mg tablet extended release 12 hr 500 mg PO BID Qty: 180 RF: 3 Held prednisone 5 mg Tablet 5 mg PO DAILY RF: 0 Hold Instructions: Resume on 11/21/21. Referrals / Follow Up: Armand Clarke MD [Primary Care Provider] - Disposition Disposition (needs filled in before D/C Order can be placed): Home Health Service Charges/Coding Visit Charges Inpatient E&M: 33258 Disch Hosp
[2021-11-12 20:51] LABS: Pathologist Review Reviewed
--- NOTE | 2021-11-14 11:09 | CCN.REFER ---
CCN REFERRAL PATIENT AGREEABLE TO [facility]. WILL SEE WEEKLY FOR VS MONITORING AND EDUCATION.
== END 2021-11-10 16:00 | disposition home health service (06) | DRG 190 ==
LOC: ED 16:36 → MS3 17:01
PROVIDERS: Admitting Provider Family Medicine; Emergency Provider Emergency Medicine; PCP Internal Medicine
DX: J44.1 Chronic obstructive pulmonary disease with (acute) exacerbation (principal); J96.01 Acute respiratory failure with hypoxia; I13.0 Hypertensive heart and chronic kidney disease with heart failure and stage 1 through stage 4 chronic kidney disease, or unspecified chronic kidney disease; I50.32 Chronic diastolic (congestive) heart failure; E11.51 Type 2 diabetes mellitus with diabetic peripheral angiopathy without gangrene; E11.22 Type 2 diabetes mellitus with diabetic chronic kidney disease; M32.9 Systemic lupus erythematosus, unspecified; I48.0 Paroxysmal atrial fibrillation; M06.9 Rheumatoid arthritis, unspecified; N18.30 Chronic kidney disease, stage 3 unspecified; E78.5 Hyperlipidemia, unspecified; K21.9 Gastro-esophageal reflux disease without esophagitis; I25.10 Atherosclerotic heart disease of native coronary artery without angina pectoris; Z79.01 Long term (current) use of anticoagulants; Z79.82 Long term (current) use of aspirin; Z87.891 Personal history of nicotine dependence; F32.A Depression, unspecified
CPT/HCPCS: 36415; 70360; 71045; 71046; 80048; 80053; 82962; 84145; 84484; 85025; 87070; 87205; 87633; 87635; 93005; 94640; 94762; 97162; 97166; 99251; 99285; J7030; A4216; G0463; U0003; U0005

== ENCOUNTER → 2021-11-23 | Outpatient (CLI) | payer MEDICARE, SELFPAY ==
[2021-11-23 14:31] LABS: Mucous, Urine 0 SEEN /hpf (<or=2+)
[2021-11-23 15:20] LABS: Color, Urine Yellow (Yellow); Glucose, Dipstick Normal (Normal); Ketone-Dipstick 5 mg/dl (Negative); Leukocyte Esterase-Dipstick 500 /ul (Negative); Nitrite-Dipstick Positive (Negative); Occult Blood-Urine 10 /ul (Negative); Protein-Dipstick 30 mg/dl (Negative); Urine Bilirubin Dipstick Negative (Negative); Urine Clarity Sl. Cloudy (Clear); Urine Urobilinogen Normal (Normal)
[2021-11-23 15:33] LABS: Bacteria 3+ /hpf (None Seen); Red Blood Cells-Urine 0-5 SEEN /hpf (0-5); Squamous Epithelial Cells - UA 0-5 SEEN /hpf (5-10); White Blood Cells 10-25 SEEN /hpf (0-5)
== END | disposition home or self-care (01) ==
LOC: LABSPEC 14:30
PROVIDERS: PCP Internal Medicine; Referring Provider Internal Medicine; Visit Provider Internal Medicine
DX: N39.0 Urinary tract infection, site not specified (principal)
CPT/HCPCS: 81001; 87077; 87086; 87088; 87186

== ENCOUNTER → 2021-12-26 | Outpatient (CLI) | payer MEDICARE, SELFPAY ==
[2021-12-26 12:35] LABS: Absolute Lymphocyte Count 1.17 X10^3/uL (0.83-4.51); Absolute Neutrophil Count 10.3 X10^3/uL (2.0-7.7); Basophil# 0.05 X10^3/uL; Basophil% 0.4 % (0-1); Eosinophil# 0.08 X10^3/uL; Eosinophils% 0.6 % (0-5); Hematocrit 37.7 % (37-47); Hemoglobin 11.2 g/dL (12.0-15.0); Lymphocyte # 1.17 X10^3/ul (0.83-4.51); Lymphocyte % 9.3 % (19-41); Mean Corp Hgb Conc 29.7 g/dL (32-36); Mean Corpuscular Hgb 25.9 pg (27.0-32.0); Mean Corpuscular Volume 87.1 fL (81-99); Mean Platelet Vol. 10.8 fl (6.2-12.0); Monocyte# 0.92 X10^3/uL; Monocyte% 7.3 % (0-10); NRBC Flagged by Analyzer 0 % (0-5); Neutrophil # 10.29 X10^3/uL (2.7-7.7); Neutrophil % 81.8 % (47-70); Platelet Count 171 K/mm3 (150-450); RBC Distribution Width CV 17.3 % (11.6-14.6); RBC Distribution Width SD 54.8 fl (35.1-43.9); Red Blood Count 4.33 M/mm3 (4.2-5.4); White Blood Count 12.6 K/mm3 (4.4-11.0)
[2021-12-26 13:06] LABS: ALB/GLOB Ratio 1.1 RATIO (0.9-2.4); AST(SGOT) 28 U/L (15-37); Alanine Aminotransfer ALT/SGPT 39 U/L (13-56); Albumin, Serum 3.4 g/dL (3.2-5.0); Alkaline Phosphatase 48 U/L (45-117); Anion Gap 5 (5-15); BUN 22 mg/dL (7-18); BUN/Creat Ratio 15.6 RATIO (10-20); Calcium,Total 8.7 mg/dL (8.5-10.1); Chloride 106 mmol/L (98-107); Creatinine, Serum 1.41 mg/dL (0.55-1.02); EST Glomerular Filtration Rate 38 mL/min (>60); Est Glom Filt Rate - Afr Amer 46 mL/min (>60); Glucose 171 mg/dL (74-106); Potassium 4.4 mmol/L (3.5-5.1); Protein, Total 6.4 g/dL (6.4-8.2); Sodium Level 138 mmol/L (136-145)
== END | disposition home or self-care (01) ==
LOC: BIMLAB 10:59
PROVIDERS: PCP Internal Medicine; Referring Provider Internal Medicine Rheumatology; Visit Provider Internal Medicine Rheumatology
DX: M06.4 Inflammatory polyarthropathy (principal); M32.9 Systemic lupus erythematosus, unspecified; I50.32 Chronic diastolic (congestive) heart failure; I73.9 Peripheral vascular disease, unspecified; I48.0 Paroxysmal atrial fibrillation; Z79.899 Other long term (current) drug therapy; K21.00 Gastro-esophageal reflux disease with esophagitis, without bleeding; I10 Essential (primary) hypertension; I25.10 Atherosclerotic heart disease of native coronary artery without angina pectoris; Z95.1 Presence of aortocoronary bypass graft; Z95.5 Presence of coronary angioplasty implant and graft; R80.9 Proteinuria, unspecified; M81.0 Age-related osteoporosis without current pathological fracture; E78.5 Hyperlipidemia, unspecified
CPT/HCPCS: 36415; 80053; 85025

== ENCOUNTER → 2022-03-01 | Outpatient (CLI) | payer MEDICARE, SELFPAY ==
--- NOTE | 2022-03-01 08:59 | AAVD_ITS ---
[id number] VL^AAVD^Abd Aortic/IVC Duplex scan [id number] Reason For Study: Iliac artery stenosis Aorta Measurements Aorta Doppler Measurements Proximal aorta measures1.56 x 1.56cm. in cross- Peak systolic flow velocities within the proximal sectional axis. aorta measure 70.5 cm/sec. Proximal aorta measures1.56cm. in longitudinal Peak systolic flow velocities within the mid aorta axis. measure 55.9 cm/sec. Mid aorta measures1.18 x 1.19cm. in cross- Peak systolic flow velocities within the distal sectional axis. aorta measure 63.9 cm/sec. Mid aorta measures1.22cm. in longitudinal axis. Distal aorta measures1.14 x 1.12cm. in cross- sectional axis. Distal aorta measures1.17cm. in longitudinal axis. Left Iliac Artery Left iliac artery measures 0.74 x 0.77 cm. in the cross-sectional axis. Left iliac artery measures 0.72 cm. in the longitudinal axis. Peak systolic velocity in the left iliac artery measures 100 cm/sec. Right Iliac Artery Right iliac artery measures 0.80 x 0.79 cm. in the cross-sectional axis. Right iliac artery measures 0.71 cm. in the longitudinal axis. Peak systolic velocity in the right iliac artery measures 162.3 cm/sec. Procedure Aorta IVC Iliac vasculature or bypass grafts [id number]. Exam performed in department. VL/Abd Aortic/IVC Duplex scan Interpretation Summary No evidence of aortic iliac aneurysm or stenosis visualized. Ordering Physician: Will Tom Referring Physician: Armand Clarke Performed By: Riri Rosa RVT
--- NOTE | 2022-03-01 08:59 | ART_ITS ---
[id number] VL^ASHOK^Ankle Brachial Index [id number] Reason For Study: Atherosclerosis Procedure A bilateral lower extremity continuous wave Doppler with analog waveform analysis and ankle brachial indexes. Left Segmental Pressures Left brachial= 173mmHg. Left posterior tibial artery = 112mmHg. Left dorsalis pedis artery = 133mmHg. Left digit = 66 mmHg. The left dorsalis pedis waveforms are biphasic. The left posterior tibial artery waveforms are monophasic. Right Segmental Pressures Right brachial= 165mmHg. Right posterior tibial artery = 111mmHg. Right dorsalis pedis artery = 178mmHg. Right digit = 101 mmHg. The right dorsalis pedis waveforms are biphasic. The right posterior tibial artery waveforms are monophasic. Indices The right ankle brachial index by the dorsalis pedis is 1.03. The right ankle brachial index by the posterior tibial artery is 0.64. The right digital-brachial index is 0.58. The left ankle brachial index by the dorsalis pedis is 0.77. The left ankle brachial index by the posterior tibial artery is 0.65. The left digital-brachial index is 0.38. VL/Ankle Brachial Index Interpretation Summary Right with no evidence of significant occlusive disease at rest with ASHOK 1.03 o f the DP with biphasic flow. Posterior tibial with 0.64. Left lower extremity with mild occlu sive disease at rest with an ASHOK 0.77. Digit brachial index of 0.58 and 0.38. Ordering Physician: Will Tom Referring Physician: Armand Clarke Performed By: Riri Rosa RVT
--- NOTE | 2022-03-01 09:00 | ADU_ITS ---
[id number] VL^ALMAS^US Art Duplex Bilat Lower Ext [id number] Reason For Study: Atherosclerosis Right Velocities Left Velocities Ext. Iliac Artery, dist = 97.5 cm./sec. Ext Iliac Artery, dist = 50.9 cm./sec. Common Femoral Artery, mid = 188 cm./sec. Common Femoral Artery, mid = 226 cm./sec. Profunda artery, origin, 292.5 cm/sec. SFA prox-mid, No flow noted. Profunda artery, prox, 76 cm/sec. SFA mid, distal to occlusion, 12 cm/sec. SFA, origin, 357.8 cm/sec. Supf. Femoral Artery, dist = 16 cm./sec. Supf Femoral Artery, prox = 110.4 cm./sec. Profunda Femoral Artery = 73.7 cm./sec. Supf Femoral Artery, mid = 18.5 cm./sec. Popliteal Artery, mid = 23.1 cm./sec. Supf Femoral Artery, dist. = 21.4 cm./sec. Post. Tibial Artery, prox = 18.3 cm./sec. Popliteal Artery, mid = 18.5 cm./sec. Post Tibial Artery, mid = 18.7 cm./sec. Post. Tibial Artery, prox = 27 cm./sec. Post Tibial Artery, dist. = 12 cm./sec. Post. Tibial Artery, mid = 23.2 cm./sec. Peroneal Artery, prox = 14.4 cm./sec. Post. Tibial Artery, dist = 18 cm./sec. Peroneal Artery, mid = 13.2 cm./sec. Peroneal Artery, prox = 18 cm./sec. Peroneal Artery,dist. = 6.2 cm./sec. Peroneal Artery, mid = 80.6 cm./sec. Ant.Tibial Artery, prox = 17.6 cm./sec. Peroneal Artery,dist = 13.2. cm./sec. Ant Tibial Artery, mid = 14.4 cm./sec. Ant. Tibial Artery, prox = 19.6 cm./sec. Ant. Tibial Artery, distal = 12 cm./sec. Ant. Tibial Artery, mid = 19.6 cm./sec. Ant. Tibial Artery, dist = 17.5 cm./sec. 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 Monophasic flow noted distal to this. Left lower extremity with femoral occlusion and mono phasic flow noted distal to this. Ordering Physician: Will Tom Referring Physician: Armand Clarke Performed By: Riri Rosa RVT
== END | disposition home or self-care (01) ==
LOC: CVS 08:58
PROVIDERS: PCP Internal Medicine; Referring Provider Surgery Vascular Surgery; Visit Provider Surgery Vascular Surgery
DX: Z48.812 Encounter for surgical aftercare following surgery on the circulatory system (principal); I77.1 Stricture of artery; I70.213 Atherosclerosis of native arteries of extremities with intermittent claudication, bilateral legs
CPT/HCPCS: 93922; 93925; 93978

== ENCOUNTER → 2022-03-12 | Outpatient (CLI) | payer MEDICARE, SELFPAY ==
[2022-03-12 12:43] LABS: AST(SGOT) 17 U/L (15-37); Alanine Aminotransfer ALT/SGPT 21 U/L (13-56); Albumin, Serum 3.4 g/dL (3.2-5.0); Alkaline Phosphatase 53 U/L (45-117); Anion Gap 9 (5-15); BUN 22 mg/dL (7-18); BUN/Creat Ratio 16.5 RATIO (10-20); Calcium,Total 8.9 mg/dL (8.5-10.1); Chloride 106 mmol/L (98-107); Creatinine, Serum 1.33 mg/dL (0.55-1.02); EST Glomerular Filtration Rate 40 mL/min (>60); Est Glom Filt Rate - Afr Amer 49 mL/min (>60); Globulin 3.3 g/dL (2.2-4.2); Glucose 123 mg/dL (74-106); Potassium 4.4 mmol/L (3.5-5.1); Protein, Total 6.7 g/dL (6.4-8.2); Sodium Level 140 mmol/L (136-145)
[2022-03-12 12:44] LABS: Hemoglobin A1c 6.2 % (3.8-5.6)
== END | disposition home or self-care (01) ==
LOC: BIMLAB 11:08
PROVIDERS: PCP Internal Medicine; Referring Provider Internal Medicine; Visit Provider Internal Medicine
DX: E11.9 Type 2 diabetes mellitus without complications (principal); I10 Essential (primary) hypertension
CPT/HCPCS: 36415; 80053; 83036

== ENCOUNTER → 2022-03-21 | Outpatient (CLI) | payer MEDICARE, SELFPAY ==
--- NOTE | 2022-03-21 12:32 | EKG12_ITS ---
Test Reason : CP Blood Pressure : / mmHG Vent. Rate : 059 BPM Atrial Rate : 059 BPM P-R Int : 144 ms QRS Dur : 120 ms QT Int : 454 ms P-R-T Axes : 036 005 066 degrees QTc Int : 449 ms Sinus bradycardia Right bundle branch block Inferior infarct , age undetermined Abnormal ECG Confirmed by TANA LOPEZ, NINI ([id number]), department editor WU PRIETO ([id number]) on 03/22/2022 7:47:10 AM Referred By: Armand Clarke Confirmed By:NINI FAJARDO MD
--- NOTE | 2022-03-21 12:43 | CT_ITS ---
STUDY: CT CHEST WITHOUT CONTRAST REASON FOR EXAM: Female, 87 years old. Reproducible, worsening chest pain. RADIATION DOSAGE (If Supplied By Facility): CTDIvol = ( 7.49 ) mGy, DLP = ( 224.95 ) mGycm TECHNIQUE: Transaxial imaging was performed without the administration of intravenous contrast material. Multiplanar coronal and sagittal images were reformatted. Individualized dose optimization techniques were used for this CT. COMPARISON: No relevant priors. FINDINGS: CHEST Small benign-appearing bilateral axillary lymph nodes. Increased linear markings at the lung bases with areas of confluence suggestive of prior scarring. There is no demonstrated pleural abnormality. Sternal cerclage wires and vascular clips are present from a prior sternotomy and coronary artery bypass graft procedure (CABG). There are multiple small lymph nodes within the mediastinum, which are normal in size and morphology most compatible with reactive lymph hyperplasia. Normal hilar regions. Normal unenhanced pulmonary arteries. There is atherosclerotic calcification of the aortic arch with tortuosity and elongation of the aortic arch and descending thoracic aorta. Normal osseous structures. Large hiatal hernia. The patient is status post cholecystectomy. There is evidence of an anterior upper abdominal wall hernia containing fat. The neck of the hernia measures 2.[address]/Chest without Contrast IMPRESSION: Findings suggestive of scarring at the lung bases. Moderate sized hiatal hernia. Upper anterior abdominal wall hernia containing fat. Electronically Signed: Dwaine Munoz MD at 13:19 EDT ,
[2022-03-21 13:17] LABS: Absolute Lymphocyte Count 1.13 X10^3/uL (0.83-4.51); Absolute Neutrophil Count 6.9 X10^3/uL (2.0-7.7); Basophil# 0.03 X10^3/uL; Basophil% 0.3 % (0-1); Eosinophils% 1.1 % (0-5); Hematocrit 37.2 % (37-47); Lymphocyte # 1.13 X10^3/ul (0.83-4.51); Lymphocyte % 12.7 % (19-41); Mean Corp Hgb Conc 32.3 g/dL (32-36); Mean Corpuscular Hgb 28.2 pg (27.0-32.0); Mean Corpuscular Volume 87.5 fL (81-99); Mean Platelet Vol. 10.1 fl (6.2-12.0); Monocyte% 7.8 % (0-10); NRBC Flagged by Analyzer 0 % (0-5); Neutrophil # 6.92 X10^3/uL (2.7-7.7); Neutrophil % 77.5 % (47-70); Platelet Count 199 K/mm3 (150-450); RBC Distribution Width CV 15.1 % (11.6-14.6); RBC Distribution Width SD 48.4 fl (35.1-43.9); Red Blood Count 4.25 M/mm3 (4.2-5.4); White Blood Count 8.9 K/mm3 (4.4-11.0)
[2022-03-21 13:47] LABS: AST(SGOT) 18 U/L (15-37); Alanine Aminotransfer ALT/SGPT 21 U/L (13-56); Albumin, Serum 3.3 g/dL (3.2-5.0); Alkaline Phosphatase 51 U/L (45-117); Anion Gap 9 (5-15); BUN 32 mg/dL (7-18); BUN/Creat Ratio 24.6 RATIO (10-20); Calcium,Total 8.8 mg/dL (8.5-10.1); Chloride 106 mmol/L (98-107); EST Glomerular Filtration Rate 41 mL/min (>60); Est Glom Filt Rate - Afr Amer 50 mL/min (>60); Globulin 3.4 g/dL (2.2-4.2); Glucose 161 mg/dL (74-106); Potassium 4.4 mmol/L (3.5-5.1); Protein, Total 6.7 g/dL (6.4-8.2); Sodium Level 138 mmol/L (136-145)
== END | disposition home or self-care (01) ==
PROVIDERS: Internal Medicine Rheumatology; PCP Internal Medicine; Referring Provider Internal Medicine; Visit Provider Internal Medicine
DX: M06.4 Inflammatory polyarthropathy (principal); M32.9 Systemic lupus erythematosus, unspecified; I73.9 Peripheral vascular disease, unspecified; Z79.899 Other long term (current) drug therapy; M81.0 Age-related osteoporosis without current pathological fracture; R07.89 Other chest pain
CPT/HCPCS: 36415; 71250; 80053; 85025; 93005

== ENCOUNTER → 2022-06-05 | Outpatient (CLI) | payer MEDICARE, SELFPAY ==
[2022-06-05 16:32] LABS: Absolute Lymphocyte Count 1.36 X10^3/uL (0.83-4.51); Basophil# 0.04 X10^3/uL; Basophil% 0.6 % (0-1); Eosinophil# 0.16 X10^3/uL; Eosinophils% 2.2 % (0-5); Hematocrit 39.7 % (37-47); Hemoglobin 12.8 g/dL (12.0-15.0); Lymphocyte # 1.36 X10^3/ul (0.83-4.51); Lymphocyte % 18.9 % (19-41); Mean Corp Hgb Conc 32.2 g/dL (32-36); Mean Corpuscular Hgb 28.8 pg (27.0-32.0); Mean Corpuscular Volume 89.4 fL (81-99); Mean Platelet Vol. 10.5 fl (6.2-12.0); Monocyte# 0.66 X10^3/uL; Monocyte% 9.2 % (0-10); NRBC Flagged by Analyzer 0 % (0-5); Neutrophil # 4.95 X10^3/uL (2.7-7.7); Neutrophil % 68.8 % (47-70); Platelet Count 177 K/mm3 (150-450); RBC Distribution Width CV 15.3 % (11.6-14.6); RBC Distribution Width SD 50.6 fl (35.1-43.9); Red Blood Count 4.44 M/mm3 (4.2-5.4); White Blood Count 7.2 K/mm3 (4.4-11.0)
[2022-06-05 17:01] LABS: BNP,B-Type NATRIURETIC PEPTIDE 184.2 pg/mL (0-100)
[2022-06-05 17:11] LABS: Anion Gap 6 (5-15); BUN 22 mg/dL (7-18); BUN/Creat Ratio 16.4 RATIO (10-20); Calcium,Total 9.4 mg/dL (8.5-10.1); Chloride 109 mmol/L (98-107); Creatinine, Serum 1.34 mg/dL (0.55-1.02); EST Glomerular Filtration Rate 40 mL/min (>60); Est Glom Filt Rate - Afr Amer 48 mL/min (>60); Free T3 2.2 pg/mL (2.18-3.98); Glucose 139 mg/dL (74-106); Potassium 4.7 mmol/L (3.5-5.1); Sodium Level 140 mmol/L (136-145); T4 Free Direct 0.83 ng/dL (0.76-1.46); Thyroid Stim Hormone (TSH) 1.14 uIU/mL (0.358-3.74)
== END | disposition home or self-care (01) ==
LOC: LAB 15:57
PROVIDERS: PCP Family Medicine; Visit Provider Nurse Practitioner Gerontology
DX: R06.00 Dyspnea, unspecified (principal); R53.83 Other fatigue
CPT/HCPCS: 36415; 80048; 83880; 84439; 84443; 84481; 85025; 96361; 96374; 96375; 96376

== ENCOUNTER → 2022-06-21 | Outpatient (CLI) | payer MEDICARE, SELFPAY ==
[2022-06-21 15:15] LABS: Absolute Lymphocyte Count 0.66 X10^3/uL (0.83-4.51); Absolute Neutrophil Count 7.2 X10^3/uL (2.0-7.7); Basophil# 0.06 X10^3/uL; Basophil% 0.7 % (0-1); Eosinophil# 0.14 X10^3/uL; Eosinophils% 1.6 % (0-5); Hematocrit 38.6 % (37-47); Hemoglobin 12.1 g/dL (12.0-15.0); Lymphocyte # 0.66 X10^3/ul (0.83-4.51); Lymphocyte % 7.6 % (19-41); Mean Corp Hgb Conc 31.3 g/dL (32-36); Mean Corpuscular Volume 92.6 fL (81-99); Mean Platelet Vol. 10.5 fl (6.2-12.0); Monocyte# 0.57 X10^3/uL; Monocyte% 6.6 % (0-10); NRBC Flagged by Analyzer 0 % (0-5); Neutrophil # 7.18 X10^3/uL (2.7-7.7); Neutrophil % 82.9 % (47-70); Platelet Count 192 K/mm3 (150-450); RBC Distribution Width CV 14.8 % (11.6-14.6); RBC Distribution Width SD 50.2 fl (35.1-43.9); Red Blood Count 4.17 M/mm3 (4.2-5.4); White Blood Count 8.7 K/mm3 (4.4-11.0)
[2022-06-21 15:26] LABS: AST(SGOT) 16 U/L (15-37); Alanine Aminotransfer ALT/SGPT 20 U/L (13-56); Albumin, Serum 3.3 g/dL (3.2-5.0); Alkaline Phosphatase 51 U/L (45-117); Anion Gap 10 (5-15); BUN 18 mg/dL (7-18); BUN/Creat Ratio 13.8 RATIO (10-20); Calcium,Total 8.9 mg/dL (8.5-10.1); Chloride 107 mmol/L (98-107); EST Glomerular Filtration Rate 41 mL/min (>60); Est Glom Filt Rate - Afr Amer 50 mL/min (>60); Globulin 3.3 g/dL (2.2-4.2); Glucose 209 mg/dL (74-106); Potassium 3.9 mmol/L (3.5-5.1); Protein, Total 6.6 g/dL (6.4-8.2); Sodium Level 138 mmol/L (136-145)
== END | disposition home or self-care (01) ==
LOC: BIMLAB 13:21
PROVIDERS: PCP Family Medicine; Referring Provider Internal Medicine Rheumatology; Visit Provider Internal Medicine Rheumatology
DX: M06.4 Inflammatory polyarthropathy (principal); M32.9 Systemic lupus erythematosus, unspecified; I11.0 Hypertensive heart disease with heart failure; I50.32 Chronic diastolic (congestive) heart failure; I73.9 Peripheral vascular disease, unspecified; I48.0 Paroxysmal atrial fibrillation; M15.9 Polyosteoarthritis, unspecified; K21.00 Gastro-esophageal reflux disease with esophagitis, without bleeding; I25.10 Atherosclerotic heart disease of native coronary artery without angina pectoris; Z95.1 Presence of aortocoronary bypass graft; Z95.5 Presence of coronary angioplasty implant and graft; R80.9 Proteinuria, unspecified; E78.5 Hyperlipidemia, unspecified; M81.0 Age-related osteoporosis without current pathological fracture
CPT/HCPCS: 36415; 80053; 85025

== ENCOUNTER → 2022-10-02 | Outpatient (CLI) | payer MEDICARE, SELFPAY ==
[2022-10-02 15:31] LABS: Absolute Lymphocyte Count 1.32 X10^3/uL (0.83-4.51); Absolute Neutrophil Count 6.5 X10^3/uL (2.0-7.7); Basophil# 0.04 X10^3/uL; Basophil% 0.4 % (0-1); Eosinophil# 0.19 X10^3/uL; Eosinophils% 2.1 % (0-5); Hemoglobin 12.5 g/dL (12.0-15.0); Lymphocyte # 1.32 X10^3/ul (0.83-4.51); Lymphocyte % 14.8 % (19-41); Mean Corp Hgb Conc 31.3 g/dL (32-36); Mean Corpuscular Hgb 29.6 pg (27.0-32.0); Mean Corpuscular Volume 94.8 fL (81-99); Mean Platelet Vol. 10.8 fl (6.2-12.0); Monocyte# 0.75 X10^3/uL; Monocyte% 8.4 % (0-10); NRBC Flagged by Analyzer 0 % (0-5); Neutrophil # 6.54 X10^3/uL (2.7-7.7); Neutrophil % 73.7 % (47-70); Platelet Count 199 K/mm3 (150-450); RBC Distribution Width CV 13.6 % (11.6-14.6); RBC Distribution Width SD 47.1 fl (35.1-43.9); Red Blood Count 4.22 M/mm3 (4.2-5.4); White Blood Count 8.9 K/mm3 (4.4-11.0)
[2022-10-02 15:40] LABS: AST(SGOT) 24 U/L (15-37); Alanine Aminotransfer ALT/SGPT 20 U/L (13-56); Albumin, Serum 3.3 g/dL (3.2-5.0); Alkaline Phosphatase 55 U/L (45-117); Anion Gap 8 (5-15); BUN 20 mg/dL (7-18); BUN/Creat Ratio 15.5 RATIO (10-20); Calcium,Total 9.5 mg/dL (8.5-10.1); Chloride 106 mmol/L (98-107); Creatinine, Serum 1.29 mg/dL (0.55-1.02); EST Glomerular Filtration Rate 42 mL/min (>60); Est Glom Filt Rate - Afr Amer 50 mL/min (>60); Globulin 3.3 g/dL (2.2-4.2); Glucose 172 mg/dL (74-106); Potassium 4.6 mmol/L (3.5-5.1); Protein, Total 6.6 g/dL (6.4-8.2); Sodium Level 139 mmol/L (136-145)
== END | disposition home or self-care (01) ==
LOC: BIMLAB 13:10
PROVIDERS: PCP Family Medicine; Referring Provider Internal Medicine Rheumatology; Visit Provider Internal Medicine Rheumatology
DX: M06.4 Inflammatory polyarthropathy (principal); M32.9 Systemic lupus erythematosus, unspecified; I50.32 Chronic diastolic (congestive) heart failure; I11.0 Hypertensive heart disease with heart failure; I73.9 Peripheral vascular disease, unspecified; I48.0 Paroxysmal atrial fibrillation; Z79.899 Other long term (current) drug therapy; M15.9 Polyosteoarthritis, unspecified; K21.00 Gastro-esophageal reflux disease with esophagitis, without bleeding; I25.10 Atherosclerotic heart disease of native coronary artery without angina pectoris; R80.9 Proteinuria, unspecified; E78.5 Hyperlipidemia, unspecified; M81.0 Age-related osteoporosis without current pathological fracture
CPT/HCPCS: 36415; 80053; 85025

== ENCOUNTER → 2022-10-23 | Outpatient (CLI) | payer MEDICARE, SELFPAY ==
--- NOTE | 2022-10-23 09:57 | ART_ITS ---
Reason For Study: aftercare, S/P iliac angioplasty Procedure A bilateral lower extremity continuous wave Doppler with analog waveform analysis and ankle brachial indexes. Left Segmental Pressures Left brachial= 154mmHg. Left posterior tibial artery = 237mmHg. Left dorsalis pedis artery = 145mmHg. Left digit = 60 mmHg. The left dorsalis pedis waveforms are monophasic. The left posterior tibial artery waveforms are monophasic. Right Segmental Pressures Right brachial= 148mmHg. Right dorsalis pedis artery = 90mmHg. Right digit = 42 mmHg. [employer] is noncomressible. The right dorsalis pedis waveforms are monophasic. The right posterior tibial artery waveforms are monophasic. Indices The right ankle brachial index by the dorsalis pedis post exercise is .58. The right digital- brachial index is .27. 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 The left ankle brachial index by the posterior tibial artery is 1.54. The left ankle brachial index by the dorsalis pedis is .94. The left digital- brachial index is .39. VL/Ankle Brachial Index Interpretation Summary Bilateral occlussive disease with monophasic flow and ABI0.58 and 1.54. DBI 0.2 7/0.39. Ordering Physician: Will Tom Performed By: Anirudh Mathis RVT
== END | disposition home or self-care (01) ==
LOC: CVS 09:56
PROVIDERS: PCP Family Medicine; Referring Provider Surgery Vascular Surgery; Visit Provider Surgery Vascular Surgery
DX: I70.213 Atherosclerosis of native arteries of extremities with intermittent claudication, bilateral legs (principal); I77.1 Stricture of artery
CPT/HCPCS: 93922

== ENCOUNTER → 2022-12-17 | Outpatient (CLI) | payer MEDICARE, SELFPAY ==
--- NOTE | 2022-12-17 11:18 | RAD_ITS ---
STUDY: X-RAY - LUMBAR SPINE REASON FOR EXAM: Female, 87 years old. PAIN TECHNIQUE: XR Spine Lumbar 5 Views COMPARISON: 1.20 FINDINGS: Normal lumbar lordosis. There is a levoscoliosis of the lumbar spine. Gallbladder surgically absent. There is a normal alignment of the vertebrae. There is multilevel endplate spondylosis of the lumbar vertebrae. There is multi-level degenerative disc disease with multi-level disc space narrowing. There are atherosclerotic vascular calcifications. The soft tissue structures are unremarkable. Vacuum disc phenomenon. RAD/L/S Spine Min 4 Views IMPRESSION: Degenerative changes of the spine, as detailed above. Electronically Signed: Emmanuel Rodas MD at 16:23 EDT ,
--- NOTE | 2022-12-17 11:18 | RAD_ITS ---
STUDY: X-RAY - PELVIS AND BILATERAL HIP REASON FOR EXAM: Female, 87 years old. PAIN TECHNIQUE: XR Hips 2 view right and 2 views left hip. single view of the Pelvis COMPARISON: None. FINDINGS: There is a non-specific bowel gas pattern. There are atherosclerotic vascular calcifications of the pelvic arteries. There are degenerative changes of the lumbar spine. Normal bilateral iliac wings, sacroiliac joints and visualized sacrum. Normal bilateral superior and inferior pubic rami. Normal pubic symphysis. Normal bilateral ischial tuberosities. Normal visualized femoral head. Normal acetabulum. Normal hip joint. RAD/Hips B/L min 2 views w/ Pelvis IMPRESSION: No acute findings. Electronically Signed: Emmanuel Rodas MD at 20:40 EDT ,
== END | disposition home or self-care (01) ==
PROVIDERS: PCP Family Medicine; Referring Provider Anesthesiology Pain Medicine; Visit Provider Anesthesiology Pain Medicine
DX: M16.12 Unilateral primary osteoarthritis, left hip (principal); M51.37 Other intervertebral disc degeneration, lumbosacral region
CPT/HCPCS: 72110; 73521

== ENCOUNTER → 2022-12-31 | Outpatient (CLI) | payer MEDICARE, SELFPAY ==
[2022-12-31 15:16] LABS: Absolute Neutrophil Count 5.2 X10^3/uL (2.0-7.7); Basophil# 0.05 X10^3/uL; Basophil% 0.7 % (0-1); Eosinophils% 2.7 % (0-5); Hematocrit 39.2 % (37-47); Hemoglobin 12.2 g/dL (12.0-15.0); Lymphocyte % 17.5 % (19-41); Mean Corp Hgb Conc 31.1 g/dL (32-36); Mean Corpuscular Volume 96.3 fL (81-99); Mean Platelet Vol. 10.5 fl (6.2-12.0); Monocyte# 0.72 X10^3/uL; Monocyte% 9.7 % (0-10); NRBC Flagged by Analyzer 0 % (0-5); Neutrophil # 5.15 X10^3/uL (2.7-7.7); Neutrophil % 69.1 % (47-70); Platelet Count 170 K/mm3 (150-450); RBC Distribution Width SD 49.2 fl (35.1-43.9); Red Blood Count 4.07 M/mm3 (4.2-5.4); White Blood Count 7.4 K/mm3 (4.4-11.0)
[2022-12-31 15:35] LABS: AST(SGOT) 21 U/L (15-37); Alanine Aminotransfer ALT/SGPT 24 U/L (13-56); Albumin, Serum 3.3 g/dL (3.2-5.0); Alkaline Phosphatase 44 U/L (45-117); Anion Gap 7 (5-15); BUN 17 mg/dL (7-18); BUN/Creat Ratio 14.9 RATIO (10-20); Calcium,Total 9.1 mg/dL (8.5-10.1); Chloride 108 mmol/L (98-107); Creatinine, Serum 1.14 mg/dL (0.55-1.02); EST Glomerular Filtration Rate 48 mL/min (>60); Est Glom Filt Rate - Afr Amer 58 mL/min (>60); Globulin 3.4 g/dL (2.2-4.2); Glucose 110 mg/dL (74-106); Potassium 4.2 mmol/L (3.5-5.1); Protein, Total 6.7 g/dL (6.4-8.2); Sodium Level 139 mmol/L (136-145)
== END | disposition home or self-care (01) ==
LOC: BIMLAB 14:08
PROVIDERS: PCP Family Medicine; Referring Provider Internal Medicine Rheumatology; Visit Provider Internal Medicine Rheumatology
DX: M06.4 Inflammatory polyarthropathy (principal); Z79.899 Other long term (current) drug therapy
CPT/HCPCS: 36415; 80053; 85025

== ENCOUNTER → 2023-01-01 | Outpatient (CLI) | payer MEDICARE, SELFPAY ==
[2023-01-03 15:08] LABS: QNTFERON TB Mitogen Value > 10.00 IU/mL (.); QNTFERON TB Nil Value 0.11 IU/mL (.); QNTFERON TB1+ Ag Value 0.09 IU/mL (.); QNTIFERON TB Positive Criteria Negative (Negative)
== END | disposition home or self-care (01) ==
LOC: BIMLAB 12:16
PROVIDERS: PCP Family Medicine; Referring Provider Internal Medicine Rheumatology; Visit Provider Internal Medicine Rheumatology
DX: M06.4 Inflammatory polyarthropathy (principal); M32.9 Systemic lupus erythematosus, unspecified; Z79.899 Other long term (current) drug therapy
CPT/HCPCS: 36415; 86480

== ENCOUNTER 2023-01-11 21:06 | Emergency (ER) | payer MEDICARE, SELFPAY ==
[2023-01-11 21:07] VITALS: BP 175/64; PULSE 78; RESP 16; TEMP 36.4; O2SAT 98; BMI 27.1
--- NOTE | 2023-01-11 21:30 | RAD_ITS ---
STUDY: X-RAY - RIGHT FOOT CLINICAL: Female, 87 years old. small toe sore, ? fx/osteo TECHNIQUE: 3 view(s) of the foot. COMPARISON: 10/07/2020. FINDINGS: There is a chronic, ununited fracture through the midshaft of the second metatarsal. No significant displacement. Mild angulation. No other definite fractures or acute abnormalities or significant changes. Again seen is absence of the fourth distal phalanx. Degenerative changes of the midfoot noted, stable. RAD/Foot min 3 Views IMPRESSION: No definite acute abnormality. 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 Electronically Signed: Basil Pardo MD at 21:52 EDT ,
--- NOTE | 2023-01-11 21:57 | EDS_ITS ---
HPI History of Present Illness Chief Complaint: Wound Informant: patient Narrative Narrative: Patient complains of right small toe discomfort. She has been having some problems with this toe for a month or so. But now she has a sore on it. She had a blister that opened. It is now got a dried scab. Has some mild erythema. No streaking up the foot. No fevers or chills. Other than the toe she feels perfectly fine. She has not had anyone see this. She does have some mild diabetes. Never had problems with significant infections. Never history of gout. [facility] Medical History Anxiety Atherosclerosis of coronary artery bypass graft without angina pectoris Atherosclerosis of coronary artery of [place] heart without angina pectoris Atrial fibrillation with rapid ventricular response (12/24/20) Atypical chest pain Bradycardia Chest pain Choking sensation (~08/30/21) Chronic diastolic (congestive) heart failure Cloudy urine COPD (chronic obstructive pulmonary disease) Costochondral pain Debility Difficulty swallowing Essential (primary) hypertension Flu vaccine need fracture of the dorsal mid metatarsal (10/07/20) Gastroesophageal reflux disease GERD (gastroesophageal reflux disease) GI bleed History of coronary artery disease History of non-ST elevation myocardial infarction (NSTEMI) (12/25/20) Hyperkalemia Hyperlipemia Incomplete right bundle branch block Lightheadedness 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 Lupus erythematosus Nipple discharge Osteoarthritis Osteoporosis Paroxysmal atrial fibrillation Paroxysmal atrial flutter Peripheral vascular disease of extremity with claudication Right wrist pain Secondary pulmonary arterial hypertension Sleep apnea Type 2 diabetes mellitus UTI (urinary tract infection) UTI (urinary tract infection) Home Medications denosumab 60 mg/mL subcutaneous syringe (Prolia) 60 mg subcut [id number] #1 mL 08/09/21 [Rx Last Taken 1 Month Ago ~10/08/21] acetaminophen 500 mg tablet 1,000 mg PO Q6H PRN Pain 09/07/21 [History Last Taken 11/08/21] cholecalciferol (vitamin D3) 25 mcg (1,000 unit) capsule 25 mcg PO DAILY LAND PPLEMENT 09/07/21 [History Last Taken 11/08/21] leflunomide 10 mg tablet 10 mg PO DAILY ARTHRITIS 09/07/21 [History Last Taken 11/08/21] calcium carbonate 500 mg calcium (1,250 mg) tablet 500 mg PO BID SUPPLEMENT 09/15/21 [History Last Taken 11/08/21] nitroglycerin 0.4 mg sublingual tablet 0.4 mg sublingual Q5-15M chest pain #25 tabs 09/18/21 [Rx Last Taken Unknown] blood-glucose meter (FreeStyle Lite Meter kit) #1 ea 10/31/21 [Rx Last Taken Unknown] lancets 28 gauge (FreeStyle Lancets) #200 ea 10/31/21 [Rx Last Taken Unknown] apixaban 5 mg tablet (Eliquis) 5 mg PO BID #60 tabs 12/29/21 [Rx Last Taken Unknown] tramadol 50 mg tablet 50 mg PO DAILY PRN pain 06/05/22 [History Last Taken Unknown] sertraline 25 mg tablet 25 mg PO DAILY #90 tabs 06/12/22 [Rx Last Taken Unknown] glimepiride 1 mg tablet 1 mg PO QAM #90 tabs 06/27/22 [Rx Last Taken Unknown] ranolazine 500 mg tablet,extended release,12 hr (Ranexa) 500 mg PO BID #180 tabs 07/10/22 [Rx Last Taken Unknown] amlodipine 10 mg tablet 10 mg PO DAILY #30 tabs 07/18/22 [Rx Last Taken Unknown] isosorbide mononitrate 30 mg tablet,extended release 24 hr 30 mg PO BID #180 tabs 08/27/22 [Rx Last Taken Unknown] blood sugar diagnostic (FreeStyle Lite Strips) #100 strips 10/22/22 [Rx Last Taken Unknown] albuterol sulfate 90 mcg/actuation aerosol inhaler (ProAir HFA) 2 puff inhalation Q6H PRN Wheezing #8.5 grams 10/30/22 [Rx Last Taken Unknown] prednisone 5 mg tablet 10 mg PO DAILY 10/30/22 [History Last Taken Unknown] carvedilol 12.5 mg tablet 12.5 mg PO BID this is a dose increase #60 tabs 11/27/22 [Rx Last Taken Unknown] rosuvastatin 20 mg tablet 20 mg PO DAILY #90 tabs 12/19/22 [Rx Last Taken Unknown] cephalexin 500 mg capsule 500 mg PO Q6 #40 CAPSULES 01/11/23 [Rx Last Taken Unknown] Allergy/AdvReac Type Severity Reaction Status Date / Time colchicine Allergy Other Verified 01/11/23 21:10 ezetimibe [From Zetia] Allergy Unknown Verified 01/11/23 21:10 isotretinoin [From Accutane] Allergy Other Verified 01/11/23 21:10 naproxen [From Aleve] Allergy hives and Verified 01/11/23 21:10 swelling quinine Allergy Other Verified 01/11/23 21:10 Sulfa (Sulfonamide Allergy Unknown Verified 01/11/23 21:10 Antibiotics) Family History Mother Myocardial infarction Arthritis Lupus Father Alzheimer disease Other Depression Respiratory disease Surgical History H/O coronary artery bypass surgery (06/14/09) History of angioplasty of peripheral vessel (08/29/16) History of ankle surgery History of bladder suspension procedure History of coronary artery stent placement (04/25/17) History of hysterectomy History of left heart catheterization (01/02/21) Hx laparoscopic cholecystectomy Social History household members: none Smoking Status: Former smoker how long ago did patient quit smoking: Quit 1987, smoked 2 ppd since age 22 untiol quit. alcohol intake: current alcohol intake frequency: 0-2 drinks per day details: Drinks 1 glass wine with dinner. substance use type: does not use what type of physical activity do you participate in: none ROS ROS ED Constitutional Constitutional ED: Denies chills or fever(s) Cardiovascular Cardiovascular: Denies chest pain or palpitations Respiratory/Chest Respiratory/Chest: Denies cough Gastrointestinal Gastrointestinal: Denies nausea or vomiting Musculoskeletal Musculoskeletal: Reports arthralgias; Denies back pain, myalgias or neck pain Integumentary Reports Abrasions and rash Neurologic Neurologic: Denies paresthesias or weakness Endocrine Endocrinology: Denies polydipsia or polyuria Hematologic/Lymphatic Hematologic/Lymphatic: Reports easy bleeding and easy bruising; Denies lymphadenopathy Allergic/Immunologic Allergic/Immunologic ED: Denies urticaria EXAM Physical Exam Narrative Exam Narrative: Patient awake alert laying in bed no acute distress. Nontoxic. HEENT shows no sign of trauma. No pallor. Conjunctive a show no pallor. Cardiorespiratory shows easy unlabored breathing with clear lungs and normal saturations at 98% on room air showing no hypoxia. Heart rate is normal. Abdomen benign. Extremities show no swelling. No asymmetry. There really normal except the small toe on the right. She does have a bit of hammertoe which is not new. But the lateral aspect has a abraded area about a centimeter around. It is drying over this. There is some erythema around it. The erythema goes to the proximal small toe but does not go more proximally than that. The toe does not look actually swollen. It is mildly tender but not markedly so. The foot itself is normal and completely nontender. Const Vital Signs: 01/11/23 21:07 Temperature 97.6 F L Temperature Source Temporal Pulse Rate 78 Respiratory Rate 16 Blood Pressure 175/64 H Blood Pressure Mean 101 Pulse Ox 98 Oxygen Delivery Method Room Air MDM MDM MDM Narrative Medical decision making narrative: In theMy independent interpretation the patient's left foot x-ray shows a nonunion of second metatarsal but she is not having pain there. She has a lot of arthritic changes but I see no definitive erosive lesion. Final reading is no definite acute abnormality. They do also make note of the chronic ununited fracture. He did a BGT. It was 335. She tells us that she had a glass of wine and 4 cookies before coming in. She states her blood sugars have been running about 104-109. They are likely high because of what she ate and drank. I agree that this is true. Because of this I am not going to provide acute treatment for this. With her being diabetic and having this lesion on the foot we will initiate antibiotics. She should keep the area clean. She should make sure her shoes actually fit. We discussed returning if she has more swelling redness drainage fevers pain or other problems. She needs to have this rechecked by her physician in the next week. Lab Data Labs: Laboratory Results - last 24 hr 01/11/23 22:07 POC Glucose 334 H Radiography Diagnostic Testing: Clinical Impression(s) from Imaging Studies Foot X-Ray 01/11/23 21:30 IMPRESSION: No definite acute abnormality. 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 Electronically Signed: Basil Pardo MD at 21:52 EDT , Discharge Plan Triage Chief Complaint: Wound ED Provider: Blayne Castle Dx/Rx/DC Orders Clinical Impression: Skin ulcer of small toe of right foot, Hyperglycemia Instructions: ED Wound Care Prescriptions: New cephalexin [cephalexin] 500 mg capsule 500 mg PO Q6 Qty: 40 0RF No Action (DME) blood-glucose meter [FreeStyle Lite Meter] Kit See Rx Instructions .MEDSUPPLY Qty: 1 0RF Rx Instructions: As directed, check blood glucose daily for type 2 DM (DME) lancets [FreeStyle Lancets] 28 gauge misc See Rx Instructions .MEDSUPPLY Qty: 200 3RF Rx Instructions: check blood glucose daily for type 2 DM tramadol 50 mg tablet 50 mg PO DAILY PRN (Reason: pain) nitroglycerin 0.4 mg tablet, sublingual 0.4 mg SUBLINGUAL Q5-15M Qty: 25 3RF Eliquis 5 mg tablet 5 mg PO BID Qty: 60 11RF albuterol sulfate [ProAir HFA] 90 mcg/actuation HFA aerosol inhaler 2 puff INHALATION Q6H PRN (Reason: Wheezing) Qty: 8.5 2RF sertraline 25 mg tablet 25 mg PO DAILY Qty: 90 1RF leflunomide 10 mg tablet 10 mg PO DAILY Patient Comments: take 1 tablet by mouth once daily acetaminophen 500 mg Tablet 1,000 mg PO Q6H PRN (Reason: Pain) cholecalciferol (vitamin D3) 25 mcg (1,000 unit) Capsule 25 mcg PO DAILY calcium carbonate 500 mg calcium (1,250 mg) tablet 500 mg PO BID Prolia 60 mg/mL syringe 60 mg subcut [id number] Qty: 1 1RF glimepiride 1 mg tablet 1 mg PO QAM Qty: 90 2RF Rx Instructions: administer with breakfast ranolazine [Ranexa] 500 mg tablet extended release 12 hr 500 mg PO BID Qty: 180 3RF amlodipine 10 mg tablet 10 mg PO DAILY Qty: 30 11RF isosorbide mononitrate 30 mg tablet extended release 24 hr 30 mg PO BID Qty: 180 3RF (DME) FreeStyle Lite Strips Strip See Rx Instructions .ROUTE .COMPLEX Qty: 100 3RF Dose Instruction: CHECK BLOOD GLUCOSE DAILY Rx Instructions: CHECK BLOOD GLUCOSE DAILY prednisone 5 mg tablet 10 mg PO DAILY Patient Comments: takes 5mg carvedilol 12.5 mg tablet 12.5 mg PO BID Qty: 60 11RF Rx Instructions: must administer with a meal/food rosuvastatin 20 mg tablet 20 mg PO DAILY Qty: 90 3RF Primary Care Provider: Sebastian Cleveland Referrals: Sebastian Cleveland MD [Primary Care Provider] - 1 Week Disposition Disposition: Home, Self Care Discharge Date/Time: 01/11/23 22:51
[2023-01-11 22:26] LABS: Bedside Glucose 334 mg/dL (74-106)
[2023-01-11] MEDS: Cephalexin 250 MG Capsule 500 MG PO (22:46)
== END 2023-01-11 22:51 | disposition home or self-care (01) ==
PROVIDERS: Emergency Provider Emergency Medicine; PCP Family Medicine; Visit Provider Emergency Medicine
DX: E11.621 Type 2 diabetes mellitus with foot ulcer (principal); L97.519 Non-pressure chronic ulcer of other part of right foot with unspecified severity; J44.9 Chronic obstructive pulmonary disease, unspecified; I11.0 Hypertensive heart disease with heart failure; I50.32 Chronic diastolic (congestive) heart failure; E11.65 Type 2 diabetes mellitus with hyperglycemia; I25.10 Atherosclerotic heart disease of native coronary artery without angina pectoris; E78.5 Hyperlipidemia, unspecified; Z87.891 Personal history of nicotine dependence; Z79.899 Other long term (current) drug therapy; Z79.01 Long term (current) use of anticoagulants; F41.9 Anxiety disorder, unspecified; Z95.5 Presence of coronary angioplasty implant and graft; Z90.710 Acquired absence of both cervix and uterus; Z90.49 Acquired absence of other specified parts of digestive tract
CPT/HCPCS: 73630; 82962; 99281

== ENCOUNTER → 2023-01-23 | Outpatient (REF) | payer MEDICARE, SELFPAY | LOC: OLS.DANBUR 12:00 | PROVIDERS: PCP Family Medicine; Visit Provider Family Medicine | DX: K92.2 Gastrointestinal hemorrhage, unspecified (principal) | CPT/HCPCS: 82274 ==

== ENCOUNTER → 2023-01-24 | Outpatient (REF) | payer MEDICARE, SELFPAY ==
[2023-01-24 10:40] LABS: Hematocrit 37.3 % (37-47); Hemoglobin 12.2 g/dL (12.0-15.0); Mean Corp Hgb Conc 32.7 g/dL (32-36); Mean Corpuscular Hgb 31.6 pg (27.0-32.0); Mean Corpuscular Volume 96.6 fL (81-99); Mean Platelet Vol. 10.5 fl (6.2-12.0); Platelet Count 127 K/mm3 (150-450); RBC Distribution Width CV 14.6 % (11.6-14.6); RBC Distribution Width SD 49.9 fl (35.1-43.9); Red Blood Count 3.86 M/mm3 (4.2-5.4); White Blood Count 5.8 K/mm3 (4.4-11.0)
[2023-01-24 10:57] LABS: AST(SGOT) 22 U/L (15-37); Alanine Aminotransfer ALT/SGPT 23 U/L (13-56); Albumin, Serum 3.1 g/dL (3.2-5.0); Alkaline Phosphatase 40 U/L (45-117); Anion Gap 5 (5-15); BUN 21 mg/dL (7-18); BUN/Creat Ratio 16.8 RATIO (10-20); Calcium,Total 8.9 mg/dL (8.5-10.1); Chloride 106 mmol/L (98-107); Creatinine, Serum 1.25 mg/dL (0.55-1.02); EST Glomerular Filtration Rate 43 mL/min (>60); Est Glom Filt Rate - Afr Amer 52 mL/min (>60); Glucose 131 mg/dL (74-106); Potassium 4.1 mmol/L (3.5-5.1); Protein, Total 6.1 g/dL (6.4-8.2); Sodium Level 138 mmol/L (136-145)
== END ==
LOC: OLS.DANBUR 05:00
PROVIDERS: PCP Family Medicine; Visit Provider Family Medicine
DX: I11.0 Hypertensive heart disease with heart failure (principal); I50.9 Heart failure, unspecified
CPT/HCPCS: 36415; 80053; 85027

== ENCOUNTER → 2023-01-26 | Outpatient (REF) | payer MEDICARE, SELFPAY | LOC: OLS.DANBUR 12:00 | PROVIDERS: PCP Family Medicine; Visit Provider Family Medicine | DX: K92.2 Gastrointestinal hemorrhage, unspecified (principal) | CPT/HCPCS: 82274 ==

== ENCOUNTER → 2023-01-29 | Outpatient (REF) | payer MEDICARE, SELFPAY | LOC: OLS.DANBUR 10:30 | PROVIDERS: PCP Family Medicine; Visit Provider Family Medicine | DX: K21.9 Gastro-esophageal reflux disease without esophagitis (principal); K92.2 Gastrointestinal hemorrhage, unspecified | CPT/HCPCS: 82274 ==

== ENCOUNTER → 2023-01-31 | Outpatient (REF) | payer MEDICARE, SELFPAY ==
[2023-01-31 10:04] LABS: Hematocrit 37.3 % (37-47); Hemoglobin 11.7 g/dL (12.0-15.0); Mean Corp Hgb Conc 31.4 g/dL (32-36); Mean Corpuscular Volume 98.7 fL (81-99); Mean Platelet Vol. 11.4 fl (6.2-12.0); POSITIVE COUNT YES; Platelet Count 99 K/mm3 (150-450); RBC Distribution Width CV 14.8 % (11.6-14.6); RBC Distribution Width SD 53.8 fl (35.1-43.9); Red Blood Count 3.78 M/mm3 (4.2-5.4); White Blood Count 4.4 K/mm3 (4.4-11.0)
[2023-01-31 10:07] LABS: Scan Indicated on CBC? Y/N YES- FLAGS NOTED
== END ==
LOC: OLS.DANBUR 05:00
PROVIDERS: PCP Family Medicine; Visit Provider Family Medicine
DX: D64.9 Anemia, unspecified (principal); I11.0 Hypertensive heart disease with heart failure; I50.9 Heart failure, unspecified
CPT/HCPCS: 36415; 85027

== ENCOUNTER 2023-02-01 14:50 | Inpatient (IN) | payer MEDICARE, SELFPAY ==
[2023-02-01] VITALS (12 sets, daily range): BP systolic 124–165; BP diastolic 56–78; PULSE 72–87; RESP 19–27; TEMP 36.1–37; O2SAT 88–99; BMI 27.1; BMI 27.7
[2023-02-01] MEDS: Ipratropium/Albuterol Sulfate 3 ML AMPUL.NEB INHALATION ×2 (16:32→23:20)
[2023-02-01] MEDS: Albuterol 2.5 MG/3 ML VIAL.NEB. INHALATION ×2 (16:32)
--- NOTE | 2023-02-01 16:45 | RAD_ITS ---
STUDY: XR Chest 1 View 02/01/2023 4:50 PM REASON FOR EXAM: Female, 87 years old. CHEST PAIN SOB COMPARISON: 11/09/21 TECHNIQUE: XR Chest 1 View FINDINGS: There is no demonstrated pleural abnormality. There are multiple median sternotomy wires. Enlarged heart size. Normal mediastinum. Normal katie. Prominent appearing increased interstitial lung markings. Normal visualized pulmonary arteries. There is atherosclerotic calcification of the aortic arch with tortuosity. There are diffuse degenerative changes of the visualized thoracic spine. There is degenerative osteoarthritis of the bilateral shoulders. There is no demonstrated abnormality of the visualized soft tissue structures of the upper abdomen. RAD/Chest 1 View (Portable) IMPRESSION: There are no acute findings. Electronically Signed: Emmanuel Rodas MD at 17:18 EDT ,
[2023-02-01] MEDS: MethylPREDNISolone 125 MG/2 ML Vial 80 MG IV (17:35)
--- NOTE | 2023-02-01 18:29 | EDS_ITS ---
HPI History of Present Illness Chief Complaint: Shortness of Breath Informant: patient Onset/Context/Timing Onset: Days Context: Gradual Onset Narrative Narrative: Patient presents with shortness of breath and history of COPD. She states has been using her inhaler more than normal for the past week. Over the past 3 to 4 days she reports increased shortness of breath with rattling in her chest and cough. She denies fever. Today she had some diarrhea and nausea. She felt generally weak. [facility] Medical History Anxiety Atherosclerosis of coronary artery bypass graft without angina pectoris Atherosclerosis of coronary artery of [place] heart without angina pectoris Atrial fibrillation with rapid ventricular response (12/24/20) Atypical chest pain Bradycardia Chest pain Choking sensation (~08/30/21) Chronic diastolic (congestive) heart failure Cloudy urine COPD (chronic obstructive pulmonary disease) Costochondral pain Debility Difficulty swallowing Essential (primary) hypertension Flu vaccine need fracture of the dorsal mid metatarsal (10/07/20) Gastroesophageal reflux disease GERD (gastroesophageal reflux disease) GI bleed History of coronary artery disease History of non-ST elevation myocardial infarction (NSTEMI) (12/25/20) Hyperkalemia Hyperlipemia Incomplete right bundle branch block Lightheadedness residential current use of amiodarone Lupus erythematosus Nipple discharge Osteoarthritis Osteoporosis Paroxysmal atrial fibrillation Paroxysmal atrial flutter Peripheral vascular disease of extremity with claudication Right wrist pain Secondary pulmonary arterial hypertension Sleep apnea Type 2 diabetes mellitus UTI (urinary tract infection) UTI (urinary tract infection) Home Medications denosumab 60 mg/mL subcutaneous syringe (Prolia) 60 mg subcut [id number] #1 mL 08/09/21 [Rx Last Taken 1 Month Ago ~10/08/21] acetaminophen 500 mg tablet 1,000 mg PO Q6H PRN Pain 09/07/21 [History Last Taken 11/08/21] cholecalciferol (vitamin D3) 25 mcg (1,000 unit) capsule 25 mcg PO DAILY SUPPLEMENT 09/07/21 [History Last Taken 11/08/21] leflunomide 10 mg tablet 10 mg PO DAILY ARTHRITIS 09/07/21 [History Last Taken 11/08/21] calcium carbonate 500 mg calcium (1,250 mg) tablet 500 mg PO BID SUPPLEMENT 09/15/21 [History Last Taken 11/08/21] nitroglycerin 0.4 mg sublingual tablet 0.4 mg sublingual Q5-15M chest pain #25 tabs 09/18/21 [Rx Last Taken Unknown] blood-glucose meter (FreeStyle Lite Meter kit) #1 ea 10/31/21 [Rx Last Taken Unknown] apixaban 5 mg tablet (Eliquis) 5 mg PO BID #60 tabs 12/29/21 [Rx Last Taken Unknown] tramadol 50 mg tablet 50 mg PO DAILY PRN pain 06/05/22 [History Last Taken Unknown] sertraline 25 mg tablet 25 mg PO DAILY #90 tabs 06/12/22 [Rx Last Taken Unknown] glimepiride 1 mg tablet 1 mg PO QAM #90 tabs 06/27/22 [Rx Last Taken Unknown] ranolazine 500 mg tablet,extended release,12 hr (Ranexa) 500 mg PO BID #180 tabs 07/10/22 [Rx Last Taken Unknown] amlodipine 10 mg tablet 10 mg PO DAILY #30 tabs 07/18/22 [Rx Last Taken Unknown] isosorbide mononitrate 30 mg tablet,extended release 24 hr 30 mg PO BID #180 tabs 08/27/22 [Rx Last Taken Unknown] blood sugar diagnostic (FreeStyle Lite Strips) #100 strips 10/22/22 [Rx Last Taken Unknown] albuterol sulfate 90 mcg/actuation aerosol inhaler (ProAir HFA) 2 puff inhalation Q6H PRN Wheezing #8.5 grams 10/30/22 [Rx Last Taken Unknown] prednisone 5 mg tablet 10 mg PO DAILY 10/30/22 [History Last Taken Unknown] carvedilol 12.5 mg tablet 12.5 mg PO BID this is a dose increase #60 tabs 11/27/22 [Rx Last Taken Unknown] rosuvastatin 20 mg tablet 20 mg PO DAILY #90 tabs 12/19/22 [Rx Last Taken Unknown] lancets 28 gauge (FreeStyle Lancets) #200 ea 01/14/23 [Rx Last Taken Unknown] tizanidine 2 mg tablet 2 mg PO Q8H PRN muscle spasm 02/01/23 [History Last Taken Unknown] Allergy/AdvReac Type Severity Reaction Status Date / Time colchicine Allergy Other Verified 01/11/23 21:10 ezetimibe [From Zetia] Allergy Unknown Verified 01/11/23 21:10 isotretinoin [From Accutane] Allergy Other Verified 01/11/23 21:10 naproxen [From Aleve] Allergy hives and Verified 01/11/23 21:10 swelling quinine Allergy Other Verified 01/11/23 21:10 Sulfa (Sulfonamide Allergy Unknown Verified 01/11/23 21:10 Antibiotics) Family History Mother Myocardial infarction Arthritis Lupus Father Alzheimer disease Other Depression Respiratory disease Surgical History H/O coronary artery bypass surgery (06/14/09) History of angioplasty of peripheral vessel (08/29/16) History of ankle surgery History of bladder suspension procedure History of coronary artery stent placement (04/25/17) History of hysterectomy History of left heart catheterization (01/02/21) Hx laparoscopic cholecystectomy Social History household members: none Smoking Status: Former smoker how long ago did patient quit smoking: Quit 1987, smoked 2 ppd since age 22 untiol quit. alcohol intake: current alcohol intake frequency: 0-2 drinks per day details: Drinks 1 glass wine with dinner. substance use type: does not use what type of physical activity do you participate in: none ROS ROS ED Constitutional Constitutional ED: Denies chills or fever(s) Eyes Eyes: Denies change in vision or discharge from eye(s) ENT ENT ED: Denies discharge from eye(s), rhinorrhea or sore throat Cardiovascular Cardiovascular: Denies chest pain or palpitations Respiratory/Chest Respiratory/Chest: Reports cough and dyspnea Gastrointestinal Gastrointestinal: Reports diarrhea and nausea; Denies abdominal pain or vomiting Genitourinary Genitourinary ED: Denies dysuria Musculoskeletal Musculoskeletal: Denies back pain or extremity pain Integumentary Denies Abrasions or rash Neurologic Neurologic: Reports weakness; Denies headache(s) Psychiatric Psychiatric: Denies anxiety or depression Allergic/Immunologic Allergic/Immunologic ED: Denies lip swelling or urticaria EXAM Physical Exam Const Vital Signs: 02/01/23 14:50 02/01/23 17:36 07/21/23 16:32 Temperature 98.1 F Temperature Source Oral Pulse Rate 75 74 81 Respiratory Rate 20 H 27 H 20 H Respiratory Pattern Tachypnea Blood Pressure 124/56 H 125/78 H Blood Pressure Mean 78 93 Pulse Ox 99 88 Oxygen Delivery Method Room Air Room Air Oxygen Flow Rate (L/min) 02/01/23 18:23 Temperature Temperature Source Pulse Rate 72 Respiratory Rate 20 H Respiratory Pattern Blood Pressure 151/66 H Blood Pressure Mean 94 Pulse Ox 92 Oxygen Delivery Method Nasal Cannula Oxygen Flow Rate (L/min) 2 Positive well nourished and well developed General Appearance ED: well developed HEENT Reports moist mucous membranes Eyes EOMs intact bilaterally Neck no lymphadenopathy Chest Wall inspection of chest normal and palpation of chest normal Resp Resp Narrative: Mild tachypnea with expiratory wheezes bilaterally and rales. Cardio regular rate and regular rhythm GI non-tender Palpation: soft Extremity normal to inspection Neuro oriented x3 and no sensory deficits noted Psych mental status grossly normal Skin no rashes or lesions noted MDM MDM MDM Narrative Medical decision making narrative: Patient placed on monitoring analyst. EKG obtained to evaluate for cardiac arrhythmia/ischemia. Chest x-ray obtained to evaluate for acute lung pathology, cardiac size, or mediastinal abnormality. Swab for COVID and influenza obtained. Labwork obtained to evaluate for leukocytosis, anemia, and electrolyte derangement. Patient was given 1 DuoNeb treatment and 2 albuterol treatments. She was given 80 mg of IV Solu-Medrol. Lab Data Attestation: I reviewed the patient's lab results. Lab results narrative: BNP is 407. Swab for COVID, influenza negative. CBC was a white count of 4.2 with a hemoglobin of 12.4. No left shift noted. Chemistry studies remarkable for glucose of 198 and creatinine 1.23. Labs: Impressions Chest X-Ray 02/01/23 16:45 IMPRESSION: There are no acute findings. Electronically Signed: Emmanuel Rodas MD at 17:18 EDT , 02/01/23 16:45 Chest 1 View (Portable) [RAD] Stat Radiography Diagnostic Testing: Clinical Impression(s) from Imaging Studies Chest X-Ray 02/01/23 16:45 IMPRESSION: There are no acute findings. Electronically Signed: Emmanuel Rodas MD at 17:18 EDT , EKG Initial EKG: Attestation: I personally reviewed and interpreted this EKG as follows: Interpretation: Sinus Rhythm (Sinus at 73 with anterior T wave inversions. This appears similar to prior study from March 2022.) Treatment and Re-Evaluation :: CBC is unremarkable. Chemistry studies significant only for elevated glucose and a creatinine of 1.23. BNP is 407. Swab for COVID and influenza negative. Chest x-ray per my interpretation was chronic changes with no focal infiltrate. Radiology interpretation is reviewed and agrees. EKG is reveals anterior T wave inversion, however this appears similar to prior study from March 2022. Patient was given IV Solu-Medrol along with aerosols. When I went back to reevaluate her she is now on 2 L nasal cannula. She told me that her oxygen level had dropped when she was sleeping. When I spoke with nursing staff they state that she was initially sleeping and it dropped into the 80s. After they woke her up she continued to have O2 sat of 87% with a good waveform. At this time she is on 2 L nasal cannula. She will be given a dose of Zithromax and discussed with hospitalist for admission. Discharge Plan Triage Chief Complaint: Shortness of Breath ED Provider: Evelyn Torre Dx/Rx/DC Orders Clinical Impression: Hypoxia, COPD exacerbation Prescriptions: No Action (DME) blood-glucose meter [FreeStyle Lite Meter] Kit See Rx Instructions .MEDSUPPLY Qty: 1 0RF Rx Instructions: As directed, check blood glucose daily for type 2 DM tramadol 50 mg tablet 50 mg PO DAILY PRN (Reason: pain) nitroglycerin 0.4 mg tablet, sublingual 0.4 mg SUBLINGUAL Q5-15M Qty: 25 3RF Eliquis 5 mg tablet 5 mg PO BID Qty: 60 11RF albuterol sulfate [ProAir HFA] 90 mcg/actuation HFA aerosol inhaler 2 puff INHALATION Q6H PRN (Reason: Wheezing) Qty: 8.5 2RF sertraline 25 mg tablet 25 mg PO DAILY Qty: 90 1RF leflunomide 10 mg tablet 10 mg PO DAILY Patient Comments: take 1 tablet by mouth once daily acetaminophen 500 mg Tablet 1,000 mg PO Q6H PRN (Reason: Pain) cholecalciferol (vitamin D3) 25 mcg (1,000 unit) Capsule 25 mcg PO DAILY calcium carbonate 500 mg calcium (1,250 mg) tablet 500 mg PO BID cephalexin [cephalexin] 500 mg capsule 500 mg PO Q6 Qty: 40 0RF Prolia 60 mg/mL syringe 60 mg subcut [id number] Qty: 1 1RF glimepiride 1 mg tablet 1 mg PO QAM Qty: 90 2RF Rx Instructions: administer with breakfast ranolazine [Ranexa] 500 mg tablet extended release 12 hr 500 mg PO BID Qty: 180 3RF amlodipine 10 mg tablet 10 mg PO DAILY Qty: 30 11RF isosorbide mononitrate 30 mg tablet extended release 24 hr 30 mg PO BID Qty: 180 3RF (DME) FreeStyle Lite Strips Strip See Rx Instructions .ROUTE .COMPLEX Qty: 100 3RF Dose Instruction: CHECK BLOOD GLUCOSE DAILY Rx Instructions: CHECK BLOOD GLUCOSE DAILY prednisone 5 mg tablet 10 mg PO DAILY Patient Comments: takes 5mg carvedilol 12.5 mg tablet 12.5 mg PO BID Qty: 60 11RF Rx Instructions: must administer with a meal/food rosuvastatin 20 mg tablet 20 mg PO DAILY Qty: 90 3RF (DME) lancets [FreeStyle Lancets] 28 gauge misc See Rx Instructions .ROUTE .COMPLEX Qty: 200 1RF Dose Instruction: use as directed once daily to CHECK BLOOD GLUCOSE Rx Instructions: use as directed once daily to CHECK BLOOD GLUCOSE Primary Care Provider: Sebastian Cleveland Referrals: Sebastian Cleveland MD [Primary Care Provider] - Disposition Disposition: Acute Care Hospital [facility]
[2023-02-01] MEDS: Azithromycin 250 MG Tablet 500 MG PO (18:39)
[2023-02-01 19:12] LABS: Magnesium 1.9 mg/dL (1.6-2.6); Phosphorus 3.3 mg/dL (2.5-4.9)
--- NOTE | 2023-02-01 20:28 | NURSING ---
PT unable to confirm home med list. Pt states they gave the list to the ER.
[2023-02-01] MEDS: Enoxaparin 40 MG/0.4 ML Syringe SC (21:35)
[2023-02-01] MEDS: Senna/Docusate Sodium 1 Tablet 2 TABLET PO (21:35)
[2023-02-01] MEDS: guaiFENesin 1,200 MG Tablet 1200 MG PO (21:35)
--- NOTE | 2023-02-01 21:45 | PCM.HP.STD ---
[facility] - General General Date of Admission: 02/01/23 Date of Service: 02/01/23 Chief Complaint: Shortness of breath, feeling tired fatigue for 1 week. HPI Narrative SUKUMAR IRVING, is a 87 F with history of COPD came to ED for shortness of breath/dyspnea on minimal exertion for about 1 week. This has been getting worse and patient has to use her rescue inhaler more frequently every 2-3 hours. Patient also has dry cough which is worse than normal. She feels like rattling in the chest/chest condition. Denies fever or chills. Mild postnasal drip/tickling sensation in the throat. Mild nausea. She also complains of loose bowel movement today. Usually she has diarrhea alternating with constipation states she moves bowel 3 times per week but sometimes it is very loose. She could not answer/clarify whether she has more than 3 bowel movements per day but usually she has constipation. Denies hematemesis melena. She had 3 stool cards checked for occult blood and 1 out of 3 was positive. She had colonoscopy about 5 years ago and denies any significant abnormal finding. In ED, chest x-ray was done which is individually reviewed. No acute infiltrate or consolidation suggestive of pneumonia. The patient is admitted for COPD exacerbation. FOR[facility]LY [facility] Medical History Anxiety Atherosclerosis of coronary artery bypass graft without angina pectoris Atherosclerosis of coronary artery of [place] heart without angina pectoris Atrial fibrillation with rapid ventricular response (12/24/20) Atypical chest pain Bradycardia Chest pain Choking sensation (~08/30/21) Chronic diastolic (congestive) heart failure Cloudy urine COPD (chronic obstructive pulmonary disease) Costochondral pain Debility Difficulty swallowing Essential (primary) hypertension Flu vaccine need fracture of the dorsal mid metatarsal (10/07/20) Gastroesophageal reflux disease GERD (gastroesophageal reflux disease) GI bleed History of coronary artery disease History of non-ST elevation myocardial infarction (NSTEMI) (12/25/20) Hyperkalemia Hyperlipemia Incomplete right bundle branch block Lightheadedness snf current use of amiodarone Lupus erythematosus Nipple discharge Osteoarthritis Osteoporosis Paroxysmal atrial fibrillation Paroxysmal atrial flutter Peripheral vascular disease of extremity with claudication Right wrist pain Secondary pulmonary arterial hypertension Sleep apnea Type 2 diabetes mellitus UTI (urinary tract infection) UTI (urinary tract infection) Home Medications denosumab 60 mg/mL subcutaneous syringe (Prolia) 60 mg subcut [id number] #1 mL 08/09/21 [Rx Last Taken 1 Month Ago ~10/08/21] acetaminophen 500 mg tablet 1,000 mg PO Q6H PRN Pain 09/07/21 [History Last Taken 11/08/21] cholecalciferol (vitamin D3) 25 mcg (1,000 unit) capsule 25 mcg PO DAILY SUPPLEMENT 09/07/21 [History Last Taken 11/08/21] leflunomide 10 mg tablet 10 mg PO DAILY ARTHRITIS 09/07/21 [History Last Taken 11/08/21] calcium carbonate 500 mg calcium (1,250 mg) tablet 500 mg PO BID SUPPLEMENT 09/15/21 [History Last Taken 11/08/21] nitroglycerin 0.4 mg sublingual tablet 0.4 mg sublingual Q5-15M chest pain #25 tabs 09/18/21 [Rx Last Taken Unknown] blood-glucose meter (FreeStyle Lite Meter kit) #1 ea 10/31/21 [Rx Last Taken Unknown] apixaban 5 mg tablet (Eliquis) 5 mg PO BID #60 tabs 12/29/21 [Rx Last Taken Unknown] tramadol 50 mg tablet 50 mg PO DAILY PRN pain 06/05/22 [History Last Taken Unknown] sertraline 25 mg tablet 25 mg PO DAILY #90 tabs 06/12/22 [Rx Last Taken Unknown] glimepiride 1 mg tablet 1 mg PO QAM #90 tabs 06/27/22 [Rx Last Taken Unknown] ranolazine 500 mg tablet,extended release,12 hr (Ranexa) 500 mg PO BID #180 tabs 07/10/22 [Rx Last Taken Unknown] amlodipine 10 mg tablet 10 mg PO DAILY #30 tabs 07/18/22 [Rx Last Taken Unknown] isosorbide mononitrate 30 mg tablet,extended release 24 hr 30 mg PO BID #180 tabs 08/27/22 [Rx Last Taken Unknown] blood sugar diagnostic (FreeStyle Lite Strips) #100 strips 10/22/22 [Rx Last Taken Unknown] albuterol sulfate 90 mcg/actuation aerosol inhaler (ProAir HFA) 2 puff inhalation Q6H PRN Wheezing #8.5 grams 10/30/22 [Rx Last Taken Unknown] prednisone 5 mg tablet 10 mg PO DAILY 10/30/22 [History Last Taken Unknown] carvedilol 12.5 mg tablet 12.5 mg PO BID this is a dose increase #60 tabs 11/27/22 [Rx Last Taken Unknown] rosuvastatin 20 mg tablet 20 mg PO DAILY #90 tabs 12/19/22 [Rx Last Taken Unknown] lancets 28 gauge (FreeStyle Lancets) #200 ea 01/14/23 [Rx Last Taken Unknown] tizanidine 2 mg tablet 2 mg PO Q8H PRN muscle spasm 02/01/23 [History Last Taken Unknown] Allergy/AdvReac Type Severity Reaction Status Date / Time colchicine Allergy Other Verified 01/11/23 21:10 ezetimibe [From Zetia] Allergy Unknown Verified 01/11/23 21:10 isotretinoin [From Accutane] Allergy Other Verified 01/11/23 21:10 naproxen [From Aleve] Allergy hives and Verified 01/11/23 21:10 swelling quinine Allergy Other Verified 01/11/23 21:10 Sulfa (Sulfonamide Allergy Unknown Verified 01/11/23 21:10 Antibiotics) Family History Mother Myocardial infarction Arthritis Lupus Father Alzheimer disease Other Depression Respiratory disease Surgical History H/O coronary artery bypass surgery (06/14/09) History of angioplasty of peripheral vessel (08/29/16) History of ankle surgery History of bladder suspension procedure History of coronary artery stent placement (04/25/17) History of hysterectomy History of left heart catheterization (01/02/21) Hx laparoscopic cholecystectomy Social History household members: none Smoking Status: Former smoker how long ago did patient quit smoking: Quit 1987, smoked 2 ppd since age 22 untiol quit. alcohol intake: current alcohol intake frequency: 0-2 drinks per day details: Drinks 1 glass wine with dinner. substance use type: does not use what type of physical activity do you participate in: none ROS ROS Narrative Constitutional: Reports fatigue and weakness. No fever. HEENT: Reports systems reviewed and no addt'l complaints, except as documented Respiratory/Chest: As described in HPI. Does not use home oxygen/CPAP or BiPAP. CVS: Chest congestion but denies chest pressure or pain. No palpitation. Gastrointestinal: No abdominal pain. No vomiting. Rest as described in HPI. Genitourinary: Denies burning urination or new urinary tract symptoms Musculoskeletal: Denies acute joint pain or limited range of motion. No acute injury Neurologic: Denies seizure-like symptoms. No syncope. skin: No ulcer. No rash Endocrinology: Reports systems reviewed and no addt'l complaints, except as documented Hematologic/Lymphatic: Reports systems reviewed and no addt'l complaints, except as documented Rest 14 ROS are negative except as mentioned in HPI Vital Signs Vital Signs Vital Signs: 02/01/23 14:50 02/01/23 17:36 02/01/23 16:32 Temperature 98.1 F Temperature Source Oral Pulse Rate 75 74 81 Respiratory Rate 20 H 27 H 20 H Respiratory Effort Respiratory Pattern Tachypnea Blood Pressure 124/56 H 125/78 H Blood Pressure Mean 78 93 Pulse Ox 99 88 Oxygen Delivery Method Room Air Room Air Oxygen Flow Rate (L/min) 02/01/23 18:23 02/01/23 18:33 02/01/23 18:55 Temperature 97 F L Temperature Source Temporal Pulse Rate 72 75 Respiratory Rate 20 H 19 H Respiratory Effort Short of Breath Labored Respiratory Pattern Tachypnea Blood Pressure 151/66 H 151/66 H Blood Pressure Mean 94 94 Pulse Ox 92 92 Oxygen Delivery Method Nasal Cannula Nasal Cannula Nasal Cannula Oxygen Flow Rate (L/min) 2 2 2 02/01/23 19:20 02/01/23 20:05 02/01/23 20:00 Temperature 98.6 F Temperature Source Oral Pulse Rate 78 80 Respiratory Rate 20 H Respiratory Effort Respiratory Pattern Blood Pressure 157/71 H 165/68 H Blood Pressure Mean 99 100 Pulse Ox 93 96 89 Oxygen Delivery Method Nasal Cannula Room Air Oxygen Flow Rate (L/min) 2 02/01/23 21:22 Temperature Temperature Source Pulse Rate Respiratory Rate Respiratory Effort Respiratory Pattern Blood Pressure Blood Pressure Mean Pulse Ox 93 Oxygen Delivery Method Nasal Cannula Oxygen Flow Rate (L/min) 2 Weight Weight: 142 lb 3.17 oz Body Mass Index (BMI) 27.7 Physical Exam Narrative General: Alert, Oriented x3, Cooperative HEENT: Bilateral mild hearing loss atraumatic, PERRLA, EOMI, Normocephalic Oral: No Gingival or Mucosal Lesions/ Ulcerations Neck: Supple, No JVD, Negative Carotid Bruits Lungs: Air entry diminished in all lung salazar. Bilateral coarse rhonchi and wheezing present. Dyspnea on mild exertion. Cardiovascular: Regular rate, Regular Rhythm, Normal S1, Normal S2, systolic murmur LLSB. CABG scar. Abdomen: Bowel Sounds Present, Soft, Non Tender, Non-Distended : No renal angle tenderness. No suprapubic tenderness. Extremities: No edema, Capillary Refill Less than 3 Seconds Skin: No rashes, No breakdown Musculoskeletal: No Tenderness to Palpation of Joints or Extremities. Muscle strength 5/5 at knees and hip joints. Neurological: Cranial nerves II-XII grossly intact, DTR 2+/4 and Symmetrical, Neuro grossly intact Psych/Mental Status: Normal Affect, Appropriate. Results Lab / Micro Data Labs: Laboratory Results - last 24 hr 02/01/23 16:26: Phosphorus 3.3, Magnesium 1.9 Radiology Impression Chest X-Ray 02/01/23 16:45 IMPRESSION: There are no acute findings. Electronically Signed: Emmanuel Rodas MD at 17:18 EDT Reading Location ID and State: [facility] / OR , Service support , Assessment & Plan Assessment/Plan (1) COPD exacerbation: PLAN: Plan 1. COPD exacerbation with mild hypoxia, exact etiology unclear: Patient is being admitted on MedSurg floor. Patient is not on home oxygen/CPAP or BiPAP. Started on DuoNeb every 4 hourly, IV Solu-Medrol, Zithromax, Mucinex, incentive spirometry/Pep. COVID-19 rapid antigen and respiratory panel ordered. Patient denies fever and chest x-ray negative for consolidation/pneumonia. 2. Coronary artery status post coronary bypass, paroxysmal A-fib on apixaban and bilateral iliac artery stenosis s/p angioplasty with claudication pain: Patient home cardiac medications continued. Patient on carvedilol, isosorbide mononitrate, apixaban, ranolazine and rosuvastatin. 3. Recent history of occult blood stool card positive and history of GI bleed in August 2021: Patient had colonoscopy in August 2021 when she was admitted for acute hypoxic respiratory failure, acute exacerbation of COPD. She was found to have 2 bleeding colonic angiodysplastic lesions. Patient follows Dr. Lobo in clinic. 4. Diabetes mellitus type 2: Accu-Cheks ADRIANA Singh milk sliding scale. Patient on glimepiride 1 mg daily and looks like she checks her blood sugar at home. 4. Hypertension: Continue home medications amlodipine 5. Anxiety and depression: Patient on sertraline continued. 6. Patient has osteoporosis, degenerative arthritis and history of fracture of the dorsal mid metatarsal: Patient on tizanidine, leflunomide, vitamin D3, tramadol and Prolia. VTE prophylaxis: Patient on apixaban continued. Living will/advanced directive/end of life care: Patient does have living will or advanced directive. Does not have power of collections attorney for health. Next of kin is her daughter Kimberley mancuso. After discussion of benefits/risks procedures involved with full code, DNR CC arrest and DNR CC, the patient opted for DNRCC arrest with no intubation. She stated she did not want intubation ventilator but CPR and DC shock. When I tried to explain her that I will resuscitation procedure of oxygen synchronization and at the same time, she opted for no CPR or DC self. Patient doesn't want artificial life support including intubation, tube feed, ventilator and/chest compression, central venous catheter, vasopressor and DC shock if needed Total time spent in [id number] encounter in discussion of advanced directive 17 minutes. Charges/Coding Visit Charges Inpatient E&M: 74054 Init Hosp L3 Procedures Hospitalists Procedures: 61318 Advncd Care Plan 30 Min
[2023-02-01] MEDS: Carvedilol 12.5 MG Tablet PO (23:12)
[2023-02-01] MEDS: APIXABAN 5 MG TABLET PO (23:12)
[2023-02-01] MEDS: Ranolazine 500 MG Tablet PO (23:13)
[2023-02-01] MEDS: Isosorbide Mononitrate 30 MG Tablet PO (23:13)
[2023-02-01] MEDS: Atorvastatin Calcium 40 MG Tablet PO (23:15)
[2023-02-01] MEDS: Insulin Lispro 100 UNIT/ML INSULN.PEN SC (23:17)
[2023-02-01 23:37] LABS: Bedside Glucose 212 mg/dL (74-106)
[2023-02-02] VITALS (13 sets, daily range): BP systolic 121–157; BP diastolic 55–76; PULSE 72–83; RESP 16–24; TEMP 36.6–36.8; O2SAT 93–96; BMI 27.9
[2023-02-02 03:26] LABS: Hematocrit 39.5 % (37-47); Hemoglobin 12.4 g/dL (12.0-15.0); Mean Corp Hgb Conc 31.4 g/dL (32-36); Mean Corpuscular Hgb 30.5 pg (27.0-32.0); Mean Corpuscular Volume 97.3 fL (81-99); Neutrophil % 67.4 % (47-70); Platelet Count 114 K/mm3 (150-450); RBC Distribution Width CV 14.7 % (11.6-14.6); Red Blood Count 4.06 M/mm3 (4.2-5.4)
[2023-02-02 03:27] LABS: Absolute Lymphocyte Count 0.71 X10^3/uL (0.83-4.51); Absolute Neutrophil Count 2.7 X10^3/uL (2.0-7.7); Basophil# 0.04 X10^3/uL; Eosinophil# 0.05 X10^3/uL; Eosinophils% 1.2 % (0-5); Lymphocyte # 0.71 X10^3/ul (0.83-4.51); Lymphocyte % 17.7 % (19-41); Monocyte# 0.49 X10^3/uL; Monocyte% 12.2 % (0-10)
[2023-02-02 03:44] LABS: Anion Gap 6 (5-15); BUN 16 mg/dL (7-18); Calcium,Total 9.2 mg/dL (8.5-10.1); Chloride 105 mmol/L (98-107); Creatinine, Serum 1.23 mg/dL (0.55-1.02); EST Glomerular Filtration Rate 44 mL/min (>60); Est Glom Filt Rate - Afr Amer 53 mL/min (>60); Estimated Creatinine Clearance 24.02 ml/min; Glucose 198 mg/dL (74-106); Potassium 3.9 mmol/L (3.5-5.1); Sodium Level 138 mmol/L (136-145)
[2023-02-02 06:04] LABS: Absolute Lymphocyte Count 0.43 X10^3/uL (0.83-4.51); Absolute Neutrophil Count 1.8 X10^3/uL (2.0-7.7); Basophil# 0.01 X10^3/uL; Basophil% 0.4 % (0-1); Hemoglobin 12.3 g/dL (12.0-15.0); Lymphocyte # 0.43 X10^3/ul (0.83-4.51); Lymphocyte % 18.1 % (19-41); Mean Corp Hgb Conc 32.4 g/dL (32-36); Mean Corpuscular Volume 95.7 fL (81-99); Mean Platelet Vol. 10.7 fl (6.2-12.0); Monocyte# 0.11 X10^3/uL; Monocyte% 4.6 % (0-10); NRBC Flagged by Analyzer 0 % (0-5); Neutrophil # 1.82 X10^3/uL (2.7-7.7); Neutrophil % 76.5 % (47-70); POSITIVE DIFFERENTIAL YES; Platelet Count 108 K/mm3 (150-450); RBC Distribution Width CV 14.5 % (11.6-14.6); RBC Distribution Width SD 50.4 fl (35.1-43.9); Red Blood Count 3.97 M/mm3 (4.2-5.4); White Blood Count 2.4 K/mm3 (4.4-11.0)
[2023-02-02] MEDS: Insulin Lispro 100 UNIT/ML INSULN.PEN SC ×4 (06:27→21:42)
[2023-02-02] MEDS: Methylprednisolone Sod Succ 40 MG/ML VIAL IV ×3 (06:27→21:57)
[2023-02-02 06:35] LABS: Differential Indicated SCAN CRITERIA MET
[2023-02-02 06:36] LABS: Differential Comment SCANNED
[2023-02-02 07:06] LABS: Anion Gap 7 (5-15); BUN 15 mg/dL (7-18); BUN/Creat Ratio 14.6 RATIO (10-20); Calcium,Total 9.2 mg/dL (8.5-10.1); Chloride 106 mmol/L (98-107); Creatinine, Serum 1.03 mg/dL (0.55-1.02); EST Glomerular Filtration Rate 54 mL/min (>60); Est Glom Filt Rate - Afr Amer 65 mL/min (>60); Estimated Creatinine Clearance 28.68 ml/min; Glucose 210 mg/dL (74-106); Potassium 3.6 mmol/L (3.5-5.1); Sodium Level 137 mmol/L (136-145)
--- NOTE | 2023-02-02 07:30 | PCM.PN.HOSP ---
Reason for Visit Reason for Visit: Diagnoses Chronic obstructive pulmonary disease with (acute) exacerbation (02/01/23) Subjective Subjective Beginning to feel better, still SOB and cough but dry cough. Objective Data Objective Data Vital Signs: Vital Signs Temp Pulse Resp BP Pulse Ox O2 Del Method O2 Flow Rate 97.8 F 76 18 157/70 H 96 Nasal Cannula 2 02/02/23 06:23 02/02/23 06:23 02/02/23 06:23 02/02/23 06:23 02/02/23 06:23 02/02/23 06:26 02/02/23 06:26 FiO2 95 02/02/23 06:26 Oxygen Flow Rate (L/min) 2 Oxygen Delivery Method Nasal Cannula Weight: 64.5 kg Body Mass Index (BMI) 27.9 Intake & Output: Intake and Output for Last 24 Hours 01/31/23 02/01/23 02/02/23 23:59 23:59 23:59 Intake Total 700 / 700 Balance 700 / 700 Lab / Micro Data 02/02/23 05:50 02/02/23 05:50 Labs: Laboratory Results - last 24 hr 02/01/23 15:45: Sodium 138, Potassium 3.9, Chloride 105, Carbon Dioxide 27.0, Anion Gap 6, BUN 16, Creatinine 1.23 H, Estim Creat Clear Calc 24.02, Est GFR (MDRD) Af Amer 53 L, Est GFR (MDRD) Non-Af 44 L, BUN/Creatinine Ratio 13.0, Glucose 198 H, Calcium 9.2, B-Natriuretic Peptide 407.0 H 02/01/23 16:20: WBC 4.0 L, RBC 4.06 L, Hgb 12.4, Hct 39.5, MCV 97.3, MCH 30.5, MCHC 31.4 L, RDW Std Deviation 53.0 H, RDW Coeff of Raza 14.7 H, Plt Count 114 L, MPV 11.0, Immature Gran % (Auto) 0.500, Neut % (Auto) 67.4, Lymph % (Auto) 17.7 L, [place] % (Auto) 12.2 H, Eos % (Auto) 1.2, Baso % (Auto) 1.0, Absolute Neuts (auto) 2.7, Absolute Lymphs (auto) 0.71 L 02/01/23 16:26: Phosphorus 3.3, Magnesium 1.9 02/01/23 23:11: POC Glucose 212 H 02/02/23 05:50: WBC 2.4 L, RBC 3.97 L, Hgb 12.3, Hct 38.0, MCV 95.7, MCH 31.0, MCHC 32.4, RDW Std Deviation 50.4 H, RDW Coeff of Raza 14.5, Plt Count 108 L, MPV 10.7, Immature Gran % (Auto) 0.400, Neut % (Auto) 76.5 H, Lymph % (Auto) 18.1 L, [place] % (Auto) 4.6, Eos % (Auto) 0.0, Baso % (Auto) 0.4, Absolute Neuts (auto) 1.8 L, Absolute Lymphs (auto) 0.43 L, Nucleated RBC % 0, Differential Comment SCANNED, Diff Path Review November, Sodium 137, Potassium 3.6, Chloride 106, Carbon Dioxide 24.0, Anion Gap 7, BUN 15, Creatinine 1.03 H, Estim Creat Clear Calc 28.68, Est GFR (MDRD) Af Amer 65, Est GFR (MDRD) Non-Af 54 L, BUN/Creatinine Ratio 14.6, Glucose 210 H, Calcium 9.2 Micro: Microbiology 02/01/23 20:22 Mucosa - Nasopharyngeal Respiratory Panel (PCR) - Final RSV B 02/01/23 15:45 Nasal Secretion SARS-CoV-2 & FLU Antigen (Rapid) - Final 02/01/23 21:25 Urine, Clean Catch Legionella Antigen - Final 02/01/23 21:25 Urine, Clean Catch Streptococcus pneumoniae Antigen (M - Final Radiography Diagnostic Testing: Radiology Impression Chest X-Ray 02/01/23 16:45 IMPRESSION: There are no acute findings. Electronically Signed: Emmanuel Rodas MD at 17:18 EDT , Physical Exam Narrative General: Alert, oriented, no apparent distress HEENT: Atraumatic, normocephalic Eyes: Anicteric, normal conjunctiva, extraocular movements grossly intact Neck: Supple Respiratory: Lightly coarse and scattered wheezes at bases, normal respiratory effort Cardiovascular: Regular rate GI: Soft, nontender, nondistended Extremities: No edema Musculoskeletal: Moving all extremities Neuro: No overt focal neurological deficits Skin: No rashes appreciated Psych: Cooperative Assessment & Plan Assessment/Plan (1) COPD exacerbation: PLAN: Plan #COPD exacerbation with mild hypoxia 2/2 RSV infection -Pulse ox 88% on RA in ED -Patient is being admitted on MedSur floor -Patient is not on home oxygen/CPAP or BiPAP -Started on DuoNeb every 4 hourly -IV Solu-Medrol, Zithromax, Mucinex, incentive spirometry/Pep -De-escalate to p.o. Pred tomorrow if doing well. May need O2 walk test prior to DC -Patient denies fever and chest x-ray negative for consolidation/pneumonia. -COVID-19 rapid antigen and respiratory panel ordered which revealed RSV infection -Of note patient reportedly has history of COPD however pulmonary function tests on 05/12/2021 demonstrated component of small airway disease and diffusion capacity at lower limit of normal but otherwise grossly normal PFTs #Thrombocytopenia/leukopenia -Identified earlier this month, stable throughout the month -If drops can pursue further inpt w/u however if stable/improving can monitor or outpt w/u #Coronary artery status post coronary bypass/paroxysmal A-fib on apixaban/bilateral iliac artery stenosis s/p angioplasty with claudication pain -Patient home cardiac medications continued -Patient on carvedilol, isosorbide mononitrate, apixaban, ranolazine and rosuvastatin. #Recent history of occult blood stool card positive and history of GI bleed in August 2021 -Patient had colonoscopy in August 2021 when she was admitted for acute hypoxic respiratory failure, acute exacerbation of COPD. -She was found to have 2 bleeding colonic angiodysplastic lesions -Patient follows Dr. Lobo in clinic. #Type 2 diabetes mellitus -Glucose checks and sliding scale insulin #Hypertension -Continue home medications amlodipine #Anxiety and depression -Patient on sertraline continued. #Patient has osteoporosis/degenerative arthritis/history of fracture of the dorsal mid metatarsal -Patient on tizanidine, leflunomide, vitamin D3, tramadol and Prolia. VTE prophylaxis: Patient on apixaban continued. Time spent in the patient's overall evaluation,decision-making process, review of diagnostic data, adjustment of management, discussion with other providers, nursing nursing and ancillary staff involved in patient's care documentation, 36 minutes Charges/Coding Visit Charges Inpatient E&M: 29397 Subs Hosp L2
[2023-02-02] MEDS: Ipratropium/Albuterol Sulfate 3 ML AMPUL.NEB INHALATION ×5 (07:38→23:15)
[2023-02-02] MEDS: Glimepiride 1 MG Tablet PO (10:29)
[2023-02-02] MEDS: Carvedilol 12.5 MG Tablet PO ×2 (10:29→16:22)
[2023-02-02] MEDS: Calcium (Elemental) 500 MG Tablet PO ×2 (10:30→16:22)
[2023-02-02] MEDS: Isosorbide Mononitrate 30 MG Tablet PO ×2 (10:30→21:41)
[2023-02-02] MEDS: Leflunomide 10 MG TABLET PO (10:31)
[2023-02-02] MEDS: APIXABAN 5 MG TABLET PO ×2 (10:31→21:41)
[2023-02-02] MEDS: Senna/Docusate Sodium 1 Tablet 2 TABLET PO ×2 (10:32→21:41)
[2023-02-02] MEDS: Ranolazine 500 MG Tablet PO ×2 (10:32→21:44)
[2023-02-02] MEDS: guaiFENesin 1,200 MG Tablet 1200 MG PO ×2 (10:32→21:44)
[2023-02-02] MEDS: Pantoprazole Sodium 40 MG Tablet PO (10:32)
[2023-02-02] MEDS: Cholecalciferol (VIT D3) 25 MCG TABLET (1,000 UNITS) PO (10:33)
[2023-02-02] MEDS: amLODIPine 10 MG Tablet PO (10:33)
[2023-02-02] MEDS: Azithromycin 250 MG Tablet 500 MG PO (10:33)
[2023-02-02] MEDS: Sertraline 50 MG Tablet 25 MG PO (10:33)
--- NOTE | 2023-02-02 11:00 | CASEMGMT ---
CHANDAN THOMAS Assessment: Face to Face with pt for initial transition planning/care coordination assessment. CHANDAN THOMAS introduced self and role at [facility], pt voices understanding and consents to assessment. Pt is A/O x4 and answers all questions appropriately at this time. Pt sitting up in chair in no distress on RA. Care providers, pharmacy, and demographics verified/updated. Admitting Dx: COPD exac PCP:Megha Specialists:Morgan, rheum; Rey, cardio; Negro, vasc; Kari, pod Preferred Pharmacy: [facility] Insurance: [facility] Prescription Benefit: yes LNOK: Art Adam, son; Kimberley Tabor, dtr Living Arrangements: Pt lives alone in an [facility]. Pt reports she is I in ADL's and denies concerns at home. Pt makes her own breakfast then has 2 meals a day in the diningroom. Pt has laundry done and has a cleaning lady. Pt denies concerns at home. Transportation: Pt does not drive. Pt children transport her to medical appts. DME/HHC/SNF: Pt has a cane, walker and scooter at home. Pt uses walker for long distance only. Pt also has a pox and BP cuff. Pt does not have BGM and states she does not check her blood sugars or need to. Pt has had HHC through [facility] in the past. Pt denies SNF stays. Pt states no concerns with going home at time of dc. She is not interested in HHC again for her COPD. She states she does not want to be tied down. Pt states she has difficulty walking but that she is having angio done by February 12 and this should help her walking. She denies need for any therapy at this time. Discussed oxygen should pt need upon dc. Provided pt with a local in network list of DME companies, pt chose [employer]. Reviewed homegoing oxygen instructions with pt. Pt verbalized understanding. Pt states no further concerns/needs. CM to follow. Advised pt to ask CM if any further question/concerns/needs arise, voices understanding. Pt Goal: Home Plan: Home, green sheet on chart for oxygen if needed.
[2023-02-02 11:54] LABS: Bedside Glucose 356 mg/dL (74-106)
[2023-02-02] MEDS: 0.9% Saline Lock 10 ML Syringe IV ×2 (13:30→21:57)
[2023-02-02] MEDS: Insulin Glargine-YFGN 100 UNIT/ML Pen SC (16:18)
[2023-02-02 16:48] LABS: Bedside Glucose 195 mg/dL (74-106)
[2023-02-02 18:21] LABS: Bedside Glucose 203 mg/dL (74-106)
[2023-02-02] MEDS: Acetaminophen 325 MG Tablet 650 MG PO (19:59)
[2023-02-02] MEDS: Atorvastatin Calcium 40 MG Tablet PO (21:44)
[2023-02-02 22:02] LABS: Bedside Glucose 297 mg/dL (74-106)
[2023-02-03] VITALS (16 sets, daily range): BP systolic 132–199; BP diastolic 68–86; PULSE 75–98; RESP 16–28; TEMP 36.4–37.3; O2SAT 92–96; BMI 28.0
[2023-02-03] MEDS: Nitroglycerin (INPATIENT USE) 0.4 MG TAB.SUBL SL ×3 (03:34→06:48)
--- NOTE | 2023-02-03 03:35 | EKG12_ITS ---
Test Reason : ELEVATED TROPONIN Blood Pressure : / mmHG Vent. Rate : 083 BPM Atrial Rate : 083 BPM P-R Int : 144 ms QRS Dur : 122 ms QT Int : 368 ms P-R-T Axes : 046 029 046 degrees QTc Int : 432 ms Normal sinus rhythm Right bundle branch block Abnormal ECG When compared with ECG of 03-FEB-2023 03:45, MANUAL COMPARISON REQUIRED, DATA IS UNCONFIRMED Confirmed by TANA LOPEZ, NINI ([id number]), assignment editor WU PRIETO ([id number]) on 02/05/2023 7:23:46 AM Referred By: Philippe Ny Confirmed By:NINI FAJARDO MD
[2023-02-03] MEDS: Acetaminophen 325 MG Tablet 650 MG PO ×2 (03:43→16:45)
--- NOTE | 2023-02-03 03:49 | NURSING ---
Patient ambulated to bathroom. C/O chest pain/tightness when returning to bed. Rating 10/10. CPS called to do ekg. BP elevated. Nitro x1 given. Rating pain 8/10. 2nd nitro given Bp down wnl. Rating pain 5/10. [address] Ruiz aware EKG sent to Dr. Ruiz. Patient states pain much better. Receiving a breathing treatment.
[2023-02-03] MEDS: Ipratropium/Albuterol Sulfate 3 ML AMPUL.NEB INHALATION ×6 (03:50→23:33)
[2023-02-03 05:01] LABS: Absolute Neutrophil Count 5.3 X10^3/uL (2.0-7.7); Basophil# 0.01 X10^3/uL; Basophil% 0.2 % (0-1); Hematocrit 35.4 % (37-47); Hemoglobin 11.9 g/dL (12.0-15.0); Lymphocyte % 8.1 % (19-41); Mean Corp Hgb Conc 33.6 g/dL (32-36); Mean Corpuscular Hgb 31.6 pg (27.0-32.0); Mean Corpuscular Volume 93.9 fL (81-99); Mean Platelet Vol. 10.4 fl (6.2-12.0); Monocyte# 0.39 X10^3/uL; Monocyte% 6.3 % (0-10); NRBC Flagged by Analyzer 0 % (0-5); Neutrophil # 5.27 X10^3/uL (2.7-7.7); Neutrophil % 85.1 % (47-70); POSITIVE DIFFERENTIAL YES; Platelet Count 118 K/mm3 (150-450); RBC Distribution Width CV 14.6 % (11.6-14.6); RBC Distribution Width SD 49.8 fl (35.1-43.9); Red Blood Count 3.77 M/mm3 (4.2-5.4); White Blood Count 6.2 K/mm3 (4.4-11.0)
[2023-02-03 05:03] LABS: Differential Indicated SCAN CRITERIA MET
[2023-02-03 05:39] LABS: Anion Gap 7 (5-15); BUN 26 mg/dL (7-18); Calcium,Total 9.4 mg/dL (8.5-10.1); Chloride 107 mmol/L (98-107); Creatinine, Serum 1.18 mg/dL (0.55-1.02); EST Glomerular Filtration Rate 46 mL/min (>60); Est Glom Filt Rate - Afr Amer 56 mL/min (>60); Estimated Creatinine Clearance 25.04 ml/min; Glucose 198 mg/dL (74-106); Potassium 3.8 mmol/L (3.5-5.1); Sodium Level 138 mmol/L (136-145)
[2023-02-03 05:50] LABS: Troponin-I HS 324 pg/mL (3.0-54.0)
[2023-02-03 06:37] LABS: Platelet Estimate SLT DEC (ADEQ)
[2023-02-03 06:45] LABS: Bedside Glucose 228 mg/dL (74-106)
--- NOTE | 2023-02-03 06:45 | PCM.PN.BLA ---
Progress Note Patient with first elevated troponin. Nurse reports that although patient earlier on had chest pain he does not have any chest pain at this time and patient is actually sleeping. Patient is on Eliquis. Repeat troponin and make further determinations.
[2023-02-03] MEDS: Insulin Lispro 100 UNIT/ML INSULN.PEN SC ×4 (06:51→23:02)
[2023-02-03 07:23] LABS: Troponin-I HS 326 pg/mL (3.0-54.0)
--- NOTE | 2023-02-03 07:35 | EKG12_ITS ---
Test Reason : CP Blood Pressure : / mmHG Vent. Rate : 091 BPM Atrial Rate : 091 BPM P-R Int : 138 ms QRS Dur : 122 ms QT Int : 352 ms P-R-T Axes : 058 059 073 degrees QTc Int : 432 ms Sinus rhythm with Premature supraventricular complexes Right bundle branch block Marked ST abnormality, possible septal subendocardial injury Abnormal ECG When compared with ECG of 01-FEB-2023 16:14, MANUAL COMPARISON REQUIRED, DATA IS UNCONFIRMED Confirmed by TANA LOPEZ, NINI ([id number]), website/blog editor WU PRIETO ([id number]) on 02/05/2023 7:24:05 AM Referred By: Philippe Ny Confirmed By:NINI FAJARDO MD
--- NOTE | 2023-02-03 07:58 | PCM.PN.HOSP ---
Reason for Visit Reason for Visit: Diagnoses Chronic obstructive pulmonary disease with (acute) exacerbation (02/01/23) Subjective Subjective Reports the pain from earlier was pressure and was relieved with nitro. Is better right now but is somewhat short of breath and has more wheezing Objective Data Objective Data Vital Signs: Vital Signs Temp Pulse Resp BP Pulse Ox O2 Del Method O2 Flow Rate 99.1 F 84 16 145/70 H 92 Nasal Cannula 2 02/03/23 06:45 02/03/23 07:16 02/03/23 07:16 02/03/23 07:07 02/03/23 07:16 02/03/23 07:16 02/03/23 07:16 FiO2 95 02/02/23 06:26 Oxygen Flow Rate (L/min) 2 Oxygen Delivery Method Nasal Cannula Weight: 64.9 kg Body Mass Index (BMI) 28.0 Intake & Output: Intake and Output for Last 24 Hours 02/01/23 02/02/23 02/03/23 23:59 23:59 23:59 Intake Total 700 / 900 450 / 450 Balance 700 / 900 450 / 450 Lab / Micro Data 02/03/23 04:30 02/03/23 04:30 Labs: Laboratory Results - last 24 hr 02/02/23 06:22: POC Glucose 203 H 02/02/23 11:34: POC Glucose 356 H 02/02/23 16:18: POC Glucose 195 H 02/02/23 21:36: POC Glucose 297 H 02/03/23 04:30: WBC 6.2, RBC 3.77 L, Hgb 11.9 L, Hct 35.4 L, MCV 93.9, MCH 31.6, MCHC 33.6, RDW Std Deviation 49.8 H, RDW Coeff of Raza 14.6, Plt Count 118 L, MPV 10.4, Immature Gran % (Auto) 0.300, Neut % (Auto) 85.1 H, Lymph % (Auto) 8.1 L, Barry % (Auto) 6.3, Eos % (Auto) 0.0, Baso % (Auto) 0.2, Absolute Neuts (auto) 5.3, Absolute Lymphs (auto) 0.50 L, Nucleated RBC % 0, Platelet Estimate SLT DEC, Sodium 138, Potassium 3.8, Chloride 107, Carbon Dioxide 24.0, Anion Gap 7, BUN 26 H, Creatinine 1.18 H, Estim Creat Clear Calc 25.04, Est GFR (MDRD) Af Amer 56 L, Est GFR (MDRD) Non-Af 46 L, BUN/Creatinine Ratio 22.0 H, Glucose 198 H, Calcium 9.4, Troponin I High Sens 324 H* 02/03/23 06:05: Troponin I High Sens 326 H* 02/03/23 06:27: POC Glucose 228 H Micro: Microbiology 02/01/23 15:45 Nasal Secretion SARS-CoV-2 & FLU Antigen (Rapid) - Final 02/01/23 20:22 Mucosa - Nasopharyngeal Respiratory Panel (PCR) - Final RSV B 02/01/23 21:25 Urine, Clean Catch Legionella Antigen - Final 02/01/23 21:25 Urine, Clean Catch Streptococcus pneumoniae Antigen (M - Final Physical Exam Narrative General: Alert, oriented, no apparent distress HEENT: Atraumatic, normocephalic Eyes: Anicteric, normal conjunctiva, extraocular movements grossly intact Neck: Supple Respiratory: Slightly increased respiratory effort with diffuse wheezes Cardiovascular: Regular rate and rhythm GI: Soft, nontender, nondistended Extremities: No edema Musculoskeletal: Moving all extremities Neuro: No overt focal neurological deficits Skin: No rashes appreciated Psych: Cooperative Assessment & Plan Assessment/Plan (1) COPD exacerbation: PLAN: Plan #Chest pain and NSTEMI -Unclear type I vs type II -Patient with chest pain overnight that she endorses was pressure-like and relieved with nitro. Troponin of 324 with subsequent 326 and resolution of her pain. Was already on Eliquis so she has not started on Lovenox or heparin -EKG with nonspecific changes -Repeating EKG -Last echo 12/26/20 w/ EF 55% and stage I diastolic dysfunction -Continue beta-saravanan, apixaban, statin -Is not on aspirin, has naproxen listed as an allergy with hives and swelling, unclear if she has tolerated aspirin in the past. If so we will start aspirin -Patient did receive nitro x2 -Upon further review did have blood pressure with systolic in 190s overnight, unclear if this was after the pain or before the pain as this would help and differential between type I and type II. Manage blood pressure, it is improved this morning -Given patient has history of CABG and stenting with chest pain and elevated troponin and nonspecific EKG changes we will consult cardiology and order repeat echocardiogram -We will continue amlodipine and Ranexa as well as Imdur at this time as well #COPD exacerbation with mild hypoxia 2/2 RSV infection -Pulse ox 88% on RA in ED -Patient is being admitted on MedSurg floor -Patient is not on home oxygen/CPAP or BiPAP -Started on DuoNeb every 4 hourly -IV Solu-Medrol, Zithromax, Mucinex, incentive spirometry/Pep -De-escalate to p.o. Pred tomorrow if doing well. May need O2 walk test prior to DC -Patient denies fever and chest x-ray negative for consolidation/pneumonia. -COVID-19 rapid antigen and respiratory panel ordered which revealed RSV infection -Of note patient reportedly has history of COPD however pulmonary function tests on 05/12/2021 demonstrated component of small airway disease and diffusion capacity at lower limit of normal but otherwise grossly normal PFTs -02/03: Is on 2 L nasal cannula with O2 sats in low 90s, wean as tolerated, will likely need walk test prior to DC to assess for O2 needs. Patient does have increased shortness of breath and wheezing so we will reescalate to IV Methylpred, continue breathing treatments #Thrombocytopenia/leukopenia -Identified earlier this month, stable throughout the month -If drops can pursue further inpt w/u however if stable/improving can monitor or outpt w/u -02/03: Leukopenia resolved and thrombocytopenia improving #Coronary artery status post coronary bypass/paroxysmal A-fib on apixaban/bilateral iliac artery stenosis s/p angioplasty with claudication pain -Patient home cardiac medications continued -Patient on carvedilol, isosorbide mononitrate, apixaban, ranolazine and rosuvastatin. -02/03: See above #Recent history of occult blood stool card positive and history of GI bleed in August 2021 -Patient had colonoscopy in August 2021 when she was admitted for acute hypoxic respiratory failure, acute exacerbation of COPD. -She was found to have 2 bleeding colonic angiodysplastic lesions -Patient follows Dr. Lobo in clinic. #Type 2 diabetes mellitus -Glucose checks and sliding scale insulin -02/03: Glucose with some significant elevations, suspect this is largely due to high-dose IV steroids patient with glimepiride continued and was started on 5 units long-acting insulin, continue sliding scale, initially plan to de-escalate steroids to prednisone oral however patient had increased wheezing and shortness of breath so this was changed back to IV #Hypertension -Continue home medications amlodipine -02/03: Did have significantly elevated BPs overnight, unclear temporal association with pain. Continue Imdur, carvedilol, amlodipine. BP better controlled today, adjust as needed #Anxiety and depression -Patient on sertraline continued. #Patient has osteoporosis/degenerative arthritis/history of fracture of the dorsal mid metatarsal -Patient on tizanidine, leflunomide, vitamin D3, tramadol and Prolia. VTE prophylaxis: Patient on apixaban continued. Time spent in the patient's overall evaluation,decision-making process, review of diagnostic data, adjustment of management, discussion with other providers, nursing nursing and ancillary staff involved in patient's care documentation, 51 minutes Charges/Coding Visit Charges Inpatient E&M: 19892 [facility] Hosp L3
[2023-02-03] MEDS: Carvedilol 12.5 MG Tablet PO ×2 (08:07→16:39)
[2023-02-03] MEDS: Glimepiride 1 MG Tablet PO (08:07)
[2023-02-03] MEDS: predniSONE 20 MG Tablet 40 MG PO (08:07)
[2023-02-03] MEDS: Calcium (Elemental) 500 MG Tablet PO ×2 (08:07→16:39)
--- NOTE | 2023-02-03 08:17 | ECHOCS_ITS ---
Version 2 Reason For Study: Chest Pain Procedure This was a 2D Doppler, Color Flow transthoracic echocardiogram. The study was technically difficult. Contrast injection was performed. Exam performed portable in patient room. Left Ventricle Normal LV size. Left ventricular systolic function is lower limits of normal. Stage 1 diastolic dysfunction. Infero-Basal: Mildly hypokinetic. Basal inferoseptal: Mildly hypokinetic. Right Ventricle Normal RV size. Normal systolic function. Atria The left atrium is mildly enlarged. Normal right atrium. Mitral Valve There is mild to moderate mitral annular calcification. Tricuspid Valve Normal tricuspid valve. Mild tricuspid valve insufficiency. Pulmonary artery systolic pressure is 25 mmHg. Aortic Valve Trisinus/trileaflet aortic valve. Mild (1+) eccentric aortic valve insufficiency. Pulmonic Valve The pulmonic valve is not well visualized. Great Vessels Normal aortic root. Pericardium/Pleural No pericardial effusion. Medication Diluted definity 2ml given slow IV push to enhance endocardial definition. MMode/2D Measurements & Calculations LVIDd: 4.8 cm IVSd: 0.93 cm Ao root diam: 3.5 cm LVIDs: 3.4 cm LVPWd: 1.1 cm LA dimension: 2.8 cm RVDd: 3.2 cm FS: 28.9 % LAV(MOD-bp): 67.8 ml Aortic Valve Planimetry: 1.7 cm2 LA A4 area: 27.3 cm2 LAV(MOD-bp) Indexed: 41.9 ml/m2 LAV(MOD-sp2): 43.9 ml LAV(MOD-sp4): 83.9 ml RA A4 area: 18.1 cm2 Time Measurements MV dec time: 0.22 sec Doppler Measurements & Calculations MV E max gordy: 78.7 cm/sec Lat Peak E' Gordy: 4.9 cm/sec Med Peak E' Gordy: 5.3 cm/sec MV A max gordy: 119.2 cm/sec E/E' lat: 16.1 E/E' med: 14.9 MV E/A: 0.66 MV V2 max: 152.0 cm/sec MV P1/2t max gordy: 99.0 cm/sec Ao V2 max: 140.5 cm/sec MV max P.2 mmHg MV P1/2t: 77.9 msec Ao max P.9 mmHg MV V2 mean: 74.7 cm/sec MV dec slope: 372.3 cm/sec2 Ao V2 mean: 93.6 cm/sec MV mean P.7 mmHg Ao mean P.0 mmHg MV V2 VTI: 33.5 cm MVA(P1/2t): 2.8 cm2 Ao V2 VTI: 24.9 cm AV (velocity ratio): 0.80 AI max gordy: 429.4 cm/sec LV V1 max: 114.1 cm/sec PA V2 max: 109.5 cm/sec AI max P.8 mmHg LV V1 max P.2 mmHg PA V2 mean: 63.5 cm/sec AI dec slope: 205.7 cm/sec2 LV V1 mean P.2 mmHg AI P1/2t: 611.4 msec LV V1 mean: 69.5 cm/sec LV V1 VTI: 19.8 cm TR max gordy: 237.7 cm/sec TR max P.6 mmHg ECHO/Echo Complete W/ Contrast Interpretation Summary Normal LV size. Left ventricular systolic function is lower limits of normal. Stage 1 diastolic dysfunction. The left atrium is mildly enlarged. Contrast injection was performed. Ordering Physician: Rachel Sutton Referring Physician: Philippe Ny Performed By: Anoop Penaloza RCS
[2023-02-03] MEDS: Cholecalciferol (VIT D3) 25 MCG TABLET (1,000 UNITS) PO (10:12)
[2023-02-03] MEDS: Senna/Docusate Sodium 1 Tablet 2 TABLET PO ×2 (10:12→20:55)
[2023-02-03] MEDS: Azithromycin 250 MG Tablet 500 MG PO (10:12)
[2023-02-03] MEDS: guaiFENesin 1,200 MG Tablet 1200 MG PO ×2 (10:13→20:55)
[2023-02-03] MEDS: Insulin Glargine-YFGN 100 UNIT/ML Pen SC (10:13)
[2023-02-03] MEDS: APIXABAN 5 MG TABLET PO ×2 (10:13→20:56)
[2023-02-03] MEDS: Pantoprazole Sodium 40 MG Tablet PO (10:13)
[2023-02-03] MEDS: Ranolazine 500 MG Tablet PO ×2 (10:13→20:56)
[2023-02-03] MEDS: Leflunomide 10 MG TABLET PO (10:13)
[2023-02-03] MEDS: amLODIPine 10 MG Tablet PO (10:13)
[2023-02-03] MEDS: Isosorbide Mononitrate 30 MG Tablet PO ×2 (10:13→20:56)
[2023-02-03] MEDS: Sertraline 50 MG Tablet 25 MG PO (10:16)
[2023-02-03 10:46] LABS: Troponin-I HS 314 pg/mL (3.0-54.0)
[2023-02-03 11:44] LABS: Bedside Glucose 252 mg/dL (74-106)
--- NOTE | 2023-02-03 12:45 | PCM.CONS.C ---
Assessment & Plan Assessment/Plan (1) Chest pain: PLAN: History of severe coronary artery disease. Angina pectoris likely secondary to hypoxia with COPD exacerbation superimposed on baseline CAD. Continue medical management. Increase Imdur. Continue amlodipine. Check echo. (2) Elevated troponin: PLAN: Flat troponin trend. Elevated troponin likely secondary to hypoxia and COPD exacerbation superimposed on severe underlying coronary artery disease. See #1 above. Continue medical management. Patient on Eliquis for her paroxysmal atrial fibrillation. Continue. Start aspirin. (3) COPD exacerbation: PLAN: As per internal medicine. (4) Hypoxia: PLAN: Secondary to 3 above. Continue to manage as per internal medicine. (5) Paroxysmal atrial fibrillation: PLAN: Presently normal sinus rhythm. (6) Hypertension: PLAN: Increase Imdur. Start diuretics. (7) Type 2 diabetes mellitus: QUALIFIERS: Diabetes mellitus long term acute care registered nurse insulin use: without halfway use Diabetes mellitus complication status: with other specified complication Qualified Code(s): E11.69 - Type 2 diabetes mellitus with other specified complication PLAN: As per internal medicine. HPI Consult Data Date of Consult: 02/03/23 HPI Narrative Reason for Consultation: Chest pain HPI Narrative: The patient has past medical history significant for coronary artery disease status post CABG and status post percutaneous intervention. She also has history of paroxysmal atrial fibrillation, COPD, hypertension, diabetes mellitus and dyslipidemia. She presented to the hospital with complaints of increasing shortness of breath with the need for frequent use of her inhaler. Admitted with a diagnosis of COPD exacerbation. Last night, she has not had an episode of chest pain. She felt anterior chest pressure. There was radiation to the left arm. Presently she is chest pain-free. However she continues to feel short of breath. [facility] Medical History Anxiety Atherosclerosis of coronary artery bypass graft without angina pectoris Atherosclerosis of coronary artery of jackson heart without angina pectoris Atrial fibrillation with rapid ventricular response (12/24/20) Atypical chest pain Bradycardia Chest pain Choking sensation (~08/30/21) Chronic diastolic (congestive) heart failure Cloudy urine COPD (chronic obstructive pulmonary disease) Costochondral pain Debility Difficulty swallowing Essential (primary) hypertension Flu vaccine need fracture of the dorsal mid metatarsal (10/07/20) Gastroesophageal reflux disease GERD (gastroesophageal reflux disease) GI bleed History of coronary artery disease History of non-ST elevation myocardial infarction (NSTEMI) (12/25/20) Hyperkalemia Hyperlipemia Incomplete right bundle branch block 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 Lupus erythematosus Nipple discharge Osteoarthritis Osteoporosis Paroxysmal atrial fibrillation Paroxysmal atrial flutter Peripheral vascular disease of extremity with claudication Right wrist pain Secondary pulmonary arterial hypertension Sleep apnea Type 2 diabetes mellitus UTI (urinary tract infection) UTI (urinary tract infection) Home Medications denosumab 60 mg/mL subcutaneous syringe (Prolia) 60 mg subcut [id number] #1 mL 08/09/21 [Rx Last Taken 1 Month Ago ~10/08/21] acetaminophen 500 mg tablet 1,000 mg PO Q6H PRN Pain 09/07/21 [History Last Taken 11/08/21] cholecalciferol (vitamin D3) 25 mcg (1,000 unit) capsule 25 mcg PO DAILY SUPPLEMENT 09/07/21 [History Last Taken 11/08/21] leflunomide 10 mg tablet 10 mg PO DAILY ARTHRITIS 09/07/21 [History Last Taken 11/08/21] calcium carbonate 500 mg calcium (1,250 mg) tablet 500 mg PO BID SUPPLEMENT 09/15/21 [History Last Taken 11/08/21] nitroglycerin 0.4 mg sublingual tablet 0.4 mg sublingual Q5-15M chest pain #25 tabs 09/18/21 [Rx Last Taken Unknown] blood-glucose meter (FreeStyle Lite Meter kit) #1 ea 10/31/21 [Rx Last Taken Unknown] apixaban 5 mg tablet (Eliquis) 5 mg PO BID #60 tabs 12/29/21 [Rx Last Taken Unknown] tramadol 50 mg tablet 50 mg PO DAILY PRN pain 06/05/22 [History Last Taken Unknown] sertraline 25 mg tablet 25 mg PO DAILY #90 tabs 06/12/22 [Rx Last Taken Unknown] glimepiride 1 mg tablet 1 mg PO QAM #90 tabs 06/27/22 [Rx Last Taken Unknown] ranolazine 500 mg tablet,extended release,12 hr (Ranexa) 500 mg PO BID #180 tabs 07/10/22 [Rx Last Taken Unknown] amlodipine 10 mg tablet 10 mg PO DAILY #30 tabs 07/18/22 [Rx Last Taken Unknown] isosorbide mononitrate 30 mg tablet,extended release 24 hr 30 mg PO BID #180 tabs 08/27/22 [Rx Last Taken Unknown] blood sugar diagnostic (FreeStyle Lite Strips) #100 strips 10/22/22 [Rx Last Taken Unknown] albuterol sulfate 90 mcg/actuation aerosol inhaler (ProAir HFA) 2 puff inhalation Q6H PRN Wheezing #8.5 grams 10/30/22 [Rx Last Taken Unknown] prednisone 5 mg tablet 10 mg PO DAILY 10/30/22 [History Last Taken Unknown] carvedilol 12.5 mg tablet 12.5 mg PO BID this is a dose increase #60 tabs 11/27/22 [Rx Last Taken Unknown] rosuvastatin 20 mg tablet 20 mg PO DAILY #90 tabs 12/19/22 [Rx Last Taken Unknown] lancets 28 gauge (FreeStyle Lancets) #200 ea 01/14/23 [Rx Last Taken Unknown] tizanidine 2 mg tablet 2 mg PO Q8H PRN muscle spasm 02/01/23 [History Last Taken Unknown] Allergy/AdvReac Type Severity Reaction Status Date / Time colchicine Allergy Other Verified 01/11/23 21:10 ezetimibe [From Zetia] Allergy Unknown Verified 01/11/23 21:10 isotretinoin [From Accutane] Allergy Other Verified 01/11/23 21:10 naproxen [From Aleve] Allergy hives and Verified 01/11/23 21:10 swelling quinine Allergy Other Verified 01/11/23 21:10 Sulfa (Sulfonamide Allergy Unknown Verified 01/11/23 21:10 Antibiotics) Family History Mother Myocardial infarction Arthritis Lupus Father Alzheimer disease Other Depression Respiratory disease Surgical History H/O coronary artery bypass surgery (06/14/09) History of angioplasty of peripheral vessel (08/29/16) History of ankle surgery History of bladder suspension procedure History of coronary artery stent placement (04/25/17) History of hysterectomy History of left heart catheterization (01/02/21) Hx laparoscopic cholecystectomy Social History household members: none Smoking Status: Former smoker how long ago did patient quit smoking: Quit 1987, smoked 2 ppd since age 22 untiol quit. alcohol intake: current alcohol intake frequency: 0-2 drinks per day details: Drinks 1 glass wine with dinner. substance use type: does not use what type of physical activity do you participate in: none Physical Exam Const Constitutional Narrative: Comfortable. No apparent distress. Lying flat in the bed. No JVD. Heart sounds 1 and 2 noted. Chest auscultation reveals bilateral lateral diffuse wheezing and fine crepitations. Abdomen soft. Alert oriented x3. No ankle edema noted. Risk Stratification Risk Stratification Applicable: No Objective Data Vital Signs: Vital Signs Temp Pulse Resp BP Pulse Ox O2 Del Method O2 Flow Rate 98.1 F 79 20 H 147/69 H 93 Nasal Cannula 2 02/03/23 08:04 02/03/23 10:53 02/03/23 10:53 02/03/23 08:04 02/03/23 08:04 02/03/23 08:04 02/03/23 08:04 FiO2 95 02/02/23 06:26 Oxygen Flow Rate (L/min) 2 Oxygen Delivery Method Nasal Cannula Weight: 143 lb 1.28 oz Body Mass Index (BMI) 28.0 Intake & Output: Intake and Output for Last 24 Hours 02/01/23 02/02/23 02/03/23 23:59 23:59 23:59 Intake Total 700 / 900 450 / 450 Balance 700 / 900 450 / 450 Lab / Micro Data Attestation: I reviewed the patient's lab results. 02/03/23 04:30 02/03/23 04:30 Labs: Laboratory Results - last 24 hr 02/02/23 06:22: POC Glucose 203 H 02/02/23 16:18: POC Glucose 195 H 02/02/23 21:36: POC Glucose 297 H 02/03/23 04:30: WBC 6.2, RBC 3.77 L, Hgb 11.9 L, Hct 35.4 L, MCV 93.9, MCH 31.6, MCHC 33.6, RDW Std Deviation 49.8 H, RDW Coeff of Raza 14.6, Plt Count 118 L, MPV 10.4, Immature Gran % (Auto) 0.300, Neut % (Auto) 85.1 H, Lymph % (Auto) 8.1 L, Hitchcock % (Auto) 6.3, Eos % (Auto) 0.0, Baso % (Auto) 0.2, Absolute Neuts (auto) 5.3, Absolute Lymphs (auto) 0.50 L, Nucleated RBC % 0, Platelet Estimate SLT DEC, Sodium 138, Potassium 3.8, Chloride 107, Carbon Dioxide 24.0, Anion Gap 7, BUN 26 H, Creatinine 1.18 H, Estim Creat Clear Calc 25.04, Est GFR (MDRD) Af Amer 56 L, Est GFR (MDRD) Non-Af 46 L, BUN/Creatinine Ratio 22.0 H, Glucose 198 H, Calcium 9.4, Troponin I High Sens 324 H* 02/03/23 06:05: Troponin I High Sens 326 H* 02/03/23 06:27: POC Glucose 228 H 02/03/23 09:45: Troponin I High Sens 314 H* 02/03/23 11:25: POC Glucose 252 H Micro: Microbiology 02/01/23 15:45 Nasal Secretion SARS-CoV-2 & FLU Antigen (Rapid) - Final Rhythm Strip Rhythm Strip: Sinus Rhythm Cardiology Labs/Tests 02/03/23 04:30: WBC 6.2, RBC 3.77 L, Hgb 11.9 L, Hct 35.4 L, MCV 93.9, MCH 31.6, MCHC 33.6, Plt Count 118 L, MPV 10.4, Immature Gran % (Auto) 0.300, Neut % (Auto) 85.1 H, Lymph % (Auto) 8.1 L, Hitchcock % (Auto) 6.3, Eos % (Auto) 0.0, Baso % (Auto) 0.2, Absolute Neuts (auto) 5.3, Nucleated RBC % 0, Sodium 138, Potassium 3.8, Chloride 107, Carbon Dioxide 24.0, Anion Gap 7, BUN 26 H, Creatinine 1.18 H, Est GFR (MDRD) Af Amer 56 L, Est GFR (MDRD) Non-Af 46 L, BUN/Creatinine Ratio 22.0 H, Glucose 198 H, Calcium 9.4 Rhythm: Sinus EKG: Sinus rhythm with right bundle branch block. ECHO: Stress Test: Cardiac Cath: PCI: CT Surgery: Holter monitor: EPS: PPM: CXR: Chest CT Scan:
[2023-02-03] MEDS: Furosemide 40 MG/4 ML Vial IV (13:39)
[2023-02-03] MEDS: 0.9% Saline Lock 10 ML Syringe IV (13:40)
[2023-02-03 16:37] LABS: Bedside Glucose 185 mg/dL (74-106)
[2023-02-03] MEDS: Atorvastatin Calcium 40 MG Tablet PO (20:55)
[2023-02-03 23:22] LABS: Bedside Glucose 255 mg/dL (74-106)
[2023-02-04] VITALS (12 sets, daily range): BP systolic 148–169; BP diastolic 72–83; PULSE 82–88; RESP 18–27; TEMP 36.4–36.9; O2SAT 92–96; BMI 28.1
[2023-02-04] MEDS: Ipratropium/Albuterol Sulfate 3 ML AMPUL.NEB INHALATION ×6 (03:54→23:40)
[2023-02-04] MEDS: Insulin Lispro 100 UNIT/ML INSULN.PEN SC ×4 (06:13→20:51)
[2023-02-04 06:26] LABS: Absolute Lymphocyte Count 0.42 X10^3/uL (0.83-4.51); Absolute Neutrophil Count 6.7 X10^3/uL (2.0-7.7); Basophil# 0.01 X10^3/uL; Basophil% 0.1 % (0-1); Hematocrit 37.3 % (37-47); Hemoglobin 12.4 g/dL (12.0-15.0); Lymphocyte # 0.42 X10^3/ul (0.83-4.51); Lymphocyte % 5.5 % (19-41); Mean Corp Hgb Conc 33.2 g/dL (32-36); Mean Corpuscular Hgb 31.6 pg (27.0-32.0); Mean Corpuscular Volume 94.9 fL (81-99); Mean Platelet Vol. 10.5 fl (6.2-12.0); Monocyte# 0.56 X10^3/uL; Monocyte% 7.3 % (0-10); NRBC Flagged by Analyzer 0 % (0-5); Neutrophil # 6.67 X10^3/uL (2.7-7.7); Neutrophil % 86.7 % (47-70); POSITIVE DIFFERENTIAL YES; Platelet Count 126 K/mm3 (150-450); RBC Distribution Width CV 14.3 % (11.6-14.6); RBC Distribution Width SD 49.9 fl (35.1-43.9); Red Blood Count 3.93 M/mm3 (4.2-5.4); White Blood Count 7.7 K/mm3 (4.4-11.0)
[2023-02-04 06:43] LABS: Differential Indicated SCAN CRITERIA MET
[2023-02-04 06:54] LABS: Bedside Glucose 241 mg/dL (74-106)
[2023-02-04 07:04] LABS: Anion Gap 8 (5-15); BUN 35 mg/dL (7-18); BUN/Creat Ratio 26.1 RATIO (10-20); Chloride 102 mmol/L (98-107); Creatinine, Serum 1.34 mg/dL (0.55-1.02); EST Glomerular Filtration Rate 40 mL/min (>60); Est Glom Filt Rate - Afr Amer 48 mL/min (>60); Estimated Creatinine Clearance 22.05 ml/min; Glucose 241 mg/dL (74-106); Potassium 3.2 mmol/L (3.5-5.1); Sodium Level 135 mmol/L (136-145)
[2023-02-04 07:08] LABS: Platelet Estimate SLT DEC (ADEQ)
--- NOTE | 2023-02-04 07:41 | PCM.PN.HOSP ---
Reason for Visit Reason for Visit: Diagnoses Type 2 diabetes mellitus with other specified complication (02/01/23) Essential (primary) hypertension (02/01/23) Paroxysmal atrial fibrillation (02/01/23) Chronic obstructive pulmonary disease with (acute) exacerbation (02/01/23) Chest pain, unspecified (02/01/23) Hypoxemia (02/01/23) Other specified abnormalities of plasma proteins (02/01/23) Subjective Subjective Patient is an 87-year-old lady who presented with shortness of breath and assessment of COPD with acute exacerbation made. Objective Data Objective Data Vital Signs: Vital Signs Temp Pulse Resp BP Pulse Ox O2 Del Method O2 Flow Rate 97.5 F L 88 22 H 150/72 H 94 Nasal Cannula 3 02/04/23 03:00 02/04/23 06:55 02/04/23 06:55 02/04/23 03:00 02/04/23 07:06 02/04/23 07:06 02/04/23 07:06 FiO2 95 02/02/23 06:26 Oxygen Flow Rate (L/min) 3 Oxygen Delivery Method Nasal Cannula Weight: 65.1 kg Body Mass Index (BMI) 28.1 Intake & Output: Intake and Output for Last 24 Hours 02/02/23 02/03/23 02/04/23 23:59 23:59 23:59 Intake Total 700 / 900 450 / 750 450 / 450 Output Total 800 / 800 300 / 300 Balance 700 / 900 -350 / -50 150 / 150 Lab / Micro Data 02/04/23 05:56 02/04/23 05:56 Labs: Laboratory Results - last 24 hr 02/03/23 09:45: Troponin I High Sens 314 H* 02/03/23 11:25: POC Glucose 252 H 02/03/23 16:20: POC Glucose 185 H 02/03/23 23:01: POC Glucose 255 H 02/04/23 05:56: WBC 7.7, RBC 3.93 L, Hgb 12.4, Hct 37.3, MCV 94.9, MCH 31.6, MCHC 33.2, RDW Std Deviation 49.9 H, RDW Coeff of Raza 14.3, Plt Count 126 L, MPV 10.5, Immature Gran % (Auto) 0.400, Neut % (Auto) 86.7 H, Lymph % (Auto) 5.5 L, [place] % (Auto) 7.3, Eos % (Auto) 0.0, Baso % (Auto) 0.1, Absolute Neuts (auto) 6.7, Absolute Lymphs (auto) 0.42 L, Nucleated RBC % 0, Platelet Estimate SLT DEC, Sodium 135 L, Potassium 3.2 L, Chloride 102, Carbon Dioxide 25.0, Anion Gap 8, BUN 35 H, Creatinine 1.34 H, Estim Creat Clear Calc 22.05, Est GFR (MDRD) Af Amer 48 L, Est GFR (MDRD) Non-Af 40 L, BUN/Creatinine Ratio 26.1 H, Glucose 241 H, Calcium 9.0 02/04/23 06:12: POC Glucose 241 H Micro: Microbiology 02/01/23 15:45 Nasal Secretion SARS-CoV-2 & FLU Antigen (Rapid) - Final 02/01/23 20:22 Mucosa - Nasopharyngeal Respiratory Panel (PCR) - Final RSV B 02/01/23 21:25 Urine, Clean Catch Legionella Antigen - Final 02/01/23 21:25 Urine, Clean Catch Streptococcus pneumoniae Antigen (M - Final Rhythm Strip Rhythm Strip: Sinus Rhythm Physical Exam Narrative GENERAL: Frail looking HEENT: Atraumatic; normocephalic EYES; Anicteric, Normal Conjunctiva NECK; supple, normal thyroid, RESPIRATORY: Diminished to auscultation CARDIOVASCULAR: Regular S1 S2, GI: soft, normoactive bowel sounds, : No Renal angle tenderness; EXTREMITIES: No edema, no clubbing, MUSCULOSKELETAL: no muscle wasting NEURO: Awake; no lateralizing signs. SKIN: No Rash PSYCH; Flat affect Assessment & Plan Assessment/Plan (1) COPD exacerbation: PLAN: Plan Patient is an 87-year-old lady who presented with shortness of breath and assessment of COPD with acute exacerbation made. 1. COPD with acute exacerbation ? Secondary to RSV infection. Patient management systemic steroid bronchodilator treatment as well as antibiotic therapy 2. Elevated troponin ? Secondary to demand ischemia from above. Consult was however placed to cardiology given patient history of coronary artery disease with CABG at subsequent stent 3 coronary artery disease ? With history of CABG and subsequent stent 4. Thrombocytopenia ? Monitoring with daily CBC with differential 5. Diabetes mellitus type II -patient's oral hypoglycemics held. Placed on long acting insulin, Accu-Cheks a.c. and at bedtime and covered with sliding scale insulin 6. Paroxysmal A-fib ? Rate controlled, on systemic anticoagulation with 7. Hypertension - Blood pressure controlled, home medications continued with dose adjustment as needed 8. Depression with anxiety ? Patient is on SSRI 9. Degenerative osteoarthritis ? Patient is on leflunomide 10. Osteoporosis ? With history of fracture of the made metatarsal patient is on vitamin D3 supplementation and Prolia 11. DVT prophylaxis ? On apixaban Time spent in the patient's overall evaluation,decision-making process, review of diagnostic data, adjustment of management, discussion with other providers, nursing nursing and ancillary staff involved in patient's care documentation, 51 minutes Charges/Coding Visit Charges Inpatient E&M: 99929 [facility] Hosp L3
--- NOTE | 2023-02-04 09:02 | CASEMGMT ---
Discharge Planning Updates sent to [facility] via fax. Edwina Crum, Discharge Planning Asst.
[2023-02-04] MEDS: Furosemide 40 MG Tablet PO (11:32)
[2023-02-04] MEDS: Azithromycin 250 MG Tablet 500 MG PO (11:32)
[2023-02-04] MEDS: Insulin Glargine-YFGN 100 UNIT/ML Pen SC (11:33)
[2023-02-04 11:54] LABS: Bedside Glucose 204 mg/dL (74-106)
--- NOTE | 2023-02-04 13:25 | CASEMGMT ---
Social Work SW met with patient and introduced herself and role as [facility] SW. Patient agreeable to speak with SW. SW verified patient's d/c plan back to [facility] and inquired about AD. Patient states plan is to return to [place] with her daughter Kimberley assisting with transportation. Patient also reports having LW and HCPOA documents completed with her children identified as her agents beginning with her son Al. SW informed patient those documents are not on her file and encouraged her to bring them in, patient reports understanding. Plan: [facility], transported by daughter Kimberley Irving [place], [place]
--- NOTE | 2023-02-04 13:35 | RAD_ITS ---
STUDY: X-RAY CHEST REASON FOR EXAM: Female, 87 years old. Cough and shortness of breath. TECHNIQUE: Single AP portable view of the chest. COMPARISON: Comparison is made with prior study February 01, 2023. FINDINGS: Mild degree of increased markings at the lung bases suggestive of bibasilar atelectasis. There is no demonstrated pleural abnormality. Sternal cerclage wires and vascular clips are present from a prior sternotomy and coronary artery bypass graft procedure (CABG). Normal mediastinum and katie. Normal visualized pulmonary arteries. There is atherosclerotic calcification of the aortic arch with tortuosity. Normal visualized thoracic spine. Normal visualized ribs, clavicles, and shoulders. There is no demonstrated abnormality of the visualized soft tissue structures of the upper abdomen. RAD/Chest 1 View IMPRESSION: Mild degree of increased markings at the lung bases suggestive of possible bibasilar atelectasis. Electronically Signed: Dwaine Munoz MD at 15:51 EDT ,
--- NOTE | 2023-02-04 15:14 | ST.MBS ---
Modified Barium Swallow Patient Information Study Date: 02/04/23 Study Time: 13:00 Direct Billable Minutes: 120 Total Minutes procedure & reportin Diagnosis: COPD J44.9, Hiatal Hernia Q40.1 Referring Physician: Prashant Mujica Reason for Referral: Objectively assess swallow function, assess risk for aspiration, and determine recommendations for least restrictive diet textures and compensatory strategies to improve safety of swallow. Medical History: Margarita Adam is an 87-year-old female with history of COPD Anxiety, Atherosclerosis of coronary artery bypass graft without angina pectoris, Bradycardia, Choking sensation (~08/30/21), CHF, Difficulty swallowing, Essential (primary) hypertension, GERD, GI bleed, History of non-ST elevation myocardial infarction (NSTEMI) (12/25/20), and UTI (urinary tract infection). See PMH in the H&P for full report. Patient presented to [facility] ED on 02/01/23 with shortness of breath/dyspnea on minimal exertion for about 1 week. This has been getting worse and patient has to use her rescue inhaler more frequently every 2-3 hours. Patient also has dry cough which is worse than normal. She feels like rattling in the chest/chest condition. Denies fever or chills. Mild postnasal drip/tickling sensation in the throat. Mild nausea. She also complains of loose bowel movement upon admission. Usually she has diarrhea alternating with constipation states she moves bowel 3 times per week but sometimes it is very loose. She had colonoscopy about 5 years ago and denies any significant abnormal finding. In ED, chest x-ray was done which is individually reviewed. No acute infiltrate or consolidation suggestive of pneumonia. The patient is admitted for COPD exacerbation. The patient was referred to speech therapy due to swallowing difficulty. Patient evaluated on 02/04/23 at [facility] and recommended for regular textures/thin liquids, meds whole with liquid wash, with compensatory strategies- small bites/sips, slow rate, sitting upright during and after PO intake for 30 min, alternate bites/sips, stop PO intake if nauseous/retention/sensation of fullness. Additionally, recommend patient for GI consult d/t esophageal concerns and reported hiatal hernia, and recommended for MBSS to assess risk/presence of aspiration and to observe esophageal clearance. See evaluation completed on 02/04/23 for full details. Patient had previous MBSS completed in April 2021 and was recommended for nectar/mildly thick liquids. Patient reports she did not thicken liquids since previous study. Current Diet Ordered: Regular Textures/ Thin Liquids Dentition: Missing Teeth Mental Status: WNL Respiratory Status: Oxygenating on 3L/M nasal cannula Penetration-Aspiration Scale Penetration-Aspiration Scale: OBJECTIVE ASSESSMENT OF SWALLOW FUNCTION (QUANTITATIVE ? PER TRIAL): PENETRATION / ASPIRATION SCALE (WOODS): 1 = does not enter airway 2 = enters airway/above vocal folds/ejected 3 = enters airway/above vocal folds/not ejected 4 = enters airway/contacts vocal folds/ejected 5 = enters airway/contacts vocal folds/not ejected 6 = enters airway/below vocal folds/ejected 7 = enters airway/below vocal folds/not ejected despite effort 8 = enters airway/below vocal folds/no effort VIDEOFLOROSCOPIC SCALE SCORE (WOODS): Grade I = aspiration of material that has penetrated into the laryngeal vestibule, intact cough reflex Grade II = aspiration < 10 % of the bolus, intact cough reflex Grade III = aspiration of < 10 % of the bolus, reduced cough reflex or aspiration of > 10 % of the bolus, intact cough reflex Grade IV = aspiration of > 10 % of the bolus, reduced cough reflex Penetration-Aspiration Scale Score Thin Liquid via teaspoon: Result: 2= enter airway/above vocal folds/ejected Thin Liquid via teaspoon Trial 2: Result: 2= enter airway/above vocal folds/ejected Thin Liquid via single cup sip: Result: 4= enters airway/contacts vocal folds/ejected [employer] Thick Liquid via single cup sip: Result: 1= does not enter airway Pudding via tsp w/esophageal screen: Result: 1= does not enter airway Thin Liquid via sequential straw sips w/esophageal screen : Result: 2= enter airway/above vocal folds/ejected 1/2 Cookie w/esophageal screen : Result: 1= does not enter airway Thin Liquid via single cup sip w/esophageal screen : Result: 2= enter airway/above vocal folds/ejected Oral Phase Labial Seal: No Labial Escape Tongue Control During Bolus Hold: Posterior escape of greater than half of bolus Bolus Preparation/Mastication: Slow prolonged chewing/mashing with complete recollection Bolus Transport/Lingual Motion: Delayed initiation of tongue motion Oral Residue: Trace residue lining oral structures Pharyngeal Phase Initiation of Pharyngeal Swallow: Bolus head in pyriforms Soft Palate Elevation: Trace column of contrast/air between soft palate and pharyngeal wall Laryngeal Elevation: Partial superior movement thyroid cart/partial apprx aryt-epig petiole Anterior Hyoid Excursion: Partial anterior movement Epiglottic Movement: Complete inversion Laryngeal Vestibule Closure at Height of Swallow: Incomplete; narrow column of air/contrast in laryngeal vestibule Pharyngeal Stripping Wave: Present - complete Pharyngoesophageal Segment Opening: Parital distension and partial duration; parital obstruction of flow Tongue Base Retraction: Trace column of contrast between tongue base & post. pharyngeal wall Pharyngeal Residue: Trace residue within or on pharyngeal structures Esophageal Phase Esophageal Clearance: Esophageal retention w/ retrograde flow below pharyngoesophageal seg. Treatment Strategies Effects of treatment strategies attemped:: Thin Liquid wash to improve esophageal retention = somewhat effective Diagnosis/Impression Diagnosis: Mild Oropharyngeal Dysphagia (R13.12), Esophageal Dysphagia (R13.14) Impression: The oral phase is primarily marked by... -Decreased bolus control with >1/2 of the bolus spilling posteriorly to the pyriforms prior to swallow onset observed with thin liquids especially. -Prolonged mastication and tongue motion for A-P transport. The pharyngeal phase is primarily marked by... -Mildly decreased airway closure during the swallow due to partial anterior hyoid excursion, and decreased laryngeal elevation. -Mildly decreased tongue base retraction, and mildly decreased UES opening/duration, with resulting trace pharyngeal residues after the swallow. -No aspiration observed during the study. Deep laryngeal penetration of thin liquids to the vocal folds, which did reliably eject, placing patient at increased risk for aspiration. The esophageal phase is primarily marked by... -Esophageal retention of pudding in mid and lower esophagus with retrograde flow below UES. This esophageal retention had somewhat improved clearance when provided thin liquid wash, which appeared to worsen as the study continued and trials increased. Recommendations Diet: Regular Textures and Thin Liquids Compensatory Strategies: Small Bites, Small Sips, Slow Rate, Alternate bites/solids and sips/liquids, Sitting upright and Remain sitting upright for 30 minutes after PO intake Supervision: Distant Supervision Recommend Repeat Modified Barium Swallow: Yes Need for Skilled Speech Therapy Services: Yes Comment: Will recommend the patient for dysphagia therapy to address deficits in oropharyngeal swallow function. Will recommend the patient for oropharyngeal strengthening to improve lingual coordination, tongue base retraction, laryngeal elevation, hyoid excursion, and duration of UES opening. The patient would benefit from thorough education regarding diet recommendations and recommended compensatory strategies. Additionally, would recommend patient for GI consult to address esophageal concerns. Recommended Referrals: GI Consult Education Completed: 1. Described result of evaluation., 2. Pt understands evaluation & agrees with goals and treatment plan. and 7. Pt requires further education on strategies & risks. Status Active ST Patient: Active Contact Information [facility] Speech Therapy:: Jeff Cortes M.A. [employer]ICER Speech-Language Pathologist [facility] [address] [place] [address] [email or web address]
[2023-02-04] MEDS: Calcium (Elemental) 500 MG Tablet PO (16:56)
[2023-02-04] MEDS: Carvedilol 12.5 MG Tablet PO (16:56)
[2023-02-04] MEDS: Acetaminophen 325 MG Tablet 650 MG PO (17:00)
[2023-02-04 17:15] LABS: Bedside Glucose 249 mg/dL (74-106)
[2023-02-04] MEDS: APIXABAN 5 MG TABLET PO (20:51)
[2023-02-04] MEDS: Isosorbide Mononitrate 30 MG Tablet PO (20:52)
[2023-02-04] MEDS: Atorvastatin Calcium 40 MG Tablet PO (20:52)
[2023-02-04] MEDS: guaiFENesin 1,200 MG Tablet 1200 MG PO (20:52)
[2023-02-04] MEDS: Ranolazine 500 MG Tablet PO (20:53)
[2023-02-04] MEDS: Senna/Docusate Sodium 1 Tablet 2 TABLET PO (20:53)
[2023-02-04 21:19] LABS: Bedside Glucose 262 mg/dL (74-106)
[2023-02-05] VITALS (18 sets, daily range): BP systolic 119–154; BP diastolic 51–77; PULSE 65–85; RESP 16–24; TEMP 36.4–36.8; O2SAT 83–98; BMI 28.1
[2023-02-05] MEDS: Ipratropium/Albuterol Sulfate 3 ML AMPUL.NEB INHALATION ×5 (05:06→23:45)
[2023-02-05] MEDS: Nitroglycerin (INPATIENT USE) 0.4 MG TAB.SUBL SL ×2 (05:25→05:32)
--- NOTE | 2023-02-05 05:25 | EKG12_ITS ---
Test Reason : CHEST PAIN, SACHIN Blood Pressure : / mmHG Vent. Rate : 078 BPM Atrial Rate : 078 BPM P-R Int : 138 ms QRS Dur : 120 ms QT Int : 408 ms P-R-T Axes : 053 034 030 degrees QTc Int : 465 ms Normal sinus rhythm Right bundle branch block Abnormal ECG When compared with ECG of 03-FEB-2023 08:42, MANUAL COMPARISON REQUIRED, DATA IS UNCONFIRMED Confirmed by TANA LOPEZ, NINI ([id number]), senior editor WU PRIETO ([id number]) on 02/06/2023 9:34:38 AM Referred By: Philippe Ny Confirmed By:NINI FAJARDO MD
[2023-02-05] MEDS: oxyCODONE 5 MG Tablet PO (05:36)
[2023-02-05] MEDS: Acetaminophen 325 MG Tablet 650 MG PO (05:37)
[2023-02-05] MEDS: 0.9% Saline Lock 10 ML Syringe IV ×3 (05:37→21:06)
[2023-02-05] MEDS: Pantoprazole Sodium 40 MG Tablet PO (05:38)
[2023-02-05] MEDS: Ranolazine 500 MG Tablet PO ×2 (05:43→20:57)
[2023-02-05] MEDS: Isosorbide Mononitrate 30 MG Tablet PO (05:43)
--- NOTE | 2023-02-05 05:50 | NURSING ---
pt with complaint of chest pain to primary rn radiates down left arm. meteorologist in charge in to see pt, nitro given x2 pain improved. primary rn notified dr preciado new orders. meds given early per Dr Barnes for heart, 02/04 missed am doses of heart meds and protonix. pt states she isnt sure if it is epigastric or heart related. pt resting quietly in bed. vs wnl
[2023-02-05] MEDS: Ondansetron 4 MG/2 ML Vial IV (05:54)
[2023-02-05] MEDS: Carvedilol 12.5 MG Tablet PO (06:02)
--- NOTE | 2023-02-05 06:14 | NURSING ---
pt reports pain is improving. fed a few bites of applesauce. denies arm pain now. bed exit on. lab in room
[2023-02-05 06:26] LABS: Bedside Glucose 157 mg/dL (74-106)
[2023-02-05 07:05] LABS: Troponin-I HS 380 pg/mL (3.0-54.0)
--- NOTE | 2023-02-05 07:30 | PCM.PN.HOSP ---
Reason for Visit Reason for Visit: Diagnoses Type 2 diabetes mellitus with other specified complication (02/01/23) Essential (primary) hypertension (02/01/23) Paroxysmal atrial fibrillation (02/01/23) Chronic obstructive pulmonary disease with (acute) exacerbation (02/01/23) Chest pain, unspecified (02/01/23) Hypoxemia (02/01/23) Other specified abnormalities of plasma proteins (02/01/23) Subjective Subjective Seen clinical condition improved. Plans for patient to be assessed for home oxygen needs Objective Data Objective Data Vital Signs: Vital Signs Temp Pulse Resp BP Pulse Ox O2 Del Method O2 Flow Rate 98.3 F 79 24 H 154/73 H 92 Nasal Cannula 4 02/05/23 03:36 02/05/23 06:00 02/05/23 05:08 02/05/23 06:00 02/05/23 05:08 02/05/23 05:08 02/05/23 05:08 FiO2 95 02/02/23 06:26 Oxygen Flow Rate (L/min) 4 Oxygen Delivery Method Nasal Cannula Weight: 65 kg Body Mass Index (BMI) 28.1 Intake & Output: Intake and Output for Last 24 Hours 02/03/23 02/04/23 02/05/23 23:59 23:59 23:59 Intake Total 450 / 750 800 / 1150 350 / 350 Output Total 800 / 800 900 / 1100 650 / 650 Balance -350 / -50 -100 / 50 -300 / -300 Lab / Micro Data 02/05/23 06:08 02/05/23 06:08 Labs: Laboratory Results - last 24 hr 02/04/23 11:29: POC Glucose 204 H 02/04/23 16:53: POC Glucose 249 H 02/04/23 20:48: POC Glucose 262 H 02/05/23 05:58: POC Glucose 157 H 02/05/23 06:08: Troponin I High Sens 380 H* Micro: Microbiology 02/01/23 15:45 Nasal Secretion SARS-CoV-2 & FLU Antigen (Rapid) - Final 02/01/23 20:22 Mucosa - Nasopharyngeal Respiratory Panel (PCR) - Final RSV B 02/01/23 21:25 Urine, Clean Catch Legionella Antigen - Final 02/01/23 21:25 Urine, Clean Catch Streptococcus pneumoniae Antigen (M - Final Radiography Diagnostic Testing: Radiology Impression Echocardiogram 02/03/23 08:17 Interpretation Summary Normal LV size. Left ventricular systolic function is lower limits of normal. Stage 1 diastolic dysfunction. The left atrium is mildly enlarged. Contrast injection was performed. Ordering Physician: Rachel Sutton Referring Physician: Philippe Ny Performed By: Anoop Penaloza RCS Chest X-Ray 02/04/23 13:35 IMPRESSION: Mild degree of increased markings at the lung bases suggestive of possible bibasilar atelectasis. Electronically Signed: Dwaine Munoz MD at 15:51 EDT , Rhythm Strip Rhythm Strip: Sinus Rhythm Physical Exam Narrative GENERAL: Frail looking HEENT: Atraumatic; normocephalic EYES; Anicteric, Normal Conjunctiva NECK; supple, normal thyroid, RESPIRATORY: Diminished to auscultation CARDIOVASCULAR: Regular S1 S2, GI: soft, normoactive bowel sounds, : No Renal angle tenderness; EXTREMITIES: No edema, no clubbing, MUSCULOSKELETAL: no muscle wasting NEURO: Awake; no lateralizing signs. SKIN: No Rash PSYCH; Flat affect Assessment & Plan Assessment/Plan (1) COPD exacerbation: PLAN: Plan Patient is an 87-year-old lady who presented with shortness of breath and assessment of COPD with acute exacerbation made. 1. COPD with acute exacerbation ? Secondary to RSV infection. Patient management systemic steroid bronchodilator treatment as well as antibiotic therapy 2. Elevated troponin ? Secondary to demand ischemia from above. Consult was however placed to cardiology given patient history of coronary artery disease with CABG at subsequent stent 3 coronary artery disease ? With history of CABG and subsequent stent 4. Thrombocytopenia ? Monitoring with daily CBC with differential 5. Diabetes mellitus type II -patient's oral hypoglycemics held. Placed on long acting insulin, Accu-Cheks a.c. and at bedtime and covered with sliding scale insulin 6. Paroxysmal A-fib ? Rate controlled, on systemic anticoagulation with 7. Hypertension - Blood pressure controlled, home medications continued with dose adjustment as needed 8. Depression with anxiety ? Patient is on SSRI 9. Degenerative osteoarthritis ? Patient is on leflunomide 10. Osteoporosis ? With history of fracture of the made metatarsal patient is on vitamin D3 supplementation and Prolia 11. DVT prophylaxis ? On apixaban Time spent in the patient's overall evaluation,decision-making process, review of diagnostic data, adjustment of management, discussion with other providers, nursing nursing and ancillary staff involved in patient's care documentation, 35 minutes Charges/Coding Visit Charges Inpatient E&M: 41117 Subs Hosp L2
[2023-02-05 07:57] LABS: Absolute Lymphocyte Count 0.91 X10^3/uL (0.83-4.51); Absolute Neutrophil Count 6.6 X10^3/uL (2.0-7.7); Basophil# 0.03 X10^3/uL; Basophil% 0.4 % (0-1); Eosinophil# 0.01 X10^3/uL; Eosinophils% 0.1 % (0-5); Hemoglobin 12.9 g/dL (12.0-15.0); Lymphocyte # 0.91 X10^3/ul (0.83-4.51); Lymphocyte % 10.9 % (19-41); Mean Corp Hgb Conc 31.5 g/dL (32-36); Mean Corpuscular Hgb 30.5 pg (27.0-32.0); Mean Corpuscular Volume 96.9 fL (81-99); Mean Platelet Vol. 10.5 fl (6.2-12.0); Monocyte# 0.71 X10^3/uL; Monocyte% 8.5 % (0-10); NRBC Flagged by Analyzer 0 % (0-5); Neutrophil # 6.64 X10^3/uL (2.7-7.7); Neutrophil % 79.3 % (47-70); Platelet Count 150 K/mm3 (150-450); RBC Distribution Width CV 14.1 % (11.6-14.6); RBC Distribution Width SD 50.4 fl (35.1-43.9); Red Blood Count 4.23 M/mm3 (4.2-5.4); White Blood Count 8.4 K/mm3 (4.4-11.0)
[2023-02-05 08:02] LABS: Anion Gap 9 (5-15); BUN 34 mg/dL (7-18); BUN/Creat Ratio 28.6 RATIO (10-20); Calcium,Total 8.6 mg/dL (8.5-10.1); Chloride 101 mmol/L (98-107); Creatinine, Serum 1.19 mg/dL (0.55-1.02); EST Glomerular Filtration Rate 46 mL/min (>60); Est Glom Filt Rate - Afr Amer 55 mL/min (>60); Estimated Creatinine Clearance 24.83 ml/min; Glucose 158 mg/dL (74-106); Magnesium 2.3 mg/dL (1.6-2.6); Phosphorus 4.1 mg/dL (2.5-4.9); Sodium Level 135 mmol/L (136-145)
[2023-02-05] MEDS: Sertraline 50 MG Tablet 25 MG PO (09:18)
[2023-02-05] MEDS: APIXABAN 5 MG TABLET PO ×2 (09:18→20:57)
[2023-02-05] MEDS: Cholecalciferol (VIT D3) 25 MCG TABLET (1,000 UNITS) PO (09:18)
[2023-02-05] MEDS: guaiFENesin 1,200 MG Tablet 1200 MG PO ×2 (09:19→20:57)
[2023-02-05] MEDS: amLODIPine 10 MG Tablet PO (09:19)
[2023-02-05] MEDS: Glimepiride 1 MG Tablet PO (09:19)
[2023-02-05] MEDS: Insulin Glargine-YFGN 100 UNIT/ML Pen SC (09:19)
[2023-02-05] MEDS: Leflunomide 10 MG TABLET PO (09:19)
[2023-02-05] MEDS: Senna/Docusate Sodium 1 Tablet 2 TABLET PO ×2 (09:20→20:57)
[2023-02-05] MEDS: Azithromycin 250 MG Tablet 500 MG PO (09:24)
[2023-02-05] MEDS: Furosemide 40 MG Tablet PO (09:24)
[2023-02-05] MEDS: Calcium (Elemental) 500 MG Tablet PO ×2 (09:24→16:53)
--- NOTE | 2023-02-05 09:35 | CASEMGMT ---
CHANDAN THOMAS into pt room to discuss dc planning, pt dtr Kimberley present. She asks to speak to hospitalist. Updated hospitalist. PT did not recommend therapy but pt reports she has not been out of bed since. Pt currently on 4L oxygen. CHANDAN THOMAS to follow.
[2023-02-05 09:51] LABS: Pathologist Review Reviewed
--- NOTE | 2023-02-05 11:53 | NURSING ---
SPO2: at rest on room air = 83% at rest on 2L NC = 88 at rest on 3L NC = 92
[2023-02-05] MEDS: Insulin Lispro 100 UNIT/ML INSULN.PEN SC ×3 (11:55→20:59)
--- NOTE | 2023-02-05 12:58 | PCM.PN.CARD ---
Subjective Subjective Patient had an episode of chest pain last night. Resolved. Continues to have shortness of breath. Objective Data Vital Signs: Vital Signs Temp Pulse Resp BP Pulse Ox O2 Del Method O2 Flow Rate 97.9 F 78 20 H 150/72 H 83 Nasal Cannula 3 02/05/23 09:12 02/05/23 09:12 02/05/23 09:12 02/05/23 09:12 02/05/23 11:52 02/05/23 09:12 02/05/23 11:52 FiO2 95 02/02/23 06:26 Oxygen Flow Rate (L/min) [ 4 AMBULATING with Oxygen #2] Oxygen Flow Rate (L/min) [ 3 AMBULATING with Oxygen #1] Oxygen Flow Rate (L/min) [At 3 REST with Oxygen] Oxygen Flow Rate (L/min) 4 Oxygen Delivery Method Nasal Cannula Weight: 143 lb 4.807 oz Body Mass Index (BMI) 28.1 Intake & Output: Intake and Output for Last 24 Hours 02/03/23 02/04/23 02/05/23 23:59 23:59 23:59 Intake Total 450 / 750 800 / 1150 350 / 350 Output Total 800 / 800 900 / 1100 650 / 650 Balance -350 / -50 -100 / 50 -300 / -300 Lab / Micro Data 02/05/23 06:08 02/05/23 06:08 Labs: Laboratory Results - last 24 hr 02/02/23 05:50: Diff Path Review Reviewed 02/04/23 16:53: POC Glucose 249 H 02/04/23 20:48: POC Glucose 262 H 02/05/23 05:58: POC Glucose 157 H 02/05/23 06:08: WBC 8.4, RBC 4.23, Hgb 12.9, Hct 41.0, MCV 96.9, MCH 30.5, MCHC 31.5 L D, RDW Std Deviation 50.4 H, RDW Coeff of Raza 14.1, Plt Count 150, MPV 10.5, Immature Gran % (Auto) 0.800, Neut % (Auto) 79.3 H, Lymph % (Auto) 10.9 L, Beaver % (Auto) 8.5, Eos % (Auto) 0.1, Baso % (Auto) 0.4, Absolute Neuts (auto) 6.6, Absolute Lymphs (auto) 0.91, Nucleated RBC % 0, Sodium 135 L, Potassium 3.0 L, Chloride 101, Carbon Dioxide 25.0, Anion Gap 9, BUN 34 H, Creatinine 1.19 H, Estim Creat Clear Calc 24.83, Est GFR (MDRD) Af Amer 55 L, Est GFR (MDRD) Non-Af 46 L, BUN/Creatinine Ratio 28.6 H, Glucose 158 H, Calcium 8.6, Phosphorus 4.1, Magnesium 2.3, Troponin I High Sens 380 H* Rhythm Strip Rhythm Strip: Sinus Rhythm Cardiology Labs/Tests 02/05/23 06:08: WBC 8.4, RBC 4.23, Hgb 12.9, Hct 41.0, MCV 96.9, MCH 30.5, MCHC 31.5 L D, Plt Count 150, MPV 10.5, Immature Gran % (Auto) 0.800, Neut % (Auto) 79.3 H, Lymph % (Auto) 10.9 L, Beaver % (Auto) 8.5, Eos % (Auto) 0.1, Baso % (Auto) 0.4, Absolute Neuts (auto) 6.6, Nucleated RBC % 0, Sodium 135 L, Potassium 3.0 L, Chloride 101, Carbon Dioxide 25.0, Anion Gap 9, BUN 34 H, Creatinine 1.19 H, Est GFR (MDRD) Af Amer 55 L, Est GFR (MDRD) Non-Af 46 L, BUN/Creatinine Ratio 28.6 H, Glucose 158 H, Calcium 8.6, Phosphorus 4.1, Magnesium 2.3 Rhythm: EKG: ECHO: Stress Test: Cardiac Cath: PCI: CT Surgery: Holter monitor: EPS: PPM: CXR: Chest CT Scan: Radiography Diagnostic Testing: Radiology Impression Echocardiogram 02/03/23 08:17 Interpretation Summary Normal LV size. Left ventricular systolic function is lower limits of normal. Stage 1 diastolic dysfunction. The left atrium is mildly enlarged. Contrast injection was performed. Ordering Physician: Rachel Sutton Referring Physician: Philippe Ny Performed By: Anoop Penaloza RCS Chest X-Ray 02/04/23 13:35 IMPRESSION: Mild degree of increased markings at the lung bases suggestive of possible bibasilar atelectasis. Electronically Signed: Dwaine Munoz MD at 15:51 EDT , Physical Exam Const Constitutional Narrative: Comfortable. No apparent distress. Lying flat in the bed. No JVD. Heart sounds 1 and 2 noted. Chest auscultation reveals bilateral lateral diffuse wheezing and fine crepitations. Abdomen soft. Alert oriented x3. No ankle edema noted. Assessment & Plan Assessment/Plan (1) Chest pain: PLAN: History of severe coronary artery disease. Angina pectoris likely secondary to hypoxia with COPD exacerbation superimposed on baseline CAD. Continue medical management. Decrease carvedilol in view of bronchospastic disease. Stop amlodipine. Start on diltiazem. Stop Imdur. Start Nitropaste. (2) Elevated troponin: PLAN: NSTEMI. Likely type II because of COPD exacerbation and hypoxia superimposed on underlying CAD. Discussed with patient. Make changes to medicines as noted above. If patient however continues to have recurrent angina, then will consider coronary angiography and possible revascularization. (3) COPD exacerbation: PLAN: As per internal medicine. Decrease beta-saravanan dose as noted above in view of bronchospastic disease. (4) Hypoxia: PLAN: Secondary to 3 above. Continue to manage as per internal medicine. (5) Paroxysmal atrial fibrillation: PLAN: Presently normal sinus rhythm. (6) Hypertension: PLAN: Blood pressure not optimally controlled. Start on angiotensin receptor saravanan. 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
--- NOTE | 2023-02-05 13:33 | NURSING ---
household cook Sofie notified of orders to transfer to PCU
--- NOTE | 2023-02-05 13:54 | NURSING ---
primary updated room 112 pcu
[2023-02-05 14:31] LABS: Bedside Glucose 260 mg/dL (74-106)
[2023-02-05] MEDS: Furosemide 40 MG/4 ML Vial IV (16:51)
[2023-02-05] MEDS: Carvedilol 3.125 MG TABLET PO (17:08)
[2023-02-05] MEDS: Losartan Potassium 25 MG Tablet PO (18:33)
[2023-02-05] MEDS: Clopidogrel Bisulfate 75 MG Tablet PO (18:33)
[2023-02-05] MEDS: dilTIAZem 60 MG Tablet PO ×2 (18:34→23:46)
[2023-02-05 20:11] LABS: Bedside Glucose 313 mg/dL (74-106)
[2023-02-05] MEDS: Atorvastatin Calcium 40 MG Tablet PO (20:59)
[2023-02-05 21:28] LABS: Bedside Glucose 251 mg/dL (74-106)
[2023-02-06] VITALS (16 sets, daily range): BP systolic 110–137; BP diastolic 44–53; PULSE 55–106; RESP 16–20; TEMP 36.4–36.7; O2SAT 87–98; BMI 26.9
[2023-02-06 06:16] LABS: Absolute Lymphocyte Count 0.55 X10^3/uL (0.83-4.51); Absolute Neutrophil Count 4.5 X10^3/uL (2.0-7.7); Basophil# 0.01 X10^3/uL; Basophil% 0.2 % (0-1); Hematocrit 41.2 % (37-47); Hemoglobin 13.3 g/dL (12.0-15.0); Lymphocyte # 0.55 X10^3/ul (0.83-4.51); Lymphocyte % 10.2 % (19-41); Mean Corp Hgb Conc 32.3 g/dL (32-36); Mean Corpuscular Hgb 30.6 pg (27.0-32.0); Mean Corpuscular Volume 94.9 fL (81-99); Mean Platelet Vol. 11.2 fl (6.2-12.0); Monocyte# 0.31 X10^3/uL; Monocyte% 5.7 % (0-10); NRBC Flagged by Analyzer 0 % (0-5); Neutrophil % 83.3 % (47-70); POSITIVE DIFFERENTIAL YES; Platelet Count 148 K/mm3 (150-450); RBC Distribution Width CV 13.8 % (11.6-14.6); RBC Distribution Width SD 48.6 fl (35.1-43.9); Red Blood Count 4.34 M/mm3 (4.2-5.4); White Blood Count 5.4 K/mm3 (4.4-11.0)
[2023-02-06 06:20] LABS: Differential Indicated SCAN CRITERIA MET
[2023-02-06 06:41] LABS: Platelet Estimate SLT DEC (ADEQ)
[2023-02-06] MEDS: dilTIAZem 60 MG Tablet PO ×4 (06:42→23:44)
[2023-02-06] MEDS: Insulin Lispro 100 UNIT/ML INSULN.PEN SC ×4 (06:43→21:05)
[2023-02-06] MEDS: 0.9% Saline Lock 10 ML Syringe IV ×2 (06:45→21:08)
[2023-02-06] MEDS: Ipratropium/Albuterol Sulfate 3 ML AMPUL.NEB INHALATION ×4 (06:57→19:52)
[2023-02-06 07:07] LABS: Bedside Glucose 234 mg/dL (74-106)
[2023-02-06 07:29] LABS: Anion Gap 8 (5-15); BUN 45 mg/dL (7-18); BUN/Creat Ratio 31.7 RATIO (10-20); Calcium,Total 8.9 mg/dL (8.5-10.1); Chloride 98 mmol/L (98-107); Creatinine, Serum 1.42 mg/dL (0.55-1.02); EST Glomerular Filtration Rate 37 mL/min (>60); Est Glom Filt Rate - Afr Amer 45 mL/min (>60); Estimated Creatinine Clearance 20.81 ml/min; Glucose 244 mg/dL (74-106); Potassium 3.2 mmol/L (3.5-5.1); Sodium Level 137 mmol/L (136-145)
--- NOTE | 2023-02-06 08:29 | STRESSREP ---
Stress Test Report Date: 02/06/2023 Procedure: Exercise tolerance test/imaging study Indications: Chest pain Consent: Per the patient Procedure: The patient exercised on a Marvin protocol for 7 minutes and 30 achieving a peak heart rate of 140 bpm (89% predicted maximal heart rate) with a peak blood pressure 178/7 mmHg and a peak MET capacity of 10.1 METs. The baseline ECG demonstrated normal sinus rhythm. The peak exercise ECG demonstrated no ischemic changes however horizontal ST depressions noted in inferior leads in recovery.. There were no cardiac dysrhythmias pretest, during exercise, or recovery. The functional capacity was considered average. There was no complaint of chest discomfort during exercise or recovery. The examination was discontinued secondary to target heart rate being achieved. The patient was injected with 11.4 mCi of technetium 99m Cardiolite and subsequently rest SPECT Cardiolite nuclear imaging was obtained in the horizontal long, vertical long, and short axis views. Post-exercise, the patient was injected with 33 point mCi of technetium 99m Cardiolite and subsequently stress SPECT Cardiolite nuclear imaging was obtained in the horizontal long, vertical long, and short axis views. A gated Cardiolite study at peak stress was obtained. Rest and stress SPECT Cardiolite nuclear imaging status post realignment, normalization, and attenuation correction, demonstrates the appearance of relative uniform tracer uptake and myocardial perfusion appearing within normal limits. There is end systolic thickening and brightening. The gated Cardiolite study demonstrates myocardial thickening and inward wall motion. The reported LVEF is 79%. Impression: 1. Technically adequate (percent predicted maximal heart rate greater than 85%) exercise tolerance test 2. Peak exercise ECG with no ischemic changes however horizontal ST depressions noted in recovery, suggestive of ischemia. 3. There were no cardiac dysrhythmias pretest, during exercise, or recovery 4. Rest and stress SPECT Cardiolite nuclear imaging demonstrate no fixed or reversible perfusion defects. 5. The gated Cardiolite study reports an LVEF of 79%. 6. Ischemic changes noted on ECG in recovery however no perfusion defects on nuclear imaging. This note was generated with [employer] software. It may contain incorrect words, spelling, and punctuation that were not noted in checking the note before signing.
--- NOTE | 2023-02-06 08:29 | PCM.PN.HOSP ---
Reason for Visit Reason for Visit: Diagnoses Type 2 diabetes mellitus with other specified complication (02/01/23) Essential (primary) hypertension (02/01/23) Paroxysmal atrial fibrillation (02/01/23) Chronic obstructive pulmonary disease with (acute) exacerbation (02/01/23) Chest pain, unspecified (02/01/23) Hypoxemia (02/01/23) Other specified abnormalities of plasma proteins (02/01/23) Subjective Subjective Patient was found to have choking sensation with meals. Was assessed by speech therapy recommended for GI to be consulted awaiting GI input Objective Data Objective Data Vital Signs: Vital Signs Temp Pulse Resp BP Pulse Ox O2 Del Method O2 Flow Rate 97.8 F 72 18 127/48 H 93 Nasal Cannula 4 02/06/23 03:10 02/06/23 06:58 02/06/23 06:58 02/06/23 06:39 02/06/23 06:58 02/06/23 06:58 02/06/23 06:58 FiO2 95 02/02/23 06:26 Oxygen Flow Rate (L/min) [ 4 AMBULATING with Oxygen #2] Oxygen Flow Rate (L/min) [ 3 AMBULATING with Oxygen #1] Oxygen Flow Rate (L/min) [At 3 REST with Oxygen] Oxygen Flow Rate (L/min) 4 Oxygen Delivery Method Nasal Cannula Weight: 62.7 kg Body Mass Index (BMI) 26.9 Intake & Output: Intake and Output for Last 24 Hours 02/04/23 02/05/23 02/06/23 23:59 23:59 23:59 Intake Total 800 / 1150 1090 / 1090 Output Total 900 / 1100 2400 / 2400 1050 / 1050 Balance -100 / 50 -1310 / -1310 -1050 / -1050 Lab / Micro Data 02/06/23 05:15 02/06/23 05:15 Labs: Laboratory Results - last 24 hr 02/02/23 05:50: Diff Path Review Reviewed 02/05/23 11:49: POC Glucose 260 H 02/05/23 16:55: POC Glucose 313 H 02/05/23 20:50: POC Glucose 251 H 02/06/23 05:15: WBC 5.4, RBC 4.34, Hgb 13.3, Hct 41.2, MCV 94.9, MCH 30.6, MCHC 32.3, RDW Std Deviation 48.6 H, RDW Coeff of Raza 13.8, Plt Count 148 L, MPV 11.2, Immature Gran % (Auto) 0.600, Neut % (Auto) 83.3 H, Lymph % (Auto) 10.2 L, [place] % (Auto) 5.7, Eos % (Auto) 0.0, Baso % (Auto) 0.2, Absolute Neuts (auto) 4.5, Absolute Lymphs (auto) 0.55 L, Nucleated RBC % 0, Platelet Estimate SLT DEC, Sodium 137, Potassium 3.2 L, Chloride 98, Carbon Dioxide 31.0, Anion Gap 8, BUN 45 H, Creatinine 1.42 H, Estim Creat Clear Calc 20.81, Est GFR (MDRD) Af Amer 45 L, Est GFR (MDRD) Non-Af 37 L, BUN/Creatinine Ratio 31.7 H, Glucose 244 H, Calcium 8.9 02/06/23 06:34: POC Glucose 234 H Micro: Microbiology 02/01/23 15:45 Nasal Secretion SARS-CoV-2 & FLU Antigen (Rapid) - Final 02/01/23 20:22 Mucosa - Nasopharyngeal Respiratory Panel (PCR) - Final RSV B 02/01/23 21:25 Urine, Clean Catch Legionella Antigen - Final 02/01/23 21:25 Urine, Clean Catch Streptococcus pneumoniae Antigen (M - Final Rhythm Strip Rhythm Strip: Sinus Rhythm Physical Exam Narrative GENERAL: Frail looking HEENT: Atraumatic; normocephalic EYES; Anicteric, Normal Conjunctiva NECK; supple, normal thyroid, RESPIRATORY: Diminished to auscultation CARDIOVASCULAR: Regular S1 S2, GI: soft, normoactive bowel sounds, : No Renal angle tenderness; EXTREMITIES: No edema, no clubbing, MUSCULOSKELETAL: no muscle wasting NEURO: Awake; no lateralizing signs. SKIN: No Rash PSYCH; Flat affect Assessment & Plan Assessment/Plan (1) COPD exacerbation: PLAN: Plan Patient is an 87-year-old lady who presented with shortness of breath and assessment of COPD with acute exacerbation made. 1. COPD with acute exacerbation ? Secondary to RSV infection. Patient management systemic steroid bronchodilator treatment as well as antibiotic therapy ? 02/06/2023 patient remains slightly dyspneic at rest we will continue with current regimen 2. Elevated troponin ? Secondary to demand ischemia from above. Consult was however placed to cardiology given patient history of coronary artery disease with CABG at subsequent stent ? 02/06/2023 patient was seen in consultation again by cardiology in view of persistent chest pain with slightly elevated troponin. Cardiology recommended optimization of medical therapy 3 coronary artery disease ? With history of CABG and subsequent stent 4. Thrombocytopenia ? Monitoring with daily CBC with differential 5. Diabetes mellitus type II -patient's oral hypoglycemics held. Placed on long acting insulin, Accu-Cheks a.c. and at bedtime and covered with sliding scale insulin 6. Paroxysmal A-fib ? Rate controlled, on systemic anticoagulation with 7. Hypertension - Blood pressure controlled, home medications continued with dose adjustment as needed 8. Depression with anxiety ? Patient is on SSRI 9. Degenerative osteoarthritis ? Patient is on leflunomide 10. Osteoporosis ? With history of fracture of the made metatarsal patient is on vitamin D3 supplementation and Prolia 11. DVT prophylaxis ? On apixaban 12. Dysphagia Patient was found to have choking sensation with meals. Was assessed by speech therapy recommended for GI to be consulted Time spent in the patient's overall evaluation,decision-making process, review of diagnostic data, adjustment of management, discussion with other providers, nursing nursing and ancillary staff involved in patient's care documentation, 35 minutes Charges/Coding Visit Charges Inpatient E&M: 17728 Subs Hosp L2
[2023-02-06] MEDS: Calcium (Elemental) 500 MG Tablet PO ×2 (09:23→16:43)
[2023-02-06] MEDS: Carvedilol 3.125 MG TABLET PO ×2 (09:24→16:43)
[2023-02-06] MEDS: Clopidogrel Bisulfate 75 MG Tablet PO (09:25)
[2023-02-06] MEDS: Losartan Potassium 25 MG Tablet PO (09:25)
[2023-02-06] MEDS: Insulin Glargine-YFGN 100 UNIT/ML Pen SC (09:25)
[2023-02-06] MEDS: Leflunomide 10 MG TABLET PO (09:25)
[2023-02-06] MEDS: Pantoprazole Sodium 40 MG Tablet PO (09:25)
[2023-02-06] MEDS: Sertraline 50 MG Tablet 25 MG PO (09:26)
[2023-02-06] MEDS: Cholecalciferol (VIT D3) 25 MCG TABLET (1,000 UNITS) PO (09:27)
--- NOTE | 2023-02-06 09:30 | CON.PCM.GI_ITS ---
HPI Consult Data Date of Consult: 02/06/23 HPI Narrative Reason for Consultation: dysphagia HPI Narrative: SUKUMAR IRVING, is a 87 F who presented with intermittent abdominal pain and shortness of breath. She has a past medical history of chronic bradycardia, OSBALDO, lupus, rheumatoid arthritis, anxiety, depression, paroxysmal atrial fibrillation on Eliquis therapy, CAD status post CABG. They ruled out a cardiac abnormality during his hospital stay. She has still been struggling with hypertension and bradycardia. She complains of shortness of breath/dyspnea on minimal exertion for about 1 week. This has been getting worse and patient has to use her rescue inhaler more frequently every 2-3 hours. Patient also has dry cough which is worse than normal. She feels like rattling in the chest/chest condition. Denies fever or chills. Mild postnasal drip/tickling sensation in the throat. Mild nausea. In ED, chest x-ray was done which is individually reviewed. No acute infiltrate or consolidation suggestive of pneumonia. The patient is admitted for COPD exacerbation. I was asked to see her for esophageal dysphagia. Had a long conversation with the patient and she said that she does not have esophageal dysphagia she does have 1 episode occurs when she eats too fast. However I received a phone call today from speech therapy she is having very poor esophageal clearance. I have experience with her previously in which she presented with upper GI bleed gastric ulcer and also apparently patient will stomach and distal esophagus. Also it was noted that her hemoglobin is still decreased. [facility] Medical History (Updated 02/06/23 @ 16:[address] العراقي Friend, DO) Anxiety Atherosclerosis of coronary artery bypass graft without angina pectoris Atherosclerosis of coronary artery of [place] heart without angina pectoris Atrial fibrillation with rapid ventricular response (12/24/20) Atypical chest pain Bradycardia Chest pain Choking sensation (~08/30/21) Chronic diastolic (congestive) heart failure Cloudy urine COPD (chronic obstructive pulmonary disease) Costochondral pain Debility Difficulty swallowing Essential (primary) hypertension Flu vaccine need fracture of the dorsal mid metatarsal (10/07/20) Gastroesophageal reflux disease GERD (gastroesophageal reflux disease) GI bleed History of coronary artery disease History of non-ST elevation myocardial infarction (NSTEMI) (12/25/20) Hyperkalemia Hyperlipemia Incomplete right bundle branch block Lightheadedness FPC current use of amiodarone Lupus erythematosus Nipple discharge Osteoarthritis Osteoporosis Paroxysmal atrial fibrillation Paroxysmal atrial flutter Peripheral vascular disease of extremity with claudication Right wrist pain Secondary pulmonary arterial hypertension Sleep apnea Type 2 diabetes mellitus UTI (urinary tract infection) UTI (urinary tract infection) Home Medications denosumab 60 mg/mL subcutaneous syringe (Prolia) 60 mg subcut [id number] #1 mL 08/09/21 [Rx Last Taken 1 Month Ago ~10/08/21] acetaminophen 500 mg tablet 1,000 mg PO Q6H PRN Pain 09/07/21 [History Last Taken 11/08/21] cholecalciferol (vitamin D3) 25 mcg (1,000 unit) capsule 25 mcg PO DAILY SUPPLEMENT 09/07/21 [History Last Taken 11/08/21] leflunomide 10 mg tablet 10 mg PO DAILY ARTHRITIS 09/07/21 [History Last Taken 11/08/21] calcium carbonate 500 mg calcium (1,250 mg) tablet 500 mg PO BID SUPPLEMENT 09/15/21 [History Last Taken 11/08/21] nitroglycerin 0.4 mg sublingual tablet 0.4 mg sublingual Q5-15M chest pain #25 tabs 09/18/21 [Rx Last Taken Unknown] blood-glucose meter (FreeStyle Lite Meter kit) #1 ea 10/31/21 [Rx Last Taken Unknown] apixaban 5 mg tablet (Eliquis) 5 mg PO BID #60 tabs 12/29/21 [Rx Last Taken Unknown] tramadol 50 mg tablet 50 mg PO DAILY PRN pain 06/05/22 [History Last Taken Unknown] sertraline 25 mg tablet 25 mg PO DAILY #90 tabs 06/12/22 [Rx Last Taken Unknown] glimepiride 1 mg tablet 1 mg PO QAM #90 tabs 06/27/22 [Rx Last Taken Unknown] ranolazine 500 mg tablet,extended release,12 hr (Ranexa) 500 mg PO BID #180 tabs 07/10/22 [Rx Last Taken Unknown] amlodipine 10 mg tablet 10 mg PO DAILY #30 tabs 07/18/22 [Rx Last Taken Unknown] isosorbide mononitrate 30 mg tablet,extended release 24 hr 30 mg PO BID #180 tabs 08/27/22 [Rx Last Taken Unknown] blood sugar diagnostic (FreeStyle Lite Strips) #100 strips 10/22/22 [Rx Last Taken Unknown] albuterol sulfate 90 mcg/actuation aerosol inhaler (ProAir HFA) 2 puff inha lation Q6H PRN Wheezing #8.5 grams 10/30/22 [Rx Last Taken Unknown] prednisone 5 mg tablet 10 mg PO DAILY 10/30/22 [History Last Taken Unknown] carvedilol 12.5 mg tablet 12.5 mg PO BID this is a dose increase #60 tabs 11/27/22 [Rx Last Taken Unknown] rosuvastatin 20 mg tablet 20 mg PO DAILY #90 tabs 12/19/22 [Rx Last Taken Unknown] lancets 28 gauge (FreeStyle Lancets) #200 ea 01/14/23 [Rx Last Taken Unknown] tizanidine 2 mg tablet 2 mg PO Q8H PRN muscle spasm 02/01/23 [History Last Taken Unknown] Allergy/AdvReac Type Severity Reaction Status Date / Time colchicine Allergy Other Verified 01/11/23 21:10 ezetimibe [From Zetia] Allergy Unknown Verified 01/11/23 21:10 isotretinoin [From Accutane] Allergy Other Verified 01/11/23 21:10 naproxen [From Aleve] Allergy hives and Verified 01/11/23 21:10 swelling quinine Allergy Other Verified 01/11/23 21:10 Sulfa (Sulfonamide Allergy Unknown Verified 01/11/23 21:10 Antibiotics) Family History Mother Myocardial infarction Arthritis Lupus Father Alzheimer disease Other Depression Respiratory disease Surgical History H/O coronary artery bypass surgery (06/14/09) History of angioplasty of peripheral vessel (08/29/16) History of ankle surgery History of bladder suspension procedure History of coronary artery stent placement (04/25/17) History of hysterectomy History of left heart catheterization (01/02/21) Hx laparoscopic cholecystectomy Social History household members: none Smoking Status: Former smoker how long ago did patient quit smoking: Quit 1987, smoked 2 ppd since age 22 untiol quit. alcohol intake: current alcohol intake frequency: 0-2 drinks per day details: Drinks 1 glass wine with dinner. substance use type: does not use what type of physical activity do you participate in: none Physical Exam Const alert, oriented x3 and no apparent distress General Appearance: cooperative HEENT hearing grossly normal bilaterally Head and Scalp: atraumatic Eyes EOMs intact bilaterally Neck General: normal visual inspection Chest inspection of chest normal and palpation of chest normal Resp normal respiratory effort Auscultation: wheezes Cardio regular rate, regular rhythm, S1 normal heart sound and S2 normal heart sound Jugular Venous Distention: JVD GI normal to inspection, nondistended, normoactive bowel sounds Extremity normal capillary refill and no pedal edema Peripheral Pulses: Yes pulses 2+ throughout and femoral pulses present Skin no rashes or lesions noted Neuro oriented x3 and CN's II-XII intact bilaterally Psych Appearance: grossly normal and appropriate Lab / Micro Data 02/06/23 05:15 02/06/23 05:15 Labs: Laboratory Results - last 24 hr 02/02/23 05:50: Diff Path Review Reviewed 02/05/23 11:49: POC Glucose 260 H 02/05/23 16:55: POC Glucose 313 H 02/05/23 20:50: POC Glucose 251 H 02/06/23 05:15: WBC 5.4, RBC 4.34, Hgb 13.3, Hct 41.2, MCV 94.9, MCH 30.6, MCHC 32.3, RDW Std Deviation 48.6 H, RDW Coeff of Raza 13.8, Plt Count 148 L, MPV 11.2, Immature Gran % (Auto) 0.600, Neut % (Auto) 83.3 H, Lymph % (Auto) 10.2 L, [place] % (Auto) 5.7, Eos % (Auto) 0.0, Baso % (Auto) 0.2, Absolute Neuts (auto) 4.5, Absolute Lymphs (auto) 0.55 L, Nucleated RBC % 0, Platelet Estimate SLT DEC, Sodium 137, Potassium 3.2 L, Chloride 98, Carbon Dioxide 31.0, Anion Gap 8, BUN 45 H, Creatinine 1.42 H, Estim Creat Clear Calc 20.81, Est GFR (MDRD) Af Amer 45 L, Est GFR (MDRD) Non-Af 37 L, BUN/Creatinine Ratio 31.7 H, Glucose 244 H, Calcium 8.9 02/06/23 06:34: POC Glucose 234 H Rhythm Strip Rhythm Strip: Sinus Rhythm Assessment & Plan Assessment/Plan (1) Difficulty swallowing: QUALIFIERS: Dysphagia type: pharyngeal phase Qualified Code(s): R13.13 - Dysphagia, pharyngeal phase PLAN: I have performed a upper endoscopy her approximately half ago when she presented with an upper GI bleed. She did have a very large. At that time. She is not sure when she received her fundoplication. Since she did not do well with a swallow study she should undergo to evaluate the GI tract. Recommend n.p.o. past midnight. Charges/Coding Visit Charges Inpatient E&M: 78854 Init Hosp L3
--- NOTE | 2023-02-06 09:44 | PN.CARD_ITS ---
Subjective Subjective Patient seen and evaluated. Appears to be breathing better today. Objective Data Vital Signs: Vital Signs Temp Pulse Resp BP Pulse Ox O2 Del Method O2 Flow Rate 97.5 F L 68 18 111/53 L 97 Nasal Cannula 4 02/06/23 09:31 02/06/23 09:31 02/06/23 09:31 02/06/23 09:31 02/06/23 09:31 02/06/23 09:31 02/06/23 06:58 FiO2 95 02/02/23 06:26 Oxygen Flow Rate (L/min) [ 4 AMBULATING with Oxygen #2] Oxygen Flow Rate (L/min) [ 3 AMBULATING with Oxygen #1] Oxygen Flow Rate (L/min) [At 3 REST with Oxygen] Oxygen Flow Rate (L/min) 4 Oxygen Delivery Method Nasal Cannula Weight: 138 lb 3.677 oz Body Mass Index (BMI) 26.9 Intake & Output: Intake and Output for Last 24 Hours 02/04/23 02/05/23 02/06/23 23:59 23:59 23:59 Intake Total 800 / 1150 1090 / 1090 Output Total 900 / 1100 2400 / 2400 1050 / 1050 Balance -100 / 50 -1310 / -1310 -1050 / -1050 Lab / Micro Data 02/06/23 05:15 02/06/23 05:15 Labs: Laboratory Results - last 24 hr 02/02/23 05:50: Diff Path Review Reviewed 02/05/23 11:49: POC Glucose 260 H 02/05/23 16:55: POC Glucose 313 H 02/05/23 20:50: POC Glucose 251 H 02/06/23 05:15: WBC 5.4, RBC 4.34, Hgb 13.3, Hct 41.2, MCV 94.9, MCH 30.6, MCHC 32.3, RDW Std Deviation 48.6 H, RDW Coeff of Raza 13.8, Plt Count 148 L, MPV 11.2, Immature Gran % (Auto) 0.600, Neut % (Auto) 83.3 H, Lymph % (Auto) 10.2 L, [place] % (Auto) 5.7, Eos % (Auto) 0.0, Baso % (Auto) 0.2, Absolute Neuts (auto) 4.5, Absolute Lymphs (auto) 0.55 L, Nucleated RBC % 0, Platelet Estimate SLT DEC, Sodium 137, Potassium 3.2 L, Chloride 98, Carbon Dioxide 31.0, Anion Gap 8, BUN 45 H, Creatinine 1.42 H, Estim Creat Clear Calc 20.81, Est GFR (MDRD) Af A oliver 45 L, Est GFR (MDRD) Non-Af 37 L, BUN/Creatinine Ratio 31.7 H, Glucose 244 H , Calcium 8.9 02/06/23 06:34: POC Glucose 234 H Rhythm Strip Rhythm Strip: Sinus Rhythm Cardiology Labs/Tests 02/06/23 05:15: WBC 5.4, RBC 4.34, Hgb 13.3, Hct 41.2, MCV 94.9, MCH 30.6, MCHC 32.3, Plt Count 148 L, MPV 11.2, Immature Gran % (Auto) 0.600, Neut % (Auto) 83.3 H, Lymph % (Auto) 10.2 L, [place] % (Auto) 5.7, Eos % (Auto) 0.0, Baso % (Auto) 0.2, Absolute Neuts (auto) 4.5, Nucleated RBC % 0, Sodium 137, Potassium 3.2 L, Chloride 98, Carbon Dioxide 31.0, Anion Gap 8, BUN 45 H, Creatinine 1.42 H, Est GFR (MDRD) Af Amer 45 L, Est GFR (MDRD) Non-Af 37 L, BUN/Creatinine Ratio 31.7 H, Glucose 244 H, Calcium 8.9 Rhythm: EKG: ECHO: Stress Test: Cardiac Cath: PCI: CT Surgery: Holter monitor: EPS: PPM: CXR: Chest CT Scan: Physical Exam Const alert, oriented x3 and no apparent distress General Appearance: cooperative HEENT hearing grossly normal bilaterally Head and Scalp: atraumatic Eyes EOMs intact bilaterally Neck General: normal visual inspection Chest inspection of chest normal and palpation of chest normal Resp normal respiratory effort Auscultation: wheezes Cardio regular rate, regular rhythm, S1 normal heart sound and S2 normal heart sound Jugular Venous Distention: JVD GI normal to inspection, nondistended, normoactive bowel sounds Extremity normal capillary refill and no pedal edema Peripheral Pulses: Yes pulses 2+ throughout and femoral pulses present Skin no rashes or lesions noted Neuro oriented x3 and CN's II-XII intact bilaterally Psych Appearance: grossly normal and appropriate Assessment & Plan Assessment/Plan (1) Chest pain: QUALIFIERS: Ischemic chest pain type: stable angina pectoris PLAN: History of severe coronary artery disease. Angina pectoris likely secondary to hypoxia with COPD exacerbation superimposed on baseline CAD. Continue medical management. Decrease carvedilol in view of bronchospastic disease. Stop amlodipine. Start on diltiazem. We will restart oral nitrates. No further angina in the last 24 hours. We will continue to manage medically. (2) Elevated troponin: PLAN: NSTEMI. Likely type II because of COPD exacerbation and hypoxia superimposed on underlying CAD. Discussed with patient. Make changes to medicines as noted above. If patient however continues to have recurrent angina , then will consider coronary angiography and possible revascularization. (3) COPD exacerbation: PLAN: As per internal medicine. Decrease beta-saravanan dose as noted above in view of bronchospastic disease. (4) Hypoxia: PLAN: Secondary to 3 above. Continue to manage as per internal medicine. (5) Paroxysmal atrial fibrillation: PLAN: Presently normal sinus rhythm. (6) Hypertension: PLAN: Blood pressure not optimally controlled. Start on angiotensin receptor saravanan. (7) Type 2 diabetes mellitus: QUALIFIERS: Diabetes mellitus salvage determiner insulin use: without usp use Diabetes mellitus complication status: with other specified complication Qualified Code(s): E11.69 - Type 2 diabetes mellitus with other specified complication PLAN: As per internal medicine.
[2023-02-06] MEDS: guaiFENesin 1,200 MG Tablet 1200 MG PO ×2 (11:14→21:05)
[2023-02-06] MEDS: Senna/Docusate Sodium 1 Tablet 2 TABLET PO ×2 (11:15→21:04)
[2023-02-06] MEDS: Ranolazine 500 MG Tablet PO ×2 (11:15→21:04)
[2023-02-06] MEDS: Furosemide 40 MG Tablet PO (11:15)
[2023-02-06] MEDS: Azithromycin 250 MG Tablet 500 MG PO (11:15)
[2023-02-06] MEDS: APIXABAN 5 MG TABLET PO ×2 (11:16→21:04)
[2023-02-06 13:15] LABS: Bedside Glucose 281 mg/dL (74-106)
[2023-02-06 16:33] LABS: Bedside Glucose 321 mg/dL (74-106)
--- NOTE | 2023-02-06 18:59 | NURSING ---
pt chesked and pulse is 98% on 2l-family isa concerns because pox was alarming but when spot checked w/ another device she has been normal all day except for when she is up to BR-pt now has purewick-attempt to call her daughter (bartolome) and mailbox full and can not leave msg-did not answer phone
[2023-02-06] MEDS: Atorvastatin Calcium 40 MG Tablet PO (21:04)
[2023-02-06] MEDS: Acetaminophen 325 MG Tablet 650 MG PO (21:21)
[2023-02-06 21:35] LABS: Bedside Glucose 199 mg/dL (74-106)
[2023-02-06 22:40] LABS: Magnesium 2.5 mg/dL (1.6-2.6)
[2023-02-06] MEDS: Potassium Chloride Oral Tablet 20 MEQ 40 MEQ PO (23:45)
[2023-02-07] VITALS (19 sets, daily range): BP systolic 89–146; BP diastolic 45–62; PULSE 57–81; RESP 16–24; TEMP 36.3–36.6; O2SAT 92–100; BMI 27.4
--- NOTE | 2023-02-07 00:56 | CPS ---
pt was already sleeping, declined aerosol tx at this time 0392 02/06/23
[2023-02-07] MEDS: Ipratropium/Albuterol Sulfate 3 ML AMPUL.NEB INHALATION ×5 (03:05→22:43)
[2023-02-07] MEDS: 0.9% Saline Lock 10 ML Syringe IV ×2 (05:34→17:03)
[2023-02-07] MEDS: dilTIAZem 60 MG Tablet PO ×3 (05:34→23:30)
[2023-02-07 05:54] LABS: Absolute Lymphocyte Count 0.49 X10^3/uL (0.83-4.51); Hematocrit 39.7 % (37-47); Hemoglobin 13.1 g/dL (12.0-15.0); Lymphocyte # 0.49 X10^3/ul (0.83-4.51); Lymphocyte % 7.2 % (19-41); Mean Corpuscular Hgb 30.8 pg (27.0-32.0); Mean Corpuscular Volume 93.2 fL (81-99); Mean Platelet Vol. 10.9 fl (6.2-12.0); Monocyte# 0.27 X10^3/uL; NRBC Flagged by Analyzer 0 % (0-5); Neutrophil # 5.98 X10^3/uL (2.7-7.7); Neutrophil % 88.4 % (47-70); POSITIVE DIFFERENTIAL YES; Platelet Count 152 K/mm3 (150-450); RBC Distribution Width CV 13.6 % (11.6-14.6); RBC Distribution Width SD 46.9 fl (35.1-43.9); Red Blood Count 4.26 M/mm3 (4.2-5.4); White Blood Count 6.8 K/mm3 (4.4-11.0)
--- NOTE | 2023-02-07 05:55 | EKG12_ITS ---
Test Reason : AM EKG Blood Pressure : / mmHG Vent. Rate : 067 BPM Atrial Rate : 067 BPM P-R Int : 134 ms QRS Dur : 124 ms QT Int : 436 ms P-R-T Axes : 055 034 051 degrees QTc Int : 460 ms Sinus rhythm with Premature supraventricular complexes Right bundle branch block Abnormal ECG When compared with ECG of 05-FEB-2023 05:24, Premature supraventricular complexes are now Present Nonspecific T wave abnormality now evident in Lateral leads Confirmed by TANA LOPEZ, NINI ([id number]), film editor WU PRIETO ([id number]) on 02/08/2023 9:26:07 AM Referred By: Philippe Ny Confirmed By:NINI FAJARDO MD
[2023-02-07 06:02] LABS: Differential Indicated SCAN CRITERIA MET
[2023-02-07 06:31] LABS: Anion Gap 6 (5-15); BUN 52 mg/dL (7-18); BUN/Creat Ratio 35.6 RATIO (10-20); Calcium,Total 8.6 mg/dL (8.5-10.1); Chloride 96 mmol/L (98-107); Creatinine, Serum 1.46 mg/dL (0.55-1.02); EST Glomerular Filtration Rate 36 mL/min (>60); Est Glom Filt Rate - Afr Amer 44 mL/min (>60); Estimated Creatinine Clearance 20.24 ml/min; Glucose 250 mg/dL (74-106); Potassium 3.2 mmol/L (3.5-5.1); Sodium Level 133 mmol/L (136-145)
[2023-02-07] MEDS: Insulin Lispro 100 UNIT/ML INSULN.PEN SC ×4 (06:35→23:10)
[2023-02-07 07:00] LABS: Bedside Glucose 262 mg/dL (74-106)
--- NOTE | 2023-02-07 07:36 | PCM.PN.HOSP ---
Reason for Visit Reason for Visit: Diagnoses Type 2 diabetes mellitus with other specified complication (02/01/23) Essential (primary) hypertension (02/01/23) Paroxysmal atrial fibrillation (02/01/23) Chronic obstructive pulmonary disease with (acute) exacerbation (02/01/23) Chest pain, unspecified (02/01/23) Hypoxemia (02/01/23) Dysphagia, pharyngeal phase (02/01/23) Other specified abnormalities of plasma proteins (02/01/23) Subjective Subjective . Patient still complains of difficulty swallowing pills. Patient scheduled to undergo EGD this am Objective Data Objective Data Vital Signs: Vital Signs Temp Pulse Resp BP Pulse Ox O2 Del Method O2 Flow Rate 97.5 F L 71 16 124/48 H 94 Nasal Cannula 3 02/07/23 05:31 02/07/23 05:31 02/07/23 05:31 02/07/23 05:31 02/07/23 05:31 02/07/23 05:31 02/07/23 05:31 FiO2 95 02/02/23 06:26 Oxygen Flow Rate (L/min) [ 4 AMBULATING with Oxygen #2] Oxygen Flow Rate (L/min) [ 3 AMBULATING with Oxygen #1] Oxygen Flow Rate (L/min) [At 3 REST with Oxygen] Oxygen Flow Rate (L/min) 3 Oxygen Delivery Method Nasal Cannula Weight: 62.7 kg Body Mass Index (BMI) 26.9 Intake & Output: Intake and Output for Last 24 Hours 02/05/23 02/06/23 02/07/23 23:59 23:59 23:59 Intake Total 1090 / 1090 500 / 500 Output Total 2400 / 2400 1850 / 1850 550 / 550 Balance -1310 / -1310 -1350 / -1350 -550 / -550 Lab / Micro Data 02/07/23 04:43 02/07/23 04:43 Labs: Laboratory Results - last 24 hr 02/06/23 05:15: Magnesium 2.5 02/06/23 12:42: POC Glucose 281 H 02/06/23 16:12: POC Glucose 321 H 02/06/23 20:54: POC Glucose 199 H 02/07/23 04:43: WBC 6.8, RBC 4.26, Hgb 13.1, Hct 39.7, MCV 93.2, MCH 30.8, MCHC 33.0, RDW Std Deviation 46.9 H, RDW Coeff of Raza 13.6, Plt Count 152, MPV 10.9, Immature Gran % (Auto) 0.400, Neut % (Auto) 88.4 H, Lymph % (Auto) 7.2 L, [place] % (Auto) 4.0, Eos % (Auto) 0.0, Baso % (Auto) 0.0, Absolute Neuts (auto) 6.0, Absolute Lymphs (auto) 0.49 L, Nucleated RBC % 0, Sodium 133 L, Potassium 3.2 L, Chloride 96 L, Carbon Dioxide 31.0, Anion Gap 6, BUN 52 H, Creatinine 1.46 H, Estim Creat Clear Calc 20.24, Est GFR (MDRD) Af Amer 44 L, Est GFR (MDRD) Non-Af 36 L, BUN/Creatinine Ratio 35.6 H, Glucose 250 H, Calcium 8.6 02/07/23 06:34: POC Glucose 262 H Micro: Microbiology 02/01/23 15:45 Nasal Secretion SARS-CoV-2 & FLU Antigen (Rapid) - Final 02/01/23 20:22 Mucosa - Nasopharyngeal Respiratory Panel (PCR) - Final RSV B 02/01/23 21:25 Urine, Clean Catch Legionella Antigen - Final 02/01/23 21:25 Urine, Clean Catch Streptococcus pneumoniae Antigen (M - Final Rhythm Strip Rhythm Strip: Sinus Rhythm Physical Exam Narrative GENERAL: Frail looking HEENT: Atraumatic; normocephalic EYES; Anicteric, Normal Conjunctiva NECK; supple, normal thyroid, RESPIRATORY: Diminished to auscultation CARDIOVASCULAR: Regular S1 S2, GI: soft, normoactive bowel sounds, : No Renal angle tenderness; EXTREMITIES: No edema, no clubbing, MUSCULOSKELETAL: no muscle wasting NEURO: Awake; no lateralizing signs. SKIN: No Rash PSYCH; Flat affect Assessment & Plan Assessment/Plan (1) COPD exacerbation: PLAN: Plan Patient is an 87-year-old lady who presented with shortness of breath and assessment of COPD with acute exacerbation made. 1. COPD with acute exacerbation ? Secondary to RSV infection. Patient management systemic steroid bronchodilator treatment as well as antibiotic therapy ? 02/06/2023 patient remains slightly dyspneic at rest we will continue with current regimen 2. Elevated troponin ? Secondary to demand ischemia from above. Consult was however placed to cardiology given patient history of coronary artery disease with CABG at subsequent stent ? 02/06/2023 patient was seen in consultation again by cardiology in view of persistent chest pain with slightly elevated troponin. Cardiology recommended optimization of medical therapy 3 coronary artery disease ? With history of CABG and subsequent stent 4. Thrombocytopenia ? Monitoring with daily CBC with differential 5. Diabetes mellitus type II -patient's oral hypoglycemics held. Placed on long acting insulin, Accu-Cheks a.c. and at bedtime and covered with sliding scale insulin 6. Paroxysmal A-fib ? Rate controlled, on systemic anticoagulation with 7. Hypertension - Blood pressure controlled, home medications continued with dose adjustment as needed 8. Depression with anxiety ? Patient is on SSRI 9. Degenerative osteoarthritis ? Patient is on leflunomide 10. Osteoporosis ? With history of fracture of the made metatarsal patient is on vitamin D3 supplementation and Prolia 11. DVT prophylaxis ? On apixaban 12. Dysphagia Patient was found to have choking sensation with meals. Was assessed by speech therapy recommended for GI to be consulted ? 02/07/2023; Patient scheduled to undergo EGD this am Time spent in the patient's overall evaluation,decision-making process, review of diagnostic data, adjustment of management, discussion with other providers, nursing nursing and ancillary staff involved in patient's care documentation, 35 minutes Charges/Coding Visit Charges Inpatient E&M: 58134 Subs Hosp L2
[2023-02-07] MEDS: Calcium (Elemental) 500 MG Tablet PO ×2 (08:37→17:16)
[2023-02-07] MEDS: Carvedilol 3.125 MG TABLET PO ×2 (08:37→17:16)
--- NOTE | 2023-02-07 12:15 | OP.EGD_ITS ---
Patient Name: Margarita Adam Procedure Date: 02/07/2023 11:45 AM Date of : 1935 Age: 87 Procedure: Upper GI endoscopy Indications: Dysphagia Providers: Malcom Lobo DO Referring MD: Philippe Ny Medicines: Monitored Anesthesia Care Patient Profile: This is an 87 year old female. Refer to note in patient chart for documentation of history and physical. Patient has symptoms of dysphagia with both liquids and solids. Complications: No immediate complications. Procedure: Pre-Anesthesia Assessment: - Prior to the procedure, a History and Physical was performed, and patient medications and allergies were reviewed. The risks and benefits of the procedure and the sedation options and risks were discussed with the patient. All questions were answered and informed consent was obtained. Patient identification and proposed procedure were verified by the physician in the pre-procedure area. Mental Status Examination: alert and oriented. Airway Examination: normal oropharyngeal airway and neck mobility. Respiratory Examination: clear to auscultation. CV Examination: normal. Prophylactic Antibiotics: The patient does not require prophylactic antibiotics. Prior Anticoagulants: The patient has taken no previous anticoagulant or antiplatelet agents. After reviewing the risks and benefits, the patient was deemed in satisfactory condition to undergo the procedure. The anesthesia plan was to use monitored anesthesia care (MAC). Immediately prior to administration of medications, the patient was re-assessed for adequacy to receive sedatives. The heart rate, respiratory rate, oxygen saturations, blood pressure, adequacy of pulmonary ventilation, and response to care were monitored throughout the procedure. The physical status of the patient was re-assessed after the procedure. After obtaining informed consent, the endoscope was passed under direct vision. Throughout the procedure, the patient's blood pressure, pulse, and oxygen saturations were monitored continuously. The gastroscope was introduced through the mouth, and advanced to the duodenal bulb. The upper GI endoscopy was accomplished without difficulty. The patient tolerated the procedure well. Scope In: 12:00:52 PM Scope Out: 12:04:30 PM Total Procedure Duration Time 0 hours 3 minutes 38 seconds Findings: Diffuse glycogenic acanthosis was found in the entire esophagus. A large hiatal hernia was present. The duodenal bulb was normal. Abnormal motility was noted in the lower third of the esophagus. The cricopharyngeus was abnormal. There is a decrease in motility of the esophageal body. The distal esophagus/lower esophageal sphincter is patulous. Secondary peristaltic waves are noted. Impression: - Glycogenic acanthosis of the esophagus. - Large hiatal hernia. - Normal duodenal bulb. - No specimens collected. Recommendation: - Discharge patient to home. - Resume previous diet. - Continue present medications. Procedure Code(s): --- Professional --- 59408, Esophagogastroduodenoscopy, flexible, transoral; diagnostic, including collection of specimen(s) by brushing or washing, when performed (separate procedure) CPT copyright 2017 [employer]. All rights reserved. The codes documented in this report are preliminary and upon certified medical records coder review may be revised to meet current compliance requirements. Malcom Lobo DO 02/07/2023 12:14:46 PM This report has been signed electronically. Number of Addenda: 0 Note Initiated On: 02/07/2023 11:45 AM
--- NOTE | 2023-02-07 12:15 | OP.CCLET_ITS ---
02/07/2023 Sebastian Cleveland Re : Upper GI endoscopy procedure for Margarita Adam Dear Megha This procedure was performed on January. My impressions and recommendations are as follows: Impressions : - Glycogenic acanthosis of the esophagus. - Large hiatal hernia. - Normal duodenal bulb. - No specimens collected. Recommendations : - Discharge patient to home. - Resume previous diet. - Continue present medications. My findings are described in the full procedure note, which is enclosed. If I can be of further assistance, please feel free to contact me at . Sincerely, Malcom Lobo, 02/07/2023 12:14:46 PM This report has been signed electronically.
[2023-02-07 13:16] LABS: Bedside Glucose 257 mg/dL (74-106)
[2023-02-07] MEDS: Senna/Docusate Sodium 1 Tablet 2 TABLET PO ×2 (14:15→23:24)
[2023-02-07] MEDS: Furosemide 40 MG Tablet PO (14:16)
[2023-02-07] MEDS: Clopidogrel Bisulfate 75 MG Tablet PO (14:16)
[2023-02-07] MEDS: Pantoprazole Sodium 40 MG Tablet PO (14:16)
[2023-02-07] MEDS: Cholecalciferol (VIT D3) 25 MCG TABLET (1,000 UNITS) PO (14:16)
[2023-02-07] MEDS: Sertraline 50 MG Tablet 25 MG PO (14:16)
[2023-02-07] MEDS: Ranolazine 500 MG Tablet PO ×2 (14:16→23:12)
[2023-02-07] MEDS: APIXABAN 5 MG TABLET PO ×2 (14:17→23:24)
[2023-02-07] MEDS: guaiFENesin 1,200 MG Tablet 1200 MG PO ×2 (14:17→23:24)
[2023-02-07] MEDS: Leflunomide 10 MG TABLET PO (14:18)
[2023-02-07] MEDS: Losartan Potassium 25 MG Tablet PO (14:18)
[2023-02-07] MEDS: Insulin Glargine-YFGN 100 UNIT/ML Pen SC (14:24)
[2023-02-07] MEDS: Nitroglycerin Oint 1 INCH PACKET TD ×3 (14:27→23:30)
[2023-02-07] MEDS: Potassium Chloride 10mEq/100mL 10 MEQ/100 ML IV.SOLN. 100 MEQ IV BOLUS ×4 (15:29→21:53)
--- NOTE | 2023-02-07 16:04 | NURSING ---
Early afternoon pt on 3 L NC@ 100%. O2 weened to 1 L and rechecked, found to be 89%. O2@1.5L NC and after recheck was at 92%
[2023-02-07 17:55] LABS: Bedside Glucose 271 mg/dL (74-106)
--- NOTE | 2023-02-07 21:51 | PCM.HOSP.N ---
Hospitalist Note Patient with asymptomatic run VT, ongoing K supplementation, mag recently checked and noted to be normal.
[2023-02-07] MEDS: Atorvastatin Calcium 40 MG Tablet PO (23:18)
[2023-02-08] VITALS (13 sets, daily range): BP systolic 123–159; BP diastolic 49–72; PULSE 61–87; RESP 16–26; TEMP 36.4–36.6; O2SAT 95–98; BMI 27.8
[2023-02-08 00:18] LABS: Bedside Glucose 206 mg/dL (74-106)
[2023-02-08] MEDS: dilTIAZem 60 MG Tablet PO ×4 (06:17→23:45)
[2023-02-08] MEDS: Insulin Lispro 100 UNIT/ML INSULN.PEN SC ×4 (06:26→22:23)
[2023-02-08] MEDS: Nitroglycerin Oint 1 INCH PACKET TD ×4 (06:34→23:46)
[2023-02-08 07:00] LABS: Bedside Glucose 220 mg/dL (74-106)
[2023-02-08] MEDS: Ipratropium/Albuterol Sulfate 3 ML AMPUL.NEB INHALATION ×4 (07:07→23:26)
--- NOTE | 2023-02-08 08:16 | PCM.PN.HOSP ---
Reason for Visit Reason for Visit: Diagnoses Type 2 diabetes mellitus with other specified complication (02/01/23) Essential (primary) hypertension (02/01/23) Paroxysmal atrial fibrillation (02/01/23) Chronic obstructive pulmonary disease with (acute) exacerbation (02/01/23) Chest pain, unspecified (02/01/23) Hypoxemia (02/01/23) Dysphagia, pharyngeal phase (02/01/23) Other specified abnormalities of plasma proteins (02/01/23) Subjective Subjective Patient underwent EGD today Findings included - Glycogenic acanthosis of the esophagus. - Large hiatal hernia. - Normal duodenal bulb. - No specimens collected. ?Patient remains deconditioned being assessed by PT and clinical social work aide regarding disposition Objective Data Objective Data Vital Signs: Vital Signs Temp Pulse Resp BP Pulse Ox O2 Del Method O2 Flow Rate 98 F 72 20 H 150/59 H 95 Nasal Cannula 3 02/08/23 04:37 02/08/23 07:05 02/08/23 07:05 02/08/23 06:34 02/08/23 07:05 02/08/23 07:05 02/08/23 07:05 FiO2 95 02/02/23 06:26 Oxygen Flow Rate (L/min) [ 4 AMBULATING with Oxygen #2] Oxygen Flow Rate (L/min) [ 3 AMBULATING with Oxygen #1] Oxygen Flow Rate (L/min) [At 3 REST with Oxygen] Oxygen Flow Rate (L/min) 3 Oxygen Delivery Method Nasal Cannula Weight: 64.8 kg Body Mass Index (BMI) 27.8 Intake & Output: Intake and Output for Last 24 Hours 02/06/23 02/07/23 02/08/23 23:59 23:59 23:59 Intake Total 500 / 500 596.67 / 596.67 220 / 220 Output Total 1850 / 1850 950 / 950 700 / 700 Balance -1350 / -1350 -353.33 / -353.33 -480 / -480 Lab / Micro Data 02/07/23 04:43 02/07/23 04:43 Labs: Laboratory Results - last 24 hr 02/07/23 04:43: Hemoglobin A1c 7.0 H 02/07/23 12:59: POC Glucose 257 H 02/07/23 17:10: POC Glucose 271 H 02/07/23 23:08: POC Glucose 206 H 02/08/23 06:25: POC Glucose 220 H Micro: Microbiology 02/01/23 15:45 Nasal Secretion SARS-CoV-2 & FLU Antigen (Rapid) - Final 02/01/23 20:22 Mucosa - Nasopharyngeal Respiratory Panel (PCR) - Final RSV B 02/01/23 21:25 Urine, Clean Catch Legionella Antigen - Final 02/01/23 21:25 Urine, Clean Catch Streptococcus pneumoniae Antigen (M - Final Rhythm Strip Rhythm Strip: Sinus Rhythm Physical Exam Narrative GENERAL: Frail looking HEENT: Atraumatic; normocephalic EYES; Anicteric, Normal Conjunctiva NECK; supple, normal thyroid, RESPIRATORY: Diminished to auscultation CARDIOVASCULAR: Regular S1 S2, GI: soft, normoactive bowel sounds, : No Renal angle tenderness; EXTREMITIES: No edema, no clubbing, MUSCULOSKELETAL: no muscle wasting NEURO: Awake; no lateralizing signs. SKIN: No Rash PSYCH; Flat affect Assessment & Plan Assessment/Plan (1) COPD exacerbation: PLAN: Plan Patient is an 87-year-old lady who presented with shortness of breath and assessment of COPD with acute exacerbation made. 1. COPD with acute exacerbation ? Secondary to RSV infection. Patient management systemic steroid bronchodilator treatment as well as antibiotic therapy ? 02/06/2023 patient remains slightly dyspneic at rest we will continue with current regimen 2. Elevated troponin ? Secondary to demand ischemia from above. Consult was however placed to cardiology given patient history of coronary artery disease with CABG at subsequent stent ? 02/06/2023 patient was seen in consultation again by cardiology in view of persistent chest pain with slightly elevated troponin. Cardiology recommended optimization of medical therapy 3 coronary artery disease ? With history of CABG and subsequent stent 4. Thrombocytopenia ? Monitoring with daily CBC with differential 5. Diabetes mellitus type II -patient's oral hypoglycemics held. Placed on long acting insulin, Accu-Cheks a.c. and at bedtime and covered with sliding scale insulin 6. Paroxysmal A-fib ? Rate controlled, on systemic anticoagulation with 7. Hypertension - Blood pressure controlled, home medications continued with dose adjustment as needed 8. Depression with anxiety ? Patient is on SSRI 9. Degenerative osteoarthritis ? Patient is on leflunomide 10. Osteoporosis ? With history of fracture of the made metatarsal patient is on vitamin D3 supplementation and Prolia 11. DVT prophylaxis ? On apixaban 12. Dysphagia Patient was found to have choking sensation with meals. Was assessed by speech therapy recommended for GI to be consulted ? 02/07/2023; Patient scheduled to undergo EGD this am -02/08/2023;Patient underwent EGD today Findings included - Glycogenic acanthosis of the esophagus. - Large hiatal hernia. - Normal duodenal bulb. - No specimens collected. 13. Physical deconditioning - Requested for PT OT eval and clinical social work aide to assist with discharge planning Time spent in the patient's overall evaluation,decision-making process, review of diagnostic data, adjustment of management, discussion with other providers, nursing nursing and ancillary staff involved in patient's care documentation, 35 minutes Charges/Coding Visit Charges Inpatient E&M: 79384 Subs Hosp L2
[2023-02-08] MEDS: Calcium (Elemental) 500 MG Tablet PO ×2 (08:33→17:01)
[2023-02-08] MEDS: Carvedilol 3.125 MG TABLET PO ×2 (08:33→17:01)
[2023-02-08] MEDS: APIXABAN 5 MG TABLET PO ×2 (09:13→22:23)
[2023-02-08] MEDS: Losartan Potassium 25 MG Tablet PO (09:13)
[2023-02-08] MEDS: Insulin Glargine-YFGN 100 UNIT/ML Pen SC (09:13)
[2023-02-08] MEDS: Pantoprazole Sodium 40 MG Tablet PO (09:14)
[2023-02-08] MEDS: Furosemide 40 MG Tablet PO (09:14)
[2023-02-08] MEDS: guaiFENesin 1,200 MG Tablet 1200 MG PO ×2 (09:14→22:24)
[2023-02-08] MEDS: Clopidogrel Bisulfate 75 MG Tablet PO (09:14)
[2023-02-08] MEDS: Senna/Docusate Sodium 1 Tablet 2 TABLET PO ×2 (09:14→22:25)
[2023-02-08] MEDS: Leflunomide 10 MG TABLET PO (09:14)
[2023-02-08] MEDS: Ranolazine 500 MG Tablet PO ×2 (09:14→22:25)
[2023-02-08] MEDS: Sertraline 50 MG Tablet 25 MG PO (09:14)
[2023-02-08] MEDS: Cholecalciferol (VIT D3) 25 MCG TABLET (1,000 UNITS) PO (09:14)
[2023-02-08] MEDS: Acetaminophen 325 MG Tablet 650 MG PO (09:28)
[2023-02-08 11:53] LABS: Bedside Glucose 364 mg/dL (74-106)
--- NOTE | 2023-02-08 13:01 | EX.PCM.PN.GI ---
Subjective Subjective Patient underwent upper endoscopy. She was discovered to have a very large hiatal hernia esophageal dysmotility disorder. Objective Data Objective Data Vital Signs: Vital Signs Temp Pulse Resp BP Pulse Ox O2 Del Method O2 Flow Rate 97.6 F L 61 17 123/50 H 98 Nasal Cannula 3 02/08/23 10:37 02/08/23 12:04 02/08/23 10:37 02/08/23 12:04 02/08/23 10:37 02/08/23 10:37 02/08/23 10:37 FiO2 95 02/02/23 06:26 Oxygen Flow Rate (L/min) [ 4 AMBULATING with Oxygen #2] Oxygen Flow Rate (L/min) [ 3 AMBULATING with Oxygen #1] Oxygen Flow Rate (L/min) [At 3 REST with Oxygen] Oxygen Flow Rate (L/min) 3 Oxygen Delivery Method Nasal Cannula Weight: 142 lb 13.753 oz Body Mass Index (BMI) 27.8 Intake & Output: Intake and Output for Last 24 Hours 02/06/23 02/07/23 02/08/23 23:59 23:59 23:59 Intake Total 500 / 500 596.67 / 596.67 740 / 740 Output Total 1850 / 1850 950 / 950 700 / 700 Balance -1350 / -1350 -353.33 / -353.33 40 / 40 Lab / Micro Data 02/07/23 04:43 02/07/23 04:43 Labs: Laboratory Results - last 24 hr 02/07/23 12:59: POC Glucose 257 H 02/07/23 17:10: POC Glucose 271 H 02/07/23 23:08: POC Glucose 206 H 02/08/23 06:25: POC Glucose 220 H 02/08/23 11:32: POC Glucose 364 H Micro: Microbiology 02/01/23 15:45 Nasal Secretion SARS-CoV-2 & FLU Antigen (Rapid) - Final 02/01/23 20:22 Mucosa - Nasopharyngeal Respiratory Panel (PCR) - Final RSV B 02/01/23 21:25 Urine, Clean Catch Legionella Antigen - Final 02/01/23 21:25 Urine, Clean Catch Streptococcus pneumoniae Antigen (M - Final Rhythm Strip Rhythm Strip: Sinus Rhythm Physical Exam Narrative GENERAL: Frail looking HEENT: Atraumatic; normocephalic EYES; Anicteric, Normal Conjunctiva NECK; supple, normal thyroid, RESPIRATORY: Diminished to auscultation CARDIOVASCULAR: Regular S1 S2, GI: soft, normoactive bowel sounds, : No Renal angle tenderness; EXTREMITIES: No edema, no clubbing, MUSCULOSKELETAL: no muscle wasting NEURO: Awake; no lateralizing signs. SKIN: No Rash PSYCH; Flat affect Assessment & Plan Assessment/Plan (1) Difficulty swallowing: QUALIFIERS: Dysphagia type: pharyngeal phase Qualified Code(s): R13.13 - Dysphagia, pharyngeal phase PLAN: Difficulty swallowing secondary to esophageal dysphagia secondary to esophageal dysmotility disorder mid to distal esophagus due to large hiatal hernia. Patient is also deconditioned from a respiratory infection. Recommendations: Patient does not have a surgical candidate for a hiatal hernia repair. Follow Speech therapy recs regarding her diet. Charges/Coding Visit Charges Inpatient E&M: 77432 Subs Hosp L3
[2023-02-08] MEDS: Methylprednisolone Sod Succ 40 MG/ML VIAL IV ×2 (13:47→22:49)
[2023-02-08] MEDS: 0.9% Saline Lock 10 ML Syringe IV ×2 (13:47→22:49)
--- NOTE | 2023-02-08 14:09 | CASEMGMT ---
Discharge Planning SNF list created and given to SW. Edwina Crum, Discharge Planning Asst.
--- NOTE | 2023-02-08 14:33 | CASEMGMT ---
SW spoke with therapy and they are recommending patient go to a intermediate facility. SW met with patient. Introduced self and role at [facility]. SW explained therapy's recommendation for rehab and patient is agreeable. SW provided patient with a list of intermediate facility providers including quality and resource use data and consistent with patient?s preferred geographic region, medical needs, and insurance network were provided from the [employer] Guide. Patient would like to look over the list with her daughter. SW explained patient's insurance would need to approve patient before she would go which means she will be here through the weekend. Plan: SNF pending patient's choices, accepting facility, and insurance approval. Pilar CONRAD
[2023-02-08 16:43] LABS: Bedside Glucose 303 mg/dL (74-106)
[2023-02-08] MEDS: Atorvastatin Calcium 40 MG Tablet PO (22:24)
[2023-02-08 22:47] LABS: Bedside Glucose 258 mg/dL (74-106)
[2023-02-09] VITALS (13 sets, daily range): BP systolic 123–162; BP diastolic 45–64; PULSE 66–109; RESP 18–26; TEMP 36.4–36.6; O2SAT 87–97; BMI 27.3
[2023-02-09] MEDS: dilTIAZem 60 MG Tablet PO ×3 (05:42→16:49)
[2023-02-09] MEDS: Methylprednisolone Sod Succ 40 MG/ML VIAL IV ×3 (05:42→21:16)
[2023-02-09] MEDS: Nitroglycerin Oint 1 INCH PACKET TD ×2 (05:42→13:43)
[2023-02-09] MEDS: Insulin Lispro 100 UNIT/ML INSULN.PEN SC ×4 (06:55→21:17)
--- NOTE | 2023-02-09 07:14 | PN.HOSP_ITS ---
Reason for Visit Reason for Visit: Diagnoses Type 2 diabetes mellitus with other specified complication (02/01/23) Essential (primary) hypertension (02/01/23) Paroxysmal atrial fibrillation (02/01/23) Chronic obstructive pulmonary disease with (acute) exacerbation (02/01/23) Chest pain, unspecified (02/01/23) Hypoxemia (02/01/23) Dysphagia, pharyngeal phase (02/01/23) Other specified abnormalities of plasma proteins (02/01/23) Subjective Subjective Patient seen still complains of feeling tired. Plan is for patient to be discharged to a nursing home facility pending insurance approval Objective Data Objective Data Vital Signs: Vital Signs Temp Pulse Resp BP Pulse Ox O2 Del Method O2 Flow Rate 97.5 F L 78 18 131/59 H 95 Nasal Cannula 3 02/09/23 03:51 02/09/23 05:42 02/09/23 03:51 02/09/23 05:42 02/09/23 03:51 02/09/23 03:51 02/09/23 03:51 FiO2 95 02/02/23 06:26 Oxygen Flow Rate (L/min) [ 4 AMBULATING with Oxygen #2] Oxygen Flow Rate (L/min) [ 3 AMBULATING with Oxygen #1] Oxygen Flow Rate (L/min) [At 3 REST with Oxygen] Oxygen Flow Rate (L/min) 3 Oxygen Delivery Method Nasal Cannula Weight: 63.5 kg Body Mass Index (BMI) 27.3 Intake & Output: Intake and Output for Last 24 Hours 02/07/23 02/08/23 02/09/23 23:59 23:59 23:59 Intake Total 596.67 / 596.67 1440 / 1440 100 / 100 Output Total 950 / 950 1000 / 1000 400 / 400 Balance -353.33 / -353.33 440 / 440 -300 / -300 Lab / Micro Data 02/07/23 04:43 02/07/23 04:43 Labs: Laboratory Results - last 24 hr 02/08/23 11:32: POC Glucose 364 H 02/08/23 16:10: POC Glucose 303 H 02/08/23 22:22: POC Glucose 258 H Micro: Microbiology 02/01/23 15:45 Nasal Secretion SARS-CoV-2 & FLU Antigen (Rapid) - Final 02/01/23 20:22 Mucosa - Nasopharyngeal Respiratory Panel (PCR) - Final RSV B 02/01/23 21:25 Urine, Clean Catch Legionella Antigen - Final 02/01/23 21:25 Urine, Clean Catch Streptococcus pneumoniae Antigen (M - Final Rhythm Strip Rhythm Strip: Sinus Rhythm Physical Exam Narrative GENERAL: Frail looking HEENT: Atraumatic; normocephalic EYES; Anicteric, Normal Conjunctiva NECK; supple, normal thyroid, RESPIRATORY: Diminished to auscultation CARDIOVASCULAR: Regular S1 S2, GI: soft, normoactive bowel sounds, : No Renal angle tenderness; EXTREMITIES: No edema, no clubbing, MUSCULOSKELETAL: no muscle wasting NEURO: Awake; no lateralizing signs. SKIN: No Rash PSYCH; Flat affect Assessment & Plan Assessment/Plan (1) COPD exacerbation: PLAN: Plan Patient is an 87-year-old lady who presented with shortness of breath and assessment of COPD with acute exacerbation made. 1. COPD with acute exacerbation ? Secondary to RSV infection. Patient management systemic steroid bronchodilator treatment as well as antibiotic therapy ? 02/06/2023 patient remains slightly dyspneic at rest we will continue with current regimen ? 02/09/2023; remains on supplemental oxygen 2. Elevated troponin ? Secondary to demand ischemia from above. Consult was however placed to cardiology given patient history of coronary artery disease with CABG at subsequent stent ? 02/06/2023 patient was seen in consultation again by cardiology in view of persistent chest pain with slightly elevated troponin. Cardiology recommended optimization of medical therapy 3 coronary artery disease ? With history of CABG and subsequent stent 4. Thrombocytopenia ? Monitoring with daily CBC with differential 5. Diabetes mellitus type II -patient's oral hypoglycemics held. Placed on long acting insulin, Accu-Cheks a.c. and at bedtime and covered with sliding scale insulin 6. Paroxysmal A-fib ? Rate controlled, on systemic anticoagulation with 7. Hypertension - Blood pressure controlled, home medications continued with dose adjustment as needed 8. Depression with anxiety ? Patient is on SSRI 9. Degenerative osteoarthritis ? Patient is on leflunomide 10. Osteoporosis ? With history of fracture of the made metatarsal patient is on vitamin D3 supplementation and Prolia 11. DVT prophylaxis ? On apixaban 12. Dysphagia Patient was found to have choking sensation with meals. Was assessed by speech therapy recommended for GI to be consulted ? 02/07/2023; Patient scheduled to undergo EGD this am -02/08/2023;Patient underwent EGD today Findings included - Glycogenic acanthosis of the esophagus. - Large hiatal hernia. - Normal duodenal bulb. - No specimens collected. 13. Physical deconditioning - Requested for PT OT eval and social group worker to assist with discharge planning ? 02/09/2023; awaiting insurance pre-CERT prior to transfer to nursing home facility Time spent in the patient's overall evaluation,decision-making process, review of diagnostic data, adjustment of management, discussion with other providers, nursing nursing and ancillary staff involved in patient's care documentation, 35 minutes Charges/Coding Visit Charges Inpatient E&M: 45243 Subs Hosp L2
[2023-02-09 07:18] LABS: Bedside Glucose 214 mg/dL (74-106)
[2023-02-09] MEDS: Ipratropium/Albuterol Sulfate 3 ML AMPUL.NEB INHALATION ×5 (07:41→22:51)
[2023-02-09] MEDS: guaiFENesin 1,200 MG Tablet 1200 MG PO ×2 (10:35→21:17)
[2023-02-09] MEDS: Furosemide 40 MG Tablet PO (10:35)
[2023-02-09] MEDS: Losartan Potassium 25 MG Tablet PO (10:35)
[2023-02-09] MEDS: Calcium (Elemental) 500 MG Tablet PO ×2 (10:35→16:49)
[2023-02-09] MEDS: Carvedilol 3.125 MG TABLET PO ×2 (10:35→16:49)
[2023-02-09] MEDS: APIXABAN 5 MG TABLET PO ×2 (10:35→21:16)
[2023-02-09] MEDS: Ranolazine 500 MG Tablet PO ×2 (10:36→21:17)
[2023-02-09] MEDS: Sertraline 50 MG Tablet 25 MG PO (10:36)
[2023-02-09] MEDS: Clopidogrel Bisulfate 75 MG Tablet PO (10:36)
[2023-02-09] MEDS: Senna/Docusate Sodium 1 Tablet 2 TABLET PO ×2 (10:36→21:16)
[2023-02-09] MEDS: Cholecalciferol (VIT D3) 25 MCG TABLET (1,000 UNITS) PO (10:36)
[2023-02-09] MEDS: Pantoprazole Sodium 40 MG Tablet PO (10:36)
[2023-02-09] MEDS: Leflunomide 10 MG TABLET PO (10:37)
--- NOTE | 2023-02-09 12:08 | CASEMGMT ---
Social Work SW spoke w/pt in room in regard to discharge plan. She asked for a referral to TCU. SW explained will leave a message and we will need to see on Saturday about bed availability. Pt states understanding. SW called TCU, message left on referral line and asked her to follow up w/TCU SW on Saturday. MIGUEL Archibald
[2023-02-09] MEDS: Insulin Glargine-YFGN 100 UNIT/ML Pen SC (12:24)
[2023-02-09 12:43] LABS: Bedside Glucose 248 mg/dL (74-106)
[2023-02-09] MEDS: 0.9% Saline Lock 10 ML Syringe IV (13:44)
[2023-02-09] MEDS: Acetaminophen 325 MG Tablet 650 MG PO (16:49)
[2023-02-09 17:10] LABS: Bedside Glucose 219 mg/dL (74-106)
[2023-02-09] MEDS: Atorvastatin Calcium 40 MG Tablet PO (21:17)
[2023-02-09 21:46] LABS: Bedside Glucose 305 mg/dL (74-106)
[2023-02-10] VITALS (19 sets, daily range): BP systolic 100–132; BP diastolic 40–89; PULSE 64–150; RESP 18–30; TEMP 36–36.8; O2SAT 90–96; BMI 27.1
[2023-02-10] MEDS: dilTIAZem 60 MG Tablet PO ×4 (01:11→17:23)
[2023-02-10] MEDS: Ipratropium/Albuterol Sulfate 3 ML AMPUL.NEB INHALATION ×3 (03:28→19:27)
[2023-02-10 05:47] LABS: Absolute Neutrophil Count 9.9 X10^3/uL (2.0-7.7); Basophil# 0.07 X10^3/uL; Basophil% 0.6 % (0-1); Eosinophil# 0.05 X10^3/uL; Eosinophils% 0.5 % (0-5); Hemoglobin 12.6 g/dL (12.0-15.0); Lymphocyte % 1.9 % (19-41); Mean Corp Hgb Conc 32.3 g/dL (32-36); Mean Corpuscular Hgb 30.5 pg (27.0-32.0); Mean Corpuscular Volume 94.4 fL (81-99); Mean Platelet Vol. 10.9 fl (6.2-12.0); Monocyte# 0.53 X10^3/uL; Monocyte% 4.9 % (0-10); NRBC Flagged by Analyzer 0 % (0-5); Neutrophil % 91.5 % (47-70); POSITIVE DIFFERENTIAL YES; Platelet Count 153 K/mm3 (150-450); RBC Distribution Width CV 13.5 % (11.6-14.6); RBC Distribution Width SD 47.1 fl (35.1-43.9); Red Blood Count 4.13 M/mm3 (4.2-5.4); White Blood Count 10.8 K/mm3 (4.4-11.0)
[2023-02-10 05:54] LABS: Differential Indicated SCAN CRITERIA MET
[2023-02-10 06:05] LABS: Anion Gap 7 (5-15); BUN 30 mg/dL (7-18); Chloride 97 mmol/L (98-107); Creatinine, Serum 1.07 mg/dL (0.55-1.02); EST Glomerular Filtration Rate 52 mL/min (>60); Est Glom Filt Rate - Afr Amer 63 mL/min (>60); Estimated Creatinine Clearance 27.61 ml/min; Glucose 193 mg/dL (74-106); Magnesium 2.5 mg/dL (1.6-2.6); Phosphorus 2.5 mg/dL (2.5-4.9); Potassium 3.2 mmol/L (3.5-5.1); Sodium Level 134 mmol/L (136-145)
[2023-02-10] MEDS: Methylprednisolone Sod Succ 40 MG/ML VIAL IV ×2 (06:06→13:58)
[2023-02-10] MEDS: Nitroglycerin Oint 1 INCH PACKET TD ×3 (06:11→17:32)
[2023-02-10] MEDS: dilTIAZem 25 MG/5 ML Vial 10 MG IV BOLUS ×2 (06:23→22:17)
--- NOTE | 2023-02-10 06:23 | EKG12_ITS ---
Test Reason : CP Blood Pressure : / mmHG Vent. Rate : 135 BPM Atrial Rate : 000 BPM P-R Int : 000 ms QRS Dur : 134 ms QT Int : 338 ms P-R-T Axes : 000 089 -09 degrees QTc Int : 507 ms Atrial fibrillation with rapid ventricular response Right bundle branch block Possible Inferior infarct , age undetermined Abnormal ECG Confirmed by TANA LOPEZ, NINI ([id number]), film editor WU PRIETO ([id number]) on 02/11/2023 1:25:21 PM Referred By: Philippe Ny Confirmed By:NINI FAJARDO MD
[2023-02-10] MEDS: 0.9% Saline Lock 10 ML Syringe IV ×2 (06:24→13:59)
[2023-02-10 06:28] LABS: Differential Comment SCANNED
--- NOTE | 2023-02-10 06:33 | PCM.HOSP.N ---
Hospitalist Note Patient with onset tachycardia, rate 150s, Hx PAF, administered her oral cardizem just prior to this as had been awoke for the medication. Will dose cardizem 10 mg IV x 1 as BP SBP 110 range. She notes concurrent chest discomfort with onset of tachycardia, will dose fentanyl 25 mcg x 1 given lower BP already given oral and IV regimen as noted. EKG obtained but unable to accurately see rhythm but suspect PAF.
[2023-02-10] MEDS: Insulin Lispro 100 UNIT/ML INSULN.PEN SC ×3 (06:37→21:43)
[2023-02-10] MEDS: Potassium Chloride Oral Tablet 20 MEQ 40 MEQ PO (06:52)
[2023-02-10] MEDS: fentaNYL 100 MCG/2 ML Ampul 25 MCG IV (06:52)
--- NOTE | 2023-02-10 08:02 | PN.HOSP_ITS ---
Reason for Visit Reason for Visit: Diagnoses Type 2 diabetes mellitus with other specified complication (02/01/23) Essential (primary) hypertension (02/01/23) Paroxysmal atrial fibrillation (02/01/23) Chronic obstructive pulmonary disease with (acute) exacerbation (02/01/23) Chest pain, unspecified (02/01/23) Hypoxemia (02/01/23) Dysphagia, pharyngeal phase (02/01/23) Other specified abnormalities of plasma proteins (02/01/23) Subjective Subjective Patient seen awaiting transfer to a residential facility. Complains of aching all over at this am Objective Data Objective Data Vital Signs: Vital Signs Temp Pulse Resp BP Pulse Ox O2 Del Method O2 Flow Rate 97.8 F 111 H 24 H 100/83 H 94 Nasal Cannula 4 02/10/23 03:05 02/10/23 07:36 02/10/23 03:29 02/10/23 06:45 02/10/23 06:30 02/10/23 06:30 02/10/23 06:30 FiO2 95 02/02/23 06:26 Oxygen Flow Rate (L/min) [ 4 AMBULATING with Oxygen #2] Oxygen Flow Rate (L/min) [ 3 AMBULATING with Oxygen #1] Oxygen Flow Rate (L/min) [At 3 REST with Oxygen] Oxygen Flow Rate (L/min) 4 Oxygen Delivery Method Nasal Cannula Weight: 62.9 kg Body Mass Index (BMI) 27.1 Intake & Output: Intake and Output for Last 24 Hours 02/08/23 02/09/23 02/10/23 23:59 23:59 23:59 Intake Total 1440 / 1440 800 / 800 Output Total 1000 / 1000 1700 / 1700 200 / 200 Balance 440 / 440 -900 / -900 -200 / -200 Lab / Micro Data 02/10/23 04:40 02/10/23 04:40 Labs: Laboratory Results - last 24 hr 02/09/23 12:23: POC Glucose 248 H 02/09/23 16:35: POC Glucose 219 H 02/09/23 21:15: POC Glucose 305 H 02/10/23 04:40: WBC 10.8, RBC 4.13 L, Hgb 12.6, Hct 39.0, MCV 94.4, MCH 30.5, MCHC 32.3, RDW Std Deviation 47.1 H, RDW Coeff of Raza 13.5, Plt Count 153, MPV 10.9, Immature Gran % (Auto) 0.600, Neut % (Auto) 91.5 H, Lymph % (Auto) 1.9 L, [place] % (Auto) 4.9, Eos % (Auto) 0.5, Baso % (Auto) 0.6, Absolute Neuts (auto) 9.9 H, Absolute Lymphs (auto) 0.20 L, Nucleated RBC % 0, Differential Comment SCANNED, Sodium 134 L, Potassium 3.2 L, Chloride 97 L, Carbon Dioxide 30.0, Anion Gap 7, BUN 30 H, Creatinine 1.07 H, Estim Creat Clear Calc 27.61, Est GFR (MDRD) Af Amer 63, Est GFR (MDRD) Non-Af 52 L, BUN/Creatinine Ratio 28.0 H, Glucose 193 H, Calcium 8.0 L, Phosphorus 2.5, Magnesium 2.5 Micro: Microbiology 02/01/23 15:45 Nasal Secretion SARS-CoV-2 & FLU Antigen (Rapid) - Final 02/01/23 20:22 Mucosa - Nasopharyngeal Respiratory Panel (PCR) - Final RSV B 02/01/23 21:25 Urine, Clean Catch Legionella Antigen - Final 02/01/23 21:25 Urine, Clean Catch Streptococcus pneumoniae Antigen (M - Final Rhythm Strip Rhythm Strip: Sinus Rhythm Physical Exam Narrative GENERAL: Frail looking HEENT: Atraumatic; normocephalic EYES; Anicteric, Normal Conjunctiva NECK; supple, normal thyroid, RESPIRATORY: Diminished to auscultation CARDIOVASCULAR: Regular S1 S2, GI: soft, normoactive bowel sounds, : No Renal angle tenderness; EXTREMITIES: No edema, no clubbing, MUSCULOSKELETAL: no muscle wasting NEURO: Awake; no lateralizing signs. SKIN: No Rash PSYCH; Flat affect Assessment & Plan Assessment/Plan (1) COPD exacerbation: PLAN: Plan Patient is an 87-year-old lady who presented with shortness of breath and assessment of COPD with acute exacerbation made. 1. COPD with acute exacerbation ? Secondary to RSV infection. Patient management systemic steroid bronchodilator treatment as well as antibiotic therapy ? 02/06/2023 patient remains slightly dyspneic at rest we will continue with current regimen ? 02/09/2023; remains on supplemental oxygen 2. Elevated troponin ? Secondary to demand ischemia from above. Consult was however placed to cardiology given patient history of coronary artery disease with CABG at subsequent stent ? 02/06/2023 patient was seen in consultation again by cardiology in view of persistent chest pain with slightly elevated troponin. Cardiology recommended optimization of medical therapy 3 coronary artery disease ? With history of CABG and subsequent stent 4. Thrombocytopenia ? Monitoring with daily CBC with differential 5. Diabetes mellitus type II -patient's oral hypoglycemics held. Placed on long acting insulin, Accu-Cheks a.c. and at bedtime and covered with sliding scale insulin 6. Paroxysmal A-fib ? Rate controlled, on systemic anticoagulation with 7. Hypertension - Blood pressure controlled, home medications continued with dose adjustment as needed 8. Depression with anxiety ? Patient is on SSRI 9. Degenerative osteoarthritis ? Patient is on leflunomide 10. Osteoporosis ? With history of fracture of the made metatarsal patient is on vitamin D3 supplementation and Prolia 11. DVT prophylaxis ? On apixaban 12. Dysphagia Patient was found to have choking sensation with meals. Was assessed by speech therapy recommended for GI to be consulted ? 02/07/2023; Patient scheduled to undergo EGD this am -02/08/2023;Patient underwent EGD today Findings included - Glycogenic acanthosis of the esophagus. - Large hiatal hernia. - Normal duodenal bulb. - No specimens collected. 13. Physical deconditioning - Requested for PT OT eval and social worker health services to assist with discharge planning ? 02/09/2023; awaiting insurance pre-CERT prior to transfer to residential facility Time spent in the patient's overall evaluation,decision-making process, review of diagnostic data, adjustment of management, discussion with other providers, nursing nursing and ancillary staff involved in patient's care documentation, 35 minutes Charges/Coding Visit Charges Inpatient E&M: 59084 Subs Hosp L2
[2023-02-10] MEDS: Calcium (Elemental) 500 MG Tablet PO ×2 (08:30→17:23)
[2023-02-10] MEDS: Carvedilol 3.125 MG TABLET PO ×2 (08:36→17:22)
[2023-02-10] MEDS: Pantoprazole Sodium 40 MG Tablet PO (08:36)
[2023-02-10] MEDS: Losartan Potassium 25 MG Tablet PO (08:36)
[2023-02-10] MEDS: Sertraline 50 MG Tablet 25 MG PO (08:36)
[2023-02-10] MEDS: Cholecalciferol (VIT D3) 25 MCG TABLET (1,000 UNITS) PO (08:36)
[2023-02-10] MEDS: Clopidogrel Bisulfate 75 MG Tablet PO (08:36)
[2023-02-10] MEDS: guaiFENesin 1,200 MG Tablet 1200 MG PO ×2 (08:36→21:45)
[2023-02-10] MEDS: Ranolazine 500 MG Tablet PO ×2 (08:36→21:45)
[2023-02-10] MEDS: APIXABAN 5 MG TABLET PO ×2 (08:37→21:43)
[2023-02-10] MEDS: Senna/Docusate Sodium 1 Tablet 2 TABLET PO ×2 (08:38→21:45)
[2023-02-10 11:05] LABS: Bedside Glucose 220 mg/dL (74-106)
[2023-02-10] MEDS: Leflunomide 10 MG TABLET PO (11:07)
[2023-02-10] MEDS: Insulin Glargine-YFGN 100 UNIT/ML Pen SC (11:07)
[2023-02-10] MEDS: Furosemide 40 MG Tablet PO (11:07)
[2023-02-10 11:26] LABS: Bedside Glucose 256 mg/dL (74-106)
[2023-02-10] MEDS: oxyCODONE 5 MG Tablet PO (12:52)
[2023-02-10] MEDS: Acetaminophen 325 MG Tablet 650 MG PO (12:53)
--- NOTE | 2023-02-10 13:05 | NURSING ---
Pt has expressed to family and this RN that she is miserable and wants to . prior to shift change this am she had an episode of Afib RVR and rate continues to be tachy despite medication. She endorses chest heaviness, SOB, palpitations and feels miserable and worn out and ready to give up. MD is made aware of patient's decision and more family is on the way to discuss plan of care in depth with MD. Will continue to monitor patient condition within this shift.
--- NOTE | 2023-02-10 13:50 | NURSING ---
Family present and met with Dr. Mujica, discussed prognosis and changed code status to DNRCC.
--- NOTE | 2023-02-10 13:55 | RAD_ITS ---
INDICATION: DYSPNEA EXAMINATION/TECHNIQUE: X-RAY - XR Chest 1 View COMPARISON: 02/04/2023. FINDINGS: LINES/DEVICES: None. LUNGS: [Mild left basilar atelectasis. No new infiltrate is seen. No evidence of pleural effusions. MEDIASTINUM AND CARDIOVASCULAR STRUCTURES: Status post median sternotomy and CABG. BONES AND SOFT TISSUES: Stable soft tissues and osseous structures. RAD/Chest 1 View (Portable) IMPRESSION: Mild atelectatic changes in the left lung base. No new infiltrate is seen. Electronically Signed: Edwin Guerrero MD at 15:23 EDT ,
[2023-02-10] MEDS: KCL 20MEQ in D5.45NS 20 MEQ/1,000 ML IV.SOLN. 100 MEQ IV (15:44)
[2023-02-10] MEDS: LORazepam 2 MG/ML Bottle 0.5 MG SL ×2 (15:58→20:05)
[2023-02-10 16:23] LABS: Bedside Glucose 178 mg/dL (74-106)
[2023-02-10] MEDS: Potassium Chloride Oral Tablet 20 MEQ PO (17:22)
[2023-02-10] MEDS: predniSONE 20 MG Tablet PO (17:29)
--- NOTE | 2023-02-10 18:30 | NURSING ---
Pt HR sustaining 120-140s, s/p PO cardizem and coreg. MD notified. no new orders
[2023-02-10 21:28] LABS: Bedside Glucose 279 mg/dL (74-106)
[2023-02-10] MEDS: Atorvastatin Calcium 40 MG Tablet PO (21:44)
[2023-02-11] VITALS (25 sets, daily range): BP systolic 86–157; BP diastolic 46–127; PULSE 100–141; RESP 12–94; TEMP 36.5–36.7; O2SAT 84–99; BMI 27.7
--- NOTE | 2023-02-11 00:26 | PCM.HOSP.N ---
Hospitalist Note Patient with PAF with RVR recurrent. Administered additional cardizem bolus 10 mg x 1. Patient with onset rales, increased RR, evidence overload. Will dose with lasix 40 mg IV x 1. Suspect my not tolerate but if able will obtain ABG and place on BIPAP.
[2023-02-11] MEDS: 0.9% Saline Lock 10 ML Syringe IV ×4 (00:47→14:31)
[2023-02-11] MEDS: Furosemide 40 MG/4 ML Vial IV (00:47)
--- NOTE | 2023-02-11 02:07 | CPS ---
RT attempted ABG & BIPAP, Patient refusal to both.
--- NOTE | 2023-02-11 02:09 | CPS ---
Patient refuses Bipap and wanted it taken off
[2023-02-11] MEDS: Ipratropium/Albuterol Sulfate 3 ML AMPUL.NEB INHALATION ×2 (03:54→06:40)
[2023-02-11] MEDS: dilTIAZem 25 MG/5 ML Vial 10 MG IV BOLUS (05:40)
[2023-02-11 05:44] LABS: Bedside Glucose 234 mg/dL (74-106)
[2023-02-11 06:08] LABS: Absolute Lymphocyte Count 0.24 X10^3/uL (0.83-4.51); Absolute Neutrophil Count 15.6 X10^3/uL (2.0-7.7); Basophil# 0.11 X10^3/uL; Basophil% 0.7 % (0-1); Hematocrit 38.4 % (37-47); Lymphocyte # 0.24 X10^3/ul (0.83-4.51); Lymphocyte % 1.5 % (19-41); Mean Corp Hgb Conc 33.9 g/dL (32-36); Mean Corpuscular Hgb 31.3 pg (27.0-32.0); Mean Corpuscular Volume 92.3 fL (81-99); Mean Platelet Vol. 11.1 fl (6.2-12.0); Monocyte# 0.34 X10^3/uL; Monocyte% 2.1 % (0-10); NRBC Flagged by Analyzer 0 % (0-5); Neutrophil # 15.57 X10^3/uL (2.7-7.7); Neutrophil % 95.1 % (47-70); POSITIVE DIFFERENTIAL YES; POSITIVE MORPHOLOGY YES; Platelet Count 187 K/mm3 (150-450); RBC Distribution Width CV 13.7 % (11.6-14.6); RBC Distribution Width SD 46.9 fl (35.1-43.9); Red Blood Count 4.16 M/mm3 (4.2-5.4); White Blood Count 16.4 K/mm3 (4.4-11.0)
[2023-02-11] MEDS: Insulin Lispro 100 UNIT/ML INSULN.PEN SC (06:19)
[2023-02-11 06:27] LABS: Differential Indicated SCAN CRITERIA MET
[2023-02-11 06:32] LABS: Anion Gap 10 (5-15); BUN 28 mg/dL (7-18); BUN/Creat Ratio 26.2 RATIO (10-20); Calcium,Total 7.9 mg/dL (8.5-10.1); Chloride 96 mmol/L (98-107); Creatinine, Serum 1.07 mg/dL (0.55-1.02); EST Glomerular Filtration Rate 52 mL/min (>60); Est Glom Filt Rate - Afr Amer 63 mL/min (>60); Estimated Creatinine Clearance 27.11 ml/min; Glucose 230 mg/dL (74-106); Potassium 3.8 mmol/L (3.5-5.1); Sodium Level 128 mmol/L (136-145)
[2023-02-11 06:53] LABS: Differential Comment SCANNED
--- NOTE | 2023-02-11 08:11 | EKG12_ITS ---
Test Reason : A FIB Blood Pressure : / mmHG Vent. Rate : 135 BPM Atrial Rate : 000 BPM P-R Int : 000 ms QRS Dur : 122 ms QT Int : 336 ms P-R-T Axes : 000 030 043 degrees QTc Int : 504 ms Atrial fibrillation with rapid ventricular response Right bundle branch block Abnormal ECG When compared with ECG of 10-FEB-2023 06:23, MANUAL COMPARISON REQUIRED, DATA IS UNCONFIRMED Confirmed by TANA LOPEZ, NINI ([id number]), graphic editor WU PRIETO ([id number]) on 02/11/2023 1:21:19 PM Referred By: Philippe Ny Confirmed By:NINI FAJARDO MD
[2023-02-11] MEDS: Metoprolol Tartrate 5 MG/5 ML Vial IV (08:20)
--- NOTE | 2023-02-11 08:42 | PCM.PN.HOSP ---
Reason for Visit Reason for Visit: Diagnoses Type 2 diabetes mellitus with other specified complication (02/01/23) Essential (primary) hypertension (02/01/23) Paroxysmal atrial fibrillation (02/01/23) Chronic obstructive pulmonary disease with (acute) exacerbation (02/01/23) Chest pain, unspecified (02/01/23) Hypoxemia (02/01/23) Dysphagia, pharyngeal phase (02/01/23) Other specified abnormalities of plasma proteins (02/01/23) Subjective Subjective Patient back in RVR this a.m. with increased shortness of breath. Objective Data Objective Data Vital Signs: Vital Signs Temp Pulse Resp BP Pulse Ox O2 Del Method O2 Flow Rate 97.7 F L 133 H 31 H 103/57 L 92 Nasal Cannula 8 02/11/23 07:15 02/11/23 08:29 02/11/23 08:29 02/11/23 07:15 02/11/23 08:29 02/11/23 07:32 02/11/23 07:32 FiO2 100 02/11/23 08:29 Oxygen Flow Rate (L/min) [ 4 AMBULATING with Oxygen #2] Oxygen Flow Rate (L/min) [ 3 AMBULATING with Oxygen #1] Oxygen Flow Rate (L/min) [At 3 REST with Oxygen] Oxygen Flow Rate (L/min) 8 Oxygen Delivery Method Nasal Cannula Weight: 64.5 kg Body Mass Index (BMI) 27.7 Intake & Output: Intake and Output for Last 24 Hours 02/09/23 02/10/23 02/11/23 23:59 23:59 23:59 Intake Total 800 / 800 400 / 400 885 / 885 Output Total 1700 / 1700 200 / 200 200 / 200 Balance -900 / -900 200 / 200 685 / 685 Lab / Micro Data 02/11/23 05:45 02/11/23 05:45 Labs: Laboratory Results - last 24 hr 02/10/23 06:28: POC Glucose 220 H 02/10/23 11:02: POC Glucose 256 H 02/10/23 16:02: POC Glucose 178 H 02/10/23 21:05: POC Glucose 279 H 02/11/23 05:22: POC Glucose 234 H 02/11/23 05:45: WBC 16.4 H, RBC 4.16 L, Hgb 13.0, Hct 38.4, MCV 92.3, MCH 31.3, MCHC 33.9, RDW Std Deviation 46.9 H, RDW Coeff of Raza 13.7, Plt Count 187, MPV 11.1, Immature Gran % (Auto) 0.600, Neut % (Auto) 95.1 H, Lymph % (Auto) 1.5 L, Mccreary % (Auto) 2.1, Eos % (Auto) 0.0, Baso % (Auto) 0.7, Absolute Neuts (auto) 15.6 H, Absolute Lymphs (auto) 0.24 L, Nucleated RBC % 0, Differential Comment SCANNED, Sodium 128 L, Potassium 3.8, Chloride 96 L, Carbon Dioxide 22.0, Anion Gap 10, BUN 28 H, Creatinine 1.07 H, Estim Creat Clear Calc 27.11, Est GFR (MDRD) Af Amer 63, Est GFR (MDRD) Non-Af 52 L, BUN/Creatinine Ratio 26.2 H, Glucose 230 H, Calcium 7.9 L Micro: Microbiology 02/01/23 15:45 Nasal Secretion SARS-CoV-2 & FLU Antigen (Rapid) - Final 02/01/23 20:22 Mucosa - Nasopharyngeal Respiratory Panel (PCR) - Final RSV B 02/01/23 21:25 Urine, Clean Catch Legionella Antigen - Final 02/01/23 21:25 Urine, Clean Catch Streptococcus pneumoniae Antigen (M - Final Radiography Diagnostic Testing: Radiology Impression Chest X-Ray 02/10/23 13:55 IMPRESSION: Mild atelectatic changes in the left lung base. No new infiltrate is seen. Electronically Signed: Edwin Guerrero MD at 15:23 EDT , Rhythm Strip Rhythm Strip: Sinus Rhythm Physical Exam Narrative General: Patient alert and following commands but appears distressed HEENT: Atraumatic, normocephalic Eyes: Anicteric, normal conjunctiva, extraocular movements grossly intact Neck: Supple Respiratory: No rhonchi or wheezes, increased respiratory effort, on BiPAP Cardiovascular: Tachycardic, irregularly irregular GI: Nondistended Musculoskeletal: Moving all extremities Neuro: No overt focal neurological deficits Skin: No rashes appreciated Psych: Attempts to be cooperative, anxious Assessment & Plan Assessment/Plan (1) COPD exacerbation: PLAN: Plan #Acute hypoxic resp failure -Suspect secondary to A-fib with RVR -Patient with O2 sats low 90s on AVAPS at 100% -Address underlying etiology and wean O2, patient on Eliquis, low suspicion of PE -EKG confirms RVR -Patient given amnio bolus and drip given soft BP when given beta-saravanan or Cardizem -Continue BiPAP, stressed importance of this. Patient not given Ativan again for anxiety as concerned this will blunt her compensatory respiratory drive and worsen respiratory status -Cardiology renotified -Did have bump in white blood cell count, will check inflammatory markers and Pro-Endy, no productive cough that I am aware of, check chest x-ray with low threshold for antibiotics though again suspect cardiac etiology -Did receive 1 dose of IV Lasix overnight, do not appreciate any crackles or rhonchi, weight has also been fairly stable as an average since 02/02, does appear increased weight gain since yesterday but weight the same as on 02/08 #A-fib with RVR -Did not get a.m. Coreg or Cardizem due to low BP, back in RVR with respiratory distress -Amnio bolus and drip -Cardiology notified -Patient already taking oral Eliquis #COPD with acute exacerbation ? Secondary to RSV infection. Patient management systemic steroid bronchodilator treatment as well as antibiotic therapy ? 02/06/2023 patient remains slightly dyspneic at rest we will continue with current regimen ? 02/09/2023; remains on supplemental oxygen -02/11: Given her A-fib with RVR nebs changed ipratropium, no present wheezing, do not think a COPD is the cause of current respiratory distress given other etiology more likely and no wheezing, continue the Pred 20 mg twice daily #Elevated troponin ? Secondary to demand ischemia from above. Consult was however placed to cardiology given patient history of coronary artery disease with CABG at subsequent stent ? 02/06/2023 patient was seen in consultation again by cardiology in view of persistent chest pain with slightly elevated troponin. Cardiology recommended optimization of medical therapy -02/11: Echocardiogram this admission with stage I diastolic dysfunction and mild inferior hypokinesis, patient being medically managed. Had been receiving nitro ointment scheduled due to her chest pain on 02/05, has not received several doses due to low BP, will stop this is no present clear indication, can restart if concerns for overload #coronary artery disease ? With history of CABG and subsequent stent -02/11: Eliquis, Plavix, statin, beta-saravanan, Ranexa #Thrombocytopenia ? Monitoring with daily CBC with differential -02/11: Resolved #Diabetes mellitus type II -patient's oral hypoglycemics held. Placed on long acting insulin, Accu-Cheks a.c. and at bedtime and covered with sliding scale insulin #Hypertension - Blood pressure controlled, home medications continued with dose adjustment as needed -02/11: Has been hypotensive, hold losartan, and Amio bolus and drip for rate control #Depression with anxiety ? Patient is on SSRI #Degenerative osteoarthritis ? Patient is on leflunomide #Osteoporosis ? With history of fracture of the made metatarsal patient is on vitamin D3 supplementation and Prolia #DVT prophylaxis ? On apixaban #Dysphagia Patient was found to have choking sensation with meals. Was assessed by speech therapy recommended for GI to be consulted ? 02/07/2023; Patient scheduled to undergo EGD this am -02/08/2023;Patient underwent EGD today Findings included - Glycogenic acanthosis of the esophagus. - Large hiatal hernia. - Normal duodenal bulb. - No specimens collected. #Physical deconditioning - Requested for PT OT eval and social organization professor to assist with discharge planning ? 02/09/2023; awaiting insurance pre-CERT prior to transfer to [facility] facility Time spent in the patient's overall evaluation,decision-making process, review of diagnostic data, adjustment of management, discussion with other providers, nursing nursing and ancillary staff involved in patient's care documentation, 60 minutes Charges/Coding Visit Charges Inpatient E&M: 31488 Subs Hosp L3
[2023-02-11 08:57] LABS: Erythrocyte Sedimentation Rate 20 mm/hr (0-30)
[2023-02-11 09:23] LABS: Procalcitonin 0.36 ng/mL (0.00-0.09)
--- NOTE | 2023-02-11 09:25 | RAD_ITS ---
STUDY: X-RAY CHEST REASON FOR EXAM: Female, 88 years old. SOB, increase in Oxygen TECHNIQUE: Single AP portable view of the chest. COMPARISON: Comparison is made with prior study dated February 10, 2023. FINDINGS: EKG electrodes are seen. Progressive increased markings at the left lung base as compared to prior study suggestive of a progressive atelectasis and/or early infiltrate. Stable blunting of both cost phrenic angles with increased markings at the right lung base. Sternal cerclage wires and vascular clips are present from a prior sternotomy and coronary artery bypass graft procedure (CABG). Normal mediastinum and katie. Normal visualized pulmonary arteries. There is atherosclerotic calcification of the aortic arch with tortuosity. There are diffuse degenerative changes of the visualized thoracic spine. There is degenerative osteoarthritis of the bilateral shoulders. Hiatal hernia. RAD/Chest 1 View (Portable) IMPRESSION: Progressive increased markings at the left lung base. Stable blunting of both costophrenic angles as well as stable increased markings at the right lung base. Electronically Signed: Dwaine Munoz MD at 10:28 EDT ,
[2023-02-11] MEDS: Amiodarone 360 MG in Dextrose 5% Viaflo Bag 192.8 ML 33.3 MG CONT INF (09:35)
--- NOTE | 2023-02-11 09:37 | PCM.HOSP.N ---
Hospitalist Note Patient does have elevated CRP and mildly elevated Pro-Endy, given BP has been soft and heart rate has been elevated and difficult to control cannot rule out underlying infection, will obtain blood cultures and started on empiric Zosyn in the event this is contributing
[2023-02-11 09:40] LABS: Lactic Acid 3.1 mmol/L (0.4-1.9)
--- NOTE | 2023-02-11 10:10 | PCM.HOSP.N ---
Hospitalist Note Family still wants to proceed with treatment and management to see if any improvement in status but open to talking to hospice in the event she does not begin to improve through the morning
[2023-02-11 10:22] LABS: AST(SGOT) 62 U/L (15-37); Alanine Aminotransfer ALT/SGPT 32 U/L (13-56); Albumin, Serum 2.3 g/dL (3.2-5.0); Alkaline Phosphatase 47 U/L (45-117); Bilirubin, Direct 0.47 mg/dL (0.00-0.30); Globulin 3.6 g/dL (2.2-4.2); Protein, Total 5.9 g/dL (6.4-8.2)
--- NOTE | 2023-02-11 10:24 | CASEMGMT ---
Physician spoke with patient's daughter Kimberley and she is agreeable to Hospice. SW confirmed this with Kimberley and she would like [facility]. SW made a referral to [facility]. Pilar CONRAD
[2023-02-11 12:56] LABS: Reflex Lactate? Y
--- NOTE | 2023-02-11 13:15 | PCM.DC ---
Discharge Instructions Diet Discharge Diet: No restrictions Follow Up Care Test Results: Test results from this visit will be discussed in further detail at your follow-up appointment, if applicable. Discharge Plan Admission Admit Date/Time: 02/01/23 18:33 Primary Reason for Your Visit: AECOPD Attending Provider: Rachel Sutton Primary Care Provider: Sebastian Cleveland Consulting Providers: Philippe Ny; Rachel Sutton; Jodie Davis; Prashant Mujica; Bryson Franco; Prashant Adrian; Annie Garcia; Jalyn Morales; Tamela Benson INSPECTION MACHINE TENDER Instructions Patient Instructions: Starting Hospice Discharge Orders/Prescriptions Prescriptions: Continued (DME) blood-glucose meter [FreeStyle Lite Meter] Kit See Rx Instructions .MEDSUPPLY Qty: 1 0RF Rx Instructions: As directed, check blood glucose daily for type 2 DM tramadol 50 mg tablet 50 mg PO DAILY PRN (Reason: pain) nitroglycerin 0.4 mg tablet, sublingual 0.4 mg SUBLINGUAL Q5-15M Qty: 25 3RF albuterol sulfate [ProAir HFA] 90 mcg/actuation HFA aerosol inhaler 2 puff INHALATION Q6H PRN (Reason: Wheezing) Qty: 8.5 2RF sertraline 25 mg tablet 25 mg PO DAILY Qty: 90 1RF leflunomide 10 mg tablet 10 mg PO DAILY Patient Comments: take 1 tablet by mouth once daily acetaminophen 500 mg Tablet 1,000 mg PO Q6H PRN (Reason: Pain) tizanidine 2 mg tablet 2 mg PO Q8H PRN (Reason: muscle spasm) (DME) FreeStyle Lite Strips Strip See Rx Instructions .ROUTE .COMPLEX Qty: 100 3RF Dose Instruction: CHECK BLOOD GLUCOSE DAILY Rx Instructions: CHECK BLOOD GLUCOSE DAILY prednisone 5 mg tablet 10 mg PO DAILY Patient Comments: takes 5mg (DME) lancets [FreeStyle Lancets] 28 gauge misc See Rx Instructions .ROUTE .COMPLEX Qty: 200 1RF Dose Instruction: use as directed once daily to CHECK BLOOD GLUCOSE Rx Instructions: use as directed once daily to CHECK BLOOD GLUCOSE Discontinued Eliquis 5 mg tablet 5 mg PO BID Qty: 60 11RF cholecalciferol (vitamin D3) 25 mcg (1,000 unit) Capsule 25 mcg PO DAILY calcium carbonate 500 mg calcium (1,250 mg) tablet 500 mg PO BID Prolia 60 mg/mL syringe 60 mg subcut [id number] Qty: 1 1RF glimepiride 1 mg tablet 1 mg PO QAM Qty: 90 2RF Rx Instructions: administer with breakfast ranolazine [Ranexa] 500 mg tablet extended release 12 hr 500 mg PO BID Qty: 180 3RF amlodipine 10 mg tablet 10 mg PO DAILY Qty: 30 11RF isosorbide mononitrate 30 mg tablet extended release 24 hr 30 mg PO BID Qty: 180 3RF carvedilol 12.5 mg tablet 12.5 mg PO BID Qty: 60 11RF Rx Instructions: must administer with a meal/food rosuvastatin 20 mg tablet 20 mg PO DAILY Qty: 90 3RF Referrals / Follow Up: Sebastian Cleveland MD [Primary Care Provider] - Disposition Disposition (needs filled in before D/C Order can be placed): Hospice in Medical Facility
--- NOTE | 2023-02-11 13:18 | DS.PCM_ITS ---
Providers Date of Admission: 02/01/23 Date of Discharge: 02/11/23 Primary Care Physician: Dr. Sebastian Cleveland MD Consultations 02/03/23 08:17 Consult: Cardiology Routine Consulting Provider: Jodie Davis Reason for Consult: Chest pain, elevated troponins EMERGENT Consult: No MD Notified: Yes Date Notified: 02/03/23 Time Notified: 08:29 Method of Notification: Text 02/04/23 13:55 Consult: Gastroenterology Routine Consulting Provider: [facility] Reason for Consult: esophageal hernia, difficulty swallowing EMERGENT Consult: No MD Notified: Yes Date Notified: 02/04/23 Time Notified: 13:56 Method of Notification: Text 02/11/23 08:42 Consult: Cardiology Routine Consulting Provider: Bryson Franco Reason for Consult: reconsult new problem, not in afib rvr, resp distress EMERGENT Consult: No Notified: Yes Date Notified: 02/11/23 Time Notified: 08:42 Method of Notification: Text 02/11/23 10:10 Consult: Hospice / Palliative Care Routine Consulting Provider: [facility] Reason for Consult: end of life, poor prognosis EMERGENT Consult: No Notified: Yes Date Notified: 02/11/23 Time Notified: 10:10 Method of Notification: Answering Service Reason For Visit: COPD EXA Diagnosis Discharge Diagnosis (1) COPD exacerbation: Status: Chronic Code(s): J44.1 - Chronic obstructive pulmonary disease with (acute) exacerbation Plan #Acute hypoxic resp failure- Suspect secondary to A-fib with RVR #A-fib with RVR #COPD with acute exacerbation 2/2 RSV #Elevated troponin- suspected type II nstemi 2/2 resp distress #coronary artery disease- With history of CABG and subsequent stent #Thrombocytopenia- resolved #Diabetes mellitus type II #Hypertension #Depression with anxiety #Degenerative osteoarthritis #Osteoporosis #Dysphagia #Physical deconditioning Medications at Discharge Home Medications acetaminophen 500 mg tablet 1,000 mg PO Q6H PRN Pain 09/07/21 leflunomide 10 mg tablet 10 mg PO DAILY ARTHRITIS 09/07/21 nitroglycerin 0.4 mg sublingual tablet 0.4 mg sublingual Q5-15M chest pain #25 tabs 09/18/21 blood-glucose meter (FreeStyle Lite Meter kit) #1 ea 10/31/21 tramadol 50 mg tablet 50 mg PO DAILY PRN pain 06/05/22 sertraline 25 mg tablet 25 mg PO DAILY #90 tabs 06/12/22 blood sugar diagnostic (FreeStyle Lite Strips) #100 strips 10/22/22 albuterol sulfate 90 mcg/actuation aerosol inhaler (ProAir HFA) 2 puff in halation Q6H PRN Wheezing #8.5 grams 10/30/22 prednisone 5 mg tablet 10 mg PO DAILY 10/30/22 lancets 28 gauge (FreeStyle Lancets) #200 ea 01/14/23 tizanidine 2 mg tablet 2 mg PO Q8H PRN muscle spasm 02/01/23 Hospital Course Procedures - (egd) Summary of Care Provided Minutes Spent on Discharge: 60 Hospital Course: Patient is an 88-year-old female with history of COPD, degenerative osteoarthritis, chronic diastolic heart failure with preserved ejection f raction, hypertension, type 2 diabetes mellitus who presented to [facility] 02/01/2023 with increased shortness of breath and fatigue over 1 week and was found to be in an acute exacerbation of COPD secondary to RSV and was given bronchodilators and nebs/supportive care. Patient's hospital stay was complicated by an episode of chest pain with elevated troponin given her history and reported symptoms. She was seen in consult cardiology but it was felt that optimizing medical therapy was preferable. Medications adjusted. Patient improved from a respiratory standpoint however was physically deconditioned and plan was to go to TCU however the day before discharge she went into A-fib with RVR. She was given Cardizem boluses overnight with only temporary relief and drop in BP. In the a.m. she was placed on BiPAP due to respiratory distress and was started on Amio bolus and drip and cardiology renotified. Had extensive discussion with daughter at bedside and they requested hospice consult as they have been talking about it as a family and believe that this would be consistent with her wishes. Hospice consulted and ultimately patient deemed appropriate for inpatient hospice. Physical Exam Narrative General: Patient alert and following commands but appears distressed HEENT: Atraumatic, normocephalic Eyes: Anicteric, normal conjunctiva, extraocular movements grossly intact Neck: Supple Respiratory: No rhonchi or wheezes, increased respiratory effort, on BiPAP Cardiovascular: Tachycardic, irregularly irregular GI: Nondistended Musculoskeletal: Moving all extremities Neuro: No overt focal neurological deficits Skin: No rashes appreciated Psych: Attempts to be cooperative, anxious Weight / BMI Weight Weight: 64.5 kg Body Mass Index (BMI) 27.7 ABG / Lab / Microbiology Data 02/11/23 05:45 02/11/23 05:45 Laboratory: Laboratory Results - last 24 hr 02/10/23 16:02: POC Glucose 178 H 02/10/23 21:05: POC Glucose 279 H 02/11/23 05:22: POC Glucose 234 H 02/11/23 05:45: WBC 16.4 H, RBC 4.16 L, Hgb 13.0, Hct 38.4, MCV 92.3, MCH 31.3, MCHC 33.9, RDW Std Deviation 46.9 H, RDW Coeff of Raza 13.7, Plt Count 187, MPV 11.1, Immature Gran % (Auto) 0.600, Neut % (Auto) 95.1 H, Lymph % (Auto) 1.5 L, [place] % (Auto) 2.1, Eos % (Auto) 0.0, Baso % (Auto) 0.7, Absolute Neuts (auto) 15.6 H, Absolute Lymphs (auto) 0.24 L, Nucleated RBC % 0, Differential Comment SCANNED, ESR 20, Sodium 128 L, Potassium 3.8, Chloride 96 L, Carbon Dioxide 22.0, Anion Gap 10, BUN 28 H, Creatinine 1.07 H, Estim Creat Clear Calc 27.11, Est GFR (MDRD) Af Amer 63, Est GFR (MDRD) Non-Af 52 L, BUN/Creatinine Ratio 26.2 H, Glucose 230 H, Calcium 7.9 L, Total Bilirubin 1.10 H, Direct Bilirubin 0.47 H , AST 62 H, ALT 32, Alkaline Phosphatase 47, C-React Prot Ext Range 113.00 H, Total Protein 5.9 L, Albumin 2.3 L, Globulin 3.6 02/11/23 08:48: Lactic Acid 3.1 H*, Procalcitonin 0.36 H Microbiology: Microbiology 02/01/23 15:45 Nasal Secretion SARS-CoV-2 & FLU Antigen (Rapid) - Final 02/01/23 20:22 Mucosa - Nasopharyngeal Respiratory Panel (PCR) - Final RSV B 02/01/23 21:25 Urine, Clean Catch Legionella Antigen - Final 02/01/23 21:25 Urine, Clean Catch Streptococcus pneumoniae Antigen (M - Final Radiography Diagnostic Testing: Radiology Impression Chest X-Ray 02/10/23 13:55 IMPRESSION: Mild atelectatic changes in the left lung base. No new infiltrate is seen. Electronically Signed: Edwin Guerrero MD at 15:23 EDT , Chest X-Ray 02/11/23 09:25 IMPRESSION: Progressive increased markings at the left lung base. Stable blunting of both costophrenic angles as well as stable increased markings at the right lung base. Electronically Signed: Dwaine Munoz MD at 10:28 EDT , D/C Instructions Discharge Diet: No restrictions Meaningful Use Info Meaningful Use Diagnoses (Choose all that apply): None applicable Discharge Plan Admission Admit Date/Time: 02/01/23 18:33 Primary Reason for Your Visit: AECOPD Attending Provider: Rachel Sutton Primary Care Provider: Sebastian Cleveland Consulting Providers: Philippe Ny; Rachel Sutton; Jodie Davis; Prashant Mujica; Bryson Franco; Prashant Adrian; Annie Garcia; Jalyn Morales; Tamela Benson REVENUE STAMP CUTTER Instructions Patient Instructions: Starting Hospice Discharge Orders/Prescriptions Prescriptions: Continued (DME) blood-glucose meter [FreeStyle Lite Meter] Kit See Rx Instructions .MEDSUPPLY Qty: 1 0RF Rx Instructions: As directed, check blood glucose daily for type 2 DM tramadol 50 mg tablet 50 mg PO DAILY PRN (Reason: pain) nitroglycerin 0.4 mg tablet, sublingual 0.4 mg SUBLINGUAL Q5-15M Qty: 25 3RF albuterol sulfate [ProAir HFA] 90 mcg/actuation HFA aerosol inhaler 2 puff INHALATION Q6H PRN (Reason: Wheezing) Qty: 8.5 2RF sertraline 25 mg tablet 25 mg PO DAILY Qty: 90 1RF leflunomide 10 mg tablet 10 mg PO DAILY Patient Comments: take 1 tablet by mouth once daily acetaminophen 500 mg Tablet 1,000 mg PO Q6H PRN (Reason: Pain) tizanidine 2 mg tablet 2 mg PO Q8H PRN (Reason: muscle spasm) (DME) FreeStyle Lite Strips Strip See Rx Instructions .ROUTE .COMPLEX Qty: 100 3RF Dose Instruction: CHECK BLOOD GLUCOSE DAILY Rx Instructions: CHECK BLOOD GLUCOSE DAILY prednisone 5 mg tablet 10 mg PO DAILY Patient Comments: takes 5mg (DME) lancets [FreeStyle Lancets] 28 gauge misc See Rx Instructions .ROUTE .COMPLEX Qty: 200 1RF Dose Instruction: use as directed once daily to CHECK BLOOD GLUCOSE Rx Instructions: use as directed once daily to CHECK BLOOD GLUCOSE Discontinued Eliquis 5 mg tablet 5 mg PO BID Qty: 60 11RF cholecalciferol (vitamin D3) 25 mcg (1,000 unit) Capsule 25 mcg PO DAILY calcium carbonate 500 mg calcium (1,250 mg) tablet 500 mg PO BID Prolia 60 mg/mL syringe 60 mg subcut [id number] Qty: 1 1RF glimepiride 1 mg tablet 1 mg PO QAM Qty: 90 2RF Rx Instructions: administer with breakfast ranolazine [Ranexa] 500 mg tablet extended release 12 hr 500 mg PO BID Qty: 180 3RF amlodipine 10 mg tablet 10 mg PO DAILY Qty: 30 11RF isosorbide mononitrate 30 mg tablet extended release 24 hr 30 mg PO BID Qty: 180 3RF carvedilol 12.5 mg tablet 12.5 mg PO BID Qty: 60 11RF Rx Instructions: must administer with a meal/food rosuvastatin 20 mg tablet 20 mg PO DAILY Qty: 90 3RF Referrals / Follow Up: Sebastian Cleveland MD [Primary Care Provider] - Disposition Disposition (needs filled in before D/C Order can be placed): Hospice in Medical Facility Charges/Coding Visit Charges Inpatient E&M: 40778 Disch Hosp >30min
--- NOTE | 2023-02-11 13:37 | CASEMGMT ---
Patient and family signed Hospice papers and want patient moved to the inpatient unit. SW notified physician. SW called [facility] and arranged for patient to get picked up at 230 via cot and continuous bi-pap. SW notified RN, hemodialysis charge nurse, receptionist secretary, and patient's family. SW also sent d/c instructions, picker / packer time, and DNR to [facility]. Plan: d/c to the inpatient Hospice unit. [facility] will transport patient via cot and continuous bi-pap. Pilar Culver MORTGAGE LOAN COUNSELORPreston CONRAD
--- NOTE | 2023-02-11 14:21 | NURSING ---
Report called to hospice social worker Kelsey at [facility].
[2023-02-11] MEDS: LORazepam 2 MG/ML Bottle 0.5 MG SL (14:30)
--- NOTE | 2023-02-11 15:31 | CHAPLAIN ---
Type of Pastoral Visit _x__ Initial Visit ___ Follow-up Visit ___ On-call Visit ___ General Patient Visit ___ Spiritual Assessment _x__ Family Conference ___ Bereavement ___ Rapid Response ___ Code Blue ___ Other (describe below) Pastoral Care Referral From ___ Patient _x__ Family ___ Nurse ___ Physician ___ Prop And Scenery Maker ___ Chef De Froid ___ Other (describe below) Sacrament/Intervention _x__ Active listening ___ Anointing ___ Anabaptist ___ Bereavement ___ Communion ___ Jenny exploration ___ ___ Life review ___ Prayer ___ Reconciliation ___ Sacrament of Sick _x__ Supportive presence ___ Wedding ___ Other (describe below) Pastoral Comments several family members have gathered in patient's room; three members of family come out of room to talk with this paint prepper; family welcomes prayers and spiritual support but indicate that pt is so anxious and having difficulty breathing that a visit is not advised at this time by their choice; hospice is ready to come and transport patient; family members are appropriately emotional but also indicate that they are ready for pt is as she is suffering; offer of presence and silent prayers in hallway were given
== END 2023-02-11 15:15 | disposition hospice, inpatient (51) | DRG 190 ==
LOC: ED 18:37 → MS3 18:53 → PCU 02-05 14:42
PROVIDERS: Anesthesiology; Family Medicine; Hospitalist; Internal Medicine; Internal Medicine Gastroenterology; Admitting Provider Internal Medicine; Emergency Provider Emergency Medicine; PCP Family Medicine; Referring Provider Internal Medicine; Visit Provider Internal Medicine
PROC: 0DJ08ZZ Inspection of Upper Intestinal Tract, Via Natural or Artificial Opening Endoscopic (ICD-10-PCS; CPT 43235; principal; 2023-02-07 10:55)
DX: J44.1 Chronic obstructive pulmonary disease with (acute) exacerbation (principal); J96.01 Acute respiratory failure with hypoxia; I24.8 Other forms of acute ischemic heart disease; I50.32 Chronic diastolic (congestive) heart failure; D69.6 Thrombocytopenia, unspecified; B97.4 Respiratory syncytial virus as the cause of diseases classified elsewhere; R13.13 Dysphagia, pharyngeal phase; E11.51 Type 2 diabetes mellitus with diabetic peripheral angiopathy without gangrene; I11.0 Hypertensive heart disease with heart failure; I70.212 Atherosclerosis of native arteries of extremities with intermittent claudication, left leg; J44.0 Chronic obstructive pulmonary disease with (acute) lower respiratory infection; I48.0 Paroxysmal atrial fibrillation; Z79.4 Long term (current) use of insulin; F32.A Depression, unspecified; D72.819 Decreased white blood cell count, unspecified; E78.5 Hyperlipidemia, unspecified; I25.10 Atherosclerotic heart disease of native coronary artery without angina pectoris; M19.90 Unspecified osteoarthritis, unspecified site; F41.8 Other specified anxiety disorders; K44.9 Diaphragmatic hernia without obstruction or gangrene; K22.4 Dyskinesia of esophagus; J22 Unspecified acute lower respiratory infection; Z87.891 Personal history of nicotine dependence; M81.0 Age-related osteoporosis without current pathological fracture; Z79.01 Long term (current) use of anticoagulants; Z51.5 Encounter for palliative care; Z79.2 Long term (current) use of antibiotics; Z95.5 Presence of coronary angioplasty implant and graft; Z66 Do not resuscitate; Z95.1 Presence of aortocoronary bypass graft
CPT/HCPCS: 36415; 71045; 74230; 80048; 80076; 82274; 82962; 83036; 83605; 83735; 83880; 84100; 84145; 84484; 85025; 85027; 85652; 86140; 87428; 87449; 87633; 87811; 92526; 92610; 92611; 93005; 93306; 94002; 94640; 94668; 94762; 97110; 97161; 97162; 97165; 97166; 97530; 97535; 97802; 97803; 99252; 99283; J7040; J7120; Q9957; A4216; C8929; G0463; J1940; J2405